=== PATIENT | female | born 1995 | race Caucasian/White ===

== ENCOUNTER 2024-06-17 18:41 | Inpatient (IN) | payer MEDICAID, SELFPAY ==
[2024-06-17 18:42] VITALS: BP 140/107; PULSE 104; RESP 18; TEMP 35.8; O2SAT 99; BMI 27.6
[2024-06-17 19:24] LABS: Absolute Lymphocyte Count 2.88 X10^3/uL (0.83-4.51); Absolute Neutrophil Count 8.1 X10^3/uL (2.0-7.7); Basophil# 0.07 X10^3/uL; Basophil% 0.6 % (0-1); Eosinophil# 0.03 X10^3/uL; Eosinophils% 0.2 % (0-5); Hemoglobin 15.8 g/dL (12.0-15.0); Lymphocyte # 2.88 X10^3/ul (0.83-4.51); Lymphocyte % 23.9 % (19-41); Mean Corp Hgb Conc 34.3 g/dL (32-36); Mean Corpuscular Hgb 33.4 pg (27.0-32.0); Mean Corpuscular Volume 97.3 fL (81-99); Mean Platelet Vol. 10.1 fl (6.2-12.0); Monocyte% 7.5 % (0-10); NRBC Flagged by Analyzer 0 % (0-5); Neutrophil # 8.11 X10^3/uL (2.7-7.7); Neutrophil % 67.5 % (47-70); Platelet Count 403 K/mm3 (150-450); RBC Distribution Width CV 13.2 % (11.6-14.6); RBC Distribution Width SD 47.4 fl (35.1-43.9); Red Blood Count 4.73 M/mm3 (4.2-5.4)
[2024-06-17 19:32] LABS: Internal QC Validated? YES +Cl - CLEAR BKGD; Pregnancy, Serum, hCG Quali. NEGATIVE Negative
[2024-06-17 19:36] LABS: Mucous, Urine 0 SEEN /hpf (<or=2+)
[2024-06-17 19:37] LABS: Color, Urine Yellow (Yellow); Glucose, Dipstick Normal (Normal); Ketone-Dipstick 50 mg/dl (Negative); Leukocyte Esterase-Dipstick 25 /ul (Negative); Nitrite-Dipstick Negative (Negative); Occult Blood-Urine 10 /ul (Negative); Protein-Dipstick 30 mg/dl (Negative); Urine Bilirubin Dipstick Negative (Negative); Urine Clarity Sl. Cloudy (Clear); Urine Urobilinogen 1 mg/dl (Normal)
[2024-06-17 19:40] LABS: Alcohol, Blood (Medical)-Serum < 3.0 mg/dL
[2024-06-17 19:41] VITALS: BP 143/94; PULSE 100; RESP 18; O2SAT 97
[2024-06-17 19:41] LABS: ALB/GLOB Ratio 1.1 RATIO (0.9-2.4); AST(SGOT) 28 U/L (15-37); Alanine Aminotransfer ALT/SGPT 31 U/L (13-56); Albumin, Serum 4.6 g/dL (3.2-5.0); Alkaline Phosphatase 85 U/L (45-117); Anion Gap 10 (5-15); BUN 17 mg/dL (7-18); BUN/Creat Ratio 15.7 RATIO (10-20); Calcium,Total 9.5 mg/dL (8.5-10.1); Chloride 102 mmol/L (98-107); Creatinine, Serum 1.08 mg/dL (0.55-1.02); EST Glomerular Filtration Rate 63 mL/min (>60); Est Glom Filt Rate - Afr Amer 77 mL/min (>60); Globulin 4.1 g/dL (2.2-4.2); Glucose 94 mg/dL (74-106); Potassium 3.6 mmol/L (3.5-5.1); Protein, Total 8.7 g/dL (6.4-8.2); Sodium Level 138 mmol/L (136-145)
[2024-06-17 19:45] LABS: Amphetamine Urine VISTA NEGATIVE (<1000 ng/mL); Barbiturate Urine VISTA NEGATIVE (< 200 ng/mL); Benzodiazepine Urine VISTA NEGATIVE (< 200 ng/mL); Cocaine Urine VISTA NEGATIVE (< 300 ng/mL); Ecstacy Urine VISTA NEGATIVE (< 500 ng/mL); Methadone Urine VISTA NEGATIVE (< 300 ng/mL); PCP Urine VISTA NEGATIVE (< 25 ng/mL); THC Urine VISTA NEGATIVE (< 50 ng/mL); Vista UDS pH Range 6
[2024-06-17 19:51] LABS: Lithium < 0.20 mmol/L (0.60-1.20)
[2024-06-17 19:52] VITALS: BP 143/94; PULSE 100; RESP 18; TEMP 36.6; O2SAT 97
--- NOTE | 2024-06-17 19:53 | PCM.HP.STD ---
HPI - General General Date of Admission: 06/17/24 Date of Service: 06/17/24 Chief Complaint: EtOH withdrawal, requesting detoxification program. HPI Narrative The patient is a 29 y/o F w/ PMHx: Anxiety and Depression/Bipolar disorder, EtOH abuse, Nicotine Vaping products with prior cigarette tobacco use remotely who presents to the [facility] ED on 06/17/2024 w/ noted acute EtOH withdrawal, onset starting on day of presentation following last EtOH intake the day prior at ~ 3 pm in the afternoon to current presentation with recommendation per 180 to present to the ED for evaluation with onset of nausea, mild tremors, mild restlessness/agitation. Patient interested in attaining sober status. She notes she most recently had been sober for at least 2 months. Patient is adopted and currently living with her adoptive parents. She does not have any connection with her biological parents but is aware of their medical history and they both have significant medical history in addition to history of polysubstance abuse and alcohol abuse. 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 She does report recent significant increase stress. Workup in the ED included T96.4, heart 114, BP 140/107, respiratory 18, 99% on room air, CBC with WBC 12, human 15.8, platelet 403 with left shift, CMP with BUN/creatinine 17/1.08, GFR 63, hepatic profile not marked appearing, serum testing negative, urinalysis pending upon request evaluation of patient, UDS negative, lithium level pending per ED, ethyl alcohol less than 3. [facility] Medical History Vaping nicotine dependence, tobacco product Anxiety and depression Alcohol abuse Bipolar disorder Home Medications ?Medication ?Instructions ?Recorded ?Last Taken ?Type aripiprazole 15 mg tablet 15 mg PO DAILY 06/17/24 Unknown History bupropion HCl 150 mg tablet,12 hr 150 mg PO BID 06/17/24 Unknown History sustained-release lithium carbonate 300 mg capsule 300 mg PO TID 06/17/24 Unknown History melatonin 10 mg capsule 10 mg PO QHS 06/17/24 Unknown History trazodone 50 mg tablet 50 mg PO QHS 06/17/24 Unknown History Allergy/AdvReac Type Severity Reaction Status Date / Time No Known Allergies Allergy Verified 06/17/24 18:42 Family History (Updated 06/17/24 @ 20:[address] Belén Pete MD) Mother CAD (coronary artery disease) Heart disease Hypertension Diabetes Polysubstance abuse Alcohol abuse Father CAD (coronary artery disease) Heart disease Hypertension Polysubstance abuse Alcohol abuse Surgical History (Updated 06/17/24 @ 20:[address] Belén Pete MD) S/P tympanic tube insertion History of adenoidectomy Social History (Updated 06/17/24 @ 20:[address] Belén Pete MD) household members: family and other details: Living with her adoptive parents. Smoking Status: Former smoker Electronic Cigarette Use: with nicotine how long ago did patient quit smoking: Quit cigarette tobacco usage 70 years prior, transition to heavy vaping. alcohol intake: current alcohol intake frequency: 3 or more drinks per day Alcohol type: wine and hard liquor details: 1-2 bottles wine daily versus 5-6 mixed hard drinks. substance use type: does not use ROS ROS Narrative Admission Review of Systems: CONSTITUTIONAL: No weight loss, fever, chills, + weakness or fatigue. HEENT: Eyes: No visual loss, blurred vision, double vision or yellow sclerae. Ears, Nose, Throat: No hearing loss, sneezing, congestion, runny nose or sore throat. SKIN: No rash or itching, lesions, wounds. CARDIOVASCULAR: No chest pain, chest pressure or chest discomfort, palpitations, edema, orthopnea, syncopal events. RESPIRATORY: No shortness of breath, cough or sputum, wheezing, hemoptysis. GASTROINTESTINAL: + Mild lack of appetite, nausea. No vomiting or diarrhea, abdominal pain, melena, BRBPR. GENITOURINARY: No dysuria, frequency, urgency or retention. NEUROLOGICAL: + Restlessness, tactile disturbances, mild tremors no headache, dizziness, syncope, paralysis, ataxia, numbness or tingling in the extremities, focal weakness, change in bowel or bladder control, seizure. MUSCULOSKELETAL: + muscle, back pain, joint pain or stiffness. HEMATOLOGIC: No anemia, bleeding or bruising. LYMPHATICS: No enlarged nodes. No history of splenectomy. PSYCHIATRIC: + History of anxiety and depression/bipolar disorder. ENDOCRINOLOGIC: No reports of sweating, cold or heat intolerance. No polyuria or polydipsia. ALLERGIES: No history of asthma, hives, eczema or rhinitis. Vital Signs Vital Signs Vital Signs: 06/17/24 18:42 06/17/24 19:41 06/17/24 19:52 Temperature 96.4 F L 97.9 F Temperature Source Temporal Pulse Rate 104 H 100 100 Respiratory Rate 18 18 18 Blood Pressure 140/107 H 143/94 H 143/94 H Blood Pressure Mean 118 110 110 Pulse Ox 99 97 97 Oxygen Delivery Method Room Air Room Air Weight Weight: 156 lb 4.8 oz Body Mass Index (BMI) 27.6 Physical Exam Narrative Physical Examination: General: Awake, alert, oriented x 3 and cooperative, seated upright in the ED bed, fatigued appearing, mildly restless, tremulous. Skin: Normal color, normal turgor, no icterus, no cyanosis except occasional stage ecchymoses HEENT: AT/NC, EOMI, PERRLA, dry MM, no carotid bruits or JVD noted. Lungs: CTA bilaterally, moderate effort, mild decrease BL bases, no rales, ronchi or wheezing. Heart: Mildly tachycardic with rhythm; no gallop, rub audible. Abdomen: Soft, NTTP, ND, mildly hyperactive BS, no appreciated HSM. Extremities: No cyanosis, clubbing, or edema. Neurological: Patient awake, alert, oriented as noted cognitive function intact; pupils equally reactive to light and accommodation, cranial nerves grossly normal, moving all 4 extremities, no focal deficits, strength mildly to moderately globally decreased secondary to acute withdrawal presentation, mildly restless, mild tremors noted. Psychiatric: Affect appears fatigued, mildly tearful during evaluation, does have underlying anxiety and depression/bipolar disorder and was recently off her medication. Results Lab / Micro Data 06/17/24 19:04 06/17/24 19:04 Labs: Laboratory Results - last 24 hr 06/17/24 19:04: WBC 12.0 H, RBC 4.73, Hgb 15.8 H, Hct 46.0, MCV 97.3, MCH 33.4 H, MCHC 34.3, RDW Std Deviation 47.4 H, RDW Coeff of [place] 13.2, Plt Count 403, MPV 10.1, Immature Gran % (Auto) 0.300, Neut % (Auto) 67.5, Lymph % (Auto) 23.9, [place] % (Auto) 7.5, Eos % (Auto) 0.2, Baso % (Auto) 0.6, Absolute Neuts (auto) 8.1 H, Absolute Lymphs (auto) 2.88, Nucleated RBC % 0, Sodium 138, Potassium 3.6, Chloride 102, Carbon Dioxide 27.0, Anion Gap 10, BUN 17, Creatinine 1.08 H, Estim Creat Clear Calc 71.90, Est GFR (MDRD) Af Amer 77, Est GFR (MDRD) Non-Af 63, BUN/Creatinine Ratio 15.7, Glucose 94, Calcium 9.5, Total Bilirubin 0.60, AST 28, ALT 31, Alkaline Phosphatase 85, Total Protein 8.7 H, Albumin 4.6, Globulin 4.1, Albumin/Globulin Ratio 1.1, Serum , Qual NEGATIVE, Urine Opiates Screen NEGATIVE, Urine Methadone Screen NEGATIVE, Ur Barbiturates Screen NEGATIVE, Ur Phencyclidine Scrn NEGATIVE, Ur Amphetamines Screen NEGATIVE, MDMA (Ecstasy) Screen NEGATIVE, U Benzodiazepines Scrn NEGATIVE, [place] < 0.20 L, Urine Cocaine Screen NEGATIVE, U Cannabinoids Screen NEGATIVE, Ur Drug Screen Comment , Ethyl Alcohol < 3.0 Assessment & Plan Assessment/Plan (1) Alcohol withdrawal: PLAN: Plan The patient is a 29 y/o F w/ PMHx: Anxiety and Depression/Bipolar disorder, EtOH abuse who presents to the [facility] ED on 06/17/2024 w/ noted acute EtOH withdrawal. #1. Acute EtOH Withdrawal: Will admit to [facility], routine labs obtained in the ED upon presentation as noted. Given interest in sobriety, will initiate and continue on protocol with taper course of Phenobarbital, as needed gabapentin, Catapres, Bentyl, Vistaril, IV fluids, IV antiemetics, Tylenol as needed for pain. Will consult Case management for assistance for transition to next level of rehabilitation care. Mag, phos pending. Maintain on CIWA protocol concurrently. #2. Mild leukocytosis with a left shift: CBC with WC 12 with left shift, afebrile, possibly dehydration related, will repeat CMP in the a.m. to be certain, urinalysis was obtained per ED but the patient has had no recent urinary symptoms of note. Suspected acute renal insufficiency/elevated creatinine with reduced GFR 63, potentially related with acute presentation with dehydration: Admission BUN/can 17/1.08, GFR 63, given age of 29 suspect this is likely more acute, will hydrate per substance abuse order set protocol and repeat CMP in a.m. to be certain. #3. Anxiety and depression/bipolar disorder: She notes she has been off her medications recently when she relapsed but has restarted them. [place] level pending per ED. Will continue recently resumed bupropion, aripiprazole and lithium regimen but will need follow-up with psychiatry/psychology with counseling as certainly coming off these medications could have sent her into a manic/depressive phase and resulted in drinking again. Given current presentation will temporally hold trazodone and utilize the higher dose regimen per substance abuse order set protocol. #4. Tobacco Abuse: Encouraged cessation, inpatient consultation per RT, NR if desired. #5. DVT prophylaxis: Low risk for type of presentation. Charges/Coding Visit Charges Inpatient E&M: 88551 Init Hosp L3
--- NOTE | 2024-06-17 19:55 | EX.ED.DYSGE1 ---
HPI History of Present Illness Chief Complaint: Substance Abuse Narrative Narrative: Patient is a 29-year-old female with a past medical history of anxiety, depression, bipolar disorder, alcohol abuse who presents to the emergency department the chief complaint of wanting alcohol detox. Patient states that she was sober for 2 months and recently relapsed. States that she drinks wine daily and states that she has had increased drinking the past week including a bottle of wine a day. She states that her last drink was yesterday around 3 PM in the afternoon. Patient states that she has never had a seizure after stopping drinking. Patient states that she has not been taking her medications for a significant mount time. Patient notes that she has been under a lot of stress lately. [facility] Medical History Vaping nicotine dependence, tobacco product Anxiety and depression Alcohol abuse Bipolar disorder Home Medications ?Medication ?Instructions ?Recorded ?Last Taken ?Type aripiprazole 15 mg tablet 15 mg PO DAILY 06/17/24 Unknown History bupropion HCl 150 mg tablet,12 hr 150 mg PO BID 06/17/24 Unknown History sustained-release lithium carbonate 300 mg capsule 300 mg PO TID 06/17/24 Unknown History melatonin 10 mg capsule 10 mg PO QHS 06/17/24 Unknown History trazodone 50 mg tablet 50 mg PO QHS 06/17/24 Unknown History Allergy/AdvReac Type Severity Reaction Status Date / Time No Known Allergies Allergy Verified 06/17/24 18:42 Social History Smoking Status: Current every day smoker tobacco type: e-cigarettes ROS ROS ED ROS Narrative Constitutional: Denies any fevers, chills, headaches, lightness, dizziness Cardiovascular: Denies chest pain or palpitations Respiratory: Denies shortness of breath Abdomen: Denies abdominal pain nausea vomit diarrhea : Denies any urinary symptoms Neurological: Denies any numbness, weakness, tingling Musculoskeletal: Denies back pain Skin: Denies rashes or lesions EXAM Physical Exam Narrative Exam Narrative: General: Patient lying in bed rest comfortably did not appear to be in acute distress Head: Atraumatic, normocephalic Eyes: PERRL bilaterally, EOMI bilateral, no conjunctival injection noted Neck: Soft, supple, trachea midline Cardiovascular: Regular rate and rhythm Respiratory: Clear to auscultation bilaterally Abdomen: Soft, nondistended, nontender to palpation Extremities: +5/5 strength noted in the bilateral upper and lower extremities Neurological: Patient follow commands knew that she was at [facility] year is 2024 Skin: Warm, dry, intact Const Vital Signs: 06/17/24 18:42 06/17/24 19:41 06/17/24 19:52 Temperature 96.4 F L 97.9 F Temperature Source Temporal Pulse Rate 104 H 100 100 Respiratory Rate 18 18 18 Blood Pressure 140/107 H 143/94 H 143/94 H Blood Pressure Mean 118 110 110 Pulse Ox 99 97 97 Oxygen Delivery Method Room Air Room Air MDM MDM MDM Narrative Medical decision making narrative: Patient is a 29-year-old female who presents to the emergency department the chief complaint of wanting alcohol detox. Patient be medically cleared and then case will be discussed with hospitalist for admission. Patient's CBC reviewed showed a white blood count of 12,000, hemoglobin 15.8, platelet count was noted to be normal at 403. Patient sodium normal at 138, potassium normal at 3.6, creatinine was 1.08. Patient's AST and ALT were 28 and 31 respectively. Patient test negative, drug screen negative, lithium was less than 0.20 alcohol level less than 3. Patient's urinalysis pending. Did discuss case with hospitalist Dr. Pete who accept patient for admission. Patient was notified is agreeable to plan all question concerns answered at bedside. Patient is requesting something for headache should be given a gram of Tylenol. Lab Data Labs: Laboratory Results - last 24 hr 06/17/24 19:04 WBC 12.0 H RBC 4.73 Hgb 15.8 H Hct 46.0 MCV 97.3 MCH 33.4 H MCHC 34.3 RDW Std Deviation 47.4 H RDW Coeff of [place] 13.2 Plt Count 403 MPV 10.1 Immature Gran % (Auto) 0.300 Neut % (Auto) 67.5 Lymph % (Auto) 23.9 [place] % (Auto) 7.5 Eos % (Auto) 0.2 Baso % (Auto) 0.6 Absolute Neuts (auto) 8.1 H Absolute Lymphs (auto) 2.88 Nucleated RBC % 0 Sodium 138 Potassium 3.6 Chloride 102 Carbon Dioxide 27.0 Anion Gap 10 BUN 17 Creatinine 1.08 H Estim Creat Clear Calc 71.90 Est GFR (MDRD) Af Amer 77 Est GFR (MDRD) Non-Af 63 BUN/Creatinine Ratio 15.7 Glucose 94 Calcium 9.5 Total Bilirubin 0.60 AST 28 ALT 31 Alkaline Phosphatase 85 Total Protein 8.7 H Albumin 4.6 Globulin 4.1 Albumin/Globulin Ratio 1.1 Serum , Qual NEGATIVE Urine Opiates Screen NEGATIVE Urine Methadone Screen NEGATIVE Ur Barbiturates Screen NEGATIVE Ur Phencyclidine Scrn NEGATIVE Ur Amphetamines Screen NEGATIVE MDMA (Ecstasy) Screen NEGATIVE U Benzodiazepines Scrn NEGATIVE [place] < 0.20 L Urine Cocaine Screen NEGATIVE U Cannabinoids Screen NEGATIVE Ur Drug Screen Comment Ethyl Alcohol < 3.0 Discharge Plan Triage Chief Complaint: Substance Abuse ED Provider: Kvng Sandoval Dx/Rx/DC Orders Clinical Impression: Alcohol abuse Prescriptions: No Action bupropion HCl 150 mg tablet sustained-release 12 hr 150 mg PO BID trazodone 50 mg tablet 50 mg PO QHS lithium carbonate 300 mg capsule 300 mg PO TID aripiprazole 15 mg tablet 15 mg PO DAILY melatonin 10 mg capsule 10 mg PO QHS Primary Care Provider: Care Physician,No Primary Referrals: Care Physician,No Primary [Primary Care Provider] - Print Language: Hebrew Disposition Disposition: Acute Care Hospital [facility]
[2024-06-17] MEDS: Acetaminophen 500 MG Tablet 1000 MG PO (19:56)
[2024-06-17 20:06] LABS: Squamous Epithelial Cells - UA 5-10 SEEN /hpf (5-10)
[2024-06-17 20:07] LABS: Bacteria 1+ /hpf (None Seen); Red Blood Cells-Urine 0-5 SEEN /hpf (0-5); White Blood Cells 0-5 SEEN /hpf (0-5)
[2024-06-17 20:27] LABS: Magnesium 1.9 mg/dL (1.6-2.6); Phosphorus 3.7 mg/dL (2.5-4.9)
[2024-06-17 20:53] VITALS: BMI 27.6
[2024-06-17 21:10] VITALS: BP 130/93; PULSE 88; RESP 16; TEMP 36.8; O2SAT 97
[2024-06-17] MEDS: Phenobarbital 32.4 MG Tablet PO (22:27)
[2024-06-17] MEDS: MELATONIN 10 MG TABLET PO (22:28)
[2024-06-17] MEDS: Lithium Carbonate 300mg Capsule 300 MG PO (22:28)
[2024-06-17] MEDS: buPROPion (SR) 150 MG Tablet.SA PO (22:29)
[2024-06-17] MEDS: 0.9% Saline Lock 10 ML Syringe IV (22:29)
[2024-06-17] MEDS: Lactated Ringers 1,000 ML 125 ML IV (22:29)
[2024-06-18] MEDS: Phenobarbital 32.4 MG Tablet PO ×6 (02:03→22:13)
[2024-06-18] MEDS: Lithium Carbonate 300mg Capsule 300 MG PO ×3 (05:57→22:14)
[2024-06-18] MEDS: hydrOXYzine PAM 25 MG Capsule 50 MG PO (05:59)
[2024-06-18 06:00] VITALS: BP 131/82; PULSE 71; RESP 16; TEMP 36.4; O2SAT 99
[2024-06-18 07:17] VITALS: O2SAT 95
--- NOTE | 2024-06-18 07:21 | PCM.PN.HOSP ---
Reason for Visit Reason for Visit: Diagnoses Alcohol use, unspecified with withdrawal, unspecified (06/17/24) Subjective Subjective Patient is a 29-year-old lady with history of alcohol dependence admitted with acute alcohol withdrawal Objective Data Objective Data Vital Signs: Vital Signs Temp Pulse Resp BP Pulse Ox O2 Del Method 97.6 F L 71 16 131/82 H 99 Room Air 06/18/24 06:00 06/18/24 06:00 06/18/24 06:00 06/18/24 06:00 06/18/24 06:00 06/18/24 06:00 Oxygen Delivery Method Room Air Weight: 70.76 kg Body Mass Index (BMI) 27.6 Intake & Output: Intake and Output for Last 24 Hours 06/16/24 06/17/24 06/18/24 23:59 23:59 23:59 Intake Total 1000 / 1000 Balance 1000 / 1000 Lab / Micro Data 06/17/24 19:04 06/17/24 19:04 Labs: Laboratory Results - last 24 hr 06/17/24 19:04: WBC 12.0 H, RBC 4.73, Hgb 15.8 H, Hct 46.0, MCV 97.3, MCH 33.4 H, MCHC 34.3, RDW Std Deviation 47.4 H, RDW Coeff of [place] 13.2, Plt Count 403, MPV 10.1, Immature Gran % (Auto) 0.300, Neut % (Auto) 67.5, Lymph % (Auto) 23.9, [place] % (Auto) 7.5, Eos % (Auto) 0.2, Baso % (Auto) 0.6, Absolute Neuts (auto) 8.1 H, Absolute Lymphs (auto) 2.88, Nucleated RBC % 0, Sodium 138, Potassium 3.6, Chloride 102, Carbon Dioxide 27.0, Anion Gap 10, BUN 17, Creatinine 1.08 H, Estim Creat Clear Calc 71.90, Est GFR (MDRD) Af Amer 77, Est GFR (MDRD) Non-Af 63, BUN/Creatinine Ratio 15.7, Glucose 94, Calcium 9.5, Phosphorus 3.7, Magnesium 1.9, Total Bilirubin 0.60, AST 28, ALT 31, Alkaline Phosphatase 85, Total Protein 8.7 H, Albumin 4.6, Globulin 4.1, Albumin/Globulin Ratio 1.1, Serum , Qual NEGATIVE, Urine Color Yellow, Urine Clarity Sl. Cloudy, Urine pH 6.0, Ur Specific [place] 1.020, Urine Protein 30 H, Urine Glucose (UA) Normal, Urine Ketones 50 H, Urine Occult Blood 10 H, Urine Nitrite Negative, Urine Bilirubin Negative, Urine Urobilinogen 1 H, Ur Leukocyte Esterase 25 H, Urine RBC 0-5 SEEN, Urine WBC 0-5 SEEN, Ur Squamous Epith Cells 5-10 SEEN, Urine Bacteria 1+, Urine Mucus 0 SEEN, Urine Opiates Screen NEGATIVE, Urine Methadone Screen NEGATIVE, Ur Barbiturates Screen NEGATIVE, Ur Phencyclidine Scrn NEGATIVE, Ur Amphetamines Screen NEGATIVE, MDMA (Ecstasy) Screen NEGATIVE, U Benzodiazepines Scrn NEGATIVE, [place] < 0.20 L, Urine Cocaine Screen NEGATIVE, U Cannabinoids Screen NEGATIVE, Ur Drug Screen Comment , Ethyl Alcohol < 3.0 Physical Exam Narrative GENERAL: cooperative HEENT: Atraumatic; normocephalic EYES; Anicteric, Normal Conjunctiva NECK; supple, normal thyroid, RESPIRATORY: Diminished to auscultation CARDIOVASCULAR: Regular S1 S2, GI: soft, normoactive bowel sounds, : No Renal angle tenderness; EXTREMITIES: No edema, no clubbing, MUSCULOSKELETAL: no muscle wasting NEURO: Awake; no lateralizing signs. SKIN: No Rash PSYCH; Flat affect Assessment & Plan Assessment/Plan (1) Alcohol withdrawal: PLAN: Plan Patient is a 29-year-old lady with history of alcohol dependence admitted with acute alcohol withdrawal 1. Acute alcohol withdrawal - Patient has been admitted for treatment with phenobarb taper in addition to adjuvant medications including gabapentin, Bentyl, hydroxyzine and clonidine as needed for alcohol withdrawal symptoms. Patient was also placed on thiamine and folic acid; Consultation placed to [facility] counseling services 2. Abnormal urinalysis ? Patient currently not having any symptoms we will continue to monitor 3. Leukocytosis ? Possibly reactive will monitor 4. Bipolar disorder ? Patient is on lithium and Abilify 5. Tobacco dependence ? Counseled on cessation, offered nicotine patch for tobacco cravings 6. DVT prophylaxis Low risk to encourage daily ambulate Time spent in the patient's overall evaluation,decision-making process, review of diagnostic data, adjustment of management, discussion with other providers, nursing nursing and ancillary staff involved in patient's care documentation, 36 minutes Charges/Coding Visit Charges Inpatient E&M: 26631 Subs Hosp L2
[2024-06-18] MEDS: Dicyclomine 10 MG Capsule 20 MG PO ×2 (07:58→22:18)
[2024-06-18] MEDS: Ondansetron 8 MG Tablet PO (07:58)
[2024-06-18 08:07] VITALS: BP 112/80; PULSE 59; RESP 18; TEMP 36.7; O2SAT 99
[2024-06-18] MEDS: Thiamine Hydrochloride 100 MG Tablet PO (08:53)
[2024-06-18] MEDS: Multivitamins,Ther W-Minerals Tablet 1 TABLET PO (08:53)
[2024-06-18] MEDS: Folic Acid 1 MG Tablet PO (08:53)
[2024-06-18] MEDS: buPROPion (SR) 150 MG Tablet.SA PO ×2 (08:53→22:14)
[2024-06-18] MEDS: ARIPiprazole 10 MG Tablet 15 MG PO (08:54)
[2024-06-18 16:00] VITALS: BP 124/74; PULSE 84; RESP 18; TEMP 36.9; O2SAT 99
[2024-06-18 22:00] VITALS: BP 108/71; PULSE 75; RESP 14; TEMP 36.5; O2SAT 98
[2024-06-18] MEDS: MELATONIN 10 MG TABLET PO (22:14)
[2024-06-18] MEDS: traZODone 100 MG Tablet PO (22:18)
[2024-06-18] MEDS: Ibuprofen 600 MG Tablet PO (22:18)
[2024-06-19] MEDS: Phenobarbital 32.4 MG Tablet PO ×6 (02:03→21:39)
[2024-06-19 06:00] VITALS: BP 110/72; PULSE 74; RESP 16; TEMP 36.6; O2SAT 98
[2024-06-19] MEDS: Lithium Carbonate 300mg Capsule 300 MG PO ×3 (06:11→21:40)
[2024-06-19 06:27] LABS: Absolute Lymphocyte Count 1.64 X10^3/uL (0.83-4.51); Absolute Neutrophil Count 1.8 X10^3/uL (2.0-7.7); Basophil# 0.03 X10^3/uL; Basophil% 0.7 % (0-1); Eosinophils% 2.4 % (0-5); Hematocrit 37.8 % (37-47); Hemoglobin 12.3 g/dL (12.0-15.0); Lymphocyte # 1.64 X10^3/ul (0.83-4.51); Lymphocyte % 39.3 % (19-41); Mean Corp Hgb Conc 32.5 g/dL (32-36); Mean Corpuscular Hgb 32.5 pg (27.0-32.0); Mean Corpuscular Volume 99.7 fL (81-99); Mean Platelet Vol. 10.4 fl (6.2-12.0); Monocyte# 0.57 X10^3/uL; Monocyte% 13.7 % (0-10); NRBC Flagged by Analyzer 0 % (0-5); Neutrophil # 1.82 X10^3/uL (2.7-7.7); Neutrophil % 43.7 % (47-70); Platelet Count 217 K/mm3 (150-450); RBC Distribution Width SD 47.6 fl (35.1-43.9); Red Blood Count 3.79 M/mm3 (4.2-5.4); White Blood Count 4.2 K/mm3 (4.4-11.0)
[2024-06-19 07:08] LABS: ALB/GLOB Ratio 1.1 RATIO (0.9-2.4); AST(SGOT) 10 U/L (15-37); Alanine Aminotransfer ALT/SGPT 22 U/L (13-56); Albumin, Serum 3.2 g/dL (3.2-5.0); Alkaline Phosphatase 63 U/L (45-117); Anion Gap 6 (5-15); BUN 10 mg/dL (7-18); BUN/Creat Ratio 9.6 RATIO (10-20); Calcium,Total 8.7 mg/dL (8.5-10.1); Chloride 107 mmol/L (98-107); Creatinine, Serum 1.04 mg/dL (0.55-1.02); EST Glomerular Filtration Rate 66 mL/min (>60); Est Glom Filt Rate - Afr Amer 80 mL/min (>60); Globulin 2.9 g/dL (2.2-4.2); Glucose 95 mg/dL (74-106); Phosphorus 3.6 mg/dL (2.5-4.9); Potassium 3.7 mmol/L (3.5-5.1); Protein, Total 6.1 g/dL (6.4-8.2); Sodium Level 138 mmol/L (136-145)
[2024-06-19] MEDS: Folic Acid 1 MG Tablet PO (08:05)
[2024-06-19] MEDS: ARIPiprazole 10 MG Tablet 15 MG PO (08:05)
[2024-06-19] MEDS: Multivitamins,Ther W-Minerals Tablet 1 TABLET PO (08:06)
[2024-06-19] MEDS: Thiamine Hydrochloride 100 MG Tablet PO (08:06)
[2024-06-19] MEDS: buPROPion (SR) 150 MG Tablet.SA PO ×2 (08:06→22:39)
[2024-06-19 09:52] VITALS: BP 110/71; PULSE 70; RESP 18; TEMP 36.4; O2SAT 98
--- NOTE | 2024-06-19 12:05 | ADDICTION ---
This typewriter assembler met with PT to conduct ASAM, MSE, AUDIT assessments and to plan for d/c. PT A+Ox4 and participated actively. All assessments completed. PT plans to f/u with [facility] for follow-up in patient treatment services on Wednesday. [facility] will transport to treatment.
[2024-06-19 14:00] VITALS: BP 116/68; PULSE 82; RESP 18; TEMP 36.7; O2SAT 99
--- NOTE | 2024-06-19 14:37 | PCM.PN.HOSP ---
Reason for Visit Reason for Visit: Diagnoses Alcohol use, unspecified with withdrawal, unspecified (06/17/24) Objective Data Objective Data Vital Signs: Vital Signs Temp Pulse Resp BP Pulse Ox O2 Del Method 98.1 F 82 18 116/68 99 Room Air 06/19/24 14:00 06/19/24 14:00 06/19/24 14:00 06/19/24 14:00 06/19/24 14:00 06/19/24 14:00 Oxygen Delivery Method Room Air Weight: 156 lb Body Mass Index (BMI) 27.6 Intake & Output: Intake and Output for Last 24 Hours 06/17/24 06/18/24 06/19/24 23:59 23:59 23:59 Intake Total 3000 / 3000 Balance 3000 / 3000 Lab / Micro Data 06/19/24 05:54 06/19/24 05:54 Labs: Laboratory Results - last 24 hr 06/19/24 05:54: WBC 4.2 L, RBC 3.79 L, Hgb 12.3, Hct 37.8, MCV 99.7 H, MCH 32.5 H, MCHC 32.5 D, RDW Std Deviation 47.6 H, RDW Coeff of [place] 13.0, Plt Count 217, MPV 10.4, Immature Gran % (Auto) 0.200, Neut % (Auto) 43.7 L, Lymph % (Auto) 39.3, [place] % (Auto) 13.7 H, Eos % (Auto) 2.4, Baso % (Auto) 0.7, Absolute Neuts (auto) 1.8 L, Absolute Lymphs (auto) 1.64, Nucleated RBC % 0, Sodium 138, Potassium 3.7, Chloride 107, Carbon Dioxide 25.0, Anion Gap 6, BUN 10, Creatinine 1.04 H, Estim Creat Clear Calc 74.60, Est GFR (MDRD) Af Amer 80, Est GFR (MDRD) Non-Af 66, BUN/Creatinine Ratio 9.6 L, Glucose 95, Calcium 8.7, Phosphorus 3.6, Magnesium 2.0, Total Bilirubin 0.40, AST 10 L, ALT 22, Alkaline Phosphatase 63, Total Protein 6.1 L, Albumin 3.2, Globulin 2.9, Albumin/Globulin Ratio 1.1 Physical Exam Narrative Seen and examined. Patient is admitted with acute alcohol withdrawal syndrome. She drinks 1 1 bottle of wine and then 5-6 shots of cocktail every day. Complain of mild aches and pain. Physical exam General: Drowsy and lethargic. Oriented x3, Cooperative HEENT: Atraumatic, PERRLA, EOMI, Normocephalic Oral: No Gingival or Mucosal Lesions/ Ulcerations Neck: Supple, No JVD, Negative Carotid Bruits Chest wall/Lungs: Air entry diminished in bilateral lung bases. No crepitation/rhonchi Cardiovascular: Regular rate, Regular Rhythm, Normal S1, Normal S2, No M/G/R Abdomen: Bowel Sounds Present, Soft, Non Tender, Non-Distended : No dysuria. No renal angle tenderness. No suprapubic tenderness. Extremities: No edema, Capillary Refill Less than 3 Seconds Skin: No rashes, No breakdown Musculoskeletal: No Tenderness to Palpation of Joints or Extremities Neurological: Cranial nerves II-XII grossly intact, DTR 2+/4. No acute focal neurological deficit. Psych/Mental Status: Flat affect Assessment & Plan Assessment/Plan (1) Alcohol withdrawal: PLAN: Plan Patient is a 29-year-old lady with history of alcohol dependence admitted with acute alcohol withdrawal 1. Acute alcohol withdrawal syndrome with history of chronic alcohol use, dependence and tolerance: - Patient has been admitted for treatment with phenobarb taper in addition to adjuvant medications including gabapentin, Bentyl, hydroxyzine and clonidine as needed for alcohol withdrawal symptoms. Patient was also placed on thiamine and folic acid; Consultation placed to [facility] counseling services 06/19: Discussed with the telephonic case manager and 180 staff, Merlin. Plan for discharge to inpatient alcohol rehab program. 2. Abnormal urinalysis ? Patient currently not having any symptoms. 06/19 denies burning micturition. UTI ruled out. 3. Leukocytosis ? Possibly reactive will monitor 4. Bipolar disorder ? Patient is on lithium and Abilify 5. Tobacco dependence ? Counseled on cessation, offered nicotine patch for tobacco cravings 6. DVT prophylaxis Low risk to encourage daily ambulate T Charges/Coding Visit Charges Inpatient E&M: 42613 Subs Hosp L2
--- NOTE | 2024-06-19 16:51 | CASEMGMT ---
Social Work- SW met with pt to conduct SDOH. SW introduced self, role, and purpose of meeting. Pt agreeable to meet. Pt apologetic for not being talkative when [facility] coordinator was present, stating that she had just had medication. Pt tearful when talking about her parents asking her to find alternate housing. Pt asked if mother had called in and granted permission to provide updates if she does. Pt reports that she worked for [employer] and had good jobs previously, but was unable to give her current employer warning when she came in for detox d/t how sudden it happened, according to pt. Pt reports she has two children including a 7 month old child. Pt reports that she is very motivated to complete program and maintain sobriety. Pt reports that she had scheduled an appointment with an outpatient counselor in [place], but did not have any long-standing mental health or substance use counselors. Pt declines any community resources at this time, as she plans to go inpatient rehab and is uncertain what she will need or not need at discharge. Pt is hoping to graduate to sober living and be able to be reunited with her 2 kids and begin working again. SW remains available to follow for any discharge needs. LUIS Krishnan
[2024-06-19] MEDS: traZODone 100 MG Tablet PO (21:39)
[2024-06-19] MEDS: MELATONIN 10 MG TABLET PO (21:40)
[2024-06-19 22:35] VITALS: BP 108/61; PULSE 79; RESP 14; TEMP 36.7; O2SAT 99
[2024-06-20] MEDS: Phenobarbital 32.4 MG Tablet PO ×5 (01:30→22:19)
[2024-06-20] MEDS: Lithium Carbonate 300mg Capsule 300 MG PO ×3 (05:44→22:19)
[2024-06-20 05:46] VITALS: BP 109/70; PULSE 68; RESP 14; TEMP 36.6; O2SAT 98
[2024-06-20 08:51] VITALS: BP 101/64; PULSE 71; RESP 18; TEMP 36.6; O2SAT 98
[2024-06-20] MEDS: Folic Acid 1 MG Tablet PO (08:54)
[2024-06-20] MEDS: Multivitamins,Ther W-Minerals Tablet 1 TABLET PO (08:54)
[2024-06-20] MEDS: Thiamine Hydrochloride 100 MG Tablet PO (08:54)
[2024-06-20] MEDS: ARIPiprazole 10 MG Tablet 15 MG PO (08:54)
[2024-06-20] MEDS: buPROPion (SR) 150 MG Tablet.SA PO ×2 (08:55→22:19)
[2024-06-20 11:10] VITALS: O2SAT 100
--- NOTE | 2024-06-20 11:54 | PN.HOSP_ITS ---
Reason for Visit Reason for Visit: Diagnoses Alcohol use, unspecified with withdrawal, unspecified (06/17/24) Objective Data Objective Data Vital Signs: Vital Signs Temp Pulse Resp BP Pulse Ox O2 Del Method 97.8 F 71 18 101/64 100 Room Air 06/20/24 08:51 06/20/24 08:51 06/20/24 08:51 06/20/24 08:51 06/20/24 11:10 06/20/24 11:10 Oxygen Delivery Method Room Air Weight: 156 lb Body Mass Index (BMI) 27.6 Intake & Output: Intake and Output for Last 24 Hours 06/18/24 06/19/24 06/20/24 23:59 23:59 23:59 Intake Total 3000 / 3000 Balance 3000 / 3000 Lab / Micro Data 06/19/24 05:54 06/19/24 05:54 Social Homelessness:: Sheltered Physical Exam Narrative Seen and examined. Withdrawal symptoms are much improved. She is awake and alert. Patient is admitted with acute alcohol withdrawal syndrome. She drinks 1 bottle of wine and then 5-6 shots of cocktail every day. Complain of mild aches and pain. Physical exam General: Awake and alert, talking coherent. Oriented x3, Cooperative HEENT: Atraumatic, PERRLA, EOMI, Normocephalic Oral: No Gingival or Mucosal Lesions/ Ulcerations Neck: Supple, No JVD, Negative Carotid Bruits Chest wall/Lungs: Air entry diminished in bilateral lung bases. No crepitation/rhonchi Cardiovascular: Regular rate, Regular Rhythm, Normal S1, Normal S2, No M/G/R Abdomen: Bowel Sounds Present, Soft, Non Tender, Non-Distended : No dysuria. No renal angle tenderness. No suprapubic tenderness. Extremities: No edema, Capillary Refill Less than 3 Seconds Skin: No rashes, No breakdown Musculoskeletal: No Tenderness to Palpation of Joints or Extremities Neurological: Cranial nerves II-XII grossly intact, DTR 2+/4. No acute focal neurological deficit. Psych/Mental Status: Normal affect. Assessment & Plan Assessment/Plan (1) Alcohol withdrawal: PLAN: Plan Patient is a 29-year-old lady with history of alcohol dependence admitted with acute alcohol withdrawal 1. Acute alcohol withdrawal syndrome with history of chronic alcohol use, dependence and tolerance: - Patient has been admitted for treatment with phenobarb taper in addition to adjuvant medications including gabapentin, Bentyl, hydroxyzine and clonidine as needed for alcohol withdrawal symptoms. Patient was also placed on thiamine and folic acid; Consultation placed to [facility] counseling services 06/19: Discussed with the case resource manager and [facility] staff, Merlin. Plan for discharge to inpatient alcohol rehab program. 06/20: Discussed with the Merlin. Plan for inpatient rehab tomorrow therefore no discharge today. She is doing good. 2. Abnormal urinalysis ? Patient currently not having any symptoms. 06/19 denies burning micturition. UTI ruled out. 3. Leukocytosis ? Possibly reactive will monitor 4. Bipolar disorder ? Patient is on lithium and Abilify 5. Tobacco dependence ? Counseled on cessation, offered nicotine patch for tobacco cravings 6. DVT prophylaxis Low risk to encourage daily ambulate T. Charges/Coding Visit Charges Inpatient E&M: 32846 Subs Hosp L2
[2024-06-20 14:08] VITALS: BP 103/54; PULSE 68; RESP 16; TEMP 36.8; O2SAT 100
[2024-06-20 22:16] VITALS: BP 103/69; PULSE 61; RESP 12; TEMP 36.4; O2SAT 99
[2024-06-20] MEDS: MELATONIN 10 MG TABLET PO (22:19)
[2024-06-21 05:23] VITALS: BP 93/55; PULSE 60; RESP 14; TEMP 36.6; O2SAT 99
[2024-06-21] MEDS: Phenobarbital 32.4 MG Tablet PO (05:26)
[2024-06-21] MEDS: Lithium Carbonate 300mg Capsule 300 MG PO (05:26)
[2024-06-21 08:05] VITALS: BP 94/59; PULSE 63; RESP 16; TEMP 36.9; O2SAT 97
[2024-06-21] MEDS: Thiamine Hydrochloride 100 MG Tablet PO (08:06)
[2024-06-21] MEDS: Folic Acid 1 MG Tablet PO (08:06)
[2024-06-21] MEDS: ARIPiprazole 10 MG Tablet 15 MG PO (08:06)
[2024-06-21] MEDS: Multivitamins,Ther W-Minerals Tablet 1 TABLET PO (08:06)
[2024-06-21] MEDS: buPROPion (SR) 150 MG Tablet.SA PO (08:06)
[2024-06-21 10:06] VITALS: O2SAT 97
--- NOTE | 2024-06-21 10:31 | DCINST_ITS ---
Discharge Instructions Diet Discharge Diet: No restrictions DC O2, CPAP, BIPAP needs Home O2 Discharge instructions: No Dressing / Incision Discharge Activity: Return to Normal Activity Weight Bearing Status: Weight bearing as tolerated Dressing / Incision Call your doctor if you observe: Fever of 101 or Higher, Coldness, Increased Pain, Numbness or Tingling, Change in Color, Inability to urinate, Inability to have a bowel movement, Shortness of breath, Dizziness, Fainting spells, Swelling in the ankles, Chest pain, Prolonged hiccupping, Increased palpitations (irregular heartbeat) and Calf discomfort Follow Up Care When: IN 2 WEEKS Test Results: Test results from this visit will be discussed in further detail at your follow- up appointment, if applicable. Discharge Plan Admission Admit Date/Time: 06/17/24 19:53 Attending Provider: Tk Mendoza Primary Care Provider: Yanelis Ocasio,Fadumo Primary Consulting Providers: Belén Pete David Discharge Orders/Prescriptions Prescriptions: Continued bupropion HCl 150 mg tablet sustained-release 12 hr 150 mg PO BID trazodone 50 mg tablet 50 mg PO QHS lithium carbonate 300 mg capsule 300 mg PO TID aripiprazole 15 mg tablet 15 mg PO DAILY melatonin 10 mg capsule 10 mg PO QHS Referrals / Follow Up: Care Physician,No Primary [Primary Care Provider] - Disposition Disposition (needs filled in before D/C Order can be placed): DC/Tx to Another Type of HCF
--- NOTE | 2024-06-21 10:33 | DS.PCM_ITS ---
Providers Date of Admission: 06/17/24 Date of Discharge: 06/21/24 Primary Care Physician: No Primary Care Phys Reason For Visit: ETOH WITHDRAWAL Diagnosis Discharge Diagnosis (1) Alcohol withdrawal: Status: Acute Code(s): F10.939 - Alcohol use, unspecified with withdrawal, unspecified Plan Patient is a 29-year-old lady with history of alcohol dependence admitted with acute alcohol withdrawal 1. Acute alcohol withdrawal syndrome with history of chronic alcohol use, dependence and tolerance: - Patient has been admitted for treatment with phenobarb taper in addition to adjuvant medications including gabapentin, Bentyl, hydroxyzine and clonidine as needed for alcohol withdrawal symptoms. Patient was also placed on thiamine and folic acid; Consultation placed to [facility] counseling services 06/19: Discussed with the supportive employment case manager and [facility] staff, Merlin. Plan for discharge to inpatient alcohol rehab program. 06/20: Discussed with the Merlin. Plan for inpatient rehab tomorrow therefore no discharge today. She is doing good. 06/21: Patient is doing well. Discharged to inpatient substance use rehab. 2. Abnormal urinalysis ? Patient currently not having any symptoms. 06/19 denies burning micturition. UTI ruled out. 3. Leukocytosis ? Possibly reactive will monitor 4. Bipolar disorder ? Patient is on lithium and Abilify 5. Tobacco dependence ? Counseled on cessation, offered nicotine patch for tobacco cravings 6. DVT prophylaxis Low risk to encourage daily ambulate Discharge medication reconciliation done. Discharge follow-up instructions completed. Discharge process discussed with the patient and all questions were answered to patient's satisfaction. Follow with PCP in 1 to 2 weeks Total time spent, exact 35 minutes on discharge meds reconciliation, examination, coordination of care with nurses and ancillary staff, review of imaging and blood test and discussion with the patient on follow-up instructions. Medications at Discharge Home Medications aripiprazole 15 mg tablet 15 mg PO DAILY 06/17/24 bupropion HCl 150 mg tablet,12 hr sustained-release 150 mg PO BID 06/17/24 lithium carbonate 300 mg capsule 300 mg PO TID 06/17/24 melatonin 10 mg capsule 10 mg PO QHS 06/17/24 trazodone 50 mg tablet 50 mg PO QHS 06/17/24 Physical Exam Narrative Seen and examined. Withdrawal symptoms have resolved. She is awake and alert. Patient was admitted with acute alcohol withdrawal syndrome. She drinks 1 bottle of wine and then 5-6 shots of cocktail every day. Complain of mild aches and pain. Physical exam General: Awake and alert, talking coherent. Oriented x3, Cooperative HEENT: Atraumatic, PERRLA, EOMI, Normocephalic Oral: No Gingival or Mucosal Lesions/ Ulcerations Neck: Supple, No JVD, Negative Carotid Bruits Chest wall/Lungs: Air entry diminished in bilateral lung bases. No crepitation/rhonchi Cardiovascular: Regular rate, Regular Rhythm, Normal S1, Normal S2, No M/G/R Abdomen: Bowel Sounds Present, Soft, Non Tender, Non-Distended : No dysuria. No renal angle tenderness. No suprapubic tenderness. Extremities: No edema, Capillary Refill Less than 3 Seconds Skin: No rashes, No breakdown Musculoskeletal: No Tenderness to Palpation of Joints or Extremities Neurological: Cranial nerves II-XII grossly intact, DTR 2+/4. No acute focal neurological deficit. Psych/Mental Status: Normal affect. Medical Records Data Homelessness:: Sheltered Weight / BMI Weight Weight: 156 lb Body Mass Index (BMI) 27.6 ABG / Lab / Microbiology Data 06/19/24 05:54 06/19/24 05:54 D/C Instructions Discharge Diet: No restrictions Weight Bearing Status: Weight bearing as tolerated Call your doctor if you observe: Fever of 101 or Higher, Coldness, Increased Pain, Numbness or Tingling, Change in Color, Inability to urinate, Inability to have a bowel movement, Shortness of breath, Dizziness, Fainting spells, Swelling in the ankles, Chest pain, Prolonged hiccupping, Increased palpitations (irregular heartbeat) and Calf discomfort DC O2, CPAP, BIPAP Needs Home O2 Discharge instructions: No When: IN 2 WEEKS Meaningful Use Info Meaningful Use Meaningful Use Diagnoses (Choose all that apply): None applicable Ischemic Stroke Statin Dosing Therapy Reference: STATIN DOSE THERAPY REFERENCE: * Patients > 75 years receive moderate or high dose statin therapy. * Patients 75 years or YOUNGER should receive HIGH intensity statin dose unless contraindicated. You will be required to document reason for non-treatment if statin daily dose does not meet guidelines. HIGH DOSE STATIN THERAPY DAILY Atorvastatin > than or = to 40 mg Rosuvastatin > than or = to 20 mg Amlodipine + Atorvastatin > than or = to 2.5/40 mg Ezetimibe + Simvastatin 10/80 mg Simvastatin 80mg Discharge Plan Admission Admit Date/Time: 06/17/24 19:53 Attending Provider: Tk Mendoza Primary Care Provider: Care Physician,No Primary Consulting Providers: Belén Pete; Ke Avila Discharge Orders/Prescriptions Prescriptions: Continued bupropion HCl 150 mg tablet sustained-release 12 hr 150 mg PO BID trazodone 50 mg tablet 50 mg PO QHS lithium carbonate 300 mg capsule 300 mg PO TID aripiprazole 15 mg tablet 15 mg PO DAILY melatonin 10 mg capsule 10 mg PO QHS Referrals / Follow Up: Care Physician,No Primary [Primary Care Provider] - Disposition Disposition (needs filled in before D/C Order can be placed): DC/Tx to Another Type of HCF Charges/Coding Visit Charges Inpatient E&M: 14866 Disch Hosp >30min
== END 2024-06-21 11:25 | disposition other institution (70) | DRG 775 ==
LOC: ED 19:59 → MS3 20:16
PROVIDERS: Internal Medicine; Admitting Provider Family Medicine; Emergency Provider Emergency Medicine; Visit Provider Internal Medicine
DX: F10.239 Alcohol dependence with withdrawal, unspecified (principal); F31.9 Bipolar disorder, unspecified; D72.828 Other elevated white blood cell count; F17.200 Nicotine dependence, unspecified, uncomplicated; F41.9 Anxiety disorder, unspecified; Y90.0 Blood alcohol level of less than 20 mg/100 ml; R82.90 Unspecified abnormal findings in urine
CPT/HCPCS: 36415; 80053; 80178; 80307; 81001; 82077; 83735; 84100; 84703; 85025; 99283; A4216

== ENCOUNTER 2025-04-30 13:12 | Emergency (ER) | payer MEDICAID, SELFPAY ==
[2025-04-30] VITALS (8 sets, daily range): BP systolic 108–154; BP diastolic 67–118; PULSE 70–122; RESP 14–18; TEMP 36.6–37.1; O2SAT 98–99; BMI 25.7
--- NOTE | 2025-04-30 13:48 | EDS_ITS ---
HPI History of Present Illness Chief Complaint: Substance Abuse Informant: patient and spouse/S.O. Narrative Narrative: Patient is a 30-year-old female with a history of alcohol use disorder, presenting for detoxification. - Consumes approximately 1.5 liters of wine daily, sometimes supplemented with BuzzBalls. - Last alcohol intake was last night. - Reports current withdrawal symptoms, including feeling hot and shaky, with episodes of dry heaving. - Denies eating today; minimal intake yesterday. - Typically experiences morning tremors until alcohol consumption. - Denies recent illnesses such as colds or diarrhea. - Denies other substance use. - Denies any known health problems or prescription medication use. - Currently , approximately 9-10 weeks gestation; this is her second . Missed a scheduled appointment with [facility] today due to feeling unwell. Already has had an ultrasound showing IUP. [facility] Medical History Hypertension Vaping nicotine dependence, tobacco product Anxiety and depression Alcohol withdrawal Alcohol abuse Bipolar disorder Home Medications ?Medication ?Instructions ?Recorded ?Last Taken ?Type acetaminophen 500 mg capsule 1,000 mg PO Q6H PRN fever or pain 04/30/25 04/30/25 History Allergy/AdvReac Type Severity Reaction Status Date / Time No Known Allergies Allergy Verified 04/30/25 13:16 Family History (Updated 06/17/24 @ 20:[address] Belén Pete MD) Mother CAD (coronary artery disease) Heart disease Hypertension Diabetes Polysubstance abuse Alcohol abuse Father CAD (coronary artery disease) Heart disease Hypertension Polysubstance abuse Alcohol abuse Surgical History S/P tympanic tube insertion History of adenoidectomy Social History household members: family and other details: Living with her adoptive parents. Smoking Status: Current every day smoker tobacco type: e-cigarettes Electronic Cigarette Use: with nicotine how long ago did patient quit smoking: Quit cigarette tobacco usage 70 years prior, transition to heavy vaping. alcohol intake: current alcohol intake frequency: 3 or more drinks per day Alcohol type: wine and hard liquor details: 1-2 bottles wine daily versus 5-6 mixed hard drinks. substance use type: does not use ROS ROS ED Constitutional Constitutional ED: Reports malaise; Denies chills or fever(s) Eyes Eyes: Denies change in vision or diplopia ENT ENT ED: Denies rhinorrhea or sore throat Cardiovascular Cardiovascular: Denies chest pain or palpitations Respiratory/Chest Respiratory/Chest: Denies cough or dyspnea Gastrointestinal Gastrointestinal: Reports nausea and vomiting; Denies abdominal pain or diarrhea Genitourinary Genitourinary ED: Denies dysuria or hematuria Musculoskeletal Musculoskeletal: Denies back pain or neck pain Integumentary Denies abscess or rash Neurologic Neurologic: Denies headache(s), paresthesias or weakness Psychiatric Psychiatric: Reports anxiety; Denies suicidal thoughts EXAM Physical Exam Const Vital Signs: 04/30/25 13:13 04/30/25 14:03 04/30/25 14:13 Temperature 98.7 F 98 F Temperature Source Oral Pulse Rate 122 H 110 H 89 Respiratory Rate 16 18 16 Blood Pressure 154/118 H 128/84 H 119/78 Blood Pressure Mean 130 98 91 Pulse Ox 99 99 99 Oxygen Delivery Method Room Air 04/30/25 15:00 04/30/25 16:54 Temperature Temperature Source Pulse Rate 94 104 H Respiratory Rate 14 14 Blood Pressure 122/74 H 139/93 H Blood Pressure Mean 90 108 Pulse Ox 99 99 Oxygen Delivery Method Room Air Room Air Positive well nourished and well developed General Appearance ED: well developed and NAD HEENT Reports moist mucous membranes normocephalic and atraumatic Eyes PERRL and EOMs intact bilaterally Neck full ROM and supple Resp normal respiratory effort and clear to auscultation bilaterally Cardio regular rate, regular rhythm and no murmurs Rate: tachycardic GI non-tender and non-distended Auscultation: normoactive bowel sounds Palpation: soft Back/Spine no CVA tenderness General Back: other FROM Extremity normal to inspection General Extremety ED: Negative for edema, pulses abnormal or tenderness General Extremity: Negative for edema or pulses abnormal Neuro oriented x3, CN's II-XII intact bilaterally and no sensory deficits noted Sensorium / Orientation: awake and alert Motor Exam: strength 5/5 throughout Psych mental status grossly normal and thought process normal Psych Narrative: A little tremulous Skin no rashes or lesions noted and no wounds MDM MDM MDM Narrative Medical decision making narrative: Screening toxicology labs are negative, except for THC, and her alcohol level is 0. Mild leukocytosis is noted, which may be related to . I spoke with Dr. Watt at [facility], and after discussion, we agreed that giving the patient a dose of Ativan was likely a lower risk than giving phenobarbital at this time. Although there is some documented risk with Ativan in , Dr. Watt felt it was still lower than the risk posed by phenobarbital or the patient?s previous heavy alcohol use. We both agreed that the benefits outweigh the risks. A bedside ultrasound performed by myself shows a single live intrauterine with a crown-rump length consistent with 9 weeks and 3 days, and heart tones of about 180. There is good movement. The patient is feeling much better, and her tachycardia resolved, with her heart rate decreasing into the 90s after receiving Ativan, Zofran, and IV fluids. I discussed with the hospitalist the plan for admission for detox and further care. However, a pr ogram for detox here is noncertified for females and therefore the patient will need to be transferred to a facility that has the capacity to admit this patient. I discussed with social work get involved to help look for a place that accepts these patients and that is acceptable for the patient. Clinically she is doing very well right now and feels better. Lab Data Attestation: I reviewed the patient's lab results. Labs: Laboratory Results - last 24 hr 04/30/25 04/30/25 13:45 13:50 WBC 15.4 H RBC 3.94 L Hgb 13.5 Hct 38.5 MCV 97.7 MCH 34.3 H MCHC 35.1 RDW Std Deviation 47.8 H RDW Coeff of Gilbert 13.2 Plt Count 383 MPV 9.4 Immature Gran % (Auto) 0.500 Neut % (Auto) 85.2 H Lymph % (Auto) 7.3 L Howard % (Auto) 6.3 Eos % (Auto) 0.2 Baso % (Auto) 0.5 Absolute Neuts (auto) 13.1 H Absolute Lymphs (auto) 1.12 Nucleated RBC % 0 PT 13.8 INR 1.0 Sodium 134 Potassium 3.8 Chloride 98 Carbon Dioxide 19.6 L Anion Gap 17 H BUN 11 Creatinine 0.77 Estim Creat Clear Calc 96.51 Est GFR (MDRD) Non-Af 105 BUN/Creatinine Ratio 14.0 Glucose 124 H Calcium 9.4 Total Bilirubin 1.29 AST 27 ALT 13 Alkaline Phosphatase 43 Total Protein 7.7 Albumin 4.6 Globulin 3.1 Albumin/Globulin Ratio 1.5 Urine Opiates Screen NEGATIVE U Buprenorphine Qual NEGATIVE Ur Oxycodone Screen NEGATIVE Urine Methadone Screen NEGATIVE Urine Fentanyl Screen NEGATIVE Ur Barbiturates Screen NEGATIVE Ur Phencyclidine Scrn NEGATIVE Ur Amphetamines Screen NEGATIVE U Benzodiazepines Scrn NEGATIVE Urine Cocaine Screen NEGATIVE U Cannabinoids Screen PRESUMPTIVE POSITIVE Ethyl Alcohol < 10.1 Rhythm Strip Rhythm Strip: Sinus Tach Rate: 120 Ectopy: None Management Discussion w/another healthcare provider: Hospitalist, Investigator Utility Bill Complaints (Dr. Watt [employer] MECH[employer]IC -supports giving Ativan now rather than phenobarbital, benefit to pt outweighs low but defined risk to baby) and call worker person/Case management Discharge Plan Triage Chief Complaint: Substance Abuse ED Provider: Lew Pate Dx/Rx/DC Orders Clinical Impression: Uncomplicated alcohol withdrawal, Alcohol dependence, Alcohol dependence during Prescriptions: No Action acetaminophen 500 mg capsule 1,000 mg PO Q6H PRN (Reason: fever or pain) Primary Care Provider: Care Physician,No Primary Referrals: Care Physician,No Primary [Primary Care Provider, Medical] Print Language: Kenyan Disposition Disposition: Acute Care Hospital
[2025-04-30] MEDS: 0.9% Normal Saline (1000mL) 1,000 ML 999 ML IV (14:00)
[2025-04-30 14:03] LABS: Hematocrit 38.5 % (37-47); Hemoglobin 13.5 g/dL (12.0-15.0); Immature Granulocytes Count 0.080 X10^3/uL (0.0-0.0); Mean Corp Hgb Conc 35.1 g/dL (32-36); Mean Corpuscular Volume 97.7 fL (81-99); Mean Platelet Vol. 9.4 fl (6.2-12.0); NRBC Flagged by Analyzer 0 % (0-5); Platelet Count 383 K/mm3 (150-450); RBC Distribution Width CV 13.2 % (11.6-14.6); RBC Distribution Width SD 47.8 fl (35.1-43.9); Red Blood Count 3.94 M/mm3 (4.2-5.4); White Blood Count 15.4 K/mm3 (4.4-11.0)
[2025-04-30 14:11] LABS: Prothrombin Time (Protime)PT. 13.8 SECONDS (11.7-14.9)
[2025-04-30 14:38] LABS: Alcohol, Blood (Medical)-Serum < 10.1 mg/dL (<=10.0)
[2025-04-30 14:40] LABS: AST(SGOT) 27 U/L (<=31); Alanine Aminotransfer ALT/SGPT 13 U/L (<=34); Albumin, Serum 4.6 g/dL (3.5-5.0); Alkaline Phosphatase 43 U/L (35-104); Anion Gap 17 (5-15); BUN 11 mg/dL (4-19); BUN/Creat Ratio 14.0 RATIO (10-20); Calcium,Total 9.4 mg/dL (7.6-11.0); Carbon Dioxide 19.6 mmol/L (21.0-32.0); Chloride 98 mmol/L (98-108); Estimated Creatinine Clearance 96.51 ml/min (50-250); Globulin 3.1 g/dL (2.2-4.2); Glucose 124 mg/dL (70-99); Potassium 3.8 mmol/L (3.3-5.1)
[2025-04-30 14:47] LABS: Barbiturate Urine NEGATIVE (< 200 ng/mL); Benzodiazepine Urine NEGATIVE (< 200 ng/mL); PCP Urine NEGATIVE (< 25 ng/mL); THC Urine PRESUMPTIVE POSITIVE (< 50 ng/mL)
--- NOTE | 2025-04-30 18:09 | ED.RN ---
This RN called to pt's room, she is requesting to speak to older adult social work specialist. She has removed her gown and monitor, wearing street clothes. Pt asks if she can leave, states she will not got to an inpatient rehab facility that is far away. This RN educated pt on risks of leaving and attempting to detox at home, also the risks of continuing to consume alcohol. Pt agrees to wait and speak to forensic social worker. ground worker aware pt is requesting to speak to her.
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
--- NOTE | 2025-04-30 18:32 | ED.RN ---
182: PT REQUESTING TO LEAVE AMA. PROVIDER NOTIFIED AT THIS TIME AND SOCIAL WORK. PT. STATES I AM NOT GOING TO [facility] AND I AM NOT GOING FAR FROM HOME. PT. INFORMED OF ADDITIONAL OPTION AND DECLINED AT THIS TIME.
--- OUTSIDE RECORDS SUMMARY | 2025-04-30 18:45 | XMS RPT_ITS | CCD ---
Author Organization [facility] Care Team Providers Care Supervisor Molding Name Role Phone Unavailable Primary Care Provider UnavailLo Saleh DO Primary Care Provider [phone] LO ROSARIO Primary Care Unavailable oL Rosario MD Primary Care Provider [phone] CARRI RIVAS Attending Unavailable FADUMO, LO Benavidez Primary Care Unavailable CARRI RIVAS Attending Unavailable LO ROSARIO Primary Care Unavailable Lo Rosario MD Primary Care Provider HAILEE LANDEROS Attending Unavailable ESTERLE, LO M Primary Care Unavailable ESTERLE, LO M Primary Care Unavailable ABRAN MALONEY Referring Unavailable VIOLETA SANDOVAL Referring Unavailable ADERILISAEEUFEMIAI Attending Unavailable ESTERLE, LO M Primary Care Unavailable ADERIBIGBE, INOCENCIOUYEMI Referring Unavailable ESTERLE, LO M Primary Care Unavailable VIOLETA SANDOVAL Referring Unavailable ESTERLE, LO M Primary Care Unavailable LESLEE LANDRY Referring Unavailable ESTERLE, LO M Primary Care Unavailable LESLEE LANDRY Attending Unavailable LESLEE LANDRY Referring Unavailable ESTERLE, LO M Primary Care Unavailable LUIS FELIPE FLORES Referring Unavailable ESTERLE, LO M Primary Care Unavailable LESLEE LANDRY Attending Unavailable LESLEE LANDRY Referring Unavailable ESTERLE, LO M Primary Care Unavailable ESTERLE, LO M Primary Care Unavailable HAILEE LANDEROS Referring Unavailable ESTERLE, LO M Primary Care Unavailable LESLEE LANDRY Referring Unavailable ESTERLE, LO M Primary Care Unavailable SELF Referring Unavailable LUIS PRATT Attending Unavailable PRATT, LUIS Referring Unavailable ESTERLE, LO M Primary Care Unavailable PRATT, LUIS Referring Unavailable ESTERLE, LO M Primary Care Unavailable KENNA SHARIF Referring Unavailable ESTERLE, LO M Primary Care Unavailable ESTERLE, LO M Primary Care Unavailable LESLEE LANDRY Attending Unavailable ESTERLE, LO M Primary Care Unavailable PRATT, LUIS Referring Unavailable SANDOVALVIOLETA Referring Unavailable SANDOVAL, VIOLETA Matias Attending Unavailable ESTERLE, LO M Primary Care Unavailable SANDOVAL, VIOLETA Matias Attending Unavailable ESTERLE, LO M Primary Care Unavailable ESTERLE, LO M Primary Care Unavailable LESLEE LANDRY Attending Unavailable AMANDEEP, VIOLETA Matias Referring Unavailable ESTERLE, LO M Primary Care Unavailable SANDOVAL, VIOLETA Matias Referring Unavailable CLARY CHILD Attending Unavailable ESTERLE, LO M Primary Care Unavailable LESLEE LANDRY Attending Unavailable LESLEE LANDRY Referring Unavailable ESTERLE, LO M Primary Care Unavailable LESLEE LANDRY Referring Unavailable ESTERLE, LO M Primary Care Unavailable ESTERLE, LO M Primary Care Unavailable LESLEE LANDRY Referring Unavailable ESTERLE, LO M Primary Care Unavailable ESTERLE, LO M Primary Care Unavailable OMARI ARCE Attending Unavailable ESTERLE, LO M Primary Care Unavailable JUSTINE DASILVA Attending Unavailable JUSTINE DASILVA Admitting Unavailable HANANE WILKS Attending Unavailable ESTERLE, LO M Primary Care Unavailable LESLEE LANDRY Admitting Unavailable ESTERLE, LO M Primary Care Unavailable LAURA LOPEZ Attending Unavailable LAURA LOPEZ Admitting Unavailable ESTERLE, LO M Primary Care Unavailable LESLEE LANDRY Admitting Unavailable DIPESH BRADY Attending Unavailable Esterle DO, Lo M Primary Care Provider [phone] Tk Mendoza Attending Unavailable Belén Pete Admitting Unavailable Care Physician, No Primary Primary Care Unava ilable Belén Pete Consulting Unavailable Ke Avila Consulting Unavailable Belén Pete Admitting Unavailable Care Physician, No Primary Primary Care Unava ilable Belén Pete Consulting Unavailable Belén Pete Attending Unavailable Ke Avila Attending Unavailable Ke Avila Consulting Unavailable Tk Mendoza Attending Unavailable Reji, Tk Consulting Unavailable ESTERLE, LO M Primary Care Unavailable SREE MAYORGA Attending Unavailable LO ROSARIO Primary Care Unavailable DWIGHT SALAS Attending Unavailable LO ROSARIO Primary Care Unavailable SREE MAYROGA Attending Unavailable Allergies Allergy Classification Reported Allergen(s) Allergy Type Date of Onset Reaction(s) Facility (5 sources) environmental [Other] Propensity to adverse reactions [address] [facility] Work Phone: (2 sources) OTHER; Translations: [OTHER] Propensity to adverse reactions (disorder) [address] [facility] Other [place] [facility] Medications Current Medications Medication Drug Class(es) Dates Sig (Normalized) Sig (Original) acetaminophen 500 mg oral tablet (3 sources) Start: 10-31-2023 take 2 tablets by mouth every six hours as needed acetaminophen (TYLENOL) 500 mg tablet Take 2 tablets by mouth every 6 hours as needed for pain. 20 tablet 0 10/31/2023 Active amoxicillin 500 mg oral capsule (1 source) Penicillin-class Antibacterial Start: 04-05-2023 End: 04-12-2023 take 1 capsule by mouth every twelve hours amoxicillin (AMOXIL) 500 mg capsule Take 1 capsule by mouth every 12 hours for 7 days. 14 capsule 0 04/05/2023 04/12/2023 Active Comment on above: Take 1 capsule by mo [facility] every 12 hours for 7 days. amoxicillin 875 mg / clavulanate 125 mg oral tablet (1 source) Penicillin-class Antibacterial Start: 07-03-2022 End: 07-13-2022 take 1 tablet by mouth every twelve hours amoxicillin-clavul anic acid (AUGMENTIN) 875-125 mg per tablet Indications: Strep throat , Enlargement of left palatine tonsil Take 1 tablet by mouth every 12 hours for 10 days. 14 tablet 0 07/03/2022 07/13/2022 Active Comment on above: Take 1 tablet by [facility] every 12 hours for 10 days. docusate sodium 100 mg oral capsule (3 sources) Start: 10-31-2023 take 2 capsules by mouth once daily at bedtime docusate sodium (COLACE) 100 mg capsule Take 2 capsules by mouth daily at bedtime. 60 capsule 1 10/31/2023 Active ibuprofen 600 mg oral tablet (5 sources) Nonsteroidal Anti-inflammatory Drug Start: 10-31-2023 take 1 tablet by mouth every six hours as needed ibuprofen (MOTRIN) 600 mg tablet Take 1 tablet by mouth every 6 hours as needed for pain. 20 tablet 0 10/31/2023 Active Start: 03-21-2017 take 1 tablet by [facility] th every six hours ibuprofen (ADVIL;MOTRIN) 600 MG tablet Take 1 tablet by mouth every 6 hours 60 tablet 0 03/21/2017 Active LORazepam (Ativan) injection 0.5 mg (1 source) Start: 12-26-2023 LORazepam (Ati van) injection 0.5 mg melatonin 3 mg oral tablet (2 sources) Start: 12-27-2023 take 3 mg by mouth once daily 3 mg, oral, Daily, First dose on Wed12/27/23 at 1800 Start: 12-26-2023 End: 12-26-2023 take 5 mg by mouth once 5 mg, oral, Once, On 12/06 at 2310, For 1 dose ondansetron 4 mg disintegrating oral tablet (2 sources) Serotonin-3 Receptor Antagonist Start: 10-04-2019 take 1 tablet by mouth every eight hours as needed for nausea ondansetron (ZOFRAN ODT) 4 MG disintegrating tablet Take 1 tablet by mouth every 8 hours as needed for Nausea 20 tablet 0 10/04/2019 Active MV-Min-Fe Fum-FA-DHA ( 1 PO) (2 sources) MV-Min- Fe Fum-FA-DHA ( 1 PO) Take by mouth 0 Active vit/iron fum/folic ac ( 1 + 1 ORAL) (20 sources) vit/iro n fum/folic ac ( 1 + 1 ORAL) Take by mouth. 0 Suspended vit/iro n fum/folic ac ( 1 + 1 ORAL) Take by mouth. 0 Active Comment on above: Take by mouth. sertraline 25 mg oral tablet (20 sources) Serotonin Reuptake Inhibitor Start: 09-24-2023 End: 12-15-2023 take 1 tablet by mouth once daily sertraline (ZOLOFT) 25 mg tablet Indications: Anxiety and depression take 1 tablet by mouth once daily 90 tablet 1 12/15/2023 Active Start: 06-24-2023 End: 09-22-2023 take 1 tablet by mouth once daily sertraline (ZOLOFT) 100 mg tablet Take 1 tablet by mouth once daily. 90 tablet 0 06/24/2023 Suspended Start: 04-20-2023 End: 05-20-2023 take 1 tablet by mouth once daily sertraline (ZOLOFT) 100 mg tablet Take 1 tablet by mouth once daily. 30 tablet 0 04/20/2023 05/20/2023 Active Start: 03-25-2023 End: 03-24-2024 take 1 tablet by mouth once daily sertraline (ZOLOFT) 50 mg tablet Indications: Anxiety Take 1 tablet by mouth once daily. 90 tablet 3 03/25/2023 04/20/2023 Discontinued (Course of therapy completed) Start: 04-20-2017 take 1 tablet by bibiana th once daily sertraline (ZOLOFT) 50 MG tablet Indications: Depression affecting Take 1 tablet by mouth daily 30 tablet 3 04/20/2017 Active Comment on above: Take 1 tablet by bibiana th once daily. Completed/Discontinued Medications Medication Drug Class(es) Dates Sig (Normalized) Sig (Original) ARIPiprazole 5 mg oral tablet (20 sources) Atypical Antipsychotic Start: 05-27-2023 End: 08-20-2023 ARIPiprazole (ABILIFY) 5 mg tablet take one half tablet daily for 3 days then increase to one tablet daily 30 tablet 3 08/20/2023 Suspended Start: 04-20-2023 ARIPiprazole ( ABILIFY) 5 mg tablet take one half tablet daily for 3 days then increase to one tablet daily 30 tablet 0 04/20/2023 Active Comment on above: take one half tablet daily for 3 days then increase to one tablet daily aspirin 81 mg delayed release oral tablet (20 sources) Platelet Aggregation Inhibitor, Nonsteroidal Anti-inflammatory Drug Start: 3 End: 4 take 1 tablet by mouth once daily aspirin, enteric coated (ECOTRIN LOW STRENGTH) 81 mg EC tablet Indications: History of gestational hypertension Take 1 tablet by mouth once daily. Please start at 12 weeks of gestation. 30 tablet 5 03/25/2023 Suspended Comment on above: Take 1 tablet by bibiana th once daily. Please start at 12 weeks of gestation. Blood Pressure Monitor (20 sources) Start: 4 Blood Pressure Monitor 1 Each two times a day. 1 Each 0 08/18/2023 Suspended Start: 08-18-2023 Blood Pressure Monitor 1 Each two times a day. 1 Each 0 08/18/2023 Active Start: 08-18-2023 Blood Pressure Monitor Indications: Pre-existing essential hypertension complicating , first trimester 1 Each two times a day. 1 Each 0 08/18/2023 Active Comment on above: 1 Each two times a d ay. Blood Pressure Monitor (BLOOD PRESSURE KIT) (20 sources) Start: 05-03-2023 Blood Pressure Monitor (BLOOD PRESSURE KIT) 1 Each once daily. 1 Kit 0 05/03/2023 Suspended Start: 05-03-2023 Blood Pressure Monitor (BLOOD PRESSURE KIT) 1 Each once daily. 1 Kit 0 05/03/2023 Active Comment on above: 1 Each once daily. folic acid 1 mg oral tablet (20 sources) Start: 12-23-2023 End: 12-23-2023 take 1 mg by mouth once 1 mg, oral, Once, On [facility] 12/23/23 at 0040, For 1 dose Start: 03-25-2023 take 1 tablet by bibiana once daily folic acid 1 mg tablet Indications: Supervision of other normal , antepartum Take 1 tablet by mouth once daily. 90 tablet 4 03/25/2023 Suspended Comment on above: Take 1 tablet by bibiana once daily. multivitamin with minerals 1 tablet (1 source) Start: 12-23-2023 End: 12-23-2023 take 1 tablet by mouth once 1 tablet, oral, Once, On [place] 12/23/23 at 0040, For 1 dose 1000 ml sodium chloride 9 mg/ml injection (1 source) Start: 12-26-2023 End: 12-27-2023 1,000 mL, intravenous, at 999 mL/hr, Administer over 1 Hours, Once, On [place] 12/26/23 at 2310, For 1 dose thiamine 100 mg oral tablet (1 source) Start: 12-23-2023 End: 12-23-2023 take 100 mg by mouth once 100 mg, oral, Once, On [place] 12/23/23 at 0040, For 1 dose Problems Active Problems Problem Classification Problem Date Documented Date Episodic/Chronic Abdominal pain (2 sources) Abdominal pain in ; Translations: [Abdominal pain affecting ] 03-13-2017 Episodic Acute and chronic tonsillitis (1 source) Hypertrophy of tonsils; Translations: [Hypertrophy of tonsils alone] Chronic Alcohol-related disorders (4 sources) Alcohol dependence, uncomplicated; Translations: [Alcohol dependence, in remission] Onset: 01-31-2024 Chronic Anxiety disorders (20 sources) Posttraumatic stress disorder; Translations: [Post-traumatic stress disorder, unspecified] Onset: 09-24-2023 04-21-2023 Chronic Asthma (2 sources) Asthma; Translations: [Asthma] 03-18-2017 Chronic Diabetes or abnormal glucose tolerance complicating ; childbirth; or the puerperium (2 sources) Impaired glucose tolerance in ; Translations: [Abnormal glucose complicating ] 09-28-2023 Episodic Early or threatened labor (20 sources) Threatened premature labor - not delivered ; Translations: [False labor before 37 completed weeks of gestation] Onset: 09-17-2023 Resolved: 10-29-2023 02-24-2017 Episodic Genitourinary symptoms and ill-defined conditions (20 sources) Bacteriuria; Translations: [Bacteriuria] Onset: 09-28-2023 09-28-2023 Episodic Hypertension complicating ; childbirth and the puerperium (20 sources) Essential hypertension complicating AND/OR reason for care during ; Translations: [Pre-existing essential hypertension complicating , first trimester] Onset: 03-24-2023 05-03-2023 Chronic Hypertension complicating ; childbirth and the puerperium (2 sources) Transient hypertension of ; Translations: [Transient hypertension of ] 03-02-2017 Episodic Mood disorders (4 sources) Severe recurrent major depression without psychotic features; Translations: [Major depressive disorder, recurrent severe without psychotic features] Onset: 04-23-2023 04-20-2023 Chronic Other complications of (1 source) Anxiety in ; Translations: [Other mental disorders complicating , first trimester] 03-25-2023 Episodic Other complications of (1 source) Depressive disorder; Translations: [Other mental disorders complicating , first trimester] 03-25-2023 Episodic Other complications of (2 sources) Abnormal findings on screening of mother; Translations: [Other abnormal findings on screening of mother] 10-11-2023 Episodic Other complications of (1 source) Other abnormal findings on screening of mother; Translations: [NST (non-stress test) nonreactive] Onset: 10-11-2023 Episodic Other complications of (1 source) Supervision of high risk , unspecified, third trimester; Translations: [Supervision of high risk , antepartum, third trimester] Onset: 08-18-2023 Episodic Other lower respiratory disease (1 source) Dyspnea; Translations: [Shortness of breath] Episodic Other and delivery including normal (18 sources) Vaginal delivery; Translations: [Delivery normal] Onset: 03-18-2017 Resolved: 03-19-2017 03-19-2017 Episodic Other screening for suspected conditions (not mental disorders or infectious disease) (7 sources) Patient encounter status; Translations: [Encounter for screening for nuchal translucency] 05-03-2023 Episodic Other upper respiratory infections (1 source) Streptococcal sore throat; Translations: [Streptococcal pharyngitis] Episodic Polyhydramnios and other problems of amniotic cavity (4 sources) Premature rupture of membranes; Translations: [Premature rupture of membranes, unspecified as to length of time between rupture and onset of labor, unspecified weeks of gestation] Onset: 10-29-2023 10-29-2023 Episodic Residual codes; unclassified (2 sources) Did not attend; Translations: [No-show for appointment] Onset: 07-20-2023 07-20-2023 Episodic Residual codes; unclassified (2 sources) Gestation period, 28 weeks; Translations: [28 weeks gestation of ] 08-20-2023 Episodic Residual codes; unclassified (20 sources) Failed encounter; Translations: [No-show for appointment] Onset: 07-20-2023 Resolved: 10-29-2023 08-20-2023 Episodic Residual codes; unclassified (1 source) Gestation period, 33 weeks; Translations: [33 weeks gestation of ] 09-20-2023 Episodic Residual codes; unclassified (1 source) Gestation period, 34 weeks; Translations: [34 weeks gestation of ] 09-28-2023 Episodic Residual codes; unclassified (2 sources) Gestation period, 36 weeks; Translations: [36 weeks gestation of ] 10-11-2023 Episodic Residual codes; unclassified (1 source) Gestation period, 37 weeks; Translations: [37 weeks gestation of ] 10-18-2023 Episodic Residual codes; unclassified (2 sources) History of clinical finding in subject; Translations: [Personal history of other specified conditions] 10-14-2023 Episodic Residual codes; unclassified (1 source) Gestation period, 38 weeks; Translations: [38 weeks gestation of ] 10-25-2023 Episodic Residual codes; unclassified (1 source) 36 weeks gestation of ; Translations: [36 weeks gestation of ] Onset: 10-18-2023 Episodic Residual codes; unclassified (1 source) 28 weeks gestation of ; Translations: [28 weeks gestation of ] Onset: 08-20-2023 Episodic Substance-related disorders (20 sources) History of clinical finding in subject; Translations: [History of marijuana use] Onset: 08-13-2016 08-13-2016 Chronic Unclassified (1 source) OPENED IN ERROR 08-23-2023 Unclassified (1 source) Alcohol use disorder; Translations: [Alcohol use disorder] Onset: 04-08-2023 Unclassified (2 sources) [employer] Onset: 10-30-2023 10-30-2023 Unclassified (2 sources) Alcohol use, unspecified with withdrawal, unspecified; Translations: [Alcohol use, unspecified with withdrawal, unspecified] Onset: 06-21-2024 Past or Other Problems Problem Classification Problem Date Documented Date Episodic/Chronic Alcohol-related disorders (6 sources) Alcohol intoxication; Translations: [Alcohol use, unspecified with intoxication, uncomplicated] Onset: 12-08-2023 12-23-2023 Episodic Attention-deficit, conduct, and disruptive behavior disorders (1 source) Aggressive behavior; Translations: [Other symptoms and signs involving appearance and behavior] 12-23-2023 Episodic Attention-deficit, conduct, and disruptive behavior disorders (2 sources) Other symptoms and signs involving appearance and behavior; Translations: [Other symptoms and signs involving appearance and behavior] Onset: 12-22-2023 Episodic Calculus of urinary tract (20 sources) History of calculus of kidney; Translations: [Personal history of urinary calculi] Onset: 08-13-2016 08-13-2016 Episodic Cancer of cervix (20 sources) Low grade squamous intraepithelial lesion on cervical Papanicolaou smear; Translations: [Low grade squamous intraepithelial lesion on cytologic smear of cervix (LGSIL)] Onset: 06-07-2016 09-20-2016 Episodic Headache; including migraine (20 sources) Tension-type headache; Translations: [Headache] Onset: 10-27-2011 Resolved: 10-29-2023 03-04-2017 Episodic Menstrual disorders (19 sources) Dysmenorrhea; Translations: [Dysmenorrhea, unspecified] Onset: 04-02-2011 Resolved: 08-17-2016 08-17-2016 Chronic Miscellaneous mental health disorders (2 sources) Puerperal psychosis; 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)] Onset: 12-08-2023 Episodic Other complications of (2 sources) Poor growth affecting management; Translations: [Poor growth affecting management of mother in third trimester, not applicable or unspecified fetus] Onset: 02-23-2017 03-21-2017 Episodic Other complications of (20 sources) High risk ; Translations: [Supervision of high risk , unspecified, first trimester] Onset: 03-24-2023 05-03-2023 Episodic Other complications of (2 sources) Supervision of with other poor reproductive or obstetric history, unspecified trimester; Translations: [ with other poor obstetric history] Onset: 05-03-2023 05-03-2023 Episodic Other complications of (1 source) Supervision of high risk , unspecified, first trimester; Translations: [High-risk in first trimester] Onset: 05-03-2023 Episodic Other complications of (1 source) with inconclusive viability, not applicable or unspecified; Translations: [ with uncertain viability, single or unspecified fetus] Onset: 03-24-2023 Episodic Residual codes; unclassified (20 sources) Family history of other congenital malformations, deformations and chromosomal abnormalities; Translations: [FH: Chromosomal anomaly] Onset: 08-13-2016 09-20-2016 Episodic Residual codes; unclassified (1 source) Down's child in family; Translations: [Family history of other congenital malformations, deformations and chromosomal abnormalities] Onset: 08-13-2016 08-13-2016 Episodic Residual codes; unclassified (20 sources) History of previous intrauterine growth restricted ; Translations: [Personal history of other complications of , childbirth and the puerperium] Onset: 03-24-2023 03-24-2023 Episodic Residual codes; unclassified (20 sources) History of gestational hypertension; Translations: [Personal history of other complications of , childbirth and the puerperium] Onset: 03-24-2023 03-24-2023 Episodic Residual codes; unclassified (13 sources) History of substance abuse; Translations: [Personal history of other specified conditions] Onset: 03-25-2023 03-25-2023 Episodic Residual codes; unclassified (20 sources) Alcoholism; Translations: [Alcohol use disorder] Onset: 04-08-2023 04-08-2023 Episodic Residual codes; unclassified (2 sources) Personal history of other complications of , childbirth and the puerperium; Translations: [History of prior with IUGR ] Onset: 04-08-2023 Episodic Screening and history of mental health and substance abuse codes (20 sources) H/O: depression; Translations: [Personal history of other mental and behavioral disorders] Onset: 08-13-2016 08-13-2016 Episodic Spondylosis; intervertebral disc disorders; other back problems (20 sources) Low back pain; Translations: [Lumbago] Onset: 07-30-2008 Resolved: 08-17-2016 10-03-2008 Episodic Substance-related disorders (20 sources) Substance abuse; Translations: [Other psychoactive substance use, unspecified, uncomplicated] Onset: 03-25-2023 Resolved: 09-17-2023 03-25-2023 Episodic Results Test Name Value Interpretation Reference Range Facil ity Discharge Instructionon 06-07 Discharge Instruction [facility] Medical Records Department [address] [place] [id number] Instructions for Home/Discharge Instructions 06/21/24 1031 MR#: [id number] Acct: [id number] Name: POONAM RAUSCH Rep #: [id number] : 1995 29 From: Tk Mendoza MD PCP: Care Physician,No Primary Status:ADM IN Discharge Instructions Diet Discharge Diet: No restrictions DC O2, CPAP, BIPAP needs Home O2 Discharge instructions: No Dressing / Incision Discharge Activity: Return to Normal Activity Weight Bearing Status: Weight bearing as tolerated Dressing / Incision Call your doctor if you observe: Fever of 101 or Higher, Coldness, Increased Pain, Numbness or Tingling, Change in Color, Inability to urinate, Inability to have a bowel movement, Shortness of breath, Dizziness, Fainting spells, Swelling in the ankles, Chest pain, Prolonged hiccupping, Increased palpitations (irregular heartbeat) and Calf discomfort Follow Up Care When: IN 2 WEEKS Test Results: Test results from this visit will be discussed in further detail at your follow-up appointment, if applicable. Discharge Plan Admission Admit Date/Time: 06/17/24 19:53 Attending Provider: Tk Mendoza Primary Care Provider: Care Physician,No Primary Consulting Providers: Belén Pete; Ke Avila Discharge Orders/Prescriptions Prescriptions: Continued bupropion HCl 150 mg tablet sustained-release 12 hr 150 mg PO BID trazodone 50 mg tablet 50 mg PO QHS lithium carbonate 300 mg capsule 300 mg PO TID aripiprazole 15 mg tablet 15 mg PO DAILY melatonin 10 mg capsule 10 mg PO QHS Referrals / Follow Up: Care Physician,No Primary [Primary Care Provider] - Disposition Disposition (needs filled in before D/C Order can be placed): DC/Tx to Another Type of HCF 06/21/24 1033 Tk Mendoza MD CC: Dr. Belén Pete MD; Dr. Ke Avila MD; No Primary Care Physician Signed Normal [facility] CBC W/Diff, Automatedon 06-07 Absolute Lymph 1.64 X10 3/uL Normal 0.83-4.51 [facility] Comment on above: Performed By: #### L 500.4050, L501.5200, L100.0100, L501.2300 #### [facility] [address] [place], [address] Absolute Neut 1.8 X10 3/uL Low 2.0-7.7 [facility] Comment on above: Performed By: #### L 500.4050, L501.5200, L100.0100, L501.2300 #### [facility] [address] [place], [address] Basophils/100 WBC (Bld) 0.7 % Normal 0-1 [facility] Comment on above: Performed By: #### L 500.4050, L501.5200, L100.0100, L501.2300 #### [facility] [address] [place], [address] Eosinophils/100 WBC (Bld) 2.4 % Normal 0-5 [facility] Comment on above: Performed By: #### L 500.4050, L501.5200, L100.0100, L501.2300 #### [facility] [address] [place], [place], [id number] Erythrocyte distribution width (RBC) [Ratio] 13.0 % Normal 11.6-14.6 [facility] Comment on above: Performed By: #### L 500.4050, L501.5200, L100.0100, L501.2300 #### [facility] [address] [place], [address] Hematocrit (Bld) [Volume fraction] 37.8 % Normal 37-47 [facility] Comment on above: Performed By: #### L 500.4050, L501.5200, L100.0100, L501.2300 #### [facility] [address] [place], [address] Hemoglobin (Bld) [Mass/Vol] 12.3 g/dL Normal 12.0-15.0 [facility] Comment on above: Performed By: #### L 500.4050, L501.5200, L100.0100, L501.2300 #### [facility] [address] [place], [address] IG% 0.200 Normal 0.0-0.9 [facility] Comment on above: Result Comment: IG% - Immature Granulocytes (promyelocytes, myelocytes and metamyelocytes) > 1% indicates that a LEFT SHIFT is Present. Performed By: #### L 500.4050, L501.5200, L100.0100, L501.2300 #### [facility] [address] [place], [address] Lymphocytes/100 WBC (Bld) 39.3 % Normal 19-41 [facility] Comment on above: Performed By: #### L 500.4050, L501.5200, L100.0100, L501.2300 #### [facility] [address] [place], [address] MCH (RBC) [Entitic mass] 32.5 pg High 27.0-32.0 [facility] Comment on above: Performed By: #### L 500.4050, L501.5200, L100.0100, L501.2300 #### [facility] [address] [place], [address] MCHC (RBC) [Mass/Vol] 32.5 g/dL Normal 32-36 [facility] Comment on above: Performed By: #### L 500.4050, L501.5200, L100.0100, L501.2300 #### [facility] [address] [place], [address] MCV (RBC) [Entitic vol] 99.7 fL High 81-99 [facility] Comment on above: Performed By: #### L 500.4050, L501.5200, L100.0100, L501.2300 #### [facility] [address] [place], [address] Monocytes/100 WBC (Bld) 13.7 % High 0-10 [facility] Comment on above: Performed By: #### L 500.4050, L501.5200, L100.0100, L501.2300 #### [facility] [address] [place], [address] Neutrophils/100 WBC (Bld) 43.7 % Low 47-70 [facility] Comment on above: Performed By: #### L 500.4050, L501.5200, L100.0100, L501.2300 #### [facility] [address] [place], [address] Nucleated RBC (Bld) [#/Vol] 0 10*3/uL Normal 0-5 [facility] Comment on above: Performed By: #### L 500.4050, L501.5200, L100.0100, L501.2300 #### [facility] [address] [place], [address] Platelet mean volume (Bld) [Entitic vol] 10.4 fL Normal 6.2-12.0 [facility] Comment on above: Performed By: #### L 500.4050, L501.5200, L100.0100, L501.2300 #### [facility] [address] [place], [address] Platelets (Bld) [#/Vol] 217 10*3/uL Normal 150-450 [facility] Comment on above: Performed By: #### L 500.4050, L501.5200, L100.0100, L501.2300 #### [facility] [address] [place], [address] RBC (Bld) [#/Vol] 3.79 10*6/uL Low 4.2-5.4 [facility] Comment on above: Performed By: #### L 500.4050, L501.5200, L100.0100, L501.2300 #### [facility] [address] [place], [address] RDW SD 47.6 fl High 35.1-43.9 [facility] Comment on above: Performed By: #### L 500.4050, L501.5200, L100.0100, L501.2300 #### [facility] [address] [place], [address] WBC (Bld) [#/Vol] 4.2 10*3/uL Low 4.4-11.0 [facility] Comment on above: Performed By: #### L 500.4050, L501.5200, L100.0100, L501.2300 #### [facility] [address] [place], [address] Comprehensive Metabolic Prof ilon 06-19-2024 Albumin [Mass/Vol] 3.2 g/dL Normal 3.2-5.0 [facility] Comment on above: Performed By: #### L 500.4050, L501.5200, L100.0100, L501.2300 #### [facility] [address] [place], [address] Albumin/Globulin [Mass ratio] 1.1 {ratio} Normal 0.9-2.4 [facility] Comment on above: Performed By: #### L 500.4050, L501.5200, L100.0100, L501.2300 #### [facility] [address] [place], [address] ALK P 63 U/L Normal 45-117 [facility] Comment on above: Performed By: #### L 500.4050, L501.5200, L100.0100, L501.2300 #### [facility] [address] [place], [address] ALT [Catalytic activity/Vol] 22 U/L Normal 13-56 [facility] Comment on above: Performed By: #### L 500.4050, L501.5200, L100.0100, L501.2300 #### [facility] [address] [place], [address] AST [Catalytic activity/Vol] 10 U/L Low 15-37 [facility] Comment on above: Performed By: #### L 500.4050, L501.5200, L100.0100, L501.2300 #### [facility] [address] [place], [address] Bilirubin [Mass/Vol] 0.40 mg/dL Normal 0.20-1.00 [facility] Comment on above: Result Comment: For patients on eltrombopag therapy, use of Dimension [place] TBIL is not recommended. Performed By: #### L 500.4050, L501.5200, L100.0100, L501.2300 #### [facility] [address] [place], [address] BUN/CRE 9.6 RATIO Low 10-20 [facility] Comment on above: Performed By: #### L 500.4050, L501.5200, L100.0100, L501.2300 #### [facility] [address] [place], [address] CA,Total 8.7 mg/dL Normal 8.5-10.1 [facility] Comment on above: Performed By: #### L 500.4050, L501.5200, L100.0100, L501.2300 #### [facility] [address] [place], [address] Chloride [Moles/Vol] 107 mmol/L Normal 98-107 [facility] Comment on above: Performed By: #### L 500.4050, L501.5200, L100.0100, L501.2300 #### [facility] [address] [place], [address] CO2 [Moles/Vol] 25.0 mmol/L Normal 21.0-32.0 [facility] Comment on above: Performed By: #### L 500.4050, L501.5200, L100.0100, L501.2300 #### [facility] [address] [place], [address] Creatinine [Mass/Vol] 1.04 mg/dL High 0.55-1.02 [facility] Comment on above: Result Comment: The validity of the calculated GFR GFRAA in patients over 70 years has not been determined. Clinical correlation is essential. Performed By: #### L 500.4050, L501.5200, L100.0100, L501.2300 #### [facility] [address] [place], [address] ECRCL 74.60 ml/min Normal [facility] Comment on above: Performed By: #### L 500.4050, L501.5200, L100.0100, L501.2300 #### [facility] [address] [place], [address] EST GFR - AA 80 mL/min Normal >60 [facility] Comment on above: Result Comment: Afri can [place] GFR Calc Performed By: #### L 500.4050, L501.5200, L100.0100, L501.2300 #### [facility] [address] [place], [address] GAP 6 Normal 5-15 [facility] Comment on above: Performed By: #### L 500.4050, L501.5200, L100.0100, L501.2300 #### [facility] [address] [place], [address] GFR/1.73 sq M.predicted among non-blacks MDRD (S/P/Bld) [Vol rate/Area] 66 mL/min/{1.73_m2} Normal >60 [facility] Comment on above: Result Comment: Non- GFR Calc Performed By: #### L 500.4050, L501.5200, L100.0100, L501.2300 #### [facility] [address] [place], [address] Globulin (S) [Mass/Vol] 2.9 g/dL Normal 2.2-4.2 [facility] Comment on above: Performed By: #### L 500.4050, L501.5200, L100.0100, L501.2300 #### [facility] [address] [place], [address] Glucose [Mass/Vol] 95 mg/dL Normal 74-106 [facility] Comment on above: Performed By: #### L 500.4050, L501.5200, L100.0100, L501.2300 #### [facility] [address] [place], [address] Potassium [Moles/Vol] 3.7 mmol/L Normal 3.5-5.1 [facility] Comment on above: Performed By: #### L 500.4050, L501.5200, L100.0100, L501.2300 #### [facility] [address] [place], [address] Sodium [Moles/Vol] 138 mmol/L Normal 136-145 [facility] Comment on above: Performed By: #### L 500.4050, L501.5200, L100.0100, L501.2300 #### [facility] [address] [place], [address] T PROT 6.1 g/dL Low 6.4-8.2 [facility] Comment on above: Performed By: #### L 500.4050, L501.5200, L100.0100, L501.2300 #### [facility] [address] [place], [address] Urea nitrogen [Mass/Vol] 10 mg/dL Normal 7-18 [facility] Comment on above: Performed By: #### L 500.4050, L501.5200, L100.0100, L501.2300 #### [facility] [address] [place], [address] Magnesiumon 06-19-2024 Magnesium [Mass/Vol] 2.0 mg/dL Normal 1.6-2.6 [facility] Comment on above: Performed By: #### L 500.4050, L501.5200, L100.0100, L501.2300 #### [facility] [address] [place], [address] Phosphoruson 06-19-2024 Phosphate [Mass/Vol] 3.6 mg/dL Normal 2.5-4.9 [facility] Comment on above: Performed By: #### L 500.4050, L501.5200, L100.0100, L501.2300 #### [facility] [address] [place], [address] Alcohol, Blood (Medical)-Ser umon 06-17-2024 SERUM ETOH < 3.0 Normal [facility] Comment on above: Result Comment: The serum:whole blood ethanol ratio is approximately 1.14 and varies slightly with hematocrit. Medical Alcohol reference interval and critical value in non-tolerant individuals; 50 - 100 Impairment 100 Intoxication 100 - 250 Severe Poisoning 250 - 400 Deep/possible fatal coma Performed By: #### L 501.9100, L700.6800, L100.0100, L500.4050, L505.5000 ####[facility] [address] [place], [address] CBC W/Diff, Automatedon 06-07 Absolute Lymph 2.88 X10 3/uL Normal 0.83-4.51 [facility] Comment on above: Performed By: #### L 501.9100, L700.6800, L100.0100, L500.4050, L505.5000 ####[facility] [address] [place], [address] Absolute Neut 8.1 X10 3/uL High 2.0-7.7 [facility] Comment on above: Performed By: #### L 501.9100, L700.6800, L100.0100, L500.4050, L505.5000 ####[facility] [address] [place], [address] Basophils/100 WBC (Bld) 0.6 % Normal 0-1 [facility] Comment on above: Performed By: #### L 501.9100, L700.6800, L100.0100, L500.4050, L505.5000 ####[facility] [address] [place], [address] Eosinophils/100 WBC (Bld) 0.2 % Normal 0-5 [facility] Comment on above: Performed By: #### L 501.9100, L700.6800, L100.0100, L500.4050, L505.5000 ####[facility] [address] [place], [address] Erythrocyte distribution width (RBC) [Ratio] 13.2 % Normal 11.6-14.6 [facility] Comment on above: Performed By: #### L 501.9100, L700.6800, L100.0100, L500.4050, L505.5000 ####[facility] [address] [place], [address] Hematocrit (Bld) [Volume fraction] 46.0 % Normal 37-47 [facility] Comment on above: Performed By: #### L 501.9100, L700.6800, L100.0100, L500.4050, L505.5000 ####[facility] [address] [place], [address] Hemoglobin (Bld) [Mass/Vol] 15.8 g/dL High 12.0-15.0 [facility] Comment on above: Performed By: #### L 501.9100, L700.6800, L100.0100, L500.4050, L505.5000 ####[facility] [address] [place], [address] IG% 0.300 Normal 0.0-0.9 [facility] Comment on above: Result Comment: IG% - Immature Granulocytes (promyelocytes, myelocytes and metamyelocytes) > 1% indicates that a LEFT SHIFT is Present. Performed By: #### L 501.9100, L700.6800, L100.0100, L500.4050, L505.5000 ####[facility] [address] [place], [address] Lymphocytes/100 WBC (Bld) 23.9 % Normal 19-41 [facility] Comment on above: Performed By: #### L 501.9100, L700.6800, L100.0100, L500.4050, L505.5000 ####[facility] [address] [place], [address] MCH (RBC) [Entitic mass] 33.4 pg High 27.0-32.0 [facility] Comment on above: Performed By: #### L 501.9100, L700.6800, L100.0100, L500.4050, L505.5000 ####[facility] [address] [place], [address] MCHC (RBC) [Mass/Vol] 34.3 g/dL Normal 32-36 [facility] Comment on above: Performed By: #### L 501.9100, L700.6800, L100.0100, L500.4050, L505.5000 ####[facility] [address] [place], [address] MCV (RBC) [Entitic vol] 97.3 fL Normal 81-99 [facility] Comment on above: Performed By: #### L 501.9100, L700.6800, L100.0100, L500.4050, L505.5000 ####[facility] [address] [place], [address] Monocytes/100 WBC (Bld) 7.5 % Normal 0-10 [facility] Comment on above: Performed By: #### L 501.9100, L700.6800, L100.0100, L500.4050, L505.5000 ####[facility] [address] [place], [address] Neutrophils/100 WBC (Bld) 67.5 % Normal 47-70 [facility] Comment on above: Performed By: #### L 501.9100, L700.6800, L100.0100, L500.4050, L505.5000 ####[facility] [address] [place], [address] Nucleated RBC (Bld) [#/Vol] 0 10*3/uL Normal 0-5 [facility] Comment on above: Performed By: #### L 501.9100, L700.6800, L100.0100, L500.4050, L505.5000 ####[facility] [address] [place], [address] Platelet mean volume (Bld) [Entitic vol] 10.1 fL Normal 6.2-12.0 [facility] Comment on above: Performed By: #### L 501.9100, L700.6800, L100.0100, L500.4050, L505.5000 ####[facility] [address] [place], [address] Platelets (Bld) [#/Vol] 403 10*3/uL Normal 150-450 [facility] Comment on above: Performed By: #### L 501.9100, L700.6800, L100.0100, L500.4050, L505.5000 ####[facility] [address] [place], [address] RBC (Bld) [#/Vol] 4.73 10*6/uL Normal 4.2-5.4 [facility] Comment on above: Performed By: #### L 501.9100, L700.6800, L100.0100, L500.4050, L505.5000 ####[facility] [address] [place], [address] RDW SD 47.4 fl High 35.1-43.9 [facility] Comment on above: Performed By: #### L 501.9100, L700.6800, L100.0100, L500.4050, L505.5000 ####[facility] [address] [place], [address] WBC (Bld) [#/Vol] 12.0 10*3/uL High 4.4-11.0 [facility] Comment on above: Performed By: #### L 501.9100, L700.6800, L100.0100, L500.4050, L505.5000 ####[facility] [address] [place], [address] Comprehensive Metabolic Prof caon 06-17-2024 Albumin [Mass/Vol] 4.6 g/dL Normal 3.2-5.0 [facility] Comment on above: Performed By: #### L 501.9100, L700.6800, L100.0100, L500.4050, L505.5000 ####[facility] [address] [place], [address] Albumin/Globulin [Mass ratio] 1.1 {ratio} Normal 0.9-2.4 [facility] Comment on above: Performed By: #### L 501.9100, L700.6800, L100.0100, L500.4050, L505.5000 ####[facility] [address] [place], [address] ALK P 85 U/L Normal 45-117 [facility] Comment on above: Performed By: #### L 501.9100, L700.6800, L100.0100, L500.4050, L505.5000 ####[facility] [address] [place], [address] ALT [Catalytic activity/Vol] 31 U/L Normal 13-56 [facility] Comment on above: Performed By: #### L 501.9100, L700.6800, L100.0100, L500.4050, L505.5000 ####[facility] [address] [place], [address] AST [Catalytic activity/Vol] 28 U/L Normal 15-37 [facility] Comment on above: Performed By: #### L 501.9100, L700.6800, L100.0100, L500.4050, L505.5000 ####[facility] [address] [place], [address] Bilirubin [Mass/Vol] 0.60 mg/dL Normal 0.20-1.00 [facility] Comment on above: Result Comment: For patients on eltrombopag therapy, use of Dimension [place] TBIL is not recommended. Performed By: #### L 501.9100, L700.6800, L100.0100, L500.4050, L505.5000 ####[facility] [address] [place], [address] BUN/CRE 15.7 RATIO Normal 10-20 [facility] Comment on above: Performed By: #### L 501.9100, L700.6800, L100.0100, L500.4050, L505.5000 ####[facility] [address] [place], [address] CA,Total 9.5 mg/dL Normal 8.5-10.1 [facility] Comment on above: Performed By: #### L 501.9100, L700.6800, L100.0100, L500.4050, L505.5000 ####[facility] [address] [place], [address] Chloride [Moles/Vol] 102 mmol/L Normal 98-107 [facility] Comment on above: Performed By: #### L 501.9100, L700.6800, L100.0100, L500.4050, L505.5000 ####[facility] [address] [place], [address] CO2 [Moles/Vol] 27.0 mmol/L Normal 21.0-32.0 [facility] Comment on above: Performed By: #### L 501.9100, L700.6800, L100.0100, L500.4050, L505.5000 ####[facility] [address] [place], [address] Creatinine [Mass/Vol] 1.08 mg/dL High 0.55-1.02 [facility] Comment on above: Result Comment: The validity of the calculated GFR GFRAA in patients over 70 years has not been determined. Clinical correlation is essential. Performed By: #### L 501.9100, L700.6800, L100.0100, L500.4050, L505.5000 ####[facility] [address] [place], [address] ECRCL 71.90 ml/min Normal [facility] Comment on above: Performed By: #### L 501.9100, L700.6800, L100.0100, L500.4050, L505.5000 ####[facility] [address] [place], [address] EST GFR - AA 77 mL/min Normal >60 [facility] Comment on above: Result Comment: Afri can [place] GFR Calc Performed By: #### L 501.9100, L700.6800, L100.0100, L500.4050, L505.5000 ####[facility] [address] [place], [address] GAP 10 Normal 5-15 [facility] Comment on above: Performed By: #### L 501.9100, L700.6800, L100.0100, L500.4050, L505.5000 ####[facility] [address] [place], [address] GFR/1.73 sq M.predicted among non-blacks MDRD (S/P/Bld) [Vol rate/Area] 63 mL/min/{1.73_m2} Normal >60 [facility] Comment on above: Result Comment: Non- GFR Calc Performed By: #### L 501.9100, L700.6800, L100.0100, L500.4050, L505.5000 ####[facility] [address] [place], [address] Globulin (S) [Mass/Vol] 4.1 g/dL Normal 2.2-4.2 [facility] Comment on above: Performed By: #### L 501.9100, L700.6800, L100.0100, L500.4050, L505.5000 ####[facility] [address] [place], [address] Glucose [Mass/Vol] 94 mg/dL Normal 74-106 [facility] Comment on above: Performed By: #### L 501.9100, L700.6800, L100.0100, L500.4050, L505.5000 ####[facility] [address] [place], [address] Potassium [Moles/Vol] 3.6 mmol/L Normal 3.5-5.1 [facility] Comment on above: Performed By: #### L 501.9100, L700.6800, L100.0100, L500.4050, L505.5000 ####[facility] [address] [place], [address] Sodium [Moles/Vol] 138 mmol/L Normal 136-145 [facility] Comment on above: Performed By: #### L 501.9100, L700.6800, L100.0100, L500.4050, L505.5000 ####[facility] [address] [place], [address] T PROT 8.7 g/dL High 6.4-8.2 [facility] Comment on above: Performed By: #### L 501.9100, L700.6800, L100.0100, L500.4050, L505.5000 ####[facility] [address] [place], [address] Urea nitrogen [Mass/Vol] 17 mg/dL Normal 7-18 [facility] Comment on above: Performed By: #### L 501.9100, L700.6800, L100.0100, L500.4050, L505.5000 ####[facility] [address] [place], [address] Emergency Department Summary on 06-17-2024 Emergency Department Summary [facility] Medical Records Department [address] [place] [address] Emergency Department Summary 06/17/24 MR#: [id number] Acct: [id number] Name: POONAM RAUSCH Rep #: [id number] : 1995 29 From: Kvng Sandoval DO PCP: Care Physician,No Primary Status:REG ER Location: ED HPI History of Present Illness Chief Complaint: Substance Abuse Narrative Narrative: Patient is a 29-year-old female with a past medical history of anxiety, depression, bipolar disorder, alcohol abuse who presents to the emergency department the chief complaint of wanting alcohol detox. Patient states that she was sober for 2 months and recently relapsed. States that she drinks wine daily and states that she has had increased drinking the past week including a bottle of wine a day. She states that her last drink was yesterday around 3 PM in the afternoon. Patient states that she has never had a seizure after stopping drinking. Patient states that she has not been taking her medications for a significant mount time. Patient notes that she has been under a lot of stress lately. [facility] Medical History Vaping nicotine dependence, tobacco product Anxiety and depression Alcohol abuse Bipolar disorder Home Medications ???Medication ???Instructions ???Recorded ???Last Taken ???Type aripiprazole 15 mg tablet 15 mg PO DAILY 06/17/24 Unknown History bupropion HCl 150 mg tablet,12 hr 150 mg PO BID 06/17/24 Unknown History sustained-release lithium carbonate 300 mg capsule 300 mg PO TID 06/17/24 Unknown History melatonin 10 mg capsule 10 mg PO QHS 06/17/24 Unknown History trazodone 50 mg tablet 50 mg PO QHS 06/17/24 Unknown History Allergy/AdvReac Type Severity Reaction Status Date / Time No Known Allergies Allergy Verified 06/17/24 18:42 Social History Smoking Status: Current every day smoker tobacco type: e-cigarettes ROS ROS ED ROS Narrative Constitutional: Denies any fevers, chills, headaches, lightness, dizziness Cardiovascular: Denies chest pain or palpitations Respiratory: Denies shortness of breath Abdomen: Denies abdominal pain nausea vomit diarrhea : Denies any urinary symptoms Neurological: Denies any numbness, weakness, tingling Musculoskeletal: Denies back pain Skin: Denies rashes or lesions EXAM Physical Exam Narrative Exam Narrative: General: Patient lying in bed rest comfortably did not appear to be in acute distress Head: Atraumatic, normocephalic Eyes: PERRL bilaterally, EOMI bilateral, no conjunctival injection noted Neck: Soft, supple, trachea midline Cardiovascular: Regular rate and rhythm Respiratory: Clear to auscultation bilaterally Abdomen: Soft, nondistended, nontender to palpation Extremities: +5/5 strength noted in the bilateral upper and lower extremities Neurological: Patient follow commands knew that she was at [facility] year is 2024 Skin: Warm, dry, intact Const Vital Signs: 06/17/24 18:42 06/17/24 19:41 06/17/24 19:52 Temperature 96.4 F L 97.9 F Temperature Source Temporal Pulse Rate 104 H 100 100 Respiratory Rate 18 18 18 Blood Pressure 140/107 H 143/94 H 143/94 H Blood Pressure Mean 118 110 110 Pulse Ox 99 97 97 Oxygen Delivery Method Room Air Room Air MDM MDM MDM Narrative Medical decision making narrative: Patient is a 29-year-old female who presents to the emergency department the chief complaint of wanting alcohol detox. Patient be medically cleared and then case will be discussed with hospitalist for admission. Patient's CBC reviewed showed a white blood count of 12,000, hemoglobin 15.8, platelet count was noted to be normal at 403. Patient sodium normal at 138, potassium normal at 3.6, creatinine was 1.08. Patient's AST and ALT were 28 and 31 respectively. Patient test negative, drug screen negative, lithium was less than 0.20 alcohol level less than 3. Patient's urinalysis pending. Did discuss case with hospitalist Dr. Pete who accept patient for admission. Patient was notified is agreeable to plan all question concerns answered at bedside. Patient is requesting something for headache should be given a gram of Tylenol. Lab Data Labs: Laboratory Results - last 24 hr 06/17/24 19:04 WBC 12.0 H RBC 4.73 Hgb 15.8 H Hct 46.0 MCV 97.3 MCH 33.4 H MCHC 34.3 RDW Std Deviation 47.4 H RDW Coeff of Gilbert 13.2 Plt Count 403 MPV 10.1 Immature Gran % (Auto) 0.300 Neut % (Auto) 67.5 Lymph % (Auto) 23.9 [place] % (Auto) 7.5 Eos % (Auto) 0.2 Baso % (Auto) 0.6 Absolute Neuts (auto) 8.1 H Absolute Lymphs (auto) 2.88 Nucleated RBC % 0 Sodium 138 Potassium 3.6 Chlorid (more content not included)... Normal [facility] H AND P Exam - Hospitaliston 06-17-2024 H&P Exam - Hospitalist [facility] Medical Records Department [address] [place] [address] H P Exam - Hospitalist 06/17/241952 MR#: [id number] Acct: [id number] Name: POONAM RAUSCH PEBBLES Rep #: [id number] : 1995 29 From: Belén Pete MD PCP: Care Physician,No Primary Status:ADM IN Location: MS3 [id number] HPI - General General Date of Admission: 06/17/24 Date of Service: 06/17/24 Chief Complaint: EtOH withdrawal, requesting detoxification program. HPI Narrative The patient is a 29 y/o F w/ PMHx: Anxiety and Depression/Bipolar disorder, EtOH abuse, Nicotine Vaping products with prior cigarette tobacco use remotely who presents to the [facility] ED on 06/17/2024 w/ noted acute EtOH withdrawal, onset starting on day of presentation following last EtOH intake the day prior at 3 pm in the afternoon to current presentation with recommendation per 180 to present to the ED for evaluation with onset of nausea, mild tremors, mild restlessness/agitatio n. Patient interested in attaining sober status. She notes she most recently had been sober for at least 2 months. Patient is adopted and currently living with her adoptive parents. She does not have any connection with her biological parents but is aware of their medical history and they both have significant medical history in addition to history of polysubstance abuse and alcohol abuse. 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 She does report recent significant increase stress. Workup in the ED included T96.4, heart 114, BP 140/107, respiratory 18, 99% on room air, CBC with WBC 12, human 15.8, platelet 403 with left shift, CMP with BUN/creatinine 17/1.08, GFR 63, hepatic profile not marked appearing, serum testing negative, urinalysis pending upon request evaluation of patient, UDS negative, lithium level pending per ED, ethyl alcohol less than 3. [facility] Medical History Vaping nicotine dependence, tobacco product Anxiety and depression Alcohol abuse Bipolar disorder Home Medications ???Medication ???Instructions ???Recorded ???Last Taken ???Type aripiprazole 15 mg tablet 15 mg PO DAILY 06/17/24 Unknown History bupropion HCl 150 mg tablet,12 hr 150 mg PO BID 06/17/24 Unknown History sustained-release lithium carbonate 300 mg capsule 300 mg PO TID 06/17/24 Unknown History melatonin 10 mg capsule 10 mg PO QHS 06/17/24 Unknown History trazodone 50 mg tablet 50 mg PO QHS 06/17/24 Unknown History Allergy/AdvReac Type Severity Reaction Status Date / Time No Known Allergies Allergy Verified 06/17/24 18:42 Family History (Updated 06/17/24 @ 20:[address] Belén Pete MD) Mother CAD (coronary artery disease) Heart disease Hypertension Diabetes Polysubstance abuse Alcohol abuse Father CAD (coronary artery disease) Heart disease Hypertension Polysubstance abuse Alcohol abuse Surgical History (Updated 06/17/24 @ 20:[address] Belén Pete MD) S/P tympanic tube insertion History of adenoidectomy Social History (Updated 06/17/24 @ 20:[address] Belén Pete MD) household members: family and other details: Living with her adoptive parents. Smoking Status: Former smoker Electronic Cigarette Use: with nicotine how long ago did patient quit smoking: Quit cigarette tobacco usage 70 years prior, transition to heavy vaping. alcohol intake: current alcohol intake frequency: 3 or more drinks per day Alcohol type: wine and hard liquor details: 1-2 bottles wine daily versus 5-6 mixed hard drinks. substance use type: does not use ROS ROS Narrative Admission Review of Systems: CONSTITUTIONAL: No weight loss, fever, chills, + weakness or fatigue. HEENT: Eyes: No visual loss, blurred vision, double vision or yellow sclerae. Ears, Nose, Throat: No hearing loss, sneezing, congestion, runny nose or sore throat. SKIN: No rash or itching, lesions, wounds. CARDIOVASCULAR: No chest pain, chest pressure or chest discomfort, palpitations, edema, orthopnea, syncopal events. RESPIRATORY: No shortness of breath, cough or sputum, wheezing, hemoptysis. GASTROINTESTINAL: + Mild lack of appetite, nausea. No vomiting or diarrhea, abdominal pain, melena, BRBPR. GENITOURINARY: No dysuria, frequency, urgency or retention. NEUROLOGICAL: + Restlessness, tactile disturbances, mild tremors no headache, dizziness, syncope, paralysis, ataxia, numbness or tingling in the extremities, focal weakness, change in bowel or bladder control, seizure. MUSCULOSKELETAL: + muscle, back pain, joint pain or stiffness. HEMATOLOGIC: No anemia, bleeding or bruising. LYMPHATICS: No enlarged nodes. No history of splenectomy. PSYCHIATRIC: + History of anxiety and depression/bipolar disorder. ENDOCRINOLOGIC: No reports of sweating, cold or heat intolerance. No polyuria or polydipsia. AL (more content not included)... Normal [facility] Lithiumon 06-17-2024 LI < 0.20 Low 0.60-1.20 [facility] Comment on above: Performed By: #### L 501.9060 ####[facility] [address] [place], [address] Magnesiumon 06-17-2024 Magnesium [Mass/Vol] 1.9 mg/dL Normal 1.6-2.6 [facility] Comment on above: Order Comment: Comme nts: May add to ED labs Comments: may add to ED labs Performed By: #### L 501.5200, L501.2300 #### [facility] [address] [place], [address] Phosphoruson 06-17-2024 Phosphate [Mass/Vol] 3.7 mg/dL Normal 2.5-4.9 [facility] Comment on above: Order Comment: Comme nts: May add to ED labs Comments: may add to ED labs Performed By: #### L 501.5200, L501.2300 #### [facility] [address] [place], [address] ,Serum,hCG Quali.on 06-17-2024 HCG, SERUM QUAL Negative Normal [facility] Comment on above: Performed By: #### L 501.9100, L700.6800, L100.0100, L500.4050, L505.5000 ####[facility] [address] [place], [address] Urinalysis, Completeon 06-17 BACTERIA 1+ /hpf Normal None Seen [facility] Comment on above: Order Comment: CLEAN CATCH Performed By: #### L 400.0001 #### [facility] [address] [place], [address] RBC 0-5 SEEN Normal 0-5 [facility] Comment on above: Order Comment: CLEAN CATCH Performed By: #### L 400.0001 #### [facility] [address] [place], [address] WBC 0-5 SEEN Normal 0-5 [facility] Comment on above: Order Comment: CLEAN CATCH Performed By: #### L 400.0001 #### [facility] [address] [place], [address] EPI,SQUAMOUS 5-10 SEEN Normal 5-10 [facility] Comment on above: Order Comment: CLEAN CATCH Performed By: #### L 400.0001 #### [facility] [address] [place], [address] Mucus Ql (Urine sed) 0 SEEN Normal [facility] Comment on above: Order Comment: CLEAN CATCH Performed By: #### L 400.0001 #### [facility] [address] [place], [address] Urine Drug Screen (VISTA)on 06-17-2024 AMPHETAMINES Negative Normal <1000 ng/mL [facility] Comment on above: Performed By: #### L 501.9100, L700.6800, L100.0100, L500.4050, L505.5000 ####[facility] [address] [place] [id number] BARBITIURATES Negative Normal < 200 ng/mL [facility] Comment on above: Performed By: #### L 501.9100, L700.6800, L100.0100, L500.4050, L505.5000 ####[facility] [address] [place], [address] BENZODIAZIPINE Negative Normal < 200 ng/mL [facility] Comment on above: Performed By: #### L 501.9100, L700.6800, L100.0100, L500.4050, L505.5000 ####[facility] [address] [place], [address] COCAINE Negative Normal < 300 ng/mL [facility] Comment on above: Performed By: #### L 501.9100, L700.6800, L100.0100, L500.4050, L505.5000 ####[facility] [address] [place], [place], [phone] ECSTACY Negative Normal < 500 ng/mL [facility] Comment on above: Performed By: #### L 501.9100, L700.6800, L100.0100, L500.4050, L505.5000 ####[facility] [address] [place], [place], [phone] METHADONE Negative Normal < 300 ng/mL [facility] Comment on above: Performed By: #### L 501.9100, L700.6800, L100.0100, L500.4050, L505.5000 ####[facility] [address] [place], [place], [phone] OPIATES Negative Normal < 300 ng/mL [facility] Comment on above: Performed By: #### L 501.9100, L700.6800, L100.0100, L500.4050, L505.5000 ####[facility] [address] [place], [place], [phone] PCP Negative Normal < 25 ng/mL [facility] Comment on above: Performed By: #### L 501.9100, L700.6800, L100.0100, L500.4050, L505.5000 ####[facility] [address] [place], [place], [phone] THC Negative Normal < 50 ng/mL [facility] Comment on above: Performed By: #### L 501.9100, L700.6800, L100.0100, L500.4050, L505.5000 ####[facility] [address] [place], [address] VISTA UDS PH 6 Normal [facility] Comment on above: Performed By: #### L 501.9100, L700.6800, L100.0100, L500.4050, L505.5000 ####[facility] [address] [place], [address] Electrocardiogram, 12-leadOr dered By: Patricia Clark on 12-27-2023 Atrial Rate 77 BPM [facility] Work Phone: [phone] P Amelia 54 degrees [facility] Work Phone: [phone] P Offset 194 ms [facility] Work Phone: [phone] P Onset 151 ms [facility] Work Phone: [phone] FL Interval 142 ms [facility] Work Phone: [phone] Q Onset 222 ms [facility] Work Phone: [phone] QRS Count 12 beats [facility] Work Phone: [phone] QRS Duration 86 ms [facility] Work Phone: [phone] QT Interval 402 ms [facility] Work Phone: [phone] QTC Calculation(Bazett) 454 [facility] Work Phone: [phone] QTC Fredericia 436 ms [facility] Work Phone: [phone] R Amelia 59 degrees [facility] Work Phone: [phone] T Amelia 36 degrees [facility] Work Phone: [phone] T Offset 423 ms [facility] Work Phone: [phone] Ventricular Rate 77 BPM [facility] Work Phone: [phone] [facility] Work Phone: [phone] Electrocardiogram, 12-leadon 12-27-2023 Normal sinus rhythm Normal ECG When compared with ECG of 22-DEC-2023 23:35, No significant change was found See ED provider note for full interpretation and clinical correlation Confirmed by Patricia Clark ([id number]) on 12/27/2023 5:53:44 PM Patriica Ward PA-C - 12/27/2023 Normal sinus rhythm Normal ECG When compared with ECG of 22-DEC-2023 23:35, No significant change was found See ED provider note for full interpretation and clinical correlation Confirmed by Patricia Clark ([id number]) on 12/27/2023 5:53:44 PM [facility] Work Phone: Ethanolon 12-27-2023 Ethanol [Mass/Vol] 158 mg/dL High NINF - 10 mg/dL [facility] Comment on above: For medical use only . Ethanol [Mass/Vol] 158 mg/dL High <=10 [facility] Comment on above: Result Comment: For medical use only. Performed By: #### 2 157-6 #### ANAIBELICARMENCITA HURST ([id number]) [facility] ([facility]) [address] [place] [address] Ethanol [Mass/Vol]on 024 Interpretation and review of laboratory results Abnormal [facility] Extra Urine Arechiga Tubeon 12-06 Extra Tube Hold for add-ons. [facility] Comment on above: Auto resulted. [facility] ACUTE TOXICOLOGY PANEL, BLOO Don 12-26-2023 Acetaminophen [Mass/Vol] ug/mL Normal 10.0-30.0 [facility] Comment on above: Performed By: #### 2 4323-8 #### ANAIBELICARMENCITA HURST ([id number]) [facility] ([facility]) [address] [place] [address] Ethanol [Mass/Vol] 358 mg/dL High <=10 [facility] Comment on above: Performed By: #### 2 4323-8 #### ANAIBELICARMENCITA HURST ([id number]) [facility] ([facility]) [address] [place] [address] Salicylates [Mass/Vol] mg/dL Normal 4-20 [facility] Comment on above: Performed By: #### 2 4323-8 #### VIKTOR HURST ([id number]) [facility] ([facility]) [address] [place] [address] Acute Toxicology Panel, Bloo don 12-26-2023 Acetaminophen [Mass/Vol] ug/mL 10.0 - 30.0 ug/mL [facility] Ethanol [Mass/Vol] 358 mg/dL High NINF - 10 mg/dL [facility] Salicylates [Mass/Vol] mg/dL 4 - 20 mg/dL [facility] Bacteria identifiedon 2023 Bacteria identified Cx Nom (U) Test: Urine Culture Specimen Source: Clean Catch/Voided Specimen Type: Urine Specimen Date: 12/26/20232013 Result Date: 12/28/2023825 Result Status: Final result Abnormal: No Resulting Lab: [facility] [address] [place] [address] CULTURE No significant growth Normal [facility] Comment on above: Performed By: #### 2 157-6 #### VIKTOR HURST ([id number]) [facility] ([facility]) [address] [place] [address] CBC W Auto Differential pane l (Bld)on 12-26-2023 Basophils (Bld) [#/Vol] 0.09 10*3/uL [facility] Basophils/100 WBC (Bld) 1.4 % 0.0 - 2.0 % [facility] Eosinophils (Bld) [#/Vol] 0.07 10*3/uL [facility] Eosinophils/100 WBC (Bld) 1.1 % 0.0 - 6.0 % [facility] Erythrocyte distribution width (RBC) [Ratio] 13.2 % 11.5 - 14.5 % [facility] Hematocrit (Bld) [Volume fraction] 40.1 % 36.0 - 46.0 % [facility] Hemoglobin (Bld) [Mass/Vol] 13.7 g/dL 12.0 - 16.0 g/dL [facility] Immature granulocytes (Bld) [#/Vol] 0.02 10*3/uL [facility] Immature granulocytes/100 WBC (Bld) 0.3 % 0.0 - 0.9 % [facility] Comment on above: Immature Granulocyte Count (IG) includes promyelocytes, myelocytes and metamyelocytes but does not include bands. Percent differential counts (%) should be interpreted in the context of the absolute cell counts (cells/UL). Lymphocytes (Bld) [#/Vol] 2.40 10*3/uL [facility] Lymphocytes/100 WBC (Bld) 37.7 % 13.0 - 44.0 % [facility] MCH (RBC) [Entitic mass] 33.3 pg 26.0 - 34.0 pg [facility] MCHC (RBC) [Mass/Vol] 34.2 g/dL 32.0 - 36.0 g/ dL [facility] MCV (RBC) [Entitic vol] 97 fL 80 - 100 fL [facility] Monocytes (Bld) [#/Vol] 0.37 10*3/uL [facility] Monocytes/100 WBC (Bld) 5.8 % 2.0 - 10.0 % [facility] Neutrophils (Bld) [#/Vol] 3.42 10*3/uL [facility] Comment on above: Percent differential counts (%) should be interpreted in the context of the absolute cell counts (cells/uL). Neutrophils/100 WBC (Bld) 53.7 % 40.0 - 80.0 % [facility] Nucleated RBC/100 WBC (Bld) [Ratio] 0.0 % [facility] Platelets (Bld) [#/Vol] 262 10*3/uL [facility] RBC (Bld) [#/Vol] 4.12 10*6/uL [facility] WBC (Bld) [#/Vol] 6.4 10*3/uL [facility] Basophils (Bld) [#/Vol] 0.09 x10*3/uL Normal 0.00-0.10 [facility] Comment on above: Performed By: #### 2 4323-8 #### VIKTOR HURST ([id number]) [facility] ([facility]) [address] [place] [address] Basophils/100 WBC (Bld) 1.4 % Normal 0.0-2.0 [facility] Comment on above: Performed By: #### 2 4323-8 #### VIKTOR HURST ([id number]) [facility] ([facility]) [address] [place] [address] Eosinophils (Bld) [#/Vol] 0.07 x10*3/uL Normal 0.00-0.70 [facility] Comment on above: Performed By: #### 2 432-8 #### VIKTOR HURST ([id number]) [facility] ([facility] [address] [place] [address] 22034 Eosinophils/100 WBC (Bld) 1.1 % Normal 0.0-6.0 [facility] Comment on above: Performed By: #### 2 4323-8 #### VIKTOR HURST ([id number]) [facility] ([facility] [address] [place] [address] Erythrocyte distribution width (RBC) [Ratio] 13.2 % Normal 11.5-14.5 [facility] Comment on above: Performed By: #### 2 4323-8 #### VIKTOR HURST ([id number]) [facility] ([facility]) [address] [place] [address] 39166 Hematocrit (Bld) [Volume fraction] 40.1 % Normal 36.0-46.0 [facility] Comment on above: Performed By: #### 2 4323-8 #### VIKTOR HURST ([id number]) [facility] ([facility]) [address] [place] [address] Hemoglobin (Bld) [Mass/Vol] 13.7 g/dL Normal 12.0-16.0 [facility] Comment on above: Performed By: #### 2 4323-8 #### VIKTOR HURST ([id number]) [facility] ([facility]) [address] [place] [address] 677[address] Immature granulocytes (Bld) [#/Vol] 0.02 x10*3/uL Normal 0.00-0.70 [facility] Comment on above: Performed By: #### 2 4323-8 #### VIKTOR HURST ([id number]) [facility] ([facility]) [address] [place] [address] 73576 Immature granulocytes/100 WBC (Bld) 0.3 % Normal 0.0-0.9 [facility] Comment on above: Result Comment: Tiffany ture Granulocyte Count (IG) includes promyelocytes, myelocytes and metamyelocytes but does not include bands. Percent differential counts (%) should be interpreted in the context of the absolute cell counts (cells/UL). Performed By: #### 2 4323-8 #### VIKTOR HURST ([id number]) [facility] ([facility]) [address] [place] [address] Lymphocytes (Bld) [#/Vol] 2.40 x10*3/uL Normal 1.20-4.80 [facility] Comment on above: Performed By: #### 2 4323-8 #### VIKTOR HURST ([id number]) [facility] ([facility]) [address] [place] [address] 97527 Lymphocytes/100 WBC (Bld) 37.7 % Normal 13.0-44.0 [facility] Comment on above: Performed By: #### 2 4323-8 #### VIKTOR HURST ([id number]) [facility] ([facility]) [address] [place] [address] 96587 MCH (RBC) [Entitic mass] 33.3 pg Normal 26.0-34.0 [facility] Comment on above: Performed By: #### 2 4323-8 #### VIKTOR HURST ([id number]) [facility] ([facility]) [address] [place] [address] 63211 MCHC (RBC) [Mass/Vol] 34.2 g/dL Normal 32.0-36.0 [facility] Comment on above: Performed By: #### 2 4323-8 #### VIKTOR HRUST ([id number]) [facility] ([facility]) [address] [place] [address] 53027 MCV (RBC) [Entitic vol] 97 fL Normal 80-100 [facility] Comment on above: Performed By: #### 2 4323-8 #### VIKTOR HURST ([id number]) [facility] ([facility]) [address] [place] [address] 98291 Monocytes (Bld) [#/Vol] 0.37 x10*3/uL Normal 0.10-1.00 [facility] Comment on above: Performed By: #### 2 4323-8 #### VIKTOR HURST ([id number]) [facility] ([facility]) [address] [place] [address] 94059 Monocytes/100 WBC (Bld) 5.8 % Normal 2.0-10.0 [facility] Comment on above: Performed By: #### 2 432-8 #### VIKTOR HURST ([id number]) [facility] ([facility]) [address] [place] [address] 50795 Neutrophils (Bld) [#/Vol] 3.42 x10*3/uL Normal 1.20-7.70 [facility] Comment on above: Result Comment: Perc ent differential counts (%) should be interpreted in the context of the absolute cell counts (cells/uL). Performed By: #### 2 4323-8 #### VIKTOR HURST ([id number]) [facility] ([facility]) [address] [place] [address] 99973 Neutrophils/100 WBC (Bld) 53.7 % Normal 40.0-80.0 [facility] Comment on above: Performed By: #### 2 4323-8 #### VIKTOR HURST ([id number]) [facility] ([facility]) [address] [place] [address] 35897 Nucleated RBC/100 WBC (Bld) [Ratio] 0.0 /100 WBCs Normal 0.0-0.0 [facility] Comment on above: Performed By: #### 2 4323-8 #### VIKTOR HURST ([id number]) [facility] ([facility]) [address] [place] [address]71 Platelets (Bld) [#/Vol] 262 x10*3/uL Normal 150-450 [facility] Comment on above: Performed By: #### 2 4323-8 #### VIKTOR HURST ([id number]) [facility] ([facility]) [address] [place] [address] 21812 RBC (Bld) [#/Vol] 4.12 x10*6/uL Normal 4.00-5.20 [facility] Comment on above: Performed By: #### 2 4323-8 #### VIKTOR HURST ([id number]) [facility] ([facility]) [address] [place] [address] 25769 WBC (Bld) [#/Vol] 6.4 x10*3/uL Normal 4.4-11.3 [facility] Comment on above: Performed By: #### 2 4323-8 #### VIKTOR HURST ([id number]) [facility] ([facility]) [address] [place] [address] 59895 Comprehensive metabolic 2000 panelon 12-26-2023 Albumin BCP dye [Mass/Vol] 4.3 g/dL 3.4 - 5.0 g/dL [facility] ALP [Catalytic activity/Vol] 59 U/L 33 - 110 U/L [facility] ALT With P-5'-P [Catalytic activity/Vol] 145 U/L High 7 - 45 U/L [facility] Comment on above: Patients treated wit h Sulfasalazine may generate falsely decreased results for ALT. Anion gap [Moles/Vol] 18 mmol/L 10 - 20 mmol/L [facility] AST With P-5'-P [Catalytic activity/Vol] 123 U/L High 9 - 39 U/L [facility] Bilirubin [Mass/Vol] 0.3 mg/dL 0.0 - 1.2 mg/dL [facility] Calcium [Mass/Vol] 8.9 mg/dL 8.6 - 10.3 mg/dL [facility] Chloride [Moles/Vol] 108 mmol/L High 98 - 107 mmol/L [facility] CO2 [Moles/Vol] 21 mmol/L 21 - 32 mmol/L [facility] Creatinine [Mass/Vol] 0.73 mg/dL 0.50 - 1.05 mg/dL [facility] eGFR - PINF [facility] Comment on above: Calculations of june mated GFR are performed using the 2020 CKD-EPI Study Refit equation without the race variable for the IDMS-Traceable creatinine methods. https://jasn.asnjournals.org/content/early//ASN.660093 8123 Glucose [Mass/Vol] 73 mg/dL Low 74 - 99 mg/dL [facility] Potassium [Moles/Vol] 3.8 mmol/L 3.5 - 5.3 mmol /L [facility] Protein [Mass/Vol] 7.1 g/dL 6.4 - 8.2 g/dL [facility] Sodium [Moles/Vol] 143 mmol/L 136 - 145 mmol/L [facility] Urea nitrogen [Mass/Vol] 8 mg/dL 6 - 23 mg/dL [facility] Albumin BCP dye [Mass/Vol] 4.3 g/dL Normal 3.4-5.0 [facility] Comment on above: Performed By: #### 2 2753-8 #### VIKTOR HURST ([id number]) [facility] (C) [address] [place] [address] 98011 ALP [Catalytic activity/Vol] 59 U/L Normal 33-110 [facility] Comment on above: Performed By: #### 2 2143-8 #### VIKTOR HURST ([id number]) [facility] ([facility]) [address] [place] [address] 76460 ALT With P-5'-P [Catalytic activity/Vol] 145 U/L High 7-45 [facility] Comment on above: Result Comment: Vicky ents treated with Sulfasalazine may generate falsely decreased results for ALT. Performed By: #### 2 4323-8 #### ANILAIBCOURTNEY HURST ([id number]) [facility] ([facility]) [address] [place] [address] 04327 Anion gap [Moles/Vol] 18 mmol/L Normal 10-20 [facility] Comment on above: Performed By: #### 2 4323-8 #### ANILAIBCOURTNEY HURST ([id number]) [facility] ([facility]) [address] [place] [address] 70189 AST With P-5'-P [Catalytic activity/Vol] 123 U/L High 9-39 [facility] Comment on above: Performed By: #### 2 4323-8 #### ANILAIBCOURTNEY HURST ([id number]) [facility] ([facility]) [address] [place] [address] 11156 Bilirubin [Mass/Vol] 0.3 mg/dL Normal 0.0-1.2 [facility] Comment on above: Performed By: #### 2 4323-8 #### ANILAIBCOURTNEY HURST ([id number]) [facility] ([facility]) [address] [place] [address] 76542 Calcium [Mass/Vol] 8.9 mg/dL Normal 8.6-10.3 [facility] Comment on above: Performed By: #### 2 4323-8 #### ANILAIBCOURTNEY HURST ([id number]) [facility] ([facility]) [address] [place] [address] 38264 Chloride [Moles/Vol] 108 mmol/L High 98-107 [facility] Comment on above: Performed By: #### 2 4323-8 #### ANILAIBCOURTNEY HURST ([id number]) [facility] ([facility]) [address] [place] [address] CO2 [Moles/Vol] 21 mmol/L Normal 21-32 [facility] Comment on above: Performed By: #### 2 4323-8 #### VIKTOR HURST ([id number]) [facility] ([facility]) [address] [place] [address] Creatinine [Mass/Vol] 0.73 mg/dL Normal 0.50-1.05 [facility] Comment on above: Performed By: #### 2 4323-8 #### VIKTOR HURST ([id number]) [facility] ([facility]) [address] [place] [address] 28003 GFR/1.73 sq M.predicted MDRD (S/P/Bld) [Vol rate/Area] mL/min/{1.73_m2} Normal >60 [facility] Comment on above: Result Comment: Calc ulations of estimated GFR are performed using the 2020 CKD-EPI Study Refit equation without the race variable for the IDMS-Traceable creatinine methods. https://jasn.asnjournals.org/content//ASN.070258 1102 Performed By: #### 2 4323-8 #### VIKTOR HURST ([id number]) [facility] ([facility]) [address] [place] [address] 28744 Glucose [Mass/Vol] 73 mg/dL Low 74-99 [facility] Comment on above: Performed By: #### 2 4323-8 #### VIKTOR HURST ([id number]) [facility] ([facility]) [address] [place] [address] Potassium [Moles/Vol] 3.8 mmol/L Normal 3.5-5.3 [facility] Comment on above: Performed By: #### 2 4323-8 #### VIKTOR HURST ([id number]) [facility] ([facility]) [address] [place] [address] 03904 Protein [Mass/Vol] 7.1 g/dL Normal 6.4-8.2 [facility] Comment on above: Performed By: #### 2 4323-8 #### VIKTOR MIGUE MALDONADO ([id number]) [facility] ([facility]) [address] [place] [address] Sodium [Moles/Vol] 143 mmol/L Normal 136-145 [facility] Comment on above: Performed By: #### 2 4323-8 #### ANILAIBCOURTNEY MIGUE MALDONADO ([id number]) [facility] ([facility]) [address] [place] [address] Urea nitrogen [Mass/Vol] 8 mg/dL Normal 6-23 [facility] Comment on above: Performed By: #### 2 4323-8 #### VIKTOR LANDONMICHAEL MALDONADO ([id number]) [facility] ([facility]) [address] [place] [address] DRUG SCREEN,URINEon 12-26-19 24 Amphetamines Screen Ql (U) Negative Normal Presumptive Negative [facility] Comment on above: Order Comment: Drug screen results are presumptive and should not be used to assesscompliance with prescribed medication. Contact the performing [facility] laboratoryto add-on definitive confirmatory testing if clinically indicated.Toxicology screening results are reported qualitatively. The concentration must???be greater than or equal to the cutoff to be reported as positive. The concentrationat which the screening test can detect an individual drug or metabolite varies.The absence of expected drug(s) and/or drug metabolite(s) may indicate non-compliance,inappropriate timing of specimen collection relative to drug administration, poor drugabsorption, diluted/adulterated urine, or limitations of testing. For medical purposesonly; not valid for forensic use.Interpretive questions should be directed to the laboratory medical directors. Result Comment: CUTO FF LEVEL: 500 NG/ML Cross-reactivity has been reported with high concentrations of the following drugs: buproprion, chloroquine, chlorpromazine, ephedrine, mephentermine, fenfluramine, phentermine, phenylpropanolamine, pseudoephedrine, and propranolol. Performed By: #### 2 157-6 #### VIKTOR HURST ([id number]) [facility] ([facility] [address] [place] [address] Barbiturates Screen Ql (U) Negative Normal Presumptive Negative [facility] Comment on above: Order Comment: Drug screen results are presumptive and should not be used to assesscompliance with prescribed medication. Contact the performing [facility] laboratoryto add-on definitive confirmatory testing if clinically indicated.Toxicology screening results are reported qualitatively. The concentration must???be greater than or equal to the cutoff to be reported as positive. The concentrationat which the screening test can detect an individual drug or metabolite varies.The absence of expected drug(s) and/or drug metabolite(s) may indicate non-compliance,inappropriate timing of specimen collection relative to drug administration, poor drugabsorption, diluted/adulterated urine, or limitations of testing. For medical purposesonly; not valid for forensic use.Interpretive questions should be directed to the laboratory medical directors. Result Comment: CUTO FF LEVEL: 200 NG/ML Performed By: #### 2 157-6 #### VIKTOR LANDON JOEL ([id number]) [facility] ([facility]) [address] [place] [address] Benzodiazepines Ql (U) Negative Normal Presumptive Negative [facility] Comment on above: Order Comment: Drug screen results are presumptive and should not be used to assesscompliance with prescribed medication. Contact the performing [facility] laboratoryto add-on definitive confirmatory testing if clinically indicated.Toxicology screening results are reported qualitatively. The concentration must???be greater than or equal to the cutoff to be reported as positive. The concentrationat which the screening test can detect an individual drug or metabolite varies.The absence of expected drug(s) and/or drug metabolite(s) may indicate non-compliance,inappropriate timing of specimen collection relative to drug administration, poor drugabsorption, diluted/adulterated urine, or limitations of testing. For medical purposesonly; not valid for forensic use.Interpretive questions should be directed to the laboratory medical directors. Result Comment: CUTO FF LEVEL: 200 NG/ML Performed By: #### 2 157-6 #### VIKTOR CAMARENA RIO JOEL ([id number]) [facility] ([facility] [address] [place] [address] Benzoylecgonine Screen Ql (U) Negative Normal Presumptive Negative [facility] Comment on above: Order Comment: Drug screen results are presumptive and should not be used to assesscompliance with prescribed medication. Contact the performing [facility] laboratoryto add-on definitive confirmatory testing if clinically indicated.Toxicology screening results are reported qualitatively. The concentration must???be greater than or equal to the cutoff to be reported as positive. The concentrationat which the screening test can detect an individual drug or metabolite varies.The absence of expected drug(s) and/or drug metabolite(s) may indicate non-compliance,inappropriate timing of specimen collection relative to drug administration, poor drugabsorption, diluted/adulterated urine, or limitations of testing. For medical purposesonly; not valid for forensic use.Interpretive questions should be directed to the laboratory medical directors. Result Comment: CUTO FF LEVEL: 150 NG/ML Performed By: #### 2 157-6 #### VIKTOR HURST ([id number]) [facility] ([facility]) [address] [place] [address] Cannabinoids Screen Ql (U) Negative Normal Presumptive Negative [facility] Comment on above: Order Comment: Drug screen results are presumptive and should not be used to assesscompliance with prescribed medication. Contact the performing [facility] laboratoryto add-on definitive confirmatory testing if clinically indicated.Toxicology screening results are reported qualitatively. The concentration must???be greater than or equal to the cutoff to be reported as positive. The concentrationat which the screening test can detect an individual drug or metabolite varies.The absence of expected drug(s) and/or drug metabolite(s) may indicate non-compliance,inappropriate timing of specimen collection relative to drug administration, poor drugabsorption, diluted/adulterated urine, or limitations of testing. For medical purposesonly; not valid for forensic use.Interpretive questions should be directed to the laboratory medical directors. Result Comment: CUTO FF LEVEL: 50 NG/ML Performed By: #### 2 157-6 #### VIKTOR HURST ([id number]) [facility] ([facility]) [address] [place] [address] 54503 fentaNYL+Norfentanyl Screen Ql (U) Negative Normal Presumptive Negative [facility] Comment on above: Order Comment: Drug screen results are presumptive and should not be used to assesscompliance with prescribed medication. Contact the performing [facility] laboratoryto add-on definitive confirmatory testing if clinically indicated.Toxicology screening results are reported qualitatively. The concentration must???be greater than or equal to the cutoff to be reported as positive. The concentrationat which the screening test can detect an individual drug or metabolite varies.The absence of expected drug(s) and/or drug metabolite(s) may indicate non-compliance,inappropriate timing of specimen collection relative to drug administration, poor drugabsorption, diluted/adulterated urine, or limitations of testing. For medical purposesonly; not valid for forensic use.Interpretive questions should be directed to the laboratory medical directors. Result Comment: CUTO FF LEVEL: 5 NG/ML Performed By: #### 2 157-6 #### VIKTOR CAMARENA RIO JOEL ([id number]) [facility] ([facility] [address] [place] [address] Methadone Screen Ql (U) Negative Normal Presumptive Negative [facility] Comment on above: Order Comment: Drug screen results are presumptive and should not be used to assesscompliance with prescribed medication. Contact the performing [facility] laboratoryto add-on definitive confirmatory testing if clinically indicated.Toxicology screening results are reported qualitatively. The concentration must???be greater than or equal to the cutoff to be reported as positive. The concentrationat which the screening test can detect an individual drug or metabolite varies.The absence of expected drug(s) and/or drug metabolite(s) may indicate non-compliance,inappropriate timing of specimen collection relative to drug administration, poor drugabsorption, diluted/adulterated urine, or limitations of testing. For medical purposesonly; not valid for forensic use.Interpretive questions should be directed to the laboratory medical directors. Result Comment: CUTO FF LEVEL: 150 NG/ML The metabolite Z-tpuup-uaadcphykvkrdh (LAAM) is not detected by this method in concentrations that would be found in the urine of patients on LAAM therapy. Performed By: #### 2 157-6 #### VIKTOR CAMARENA RIO JOEL ([id number]) [facility] (EM) [address] [place] [address] 16895 Opiates Screen Ql (U) Negative Normal Presum ptive Negative [facility] Comment on above: Order Comment: Drug screen results are presumptive and should not be used to assesscompliance with prescribed medication. Contact the performing [facility] laboratoryto add-on definitive confirmatory testing if clinically indicated.Toxicology screening results are reported qualitatively. The concentration must???be greater than or equal to the cutoff to be reported as positive. The concentrationat which the screening test can detect an individual drug or metabolite varies.The absence of expected drug(s) and/or drug metabolite(s) may indicate non-compliance,inappropriate timing of specimen collection relative to drug administration, poor drugabsorption, diluted/adulterated urine, or limitations of testing. For medical purposesonly; not valid for forensic use.Interpretive questions should be directed to the laboratory medical directors. Result Comment: CUTO FF LEVEL: 300 NG/ML The opiate screen does not detect fentanyl, meperidine, or tramadol. Oxycodone is not consistently detected (refer to Oxycodone Screen, Urine result). Performed By: #### 2 157-6 #### VIKTOR HURST ([id number]) [facility] ([facility]) [address] [place] [address] 81687 oxyCODONE+oxyMORphone Screen Ql (U) Negative Normal Presumptive Negative [facility] Comment on above: Order Comment: Drug screen results are presumptive and should not be used to assesscompliance with prescribed medication. Contact the performing [facility] laboratoryto add-on definitive confirmatory testing if clinically indicated.Toxicology screening results are reported qualitatively. The concentration must???be greater than or equal to the cutoff to be reported as positive. The concentrationat which the screening test can detect an individual drug or metabolite varies.The absence of expected drug(s) and/or drug metabolite(s) may indicate non-compliance,inappropriate timing of specimen collection relative to drug administration, poor drugabsorption, diluted/adulterated urine, or limitations of testing. For medical purposesonly; not valid for forensic use.Interpretive questions should be directed to the laboratory medical directors. Result Comment: CUTO FF LEVEL: 100 NG/ML This test will accurately detect both oxycodone and oxymorphone. Performed By: #### 2 157-6 #### VIKTOR HURST ([id number]) [facility] ([facility]) [address] [place] [address] Phencyclidine Ql (U) Negative Normal Presump tive Negative [facility] Comment on above: Order Comment: Drug screen results are presumptive and should not be used to assesscompliance with prescribed medication. Contact the performing [facility] laboratoryto add-on definitive confirmatory testing if clinically indicated.Toxicology screening results are reported qualitatively. The concentration must???be greater than or equal to the cutoff to be reported as positive. The concentrationat which the screening test can detect an individual drug or metabolite varies.The absence of expected drug(s) and/or drug metabolite(s) may indicate non-compliance,inappropriate timing of specimen collection relative to drug administration, poor drugabsorption, diluted/adulterated urine, or limitations of testing. For medical purposesonly; not valid for forensic use.Interpretive questions should be directed to the laboratory medical directors. Result Comment: CUTO FF LEVEL: 25 NG/ML Cross-reactivity has been reported with dextromethorphan. Performed By: #### 2 157-6 #### VIKTOR HURST ([id number]) [facility] ([facility]) [address] [place] [address] Drug Screen, Urineon 024 Amphetamines Screen Ql (U) Negative Presumptive Negative [facility] Comment on above: CUTOFF LEVEL: 500 NG /ML Cross-reactivity has been reported with high concentrations of the following drugs: buproprion, chloroquine, chlorpromazine, ephedrine, mephentermine, fenfluramine, phentermine, phenylpropanolamine, pseudoephedrine, and propranolol. Barbiturates Screen Ql (U) Negative Presumptive Negative [facility] Comment on above: CUTOFF LEVEL: 200 NG /ML Benzodiazepines Ql (U) Negative Presumptive Negative [facility] Comment on above: CUTOFF LEVEL: 200 NG /ML Benzoylecgonine Screen Ql (U) Negative Presumptive Negative [facility] Comment on above: CUTOFF LEVEL: 150 NG /ML Cannabinoids Screen Ql (U) Negative Presumptive Negative [facility] Comment on above: CUTOFF LEVEL: 50 NG/ ML fentaNYL+Norfentanyl Screen Ql (U) Negative Presumptive Negative [facility] Comment on above: CUTOFF LEVEL: 5 NG/M L Interpretation and review of laboratory results Normal [facility] Methadone Screen Ql (U) Negative Presumptive Negative [facility] Comment on above: CUTOFF LEVEL: 150 NG /ML The metabolite F-nhuhd-xwamcrabpmgfcm (LAAM) is not detected by this method in concentrations that would be found in the urine of patients on LAAM therapy. Opiates Screen Ql (U) Negative Presum ptive Negative [facility] Comment on above: CUTOFF LEVEL: 300 NG /ML The opiate screen does not detect fentanyl, meperidine, or tramadol. Oxycodone is not consistently detected (refer to Oxycodone Screen, Urine result). oxyCODONE+oxyMORphone Screen Ql (U) Negative Presumptive Negative [facility] Comment on above: CUTOFF LEVEL: 100 NG /ML This test will accurately detect both oxycodone and oxymorphone. Phencyclidine Ql (U) Negative Presump tive Negative [facility] Comment on above: CUTOFF LEVEL: 25 NG/ ML Cross-reactivity has been reported with dextromethorphan. Drug screen results are presumptive and should not be used to assess compliance with prescribed medication. Contact the performing [facility] laboratory to add-on definitive confirmatory testing if clinically indicated. Toxicology screening results are reported qualitatively. The concentration must be greater than or equal to the cutoff to be reported as positive. The concentration at which the screening test can detect an individual drug or metabolite varies. The absence of expected drug(s) and/or drug metabolite(s) may indicate non-compliance, inappropriate timing of specimen collection relative to drug administration, poor drug absorption, diluted/adulterated urine, or limitations of testing. For medical purposes only; not valid for forensic use. Interpretive questions should be directed to the laboratory medical directors. [facility] ECG 12-LEADon 12-26-2023 ECG 12-LEAD Ventricular Rate 77 Atrial Rate 77 P-R Interval 142 QRS Duration 86 Q-T Interval 402 QTC Calculation(Bazett) 454 P Amelia 54 R Amelia 59 T Amelia 36 QRS Count 12 Q Onset 222 P Onset 151 P Offset 194 T Offset 423 QTC Fredericia 436 Diagnosis Normal sinus rhythm Normal ECG When compared with ECG of 22-DEC-2023 23:35, No significant change was found See ED provider note for full interpretation and clinical correlation Confirmed by Patricia Clark ([id number]) on 12/27/2023 5:53:44 PM Normal [facility] No Panel InformationOrdered By: Kat Rayo on 12-26-2023 Interpretation and review of laboratory results Abnormal [facility] No Panel Informationon 12-25 Interpretation and review of laboratory results Abnormal [facility] Red Topon 12-26-2023 Extra Tube Hold for add-ons. [facility] Comment on above: Auto resulted. [facility] Urinalysis complete W Reflex Culture panel (U)Ordered By: Kat Rayo on 12-26-2023 Appearance (U) Clear Clear [facility] Bilirubin (U) [Mass/Vol] Negative NEGATIVE [facility] Color (U) Colorless Abnormal Light-Yellow, Yellow, Dark-Yellow [facility] Glucose Auto test strip (U) [Mass/Vol] Normal Normal mg/dL [facility] Ketones (U) [Mass/Vol] Negative NEGATIVE mg/dL [facility] Leukocyte esterase Auto test strip Ql (U) 75 Smiley/ L Abnormal NEGATIVE [facility] Nitrite Auto test strip Ql (U) Negative NEGATIVE [facility] pH (U) 5.0 [pH] 5.0, 5.5, 6.0, 6.5, 7.0, 7.5, 8.0 [facility] Protein (U) [Mass/Vol] Negative NEGATIVE, 10 (TRACE), 20 (TRACE) mg/dL [facility] RBC (U) [#/Vol] Negative NEGATIVE [facility] Specific gravity (U) [Rel density] 1.004 Abnormal 1.005 - 1.035 [facility] Urobilinogen (U) [Mass/Vol] Normal Normal mg/dL [facility] Urinalysis complete W Reflex Culture panel (U)on 12-26-2023 Appearance (U) Clear Normal Clear [facility] Comment on above: Performed By: #### 2 157-6 #### VIKTOR HURST ([id number]) [facility] ([facility]) [address] [place] [address] 75107 Bilirubin (U) [Mass/Vol] Negative Normal NEGATIVE [facility] Comment on above: Performed By: #### 2 157-6 #### VIKTOR HURST ([id number]) [facility] ([facility]) [address] [place] [address] 53608 Color (U) Colorless Normal Light-Yellow, Yellow, Dark-Yellow [facility] Comment on above: Performed By: #### 2 157-6 #### VIKTOR HURST ([id number]) [facility] ([facility]) [address] [place] [address] 76565 Glucose Auto test strip (U) [Mass/Vol] Normal Normal Normal [facility] Comment on above: Performed By: #### 2 157-6 #### VIKTOR HURST ([id number]) [facility] ([facility]) [address] [place] [address] 24661 Ketones (U) [Mass/Vol] Negative Normal NEGATIVE [facility] Comment on above: Performed By: #### 2 157-6 #### VIKTOR HURST ([id number]) [facility] ([facility]) [address] [place] [address] 18446 Leukocyte esterase Auto test strip Ql (U) 75 Smiley/???L Abnormal NEGATIVE [facility] Comment on above: Performed By: #### 2 157-6 #### VIKTOR HURST ([id number]) [facility] ([facility]) [address] [place] [address] 42573 Nitrite Auto test strip Ql (U) Negative Normal NEGATIVE [facility] Comment on above: Performed By: #### 2 157-6 #### VIKTOR HURST ([id number]) [facility] ([facility]) [address] [place] [address] 34442 pH (U) 5.0 [pH] Normal 5.0, 5.5, 6.0, 6.5, 7.0, 7.5, 8.0 [facility] Comment on above: Performed By: #### 2 157-6 #### VIKTOR HURST ([id number]) [facility] ([facility]) [address] [place] [address] 68581 Protein (U) [Mass/Vol] Negative Normal NEGATIVE, 10 (TRACE), 20 (TRACE) [facility] Comment on above: Performed By: #### 2 157-6 #### VIKTOR HURST ([id number]) [facility] ([facility]) [address] [place] [address] 45941 RBC (U) [#/Vol] Negative Normal NEGATIVE [facility] Comment on above: Performed By: #### 2 157-6 #### VIKTOR HURST ([id number]) [facility] ([facility]) [address] [place] [address] 48670 Specific gravity (U) [Rel density] 1.004 Normal 1.005-1.035 [facility] Comment on above: Performed By: #### 2 157-6 #### VIKTOR HURST ([id number]) [facility] ([facility]) [address] [place] [address] 14572 Urobilinogen (U) [Mass/Vol] Normal Normal Normal [facility] Comment on above: Performed By: #### 2 157-6 #### VIKTOR HURST ([id number]) [facility] ([facility]) [address] [place] [address] 69629 Urinalysis microscopic panel Auto Ql (U)on 12-26-2023 Bacteria Auto (Urine sed) [#/Area] 1+ Abnormal NONE SEEN /HPF [facility] Work Phone: Epithelial cells.squamous Auto (Urine sed) [#/Area] 10-25 (FEW) Reference range not established. /HPF [facility] Work Phone: RBC Auto (Urine sed) [#/Area] 1-2 NONE, 1-2, 3-5 /HPF [facility] Work Phone: WBC Auto (Urine sed) [#/Area] 6-10 Abnormal 1-5, NONE /HPF [facility] Work Phone: Bacteria Auto (Urine sed) [#/Area] 1+ /HPF Abnormal NONE SEEN [facility] Comment on above: Performed By: #### 2 157-6 #### VIKTOR HURST ([id number]) [facility] (EM) [address] [place] [address] Epithelial cells.squamous Auto (Urine sed) [#/Area] 10-25 (FEW) Normal Reference range not established. [facility] Comment on above: Performed By: #### 2 157-6 #### VIKTOR HURST ([id number]) [facility] ([facility]) [address] [place] [address] 50454 RBC Auto (Urine sed) [#/Area] 1-2 Normal NONE, 1-2, 3-5 [facility] Comment on above: Performed By: #### 2 157-6 #### VIKTOR HURST ([id number]) [facility] (EM) [address] [place] [address] WBC Auto (Urine sed) [#/Area] 6-10 Abnormal 1-5, NONE [facility] Comment on above: Performed By: #### 2 157-6 #### VIKTOR HURST ([id number]) [facility] (EM) [address] [place] [address] Drug Screen, Urineon 18-2 024 Amphetamines Screen Ql (U) Negative Presumptive Negative [facility] Comment on above: CUTOFF LEVEL: 500 NG /ML Cross-reactivity has been reported with high concentrations of the following drugs: buproprion, chloroquine, chlorpromazine, ephedrine, mephentermine, fenfluramine, phentermine, phenylpropanolamine, pseudoephedrine, and propranolol. Barbiturates Screen Ql (U) Negative Presumptive Negative [facility] Comment on above: CUTOFF LEVEL: 200 NG /ML Benzodiazepines Ql (U) Negative Presumptive Negative [facility] Comment on above: CUTOFF LEVEL: 200 NG /ML Benzoylecgonine Screen Ql (U) Negative Presumptive Negative [facility] Comment on above: CUTOFF LEVEL: 150 NG /ML Cannabinoids Screen Ql (U) Negative Presumptive Negative [facility] Comment on above: CUTOFF LEVEL: 50 NG/ ML fentaNYL+Norfentanyl Screen Ql (U) Negative Presumptive Negative [facility] Comment on above: CUTOFF LEVEL: 5 NG/M L Interpretation and review of laboratory results Normal [facility] Methadone Screen Ql (U) Negative Presumptive Negative [facility] Comment on above: CUTOFF LEVEL: 150 NG /ML The metabolite K-ncthp-xphsjnprlqlqat (LAAM) is not detected by this method in concentrations that would be found in the urine of patients on LAAM therapy. Opiates Screen Ql (U) Negative Presum ptive Negative [facility] Comment on above: CUTOFF LEVEL: 300 NG /ML The opiate screen does not detect fentanyl, meperidine, or tramadol. Oxycodone is not consistently detected (refer to Oxycodone Screen, Urine result). oxyCODONE+oxyMORphone Screen Ql (U) Negative Presumptive Negative [facility] Comment on above: CUTOFF LEVEL: 100 NG /ML This test will accurately detect both oxycodone and oxymorphone. Phencyclidine Ql (U) Negative Presump tive Negative [facility] Comment on above: CUTOFF LEVEL: 25 NG/ ML Cross-reactivity has been reported with dextromethorphan. Drug screen results are presumptive and should not be used to assess compliance with prescribed medication. Contact the performing [facility] laboratory to add-on definitive confirmatory testing if clinically indicated. Toxicology screening results are reported qualitatively. The concentration must be greater than or equal to the cutoff to be reported as positive. The concentration at which the screening test can detect an individual drug or metabolite varies. The absence of expected drug(s) and/or drug metabolite(s) may indicate non-compliance, inappropriate timing of specimen collection relative to drug administration, poor drug absorption, diluted/adulterated urine, or limitations of testing. For medical purposes only; not valid for forensic use. Interpretive questions should be directed to the laboratory medical directors. [facility] ACUTE TOXICOLOGY PANEL, NADIRA Holbrook 12-22-2023 Acetaminophen [Mass/Vol] ug/mL Normal 10.0-30.0 [facility] Comment on above: Performed By: #### 2 4323-8 #### VIKTOR HURST ([id number]) [facility] ([facility]) [address] [place] [address] 16994 Ethanol [Mass/Vol] 252 mg/dL High <=10 [facility] Comment on above: Performed By: #### 2 4323-8 #### VIKTOR HURST ([id number]) [facility] ([facility]) [address] [place] [address] 95528 Salicylates [Mass/Vol] mg/dL Normal 4-20 [facility] Comment on above: Performed By: #### 2 4323-8 #### VIKTOR HURST ([id number]) [facility] ([facility]) [address] [place] [address] 20793 Acute Toxicology Panel, Bloo don 12-22-2023 Acetaminophen [Mass/Vol] ug/mL 10.0 - 30.0 ug/mL [facility] Ethanol [Mass/Vol] 252 mg/dL High NINF - 10 mg/dL U [facility] Salicylates [Mass/Vol] mg/dL 4 - 20 mg/dL [facility] Bacteria identifiedon 2023 Bacteria identified Cx Nom (U) Test: Urine Culture Specimen Source: Clean Catch/Voided Specimen Type: Urine Specimen Date: 12/22/20232327 Result Date: 12/24/2023756 Result Status: Final result Abnormal: No Resulting Lab: [facility] [address] [place], [place] [id number] CULTURE No growth Normal [facility] Comment on above: Performed By: #### 2 4323-8 #### VIKTOR HURST ([id number]) [facility] ([facility]) [address] [place] [address] 49387 CBC W Auto Differential pane l (Bld)on 12-22-2023 Basophils (Bld) [#/Vol] 0.07 10*3/uL [facility] Basophils/100 WBC (Bld) 1.0 % 0.0 - 2.0 % [facility] Eosinophils (Bld) [#/Vol] 0.13 10*3/uL [facility] Eosinophils/100 WBC (Bld) 1.9 % 0.0 - 6.0 % [facility] Erythrocyte distribution width (RBC) [Ratio] 13.2 % 11.5 - 14.5 % [facility] Hematocrit (Bld) [Volume fraction] 39.6 % 36.0 - 46.0 % [facility] Hemoglobin (Bld) [Mass/Vol] 13.9 g/dL 12.0 - 16.0 g/dL [facility] Immature granulocytes (Bld) [#/Vol] 0.02 10*3/uL [facility] Immature granulocytes/100 WBC (Bld) 0.3 % 0.0 - 0.9 % [facility] Comment on above: Immature Granulocyte Count (IG) includes promyelocytes, myelocytes and metamyelocytes but does not include bands. Percent differential counts (%) should be interpreted in the context of the absolute cell counts (cells/UL). Lymphocytes (Bld) [#/Vol] 2.49 10*3/uL [facility] Lymphocytes/100 WBC (Bld) 37.3 % 13.0 - 44.0 % [facility] MCH (RBC) [Entitic mass] 33.7 pg 26.0 - 34.0 pg [facility] MCHC (RBC) [Mass/Vol] 35.1 g/dL 32.0 - 36.0 g/ dL [facility] MCV (RBC) [Entitic vol] 96 fL 80 - 100 fL [facility] Monocytes (Bld) [#/Vol] 0.51 10*3/uL [facility] Monocytes/100 WBC (Bld) 7.6 % 2.0 - 10.0 % [facility] Neutrophils (Bld) [#/Vol] 3.45 10*3/uL [facility] Comment on above: Percent differential counts (%) should be interpreted in the context of the absolute cell counts (cells/uL). Neutrophils/100 WBC (Bld) 51.9 % 40.0 - 80.0 % [facility] Nucleated RBC/100 WBC (Bld) [Ratio] 0.0 % [facility] Platelets (Bld) [#/Vol] 286 10*3/uL [facility] RBC (Bld) [#/Vol] 4.13 10*6/uL [facility] WBC (Bld) [#/Vol] 6.7 10*3/uL [facility] Basophils (Bld) [#/Vol] 0.07 x10*3/uL Normal 0.00-0.10 [facility] Comment on above: Performed By: #### 5 7021-8 #### VIKTOR HURST ([id number]) [facility] ([facility]) [address] [place] [address] 67255 Basophils/100 WBC (Bld) 1.0 % Normal 0.0-2.0 [facility] Comment on above: Performed By: #### 5 7021-8 #### VIKTOR HURST ([id number]) [facility] ([facility]) [address] [place] [address] 95251 Eosinophils (Bld) [#/Vol] 0.13 x10*3/uL Normal 0.00-0.70 [facility] Comment on above: Performed By: #### 5 7021-8 #### VIKTOR HURST ([id number]) [facility] ([facility]) [address] [place] [address] 03044 Eosinophils/100 WBC (Bld) 1.9 % Normal 0.0-6.0 [facility] Comment on above: Performed By: #### 5 7021-8 #### VIKTOR HURST ([id number]) [facility] ([facility]) [address] [place] [address] 06474 Erythrocyte distribution width (RBC) [Ratio] 13.2 % Normal 11.5-14.5 [facility] Comment on above: Performed By: #### 5 7021-8 #### VIKTOR HURST ([id number]) [facility] ([facility]) [address] [place] [address] 25765 Hematocrit (Bld) [Volume fraction] 39.6 % Normal 36.0-46.0 [facility] Comment on above: Performed By: #### 5 7021-8 #### VIKTOR HURST ([id number]) [facility] ([facility]) [address] [place] [address] 05072 Hemoglobin (Bld) [Mass/Vol] 13.9 g/dL Normal 12.0-16.0 [facility] Comment on above: Performed By: #### 5 7021-8 #### VIKTOR HURST ([id number]) [facility] ([facility]) [address] [place] [address] 61491 Immature granulocytes (Bld) [#/Vol] 0.02 x10*3/uL Normal 0.00-0.70 [facility] Comment on above: Performed By: #### 5 7021-8 #### VIKTOR HURST ([id number]) [facility] ([facility]) [address] [place] [address] 92999 Immature granulocytes/100 WBC (Bld) 0.3 % Normal 0.0-0.9 [facility] Comment on above: Result Comment: Tiffany ture Granulocyte Count (IG) includes promyelocytes, myelocytes and metamyelocytes but does not include bands. Percent differential counts (%) should be interpreted in the context of the absolute cell counts (cells/UL). Performed By: #### 5 7021-8 #### VIKTOR HURST ([id number]) [facility] ([facility]) [address] [place] [address] 73953 Lymphocytes (Bld) [#/Vol] 2.49 x10*3/uL Normal 1.20-4.80 [facility] Comment on above: Performed By: #### 5 7021-8 #### VIKTOR HURST ([id number]) [facility] ([facility]) [address] [place] [address] 89411 Lymphocytes/100 WBC (Bld) 37.3 % Normal 13.0-44.0 [facility] Comment on above: Performed By: #### 5 7021-8 #### VIKTOR HRUST ([id number]) [facility] ([facility]) [address] [place] [address] 97368 MCH (RBC) [Entitic mass] 33.7 pg Normal 26.0-34.0 [facility] Comment on above: Performed By: #### 5 7021-8 #### VIKTOR UHRST ([id number]) [facility] ([facility]) [address] [place] [address] 08479 MCHC (RBC) [Mass/Vol] 35.1 g/dL Normal 32.0-36.0 [facility] Comment on above: Performed By: #### 5 7021-8 #### VIKTOR HURST ([id number]) [facility] ([facility]) [address] [place] [address] 28848 MCV (RBC) [Entitic vol] 96 fL Normal 80-100 [facility] Comment on above: Performed By: #### 5 7021-8 #### VIKTOR HURST ([id number]) [facility] ([facility]) [address] [place] [address] 68752 Monocytes (Bld) [#/Vol] 0.51 x10*3/uL Normal 0.10-1.00 [facility] Comment on above: Performed By: #### 5 7021-8 #### VIKTOR HURST ([id number]) [facility] ([facility]) [address] [place] [address] 25472 Monocytes/100 WBC (Bld) 7.6 % Normal 2.0-10.0 [facility] Comment on above: Performed By: #### 5 7021-8 #### VIKTOR HURST ([id number]) [facility] ([facility]) [address] [place] [address] 40941 Neutrophils (Bld) [#/Vol] 3.45 x10*3/uL Normal 1.20-7.70 [facility] Comment on above: Result Comment: Perc ent differential counts (%) should be interpreted in the context of the absolute cell counts (cells/uL). Performed By: #### 5 7021-8 #### VIKTOR HURST ([id number]) [facility] ([facility]) [address] [place] [address] 56782 Neutrophils/100 WBC (Bld) 51.9 % Normal 40.0-80.0 [facility] Comment on above: Performed By: #### 5 7021-8 #### VIKTOR HURST ([id number]) [facility] ([facility]) [address] [place] [address] 63076 Nucleated RBC/100 WBC (Bld) [Ratio] 0.0 /100 WBCs Normal 0.0-0.0 [facility] Comment on above: Performed By: #### 5 7021-8 #### VIKTOR HURST ([id number]) [facility] ([facility]) [address] [place] [address] 89426 Platelets (Bld) [#/Vol] 286 x10*3/uL Normal 150-450 [facility] Comment on above: Performed By: #### 5 7021-8 #### VIKTOR HURST ([id number]) [facility] ([facility]) [address] [place] [address] 51312 RBC (Bld) [#/Vol] 4.13 x10*6/uL Normal 4.00-5.20 [facility] Comment on above: Performed By: #### 5 7021-8 #### VIKTOR HURST ([id number]) [facility] ([facility]) [address] [place] [address] 18443 WBC (Bld) [#/Vol] 6.7 x10*3/uL Normal 4.4-11.3 [facility] Comment on above: Performed By: #### 5 7021-8 #### VIKTOR HURST ([id number]) [facility] ([facility]) [address] [place] [address] 88909 Comprehensive metabolic 2000 panelon 12-22-2023 Albumin BCP dye [Mass/Vol] 4.4 g/dL 3.4 - 5.0 g/dL [facility] ALP [Catalytic activity/Vol] 70 U/L 33 - 110 U/L [facility] ALT With P-5'-P [Catalytic activity/Vol] 108 U/L High 7 - 45 U/L [facility] Comment on above: Patients treated wit h Sulfasalazine may generate falsely decreased results for ALT. Anion gap [Moles/Vol] 14 mmol/L 10 - 20 mmol/L [facility] AST With P-5'-P [Catalytic activity/Vol] 135 U/L High 9 - 39 U/L [facility] Bilirubin [Mass/Vol] 0.2 mg/dL 0.0 - 1.2 mg/dL [facility] Calcium [Mass/Vol] 8.9 mg/dL 8.6 - 10.3 mg/dL [facility] Chloride [Moles/Vol] 109 mmol/L High 98 - 107 mmol/L [facility] CO2 [Moles/Vol] 22 mmol/L 21 - 32 mmol/L [facility] Creatinine [Mass/Vol] 0.85 mg/dL 0.50 - 1.05 mg/dL [facility] eGFR - PINF [facility] Comment on above: Calculations of june mated GFR are performed using the 2020 CKD-EPI Study Refit equation without the race variable for the IDMS-Traceable creatinine methods. https://jasn.asnjournals.org/content/early/ASN.610866 2752 Glucose [Mass/Vol] 84 mg/dL 74 - 99 mg/dL [facility] Potassium [Moles/Vol] 4.0 mmol/L 3.5 - 5.3 mmol /L [facility] Protein [Mass/Vol] 7.3 g/dL 6.4 - 8.2 g/[facility] Sodium [Moles/Vol] 141 mmol/L 136 - 145 mmol/L [facility] Urea nitrogen [Mass/Vol] 12 mg/dL 6 - 23 mg/dL [facility] Albumin BCP dye [Mass/Vol] 4.4 g/dL Normal 3.4-5.0 [facility] Comment on above: Performed By: #### 2 4323-8 #### VIKTOR HURST ([id number]) [facility] ([facility]) [address] [place] [address] 39435 ALP [Catalytic activity/Vol] 70 U/L Normal 33-110 [facility] Comment on above: Performed By: #### 2 4323-8 #### VIKTOR HURST ([id number]) [facility] ([facility]) [address] [place] [address] ALT With P-5'-P [Catalytic activity/Vol] 108 U/L High 7-45 [facility] Comment on above: Result Comment: Vicky ents treated with Sulfasalazine may generate falsely decreased results for ALT. Performed By: #### 2 4323-8 #### VIKTOR HURST ([id number]) [facility] ([facility]) [address] [place] [address] 12750 Anion gap [Moles/Vol] 14 mmol/L Normal 10-20 [facility] Comment on above: Performed By: #### 2 4323-8 #### VIKTOR HURST ([id number]) [facility] ([facility]) [address] [place] [address] 15600 AST With P-5'-P [Catalytic activity/Vol] 135 U/L High 9-39 [facility] Comment on above: Performed By: #### 2 4323-8 #### VIKTOR HURST ([id number]) [facility] ([facility]) [address] [place] [address] 86406 Bilirubin [Mass/Vol] 0.2 mg/dL Normal 0.0-1.2 [facility] Comment on above: Performed By: #### 2 4323-8 #### VIKTOR HURST ([id number]) [facility] ([facility]) [address] [place] [address] 80823 Calcium [Mass/Vol] 8.9 mg/dL Normal 8.6-10.3 [facility] Comment on above: Performed By: #### 2 4323-8 #### VIKTOR HURST ([id number]) [facility] ([facility]) [address] [place] [address] Chloride [Moles/Vol] 109 mmol/L High 98-107 [facility] Comment on above: Performed By: #### 2 4323-8 #### VIKTOR HURST ([id number]) [facility] ([facility]) [address] [place] [address] CO2 [Moles/Vol] 22 mmol/L Normal 21-32 [facility] Comment on above: Performed By: #### 2 4323-8 #### VIKTOR HURST ([id number]) [facility] ([facility]) [address] [place] [address] 04360 Creatinine [Mass/Vol] 0.85 mg/dL Normal 0.50-1.05 [facility] Comment on above: Performed By: #### 2 4323-8 #### VIKTOR HURST ([id number]) [facility] ([facility]) [address] [place] [address] 53062 GFR/1.73 sq M.predicted MDRD (S/P/Bld) [Vol rate/Area] mL/min/{1.73_m2} Normal >60 [facility] Comment on above: Result Comment: Calc ulations of estimated GFR are performed using the 2020 CKD-EPI Study Refit equation without the race variable for the IDMS-Traceable creatinine methods. https://jasn.asnjournals.org/content/early//ASN.845281 0046 Performed By: #### 2 4323-8 #### VIKTOR HURST ([id number]) [facility] ([facility]) [address] [place] [address] 92645 Glucose [Mass/Vol] 84 mg/dL Normal 74-99 [facility] Comment on above: Performed By: #### 2 4323-8 #### VIKTOR HURST ([id number]) [facility] ([facility]) [address] [place] [address] Potassium [Moles/Vol] 4.0 mmol/L Normal 3.5-5.3 [facility] Comment on above: Performed By: #### 2 4323-8 #### VIKTOR HURST ([id number]) [facility] ([facility]) [address] [place] [address] Protein [Mass/Vol] 7.3 g/dL Normal 6.4-8.2 [facility] Comment on above: Performed By: #### 2 4323-8 #### VIKTOR HURST ([id number]) [facility] ([facility]) [address] [place] [address] 49883 Sodium [Moles/Vol] 141 mmol/L Normal 136-145 [facility] Comment on above: Performed By: #### 2 4323-8 #### VIKTOR HURST ([id number]) [facility] ([facility]) [address] [place] [address] 33808 Urea nitrogen [Mass/Vol] 12 mg/dL Normal 6-23 [facility] Comment on above: Performed By: #### 2 4323-8 #### VIKTOR HURST ([id number]) [facility] ([facility]) [address] [place] [address] 77717 DRUG SCREEN,URINEon 12-22-19 24 Amphetamines Screen Ql (U) Negative Normal Presumptive Negative [facility] Comment on above: Order Comment: Drug screen results are presumptive and should not be used to assesscompliance with prescribed medication. Contact the performing [facility] laboratoryto add-on definitive confirmatory testing if clinically indicated.Toxicology screening results are reported qualitatively. The concentration must???be greater than or equal to the cutoff to be reported as positive. The concentrationat which the screening test can detect an individual drug or metabolite varies.The absence of expected drug(s) and/or drug metabolite(s) may indicate non-compliance,inappropriate timing of specimen collection relative to drug administration, poor drugabsorption, diluted/adulterated urine, or limitations of testing. For medical purposesonly; not valid for forensic use.Interpretive questions should be directed to the laboratory medical directors. Result Comment: CUTO FF LEVEL: 500 NG/ML Cross-reactivity has been reported with high concentrations of the following drugs: buproprion, chloroquine, chlorpromazine, ephedrine, mephentermine, fenfluramine, phentermine, phenylpropanolamine, pseudoephedrine, and propranolol. Performed By: #### 2 4323-8 #### VIKTOR FOR[place] MY[place] JOEL ([id number]) [facility] ([facility] [address] [place] [address] Barbiturates Screen Ql (U) Negative Normal Presumptive Negative [facility] Comment on above: Order Comment: Drug screen results are presumptive and should not be used to assesscompliance with prescribed medication. Contact the performing [facility] laboratoryto add-on definitive confirmatory testing if clinically indicated.Toxicology screening results are reported qualitatively. The concentration must???be greater than or equal to the cutoff to be reported as positive. The concentrationat which the screening test can detect an individual drug or metabolite varies.The absence of expected drug(s) and/or drug metabolite(s) may indicate non-compliance,inappropriate timing of specimen collection relative to drug administration, poor drugabsorption, diluted/adulterated urine, or limitations of testing. For medical purposesonly; not valid for forensic use.Interpretive questions should be directed to the laboratory medical directors. Result Comment: CUTO FF LEVEL: 200 NG/ML Performed By: #### 2 4323-8 #### VIKTOR CAMARENA RIO JOEL ([id number]) [facility] ([facility] [address] [place] [address] Benzodiazepines Ql (U) Negative Normal Presumptive Negative [facility] Comment on above: Order Comment: Drug screen results are presumptive and should not be used to assesscompliance with prescribed medication. Contact the performing [facility] laboratoryto add-on definitive confirmatory testing if clinically indicated.Toxicology screening results are reported qualitatively. The concentration must???be greater than or equal to the cutoff to be reported as positive. The concentrationat which the screening test can detect an individual drug or metabolite varies.The absence of expected drug(s) and/or drug metabolite(s) may indicate non-compliance,inappropriate timing of specimen collection relative to drug administration, poor drugabsorption, diluted/adulterated urine, or limitations of testing. For medical purposesonly; not valid for forensic use.Interpretive questions should be directed to the laboratory medical directors. Result Comment: CUTO FF LEVEL: 200 NG/ML Performed By: #### 2 4323-8 #### VIKTOR LANDON JOEL ([id number]) [facility] ([facility] [address] [place] [address] 86207 Benzoylecgonine Screen Ql (U) Negative Normal Presumptive Negative [facility] Comment on above: Order Comment: Drug screen results are presumptive and should not be used to assesscompliance with prescribed medication. Contact the performing [facility] laboratoryto add-on definitive confirmatory testing if clinically indicated.Toxicology screening results are reported qualitatively. The concentration must???be greater than or equal to the cutoff to be reported as positive. The concentrationat which the screening test can detect an individual drug or metabolite varies.The absence of expected drug(s) and/or drug metabolite(s) may indicate non-compliance,inappropriate timing of specimen collection relative to drug administration, poor drugabsorption, diluted/adulterated urine, or limitations of testing. For medical purposesonly; not valid for forensic use.Interpretive questions should be directed to the laboratory medical directors. Result Comment: CUTO FF LEVEL: 150 NG/ML Performed By: #### 2 4323-8 #### VIKTOR CAMARENA RIO JOEL ([id number]) [facility] ([facility]) [address] [place] [address] 90854 Cannabinoids Screen Ql (U) Negative Normal Presumptive Negative [facility] Comment on above: Order Comment: Drug screen results are presumptive and should not be used to assesscompliance with prescribed medication. Contact the performing [facility] laboratoryto add-on definitive confirmatory testing if clinically indicated.Toxicology screening results are reported qualitatively. The concentration must???be greater than or equal to the cutoff to be reported as positive. The concentrationat which the screening test can detect an individual drug or metabolite varies.The absence of expected drug(s) and/or drug metabolite(s) may indicate non-compliance,inappropriate timing of specimen collection relative to drug administration, poor drugabsorption, diluted/adulterated urine, or limitations of testing. For medical purposesonly; not valid for forensic use.Interpretive questions should be directed to the laboratory medical directors. Result Comment: CUTO FF LEVEL: 50 NG/ML Performed By: #### 2 4323-8 #### VIKTOR [facility] ([id number]) [facility] ([facility]) [address] [place] [address] 84435 fentaNYL+Norfentanyl Screen Ql (U) Negative Normal Presumptive Negative [facility] Comment on above: Order Comment: Drug screen results are presumptive and should not be used to assesscompliance with prescribed medication. Contact the performing [facility] laboratoryto add-on definitive confirmatory testing if clinically indicated.Toxicology screening results are reported qualitatively. The concentration must???be greater than or equal to the cutoff to be reported as positive. The concentrationat which the screening test can detect an individual drug or metabolite varies.The absence of expected drug(s) and/or drug metabolite(s) may indicate non-compliance,inappropriate timing of specimen collection relative to drug administration, poor drugabsorption, diluted/adulterated urine, or limitations of testing. For medical purposesonly; not valid for forensic use.Interpretive questions should be directed to the laboratory medical directors. Result Comment: CUTO FF LEVEL: 5 NG/ML Performed By: #### 2 4323-8 #### VIKTOR CAMARENA RIO JOEL ([id number]) [facility] ([facility] [address] [place] [address] 93539 Methadone Screen Ql (U) Negative Normal Presumptive Negative [facility] Comment on above: Order Comment: Drug screen results are presumptive and should not be used to assesscompliance with prescribed medication. Contact the performing [facility] laboratoryto add-on definitive confirmatory testing if clinically indicated.Toxicology screening results are reported qualitatively. The concentration must???be greater than or equal to the cutoff to be reported as positive. The concentrationat which the screening test can detect an individual drug or metabolite varies.The absence of expected drug(s) and/or drug metabolite(s) may indicate non-compliance,inappropriate timing of specimen collection relative to drug administration, poor drugabsorption, diluted/adulterated urine, or limitations of testing. For medical purposesonly; not valid for forensic use.Interpretive questions should be directed to the laboratory medical directors. Result Comment: CUTO FF LEVEL: 150 NG/ML The metabolite X-eiakj-iceaqhupynqesm (LAAM) is not detected by this method in concentrations that would be found in the urine of patients on LAAM therapy. Performed By: #### 2 4323-8 #### VIKTOR [facility]ARENA [facility] ([id number]) [facility] ([facility]) [address] [place] [address] 70543 Opiates Screen Ql (U) Negative Normal Presum ptive Negative [facility] Comment on above: Order Comment: Drug screen results are presumptive and should not be used to assesscompliance with prescribed medication. Contact the performing [facility] laboratoryto add-on definitive confirmatory testing if clinically indicated.Toxicology screening results are reported qualitatively. The concentration must???be greater than or equal to the cutoff to be reported as positive. The concentrationat which the screening test can detect an individual drug or metabolite varies.The absence of expected drug(s) and/or drug metabolite(s) may indicate non-compliance,inappropriate timing of specimen collection relative to drug administration, poor drugabsorption, diluted/adulterated urine, or limitations of testing. For medical purposesonly; not valid for forensic use.Interpretive questions should be directed to the laboratory medical directors. Result Comment: CUTO FF LEVEL: 300 NG/ML The opiate screen does not detect fentanyl, meperidine, or tramadol. Oxycodone is not consistently detected (refer to Oxycodone Screen, Urine result). Performed By: #### 2 4323-8 #### VIKTOR CAMARENA RIO JOEL ([id number]) [facility] ([facility]) [address] [place] [address] 16896 oxyCODONE+oxyMORphone Screen Ql (U) Negative Normal Presumptive Negative [facility] Comment on above: Order Comment: Drug screen results are presumptive and should not be used to assesscompliance with prescribed medication. Contact the performing [facility] laboratoryto add-on definitive confirmatory testing if clinically indicated.Toxicology screening results are reported qualitatively. The concentration must???be greater than or equal to the cutoff to be reported as positive. The concentrationat which the screening test can detect an individual drug or metabolite varies.The absence of expected drug(s) and/or drug metabolite(s) may indicate non-compliance,inappropriate timing of specimen collection relative to drug administration, poor drugabsorption, diluted/adulterated urine, or limitations of testing. For medical purposesonly; not valid for forensic use.Interpretive questions should be directed to the laboratory medical directors. Result Comment: CUTO FF LEVEL: 100 NG/ML This test will accurately detect both oxycodone and oxymorphone. Performed By: #### 2 4323-8 #### VIKTOR HURST ([id number]) [facility] ([facility]) [address] [place] [address] Phencyclidine Ql (U) Negative Normal Presump tive Negative [facility] Comment on above: Order Comment: Drug screen results are presumptive and should not be used to assesscompliance with prescribed medication. Contact the performing [facility] laboratoryto add-on definitive confirmatory testing if clinically indicated.Toxicology screening results are reported qualitatively. The concentration must???be greater than or equal to the cutoff to be reported as positive. The concentrationat which the screening test can detect an individual drug or metabolite varies.The absence of expected drug(s) and/or drug metabolite(s) may indicate non-compliance,inappropriate timing of specimen collection relative to drug administration, poor drugabsorption, diluted/adulterated urine, or limitations of testing. For medical purposesonly; not valid for forensic use.Interpretive questions should be directed to the laboratory medical directors. Result Comment: CUTO FF LEVEL: 25 NG/ML Cross-reactivity has been reported with dextromethorphan. Performed By: #### 2 4323-8 #### VIKTOR HURST ([id number]) [facility] ([facility]) [address] [place] [address] ECG 12-LEADon 12-22-2023 ECG 12-LEAD Ventricular Rate 92 Atrial Rate 92 P-R Interval 142 QRS Duration 80 Q-T Interval 362 QTC Calculation(Bazett) 447 P Amelia 42 R Amelia 43 T Amelia 29 QRS Count 16 Q Onset 226 P Onset 155 P Offset 201 T Offset 407 QTC Fredericia 417 Diagnosis Normal sinus rhythm Septal infarct , age undetermined Abnormal ECG When compared with ECG of 08-DEC-2023 22:22, No significant change was found See ED provider note for full interpretation and clinical correlation Confirmed by Patricia Clark ([id number]) on 12/23/2023 10:05:04 AM Normal [facility] HCG ( test) IA.rapi d Ql (U)Ordered By: Nuvia Thompson on 12-22-2023 HCG ( test) Ql (U) Negative NEGATIVE [facility] Interpretation and review of laboratory results Normal [facility] HCG ( test) IA.rapi d Ql (U)on 12-22-2023 HCG ( test) Ql (U) Negative Normal NEGATIVE [facility] Comment on above: Performed By: #### 2 4323-8 #### VIKTOR HURST ([id number]) [facility] ([facility]) [address] [place] [address] No Panel Informationon 12-21 Interpretation and review of laboratory results Abnormal [facility] Urinalysis complete W Reflex Culture panel (U)on 12-22-2023 Appearance (U) Clear Clear [facility] Bilirubin (U) [Mass/Vol] Negative NEGATIVE [facility] Color (U) Colorless Abnormal Light-Yellow, Yellow, Dark-Yellow [facility] Glucose Auto test strip (U) [Mass/Vol] Normal Normal mg/dL [facility] Interpretation and review of laboratory results Abnormal [facility] Ketones (U) [Mass/Vol] Negative NEGATIVE mg/dL [facility] Leukocyte esterase Auto test strip Ql (U) 25 Smiley/ L Abnormal NEGATIVE [facility] Nitrite Auto test strip Ql (U) Negative NEGATIVE [facility] pH (U) 5.0 [pH] 5.0, 5.5, 6.0, 6.5, 7.0, 7.5, 8.0 [facility] Protein (U) [Mass/Vol] Negative NEGATIVE, 10 (TRACE), 20 (TRACE) mg/dL [facility] RBC (U) [#/Vol] Negative NEGATIVE [facility] Specific gravity (U) [Rel density] 1.011 1.005 - 1.035 [facility] Urobilinogen (U) [Mass/Vol] Normal Normal mg/dL [facility] Appearance (U) Clear Normal Clear [facility] Comment on above: Performed By: #### 2 4323-8 #### VIKTOR HURST ([id number]) [facility] ([facility]) [address] [place] [address] 68976 Bilirubin (U) [Mass/Vol] Negative Normal NEGATIVE [facility] Comment on above: Performed By: #### 2 4323-8 #### VIKTOR HURST ([id number]) [facility] ([facility]) [address] [place] [address] 62557 Color (U) Colorless Normal Light-Yellow, Yellow, Dark-Yellow [facility] Comment on above: Performed By: #### 2 4323-8 #### VIKTOR HURST ([id number]) [facility] ([facility]) [address] [place] [address] 39943 Glucose Auto test strip (U) [Mass/Vol] Normal Normal Normal [facility] Comment on above: Performed By: #### 2 4323-8 #### VIKTOR HURST ([id number]) [facility] ([facility]) [address] [place] [address] 34454 Ketones (U) [Mass/Vol] Negative Normal NEGATIVE [facility] Comment on above: Performed By: #### 2 4323-8 #### VIKTOR HURST ([id number]) [facility] ([facility]) [address] [place] [address] 88701 Leukocyte esterase Auto test strip Ql (U) 25 Smiley/???L Abnormal NEGATIVE [facility] Comment on above: Performed By: #### 2 4323-8 #### VIKTOR HURST ([id number]) [facility] ([facility]) [address] [place] [address] 77208 Nitrite Auto test strip Ql (U) Negative Normal NEGATIVE [facility] Comment on above: Performed By: #### 2 4323-8 #### VIKTOR HRUST ([id number]) [facility] ([facility]) [address] [place] [address] 44385 pH (U) 5.0 [pH] Normal 5.0, 5.5, 6.0, 6.5, 7.0, 7.5, 8.0 [facility] Comment on above: Performed By: #### 2 4323-8 #### VIKTOR HURST ([id number]) [facility] ([facility]) [address] [place] [address] 81330 Protein (U) [Mass/Vol] Negative Normal NEGATIVE, 10 (TRACE), 20 (TRACE) [facility] Comment on above: Performed By: #### 2 4323-8 #### VIKTOR HURST ([id number]) [facility] ([facility]) [address] [place] [address] 69094 RBC (U) [#/Vol] Negative Normal NEGATIVE [facility] Comment on above: Performed By: #### 2 4323-8 #### VIKTOR HURST ([id number]) [facility] ([facility]) [address] [place] [address] 36593 Specific gravity (U) [Rel density] 1.011 Normal 1.005-1.035 [facility] Comment on above: Performed By: #### 2 4323-8 #### VIKTOR HURST ([id number]) [facility] ([facility]) [address] [place] [address] 46188 Urobilinogen (U) [Mass/Vol] Normal Normal Normal [facility] Comment on above: Performed By: #### 2 4323-8 #### VIKTOR HURST ([id number]) [facility] ([facility]) [address] [place] [address] 77668 Urinalysis microscopic panel Auto Ql (U)on 12-22-2023 Epithelial cells.squamous Auto (Urine sed) [#/Area] 1-9 (SPARSE) Reference range not established. /HPF [facility] RBC Auto (Urine sed) [#/Area] 3-5 NONE, 1-2, 3-5 /HPF [facility] WBC Auto (Urine sed) [#/Area] 1-5 1-5, NONE /HPF [facility] Epithelial cells.squamous Auto (Urine sed) [#/Area] 1-9 (SPARSE) Normal Reference range not established. [facility] Comment on above: Performed By: #### 2 4323-8 #### VIKTOR HURST ([id number]) [facility] ([facility]) [address] [place] [address] 23393 RBC Auto (Urine sed) [#/Area] 3-5 Normal NONE, 1-2, 3-5 [facility] Comment on above: Performed By: #### 2 4323-8 #### ANILAIBCOURTNEY HURST ([id number]) [facility] ([facility]) [address] [place] [address] WBC Auto (Urine sed) [#/Area] 1-5 Normal 1-5, NONE [facility] Comment on above: Performed By: #### 2 4323-8 #### VIKTOR HURST ([id number]) [facility] ([facility]) [address] [place] [address] SARS coronavirus 2 RNAon SARS-CoV-2 (COVID-19) RNA LIZET+probe Ql (Resp) Not detected Normal Not Detected [facility] Comment on above: Order Comment: This assay has received FDA Emergency Use Authorization (EUA) and is only authorized for the duration of time that circumstances exist to justify the authorization of the emergency use of in vitro diagnostic tests for the detection of SARS-CoV-2 virus and/or diagnosis of COVID-19 infection under section 564(b)(1) of the Act, 21 U.S.C. 360bbb-3(b)(1). This assay is an in vitro diagnostic nucleic acid amplification test for the qualitative detection of SARS-CoV-2 from nasopharyngeal specimens and has been validated for use at [facility]. Negative results do not preclude COVID-19 infections and should not be used as the sole basis for diagnosis, treatment, or other management decisions. Performed By: #### 9 4500-6 #### VIKTOR HURST ([id number]) [facility] ([facility]) [address] [place] [address] ACUTE TOXICOLOGY PANEL, BLOO Don 07-03-2024 Acetaminophen [Mass/Vol] ug/mL Normal 10.0-30.0 [facility] Comment on above: Performed By: #### D RUBL #### VIKTOR HURST ([id number]) [facility] ([facility]) [address] [place] [address] 33039 Ethanol [Mass/Vol] 324 mg/dL High <=10 [facility] Comment on above: Performed By: #### D RUBL #### VIKTOR HURST ([id number]) [facility] ([facility]) [address] [place] [address] 76024 Salicylates [Mass/Vol] mg/dL Normal 4-20 [facility] Comment on above: Performed By: #### D RUBL #### VIKTOR HURST ([id number]) [facility] ([facility]) [address] [place] [address] 66265 CBC W Auto Differential pane l (Bld)on 12-08-2023 Basophils (Bld) [#/Vol] 0.09 x10*3/uL Normal 0.00-0.10 [facility] Comment on above: Performed By: #### 5 7021-8 #### VIKTOR HURST ([id number]) [facility] ([facility]) [address] [place] [address] 07979 Basophils/100 WBC (Bld) 1.2 % Normal 0.0-2.0 [facility] Comment on above: Performed By: #### 5 7021-8 #### ANILAIBCOURTNEY HURST ([id number]) [facility] ([facility]) [address] [place] [address] 28105 Eosinophils (Bld) [#/Vol] 0.06 x10*3/uL Normal 0.00-0.70 [facility] Comment on above: Performed By: #### 5 7021-8 #### ANILAIBCOURTNEY HURST ([id number]) [facility] ([facility]) [address] [place] [address] 68092 Eosinophils/100 WBC (Bld) 0.8 % Normal 0.0-6.0 [facility] Comment on above: Performed By: #### 5 7021-8 #### VIKTOR HURST ([id number]) [facility] ([facility]) [address] [place] [address] 07379 Erythrocyte distribution width (RBC) [Ratio] 13.0 % Normal 11.5-14.5 [facility] Comment on above: Performed By: #### 5 7021-8 #### VIKTOR HURST ([id number]) [facility] ([facility]) [address] [place] [address] 92668 Hematocrit (Bld) [Volume fraction] 41.9 % Normal 36.0-46.0 [facility] Comment on above: Performed By: #### 5 7021-8 #### VIKTOR HURST ([id number]) [facility] ([facility]) [address] [place] [address] 49959 Hemoglobin (Bld) [Mass/Vol] 14.4 g/dL Normal 12.0-16.0 [facility] Comment on above: Performed By: #### 5 7021-8 #### VIKTOR HURST ([id number]) [facility] ([facility]) [address] [place] [address] 87911 Immature granulocytes (Bld) [#/Vol] 0.02 x10*3/uL Normal 0.00-0.70 [facility] Comment on above: Performed By: #### 5 7021-8 #### VIKTOR UHRST ([id number]) [facility] ([facility]) [address] [place] [address] 49536 Immature granulocytes/100 WBC (Bld) 0.3 % Normal 0.0-0.9 [facility] Comment on above: Result Comment: Tiffany ture Granulocyte Count (IG) includes promyelocytes, myelocytes and metamyelocytes but does not include bands. Percent differential counts (%) should be interpreted in the context of the absolute cell counts (cells/UL). Performed By: #### 5 7021-8 #### VIKTOR HURST ([id number]) [facility] ([facility]) [address] [place] [address] 30738 Lymphocytes (Bld) [#/Vol] 2.11 x10*3/uL Normal 1.20-4.80 [facility] Comment on above: Performed By: #### 5 7021-8 #### VIKTOR HURST ([id number]) [facility] ([facility]) [address] [place] [address] 61552 Lymphocytes/100 WBC (Bld) 28.6 % Normal 13.0-44.0 [facility] Comment on above: Performed By: #### 5 7021-8 #### VIKTOR HURST ([id number]) [facility] ([facility]) [address] [place] [address] 16300 MCH (RBC) [Entitic mass] 33.8 pg Normal 26.0-34.0 [facility] Comment on above: Performed By: #### 5 7021-8 #### VIKTOR HURST ([id number]) [facility] ([facility]) [address] [place] [address] 85741 MCHC (RBC) [Mass/Vol] 34.4 g/dL Normal 32.0-36.0 [facility] Comment on above: Performed By: #### 5 7021-8 #### VIKTOR HURST ([id number]) [facility] ([facility]) [address] [place] [address] 31253 MCV (RBC) [Entitic vol] 98 fL Normal 80-100 [facility] Comment on above: Performed By: #### 5 7021-8 #### VIKTOR HURST ([id number]) [facility] ([facility]) [address] [place] [address] 21796 Monocytes (Bld) [#/Vol] 0.98 x10*3/uL Normal 0.10-1.00 [facility] Comment on above: Performed By: #### 5 7021-8 #### VIKTOR HURST ([id number]) [facility] ([facility]) [address] [place] [address] 40962 Monocytes/100 WBC (Bld) 13.3 % Normal 2.0-10.0 [facility] Comment on above: Performed By: #### 5 7021-8 #### VIKTOR HURST ([id number]) [facility] ([facility]) [address] [place] [address] 32684 Neutrophils (Bld) [#/Vol] 4.11 x10*3/uL Normal 1.20-7.70 [facility] Comment on above: Result Comment: Perc ent differential counts (%) should be interpreted in the context of the absolute cell counts (cells/uL). Performed By: #### 5 7021-8 #### VIKTOR HURST ([id number]) [facility] ([facility]) [address] [place] [address] 48097 Neutrophils/100 WBC (Bld) 55.8 % Normal 40.0-80.0 [facility] Comment on above: Performed By: #### 5 7021-8 #### VIKTOR HURST ([id number]) [facility] ([facility]) [address] [place] [address] 48722 Nucleated RBC/100 WBC (Bld) [Ratio] 0.0 /100 WBCs Normal 0.0-0.0 [facility] Comment on above: Performed By: #### 5 7021-8 #### VIKTOR HURST ([id number]) [facility] ([facility]) [address] [place] [place] [address] 50596 Platelets (Bld) [#/Vol] 435 x10*3/uL Normal 150-450 [facility] Comment on above: Performed By: #### 5 7021-8 #### VIKTOR HURST ([id number]) [facility] ([facility]) [address] [place] [address] 77808 RBC (Bld) [#/Vol] 4.26 x10*6/uL Normal 4.00-5.20 [facility] Comment on above: Performed By: #### 5 7021-8 #### VIKTOR HURST ([id number]) [facility] ([facility]) [address] [place] [address] WBC (Bld) [#/Vol] 7.4 x10*3/uL Normal 4.4-11.3 [facility] Comment on above: Performed By: #### 5 7021-8 #### VIKTOR HURST ([id number]) [facility] ([facility]) [address] [place] [address] Comprehensive metabolic 2000 panelon 12-08-2023 Albumin BCP dye [Mass/Vol] 4.7 g/dL Normal 3.4-5.0 [facility] Comment on above: Performed By: #### 2 4323-8 #### VIKTOR HURST ([id number]) [facility] ([facility]) [address] [place] [address] ALP [Catalytic activity/Vol] 86 U/L Normal 33-110 [facility] Comment on above: Performed By: #### 2 4323-8 #### VIKTOR HURST ([id number]) [facility] ([facility]) [address] [place] [address] ALT With P-5'-P [Catalytic activity/Vol] 103 U/L High 7-45 [facility] Comment on above: Result Comment: Vicky ents treated with Sulfasalazine may generate falsely decreased results for ALT. Performed By: #### 2 4323-8 #### VIKTOR HURST ([id number]) [facility] ([facility]) [address] [place] [address] 94215 Anion gap [Moles/Vol] 18 mmol/L Normal 10-20 [facility] Comment on above: Performed By: #### 2 4323-8 #### VIKTOR HURST ([id number]) [facility] ([facility]) [address] [place] [address] AST With P-5'-P [Catalytic activity/Vol] 48 U/L High 9-39 [facility] Comment on above: Performed By: #### 2 4323-8 #### VIKTOR HURST ([id number]) [facility] ([facility]) [address] [place] [address] 31340 Bilirubin [Mass/Vol] 0.5 mg/dL Normal 0.0-1.2 [facility] Comment on above: Performed By: #### 2 4323-8 #### VIKTOR HURST ([id number]) [facility] ([facility]) [address] [place] [address] 96217 Calcium [Mass/Vol] 9.9 mg/dL Normal 8.6-10.3 [facility] Comment on above: Performed By: #### 2 4323-8 #### VIKTOR HURST ([id number]) [facility] ([facility]) [address] [place] [address] 79341 Chloride [Moles/Vol] 108 mmol/L High 98-107 [facility] Comment on above: Performed By: #### 2 4323-8 #### VIKTOR HURST ([id number]) [facility] ([facility]) [address] [place] [address] 59264 CO2 [Moles/Vol] 21 mmol/L Normal 21-32 [facility] Comment on above: Performed By: #### 2 4323-8 #### VIKTOR HURST ([id number]) [facility] ([facility]) [address] [place] [address] 41019 Creatinine [Mass/Vol] 0.82 mg/dL Normal 0.50-1.05 [facility] Comment on above: Performed By: #### 2 4323-8 #### VIKTOR HURST ([id number]) [facility] ([facility]) [address] [place] [address] 78526 GFR/1.73 sq M.predicted MDRD (S/P/Bld) [Vol rate/Area] mL/min/{1.73_m2} Normal >60 [facility] Comment on above: Result Comment: Calc ulations of estimated GFR are performed using the 2020 CKD-EPI Study Refit equation without the race variable for the IDMS-Traceable creatinine methods. https://jasn.asnjournals.org/content//ASN.340716 4041 Performed By: #### 2 4323-8 #### VIKTOR HURST ([id number]) [facility] ([facility]) [address] [place] [address] 43038 Glucose [Mass/Vol] 79 mg/dL Normal 74-99 [facility] Comment on above: Performed By: #### 2 4323-8 #### VIKTOR HURST ([id number]) [facility] ([facility]) [address] [place] [address] 17948 Potassium [Moles/Vol] 3.5 mmol/L Normal 3.5-5.3 [facility] Comment on above: Performed By: #### 2 4323-8 #### VIKTOR HURST ([id number]) [facility] ([facility]) [address] [place] [address] 05152 Protein [Mass/Vol] 7.5 g/dL Normal 6.4-8.2 [facility] Comment on above: Performed By: #### 2 4323-8 #### VIKTOR HURST ([id number]) [facility] ([facility]) [address] [place] [address] 75780 Sodium [Moles/Vol] 143 mmol/L Normal 136-145 [facility] Comment on above: Performed By: #### 2 4323-8 #### VIKTOR HURST ([id number]) [facility] ([facility]) [address] [place] [address] 41515 Urea nitrogen [Mass/Vol] 8 mg/dL Normal 6-23 [facility] Comment on above: Performed By: #### 2 4323-8 #### VIKTOR HURST ([id number]) [facility] ([facility]) [address] [place] [address] Creatine kinaseon 12-08-2023 CK [Catalytic activity/Vol] 145 U/L Normal 0-215 [facility] Comment on above: Performed By: #### 2 157-6 #### VIKTOR IMGUE MALDONADO ([id number]) [facility] ([facility]) [address] [place] [address] 17043 DRUG SCREEN,URINEon 12-08-19 24 Amphetamines Screen Ql (U) Negative Normal Presumptive Negative [facility] Comment on above: Order Comment: Drug screen results are presumptive and should not be used to assess compliance with prescribed medication. Contact the performing [facility] laboratory to add-on definitive confirmatory testing if clinically indicated. Toxicology screening results are reported qualitatively. The concentration must ???be greater than or equal to the cutoff to be reported as positive. The concentration at which the screening test can detect an individual drug or metabolite varies. The absence of expected drug(s) and/or drug metabolite(s) may indicate non-compliance, inappropriate timing of specimen collection relative to drug administration, poor drug absorption, diluted/adulterated urine, or limitations of testing. For medical purposes only; not valid for forensic use. Interpretive questions should be directed to the laboratory medical directors. Result Comment: CUTO FF LEVEL: 500 NG/ML Cross-reactivity has been reported with high concentrations of the following drugs: buproprion, chloroquine, chlorpromazine, ephedrine, mephentermine, fenfluramine, phentermine, phenylpropanolamine, pseudoephedrine, and propranolol. Performed By: #### D RUG3 #### VIKTOR MIGUE MALDONADO ([id number]) [facility] ([facility]) [address] [place] [address] Barbiturates Screen Ql (U) Negative Normal Presumptive Negative [facility] Comment on above: Order Comment: Drug screen results are presumptive and should not be used to assess compliance with prescribed medication. Contact the performing [facility] laboratory to add-on definitive confirmatory testing if clinically indicated. Toxicology screening results are reported qualitatively. The concentration must ???be greater than or equal to the cutoff to be reported as positive. The concentration at which the screening test can detect an individual drug or metabolite varies. The absence of expected drug(s) and/or drug metabolite(s) may indicate non-compliance, inappropriate timing of specimen collection relative to drug administration, poor drug absorption, diluted/adulterated urine, or limitations of testing. For medical purposes only; not valid for forensic use. Interpretive questions should be directed to the laboratory medical directors. Result Comment: CUTO FF LEVEL: 200 NG/ML Performed By: #### D RUG3 #### VIKTOR [facility] ([id number]) [facility] ([facility]) [address] [place] [address] Benzodiazepines Ql (U) Negative Normal Presumptive Negative [facility] Comment on above: Order Comment: Drug screen results are presumptive and should not be used to assess compliance with prescribed medication. Contact the performing [facility] laboratory to add-on definitive confirmatory testing if clinically indicated. Toxicology screening results are reported qualitatively. The concentration must ???be greater than or equal to the cutoff to be reported as positive. The concentration at which the screening test can detect an individual drug or metabolite varies. The absence of expected drug(s) and/or drug metabolite(s) may indicate non-compliance, inappropriate timing of specimen collection relative to drug administration, poor drug absorption, diluted/adulterated urine, or limitations of testing. For medical purposes only; not valid for forensic use. Interpretive questions should be directed to the laboratory medical directors. Result Comment: CUTO FF LEVEL: 200 NG/ML Performed By: #### D RUG3 #### VIKTOR CAMARENA RIO JOEL ([id number]) [facility] ([facility]) [address] [place] [address] 37310 Benzoylecgonine Screen Ql (U) Negative Normal Presumptive Negative [facility] Comment on above: Order Comment: Drug screen results are presumptive and should not be used to assess compliance with prescribed medication. Contact the performing [facility] laboratory to add-on definitive confirmatory testing if clinically indicated. Toxicology screening results are reported qualitatively. The concentration must ???be greater than or equal to the cutoff to be reported as positive. The concentration at which the screening test can detect an individual drug or metabolite varies. The absence of expected drug(s) and/or drug metabolite(s) may indicate non-compliance, inappropriate timing of specimen collection relative to drug administration, poor drug absorption, diluted/adulterated urine, or limitations of testing. For medical purposes only; not valid for forensic use. Interpretive questions should be directed to the laboratory medical directors. Result Comment: CUTO FF LEVEL: 150 NG/ML Performed By: #### D RUG3 #### VIKTOR [facility] ([id number]) [facility] ([facility]) [address] [place] [address] 04113 Cannabinoids Screen Ql (U) Negative Normal Presumptive Negative [facility] Comment on above: Order Comment: Drug screen results are presumptive and should not be used to assess compliance with prescribed medication. Contact the performing [facility] laboratory to add-on definitive confirmatory testing if clinically indicated. Toxicology screening results are reported qualitatively. The concentration must ???be greater than or equal to the cutoff to be reported as positive. The concentration at which the screening test can detect an individual drug or metabolite varies. The absence of expected drug(s) and/or drug metabolite(s) may indicate non-compliance, inappropriate timing of specimen collection relative to drug administration, poor drug absorption, diluted/adulterated urine, or limitations of testing. For medical purposes only; not valid for forensic use. Interpretive questions should be directed to the laboratory medical directors. Result Comment: CUTO FF LEVEL: 50 NG/ML Performed By: #### D RUG3 #### VIKTOR [facility] ([id number]) [facility] ([facility]) [address] [place] [address] 71347 fentaNYL+Norfentanyl Screen Ql (U) Negative Normal Presumptive Negative [facility] Comment on above: Order Comment: Drug screen results are presumptive and should not be used to assess compliance with prescribed medication. Contact the performing [facility] laboratory to add-on definitive confirmatory testing if clinically indicated. Toxicology screening results are reported qualitatively. The concentration must ???be greater than or equal to the cutoff to be reported as positive. The concentration at which the screening test can detect an individual drug or metabolite varies. The absence of expected drug(s) and/or drug metabolite(s) may indicate non-compliance, inappropriate timing of specimen collection relative to drug administration, poor drug absorption, diluted/adulterated urine, or limitations of testing. For medical purposes only; not valid for forensic use. Interpretive questions should be directed to the laboratory medical directors. Result Comment: CUTO FF LEVEL: 5 NG/ML Performed By: #### D RUG3 #### VIKTOR CAMARENA RIO JOEL ([id number]) [facility] ([facility]) [address] [place], [place] [address] Methadone Screen Ql (U) Negative Normal Presumptive Negative [facility] Comment on above: Order Comment: Drug screen results are presumptive and should not be used to assess compliance with prescribed medication. Contact the performing [facility] laboratory to add-on definitive confirmatory testing if clinically indicated. Toxicology screening results are reported qualitatively. The concentration must ???be greater than or equal to the cutoff to be reported as positive. The concentration at which the screening test can detect an individual drug or metabolite varies. The absence of expected drug(s) and/or drug metabolite(s) may indicate non-compliance, inappropriate timing of specimen collection relative to drug administration, poor drug absorption, diluted/adulterated urine, or limitations of testing. For medical purposes only; not valid for forensic use. Interpretive questions should be directed to the laboratory medical directors. Result Comment: CUTO FF LEVEL: 150 NG/ML The metabolite C-hjbkv-apidlqrwpaocyg (LAAM) is not detected by this method in concentrations that would be found in the urine of patients on LAAM therapy. Performed By: #### D RUG3 #### VIKTOR CAMARENA RIO JOEL ([id number]) [facility] ([facility]) [address] [place] [address] 36017 Opiates Screen Ql (U) Negative Normal Presum ptive Negative [facility] Comment on above: Order Comment: Drug screen results are presumptive and should not be used to assess compliance with prescribed medication. Contact the performing [facility] laboratory to add-on definitive confirmatory testing if clinically indicated. Toxicology screening results are reported qualitatively. The concentration must ???be greater than or equal to the cutoff to be reported as positive. The concentration at which the screening test can detect an individual drug or metabolite varies. The absence of expected drug(s) and/or drug metabolite(s) may indicate non-compliance, inappropriate timing of specimen collection relative to drug administration, poor drug absorption, diluted/adulterated urine, or limitations of testing. For medical purposes only; not valid for forensic use. Interpretive questions should be directed to the laboratory medical directors. Result Comment: CUTO FF LEVEL: 300 NG/ML The opiate screen does not detect fentanyl, meperidine, or tramadol. Oxycodone is not consistently detected (refer to Oxycodone Screen, Urine result). Performed By: #### D RUG3 #### VIKTOR [facility] ([id number]) [facility] ([facility]) [address] [place] [address] 09239 oxyCODONE+oxyMORphone Screen Ql (U) Negative Normal Presumptive Negative [facility] Comment on above: Order Comment: Drug screen results are presumptive and should not be used to assess compliance with prescribed medication. Contact the performing [facility] laboratory to add-on definitive confirmatory testing if clinically indicated. Toxicology screening results are reported qualitatively. The concentration must ???be greater than or equal to the cutoff to be reported as positive. The concentration at which the screening test can detect an individual drug or metabolite varies. The absence of expected drug(s) and/or drug metabolite(s) may indicate non-compliance, inappropriate timing of specimen collection relative to drug administration, poor drug absorption, diluted/adulterated urine, or limitations of testing. For medical purposes only; not valid for forensic use. Interpretive questions should be directed to the laboratory medical directors. Result Comment: CUTO FF LEVEL: 100 NG/ML This test will accurately detect both oxycodone and oxymorphone. Performed By: #### D RUG3 #### VIKTOR [facility] ([id number]) [facility] ([facility]) [address] [place] [address] 56651 Phencyclidine Ql (U) Negative Normal Presump tive Negative [facility] Comment on above: Order Comment: Drug screen results are presumptive and should not be used to assess compliance with prescribed medication. Contact the performing [facility] laboratory to add-on definitive confirmatory testing if clinically indicated. Toxicology screening results are reported qualitatively. The concentration must ???be greater than or equal to the cutoff to be reported as positive. The concentration at which the screening test can detect an individual drug or metabolite varies. The absence of expected drug(s) and/or drug metabolite(s) may indicate non-compliance, inappropriate timing of specimen collection relative to drug administration, poor drug absorption, diluted/adulterated urine, or limitations of testing. For medical purposes only; not valid for forensic use. Interpretive questions should be directed to the laboratory medical directors. Result Comment: CUTO FF LEVEL: 25 NG/ML Cross-reactivity has been reported with dextromethorphan. Performed By: #### D RUG3 #### VIKTOR HURST ([id number]) [facility] ([facility]) [address] [place] [address] ECG 12-LEADon 12-08-2023 ECG 12-LEAD Ventricular Rate 90 Atrial Rate 90 P-R Interval 138 QRS Duration 84 Q-T Interval 372 QTC Calculation(Bazett) 455 P Amelia 53 R Amelia 52 T Amelia 14 QRS Count 14 Q Onset 221 P Onset 152 P Offset 197 T Offset 407 QTC Fredericia 425 Diagnosis Normal sinus rhythm Normal ECG No previous ECGs available See ED provider note for full interpretation and clinical correlation Confirmed by Hanane Morel ([id number]) on 12/17/2023 8:05:22 PM Normal [facility] HCG ( test) IA.rapi d Ql (U)on 12-08-2023 HCG ( test) Ql (U) Negative Normal NEGATIVE [facility] Comment on above: Performed By: #### 8 0384-1 #### VIKTOR HURST ([id number]) [facility] ([facility]) [address] [place] [address] TSH WITH REFLEX TO FREE T4 I F ABNORMALon 12-08-2023 TSH Qn 3.16 m[IU]/L Normal 0.44-3.98 [facility] Comment on above: Order Comment: TSH t esting is performed using different testing methodology at [facility] than at other [facility]. Direct result comparisons should only be made within the same method. Performed By: #### T HYDS #### VIKTOR HURST ([id number]) [facility] ([facility]) [address] [place] [address] Urinalysis complete W Reflex Culture panel (U)on 12-08-2023 Appearance (U) Clear Normal Clear [facility] Comment on above: Performed By: #### 5 8077-9 #### VIKTOR HURST ([id number]) [facility] ([facility]) [address] [place] [address] 87029 Bilirubin (U) [Mass/Vol] Negative Normal NEGATIVE [facility] Comment on above: Performed By: #### 5 8077-9 #### VIKTOR HURST ([id number]) [facility] ([facility]) [address] [place] [address] 77634 Color (U) Colorless Normal Light-Yellow, Yellow, Dark-Yellow [facility] Comment on above: Performed By: #### 5 8077-9 #### VIKTOR HURST ([id number]) [facility] ([facility]) [address] [place] [address] 89163 Glucose Auto test strip (U) [Mass/Vol] Normal Normal Normal [facility] Comment on above: Performed By: #### 5 0277-9 #### VIKTOR HURST ([id number]) [facility] ([facility]) [address] [place] [address] 43561 Ketones (U) [Mass/Vol] Negative Normal NEGATIVE [facility] Comment on above: Performed By: #### 5 9167-9 #### VIKTOR HURST ([id number]) [facility] ([facility]) [address] [place] [address] 72543 Leukocyte esterase Auto test strip Ql (U) Negative Normal NEGATIVE [facility] Comment on above: Performed By: #### 5 4477-9 #### VIKTOR HURST ([id number]) [facility] ([facility]) [address] [place] [address] 63967 Nitrite Auto test strip Ql (U) Negative Normal NEGATIVE [facility] Comment on above: Performed By: #### 5 0043-9 #### VIKTOR HURST ([id number]) [facility] ([facility]) [address] [place] [address] 20255 pH (U) 5.5 [pH] Normal 5.0, 5.5, 6.0, 6.5, 7.0, 7.5, 8.0 [facility] Comment on above: Performed By: #### 5 8077-9 #### VIKTOR HURST ([id number]) [facility] ([facility]) [address] [place] [address] 17994 Protein (U) [Mass/Vol] Negative Normal NEGATIVE, 10 (TRACE), 20 (TRACE) [facility] Comment on above: Performed By: #### 5 8077-9 #### VIKTOR HURST ([id number]) [facility] ([facility]) [address] [place] [address] 88717 RBC (U) [#/Vol] Negative Normal NEGATIVE [facility] Comment on above: Performed By: #### 5 8077-9 #### VIKTOR HURST ([id number]) [facility] ([facility]) [address] [place] [address] 06537 Specific gravity (U) [Rel density] 1.004 Normal 1.005-1.035 [facility] Comment on above: Performed By: #### 5 8077-9 #### VIKTOR HURST ([id number]) [facility] ([facility]) [address] [place] [address] 88776 Urobilinogen (U) [Mass/Vol] Normal Normal Normal [facility] Comment on above: Performed By: #### 5 8077-9 #### VIKTOR HURST ([id number]) [facility] ([facility]) [address] [place] [address] 24114 [facility] 10-31-2023 [facility] HNO ID: [id number] Author: JUSTINE DASILVA MD Service: Obstetrics Author Type: Physician Exchange Underwriting Consultant Type: Discharge Summary Filed: 11/03/2023 00:43 Note Text: Attestation signed by Justine Dasilva MD at 11/03/2023 12:43 AM Justine Dasilva MD DISCHARGE SUMMARY OBSTETRICS PATIENT NAME: Poonam Rausch ADMISSION DATE: 10/29/2023 DISCHARGE DATE: 10/31/2023 Attending Physician: Justine Dasilva MD Code Status: Not on file Treatment Team: Attending Provider: Justine Dasilva MD Maternal Obstetric Provider: Leslee Landry Reason for Hospitalization: Intrauterine . Principal Problem: PROM (premature rupture of membranes) (POA: Yes) Active Problems: History of depression (POA: Yes) Alcohol use disorder (POA: Yes) Chronic hypertension in (POA: Yes) examination following vaginal delivery (POA: No) Resolved Problems: * No resolved hospital problems. * PROCEDURES/SURGERY DURING HOSPITALIZATION: Delivery Summary: Max Rausch [[id number]] Delivery Information: Delivery Date: 10/29/23 Delivery type: Vaginal, Spontaneous Delivering Clinician: Christie Sam MD Vacuum Used: No Forceps Used: No Shoulder Dystocia Present: No Lacerations: Vaginal Episiotomy: None [place]: Gender: Male Weight (grams): 3086 g One Minute : 6 Five Minute : 8 Procedures (if applicable) Hospital Course: 28 year old female who is Day #2 from delivery as noted above. Pt's peripartum course was complicated by cHTN(normotensive to MR on no meds,follow up 1 week BP check and cardio OB clinic), hx of childhood asthma, hx of anxiety/depression/PT SD(well controlled on zoloft 25 mg daily(follow up 2 weeks sooner if needed, SW to see nurse to notify)) and hx of alcohol use d/o(denies use in ) The delivery was uncomplicated. Patient progressed through post delivery milestones without difficulty. Remained afebrile with stable vital signs throughout the period. Discharged after tolerating PO well, ambulating, passing flatus, and urinating without difficulty. Consulting Teams During Hospitalization: Anesthesiology: Dr. Sorenson Patient Condition @ Discharge: Good Discharge Disposition: Home/Self Care Discharge Physical Exam: Heart: RR, S1, S2 Lungs: clear to auscultation Abdomen: Soft Appropriately tender to palpation Bowel sounds present Fundus firm below umbilicus Non-distended Extremities: No calf tenderness and Edema equal bilaterally Specific Concerns for Follow-up Post Discharge: Routine Care, Hypertension in , Mental Health, Incisional/Perineal Care, Maintenance of chronic medical problems, and Contraceptive Plan Information Provided to Patient: Activity When You Leave the Hospital Gradually increase your activity until back to normal. Walking and stairs as tolerated. You are expected to maintain pelvic rest for six weeks post which includes no sexual activity, tampons or douching. You may drive as tolerated You may shower daily. Gently pat your perineum with a soapy washcloth and rinse. Sitz baths are also helpful, but avoid baths until your bleeding has stopped. Diet Instructions Resume a regular diet with emphasis on healthy and iron rich foods. Nursing moms need 500 EXTRA calories a day to support breast milk production. Wound/Surgical Site Care Use kimi/squirt bottle to rinse your perineal area with warm water after urination or bowel movements Use kimi/squirt bottle to rinse your perineal area with warm water until vaginal bleeding/drainage ceases You may spot bleed for up to six week post- Discharge Medications: Medication List START taking these medications acetaminophen 500 mg tablet Commonly known as: TYLENOL Take 2 tablets by mouth every 6 hours as needed for pain. docusate sodium 100 mg capsule Commonly known as: COLACE Take 2 capsules by mouth daily at bedtime. ibuprofen 600 mg tablet Commonly known as: MOTRIN Take 1 tablet by mouth every 6 hours as needed for pain. CHANGE how you take these medications sertraline 25 mg tablet Commonly known as: ZOLOFT Take 1 tablet by mouth once daily. What changed: Another medication with the same name was removed. Continue taking this medication, and follow the directions you see here. CONTINUE taking these medications 1 + 1 ORAL STOP taking these medications ARIPiprazole 5 mg tablet Commonly known as: ABILISHAINA aspirin, enteric coated 81 mg EC tablet Commonly known as: ECOTRIN LOW STRENGTH Blood Pressure Monitor folic acid 1 mg tablet Where to Get Your Medications These medications were sent to [id number] [place] [address] - [address] [facility] [phone] [id number] (more content not included)... [facility] ANES POSTPROC EVALon 024 ANES POSTPROC EVAL HNO ID: [id number] Author: KATHERYN MOSQUEDA MD Service: Critical Care Author Type: Anesthesiologist Type: Anesthesia Postprocedure Evaluation Filed: 10/30/2023 10:39 Note Text: POST ANESTHESIA EVALUATION NOTE : 1995 Procedure Summary Date: 10/29/23 Room / Location: Anesthesia Start: 240 Anesthesia Stop: 517 Procedure: LABOR ANALGESIA Diagnosis: Scheduled Providers: Responsible Provider: Chris Rodriguez MD Anesthesia Type: epidural ASA Status: 3 Anesthesia Type: epidural Last Vitals Vitals Value Taken Time BP 135/85 10/30/23 0903 Temp 36.5 ?C (97.7 ?F) 10/30/23 0903 Pulse 66 10/30/23 0903 Resp 18 10/30/23 0903 SpO2 100 % 10/30/23 0903 Max Rausch [[id number]] Baby Delivery: 10/29/2023 0518 Post Anesthesia Patient Status Patient Evaluation: bedside. Anticipated Disposition: inpatient floor planned admission. Neurological Status: aware and responsive. Pulmonary Status: breathing comfortably on room air Airway Control: returned to baseline unsupported. Cardiovascular Status: stable. Pain Management: clinically adequate Postoperative Hydration: acceptable. Intraoperative Events: no significant anesthesia events Recommendation: continue current plan of care. Anesthesia Observations No Documentation SIGNATURE: Katheryn Mosqueda MD PATIENT NAME: Poonam Rausch DATE: October 30, 2023 TIME: 10:39 AM CSN: [id number] [facility] ANES PRE-OPon 10-29-2023 ANES PRE-OP HNO ID: [id number] Author: SULLY NEWSOME APRN.CRNA Service: Nursing Author Type: Student Type: Anesthesia Preprocedure Evaluation Filed: 10/29/2023 04:50 Note Text: Attestation signed by Sully Newsome APRN.ZINC FURNACE CHARGER at 10/29/2023 4:50 AM I spoke to the patient and performed a brief history and physical examination, answered all of the patient's questions, and discussed the management with the SRNA. I reviewed the provider's note and agree with the documented findings and plan of care. 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 Tracheostomy tube not present Mallampati: I. TM distance: >3 FB. Neck ROM: full ROM without neurological symptoms. Mouth opening: adequate. Short neck: no. Thick neck: no DENTAL Normal dental observations. Additional exam findings: yes. CARDIOVASCULAR Normal cardiovascular observations. PULMONARY Normal pulmonary observations. ABDOMINAL Normal abdominal observations. Additional exam notes: Gravid . BACK Normal back observations. II - ANESTHESIA PLAN ASA Score: 3 Anesthetic Plan: epidural NPO Status: inadequate (730pm) Beta Elizabeth Monitoring Plan Monitoring plan: standard ASA. Post Procedure Analgesic Plan Postoperative analgesic plan: epidural. Informed Consent Anesthetic risks, benefits, alternatives, personnel and consent discussed: yes. Patient / Responsible Libertarian agrees to proceed: yes Patient / Surrogate agrees to blood products: Yes Significant changes in the patient condition since the History and Physical, not otherwise documented in primary service progress note: no. Potential Anesthesia issues that may suggest increased risk of complications or contraindication to planned procedure: none. [facility] CHART REVIEW: ACTIVE PROBLEM LIST Lumbago History of Marijuana Use History of Depression History of Kidney Stones Family History of Down Syndrome Pap Smear Abnormality of Cervix With Lgsil Supervision of High Risk in Third Trimester History of Prior With Iugr [place] History of Gestational Hypertension Alcohol Use Disorder Chronic Hypertension in Threatened Premature Labor in Third Trimester Uterine Contractions Anxiety and Depression Gbs Bacteriuria Headache Prom (Premature Rupture of Membranes) PAST MEDICAL HISTORY Diagnosis Date Abnormal Pap smear of cervix Anxiety disorder Asthma Chronic hypertension complicating or reason for care during childbirth 05/03/2023 Depression Dysmenorrhea Gestational hypertension 2017 WITH FIRST CHILD History of pre-eclampsia in prior , currently IUGR (intrauterine growth restriction) affecting care of mother 2017 first kidney stones 2014 PMH - PAST MEDICAL HISTORY OF 08/25/2003 normal color vision Precocious sexual development and puberty, not elsewhere classified age 12 years Premenstrual tension syndromes PMS PAST SURGICAL HISTORY Procedure Laterality Date ADENOIDECTOMY SECONDARY AGE 11/> PAST SURGICAL HISTORY OF age 10 B/L ear tubes FAMILY HISTORY Adopted: Yes Problem Relation Age of Onset other (ADHD) Brother Heart Mother Alcohol/Drug Mother Alcohol/Drug Father in age late 20's Diabetes Maternal Grandfather Heart Maternal Grandfather Social History Tobacco Use Smoking status: Former Years: 1.5 Types: Cigarettes Quit date: 12/14/2015 Years since quittin.8 Smokeless tobacco: Never Vaping Use Vaping Use: current everyday user Substance Use Topics Alcohol use: Not Currently Comment: Self admitted to detox in 2022 Drug use: Not Currently Types: Marijuana sertraline (ZOLOFT) 25 mg tablet, Take 1 tablet by mouth once daily., Disp: 90 tablet, Rfl: 0, 10/28/2023 ARIPiprazole (ABILIFY) 5 mg tablet, take one half tablet daily for 3 days then increase to one tablet daily (Patient not taking: Reported on 09/20/2023), Disp: 30 tablet, Rfl: 3 Blood Pressure Monitor, 1 Each two (more content not included)... Normal [facility] CBC panel Auto (Bld)on 10-28 Erythrocyte distribution width (RBC) [Ratio] 13.2 % Normal 11.5-15.0 [facility] Comment on above: Order Comment: Speci vik Type: BLOOD SPECIMEN Ordering Facility: [facility] Address: [address] [place] [address] Performed By: #### 5 8410-2 #### [facility] CLIA [id number] [address] [place] [address] [facility] Hematocrit (Bld) [Volume fraction] 34.6 % Low 36.0-46.0 [facility] Comment on above: Order Comment: Cki vik Type: BLOOD SPECIMEN Ordering Facility: [facility] Address: [address] [place] [address] Performed By: #### 5 8410-2 #### [facility] CLIA [id number] [address] [place] [address] [place] Hemoglobin (Bld) [Mass/Vol] 12.4 g/dL Normal 11.5-15.5 [facility] Comment on above: Order Comment: Cki vik Type: BLOOD SPECIMEN Ordering Facility: [facility] Address: [address] [place] [address] Performed By: #### 5 8410-2 #### [facility] CLIA [id number] [address] [place] [address] [place] MCH (RBC) [Entitic mass] 34.4 pg High 26.0-34.0 [facility] Comment on above: Order Comment: Speci men Type: BLOOD SPECIMEN Ordering Facility: [facility] Address: [address] [place] [address] Performed By: #### 5 8410-2 #### [facility] CLIA [id number] [address] [place] [address] [place] MCHC (RBC) [Mass/Vol] 35.8 g/dL Normal 30.5-36.0 [facility] Comment on above: Order Comment: Speci men Type: BLOOD SPECIMEN Ordering Facility: [facility] Address: [address] [place] [address] Performed By: #### 5 8410-2 #### [facility] CLIA [id number] [address] [place] [address] [place] MCV (RBC) [Entitic vol] 96.1 fL Normal 80.0-100.0 [facility] Comment on above: Order Comment: Speci men Type: BLOOD SPECIMEN Ordering Facility: [facility] Address: [address] [place] [address] Performed By: #### 5 8410-2 #### [facility] CLIA [id number] [address] [place] [address] [place] Nucleated RBC (Bld) [#/Vol] 10*3/uL Normal <0.01 [facility] Comment on above: Order Comment: Speci men Type: BLOOD SPECIMEN Ordering Facility: [facility] Address: [address] [place] [address] Performed By: #### 5 8410-2 #### [facility] CLIA [id number] [address] [place] [address] [place] Platelet mean volume (Bld) [Entitic vol] 10.2 fL Normal 9.0-12.7 [facility] Comment on above: Order Comment: Speci men Type: BLOOD SPECIMEN Ordering Facility: [facility] Address: [address] [place] [address] Performed By: #### 5 8410-2 #### [facility] CLIA [id number] [address] [place] [address] [place] Platelets (Bld) [#/Vol] 273 10*3/uL Normal 150-400 [facility] Comment on above: Order Comment: Speci men Type: BLOOD SPECIMEN Ordering Facility: [facility] Address: [address] [place] [address] Performed By: #### 5 8410-2 #### [facility] CLIA [id number] [address] [place] [address] [place] RBC (Bld) [#/Vol] 3.60 10*6/uL Low 3.90-5.20 [facility] Comment on above: Order Comment: Speci men Type: BLOOD SPECIMEN Ordering Facility: [facility] Address: [address] [place] [address] Performed By: #### 5 8410-2 #### [facility] CLIA [id number] [address] [place] [address] [place] WBC (Bld) [#/Vol] 10.38 10*3/uL Normal 3.70-11.00 [facility] Comment on above: Order Comment: Speci men Type: BLOOD SPECIMEN Ordering Facility: [facility] Address: [address] [place] [address] Performed By: #### 5 8410-2 #### [facility] CLIA [id number] [address] [place] [address] [place] Comprehensive metabolic 2000 panelon 10-29-2023 Albumin [Mass/Vol] 3.9 g/dL Normal 3.9-4.9 [facility] Comment on above: Order Comment: Speci men Type: BLOOD SPECIMEN Ordering Facility: [facility] Address: [address] [place] [address] Performed By: #### 2 4323-8 #### [facility] CLIA [id number] [address] [place] [address] [place] ALP [Catalytic activity/Vol] 196 U/L High 34-123 [facility] Comment on above: Order Comment: Speci men Type: BLOOD SPECIMEN Ordering Facility: [facility] Address: [address] [place] [address] Performed By: #### 2 4323-8 #### [facility] CLIA [id number] [address] [place] [address] [place] ALT [Catalytic activity/Vol] 24 U/L Normal 7-38 [facility] Comment on above: Order Comment: Speci men Type: BLOOD SPECIMEN Ordering Facility: [facility] Address: [address] [place] [address] Performed By: #### 2 4323-8 #### [facility] CLIA [id number] [address] [place] [address] [place] Anion gap [Moles/Vol] 17 mmol/L Normal 9-18 [facility] Comment on above: Order Comment: Speci men Type: BLOOD SPECIMEN Ordering Facility: [facility] Address: [address] [place] [address] Performed By: #### 2 4323-8 #### [facility] CLIA [id number] [address] [place] [address] [place] AST [Catalytic activity/Vol] 29 U/L Normal 13-35 [facility] Comment on above: Order Comment: Speci men Type: BLOOD SPECIMEN Ordering Facility: [facility] Address: [address] [place] [address] Performed By: #### 2 4323-8 #### [facility] CLIA [id number] [address] [place] [address] [place] Bilirubin [Mass/Vol] 0.4 mg/dL Normal 0.2-1.3 [facility] Comment on above: Order Comment: Speci men Type: BLOOD SPECIMEN Ordering Facility: [facility] Address: [address] [place] [address] Performed By: #### 2 4323-8 #### [facility] CLIA [id number] [address] [place] [address] [place] Calcium [Mass/Vol] 9.0 mg/dL Normal 8.5-10.2 [facility] Comment on above: Order Comment: Speci men Type: BLOOD SPECIMEN Ordering Facility: [facility] Address: [address] [place] [address] Performed By: #### 2 4323-8 #### [facility] CLIA [id number] [address] [place] [address] [place] Chloride [Moles/Vol] 102 mmol/L Normal 97-105 [facility] Comment on above: Order Comment: Speci men Type: BLOOD SPECIMEN Ordering Facility: [facility] Address: [address] [place] [address] Performed By: #### 2 4323-8 #### [facility] CLIA [id number] [address] [place] [address] [place] CO2 [Moles/Vol] 17 mmol/L Low 22-30 [facility] Comment on above: Order Comment: Speci men Type: BLOOD SPECIMEN Ordering Facility: [facility] Address: [address] [place] [address] Performed By: #### 2 4323-8 #### [facility] CLIA [id number] [place] [address] [place] Creatinine [Mass/Vol] 0.62 mg/dL Normal 0.58-0.96 [facility] Comment on above: Order Comment: Speci men Type: BLOOD SPECIMEN Ordering Facility: [facility] Address: [address] [place] [address] Performed By: #### 2 4323-8 #### [facility] CLIA [id number] [address] [place] [address] [place] [facility] Creatinine and Glomerular filtration rate.predicted panel (S/P/Bld) 124 mL/min/1.73m??? Normal >=60 [facility] Comment on above: Order Comment: Speci men Type: BLOOD SPECIMEN Ordering Facility: [facility] Address: [address] [place] [address] Result Comment: June mated Glomerular Filtration Rate (eGFR) is calculated using the 2020 CKD-EPI creatinine equation. This equation utilizes serum creatinine, sex, and age as parameters. The creatinine assay has traceable calibration to isotope dilution-mass spectrometry. Refer to KDIGO guidelines for clinical interpretation. In patients with unstable renal function, e.g. those with acute kidney injury, the eGFR may not accurately reflect actual GFR. Performed By: #### 2 4323-8 #### [facility] CLIA [id number] [place] [address] [place] Glucose [Mass/Vol] 92 mg/dL Normal 74-99 [facility] Comment on above: Order Comment: Speci men Type: BLOOD SPECIMEN Ordering Facility: [facility] Address: [address] [place] [address] Result Comment: The [place] Diabetes Association (ADA) provides guidance for cutoff values for fasting glucose and random glucose. The ADA defines fasting as no caloric intake for at least 8 hours. Fasting plasma glucose results between 100 to 125 mg/dL indicate increased risk for diabetes (prediabetes). Fasting plasma glucose results greater than or equal to 126 mg/dL meet the criteria for diagnosis of diabetes. In the absence of unequivocal hyperglycemia, results should be confirmed by repeat testing. In a patient with classic symptoms of hyperglycemia or hyperglycemic crisis, random plasma glucose results greater than or equal to 200 mg/dL meet the criteria for diagnosis of diabetes. Reference: Standards of Medical Care in Diabetes 2016, [place] Diabetes Association. Diabetes Care. 2016.39(Suppl 1). Performed By: #### 2 4323-8 #### [facility] CLIA [id number] [address] [place] [address] [place] Potassium [Moles/Vol] 3.6 mmol/L Low 3.7-5.1 [facility] Comment on above: Order Comment: Panchito chery Type: BLOOD SPECIMEN Ordering Facility: [facility] Address: [address] [place] [address] Performed By: #### 2 4323-8 #### [facility] CLIA [id number] [address] [place] [address] [place] Protein [Mass/Vol] 6.6 g/dL Normal 6.3-8.0 [facility] Comment on above: Order Comment: Panchito chery Type: BLOOD SPECIMEN Ordering Facility: [facility] Address: [address] [place] [address] Performed By: #### 2 4323-8 #### [facility] CLIA [id number] [address] [place] [address] [place] Sodium [Moles/Vol] 136 mmol/L Normal 136-144 [facility] Comment on above: Order Comment: Panchito chery Type: BLOOD SPECIMEN Ordering Facility: [facility] Address: [address] [place] [address] Performed By: #### 2 4323-8 #### [facility] CLIA [id number] [address] [place] [address] [place] Urea nitrogen [Mass/Vol] 7 mg/dL Normal 7-21 [facility] Comment on above: Order Comment: Speci men Type: BLOOD SPECIMEN Ordering Facility: [facility] Address: [address] [place] [address] Performed By: #### 2 4323-8 #### [facility] CLIA [id number] [address] [place] [address] [place] HISTORY PHYSICALon HISTORY PHYSICAL HNO ID: [id number] Author: JUSTINE DASILVA MD Service: Obstetrics Author Type: Physician Type: H&P Filed: 10/29/2023 07:14 Note Text: OBSTETRICS HISTORY AND PHYSICAL SERVICE DATE: October 29, 2023 SERVICE TIME: 2:01 AM Subjective Patient's stated reason for arrival: CHIEF COMPLAINT: Rupture of membranes and labor HISTORY OF THE PRESENT ILLNESS: The patient is a 28 year old female, , who is at 38w4d with an AFUA of 11/08/2023, by Last Menstrual Period dating method. Patient is here complaining of SROM at 0130a.m. today of clear fluid. Good movement. Denies vaginal bleeding. Kana regularly and painfully. Denies SKINNER, changes in vision, and RUQ pain. POST DELIVERY CONTRACEPTION: Discussed post-delivery contraception options. Patient received written information about post-delivery contraception options. Patient does not desire post-delivery contraception. HISTORY REVIEW PAST MEDICAL HISTORY Diagnosis Date Abnormal Pap smear of cervix Anxiety disorder Asthma Chronic hypertension complicating or reason for care during childbirth 05/03/2023 Depression Dysmenorrhea Gestational hypertension 2017 WITH FIRST CHILD History of pre-eclampsia in prior , currently IUGR (intrauterine growth restriction) affecting care of mother 2017 first kidney stones 2014 PMH - PAST MEDICAL HISTORY OF 08/25/2003 normal color vision Precocious sexual development and puberty, not elsewhere classified age 12 years Premenstrual tension syndromes PMS PAST SURGICAL HISTORY Procedure Laterality Date ADENOIDECTOMY SECONDARY AGE 11/> PAST SURGICAL HISTORY OF age 10 B/L ear tubes FAMILY HISTORY Adopted: Yes Problem Relation Age of Onset other (ADHD) Brother Heart Mother Alcohol/Drug Mother Alcohol/Drug Father in age late 20's Diabetes Maternal Grandfather Heart Maternal Grandfather Social History Tobacco Use Smoking status: Former Years: 1.5 Types: Cigarettes Quit date: 12/14/2015 Years since quittin.8 Smokeless tobacco: Never Vaping Use Vaping Use: current everyday user Substance Use Topics Alcohol use: Not Currently Comment: Self admitted to detox in 2022 Drug use: Not Currently Types: Marijuana Obstetric History T1 L1 SAB0 IAB0 Ectopic0 Multiple0 Live Births1 Name of Baby 1: Angel Date: 03/19/17 GA: 39w3d Delivery: Not recorded Apgar1: Not recorded Apgar5: Not recorded Living: Living Name of Baby 2: Not recorded Date: Not recorded GA: Not recorded Delivery: Not recorded Apgar1: Not recorded Apgar5: Not recorded Living: Not recorded Active Non-Hospital Problems Diagnosis Date Noted Headache 10/11/2023 GBS bacteriuria 09/28/2023 uterine contractions 09/24/2023 Anxiety and depression 09/24/2023 Threatened premature labor in third trimester 09/17/2023 Chronic hypertension in 05/03/2023 Overview Note: CBC, CMP, Urine PCR wnl Monthly growth scans from 28 weeks surveillance from 32 weeks ASA 81 mg daily Deliver at 38 weeks Alcohol use disorder 04/08/2023 Overview Note: Was in rehab in August 2022 Still feels urge to drink. 08/20/2023 - reports sobriety without difficulty currently, and stable for some time now. Supervision of high risk in third trimester 03/24/2023 Overview Note: was: unplanned Blood products are: acceptable Baby is a: Boy ASA: at 12 weeks Early glucose: not indicated History of prior with IUGR 03/24/2023 Overview Note: Babe was induced at 39w3d and weighed 4#9oz. Growth scans form 28 weeks History of gestational hypertension 03/24/2023 Overview Note: IOL at 39w3d Also had IUGR for 4#9oz baby ASA at 12 weeks. Monitor growth closely Pap smear abnormality of cervix with LGSIL 08/31/2016 Overview Note: August 31, 2016 age 21 LSIL pap, repeat in 1 year. Julee Muniz MD History of marijuana use 08/13/2016 Overview Note: 03/25/23 Patient states she was adopted out very young because her mother and father were involved with drugs. Her father in his 20's 2/2 overdose. She denies current use and is encouraged to continue to stay clean. She has not used [facility] since History of depression 08/13/2016 Overview Note: 03/25/23 Pt has a history of anxiety and depression diagnosed at age 11. She states she has had counseling at [facility] in the past and is open to being seen somewhere, again. Discussed increased risks of depression during and and importance of reporting the development or worsening of symptoms should they occur. Pt states at age 11 she spent 1-2 months at [facility] for a psychiatric hospitalization. She denies any suicidal thoughts since then. History of kidney stones 08/13/2016 Overview Note: 08/13/2016Patient has a history of kidney stones in 2014. No surgery to treat. TKRN (more content not included)... [facility] LD NOTEon 10-29-2023 LD NOTE HNO ID: [id number] Author: CHRISTIE SAM MD Service: Obstetrics Author Type: Physician Type: L&D Delivery Note Filed: 10/29/2023 06:56 Note Text: OBSTETRICS DELIVERY SUMMARY - VAGINAL DELIVERY Gestational Age at Delivery: 38w4d Service Date: 10/29/2023 Service Time: 5:44 AM Labor Events Rupture Date: 10/29/2023 Rupture Time: 1:30 AM Total Time from ROM to Delivery: 3h 48m Rupture Type: SROM Fluid Color: Clear Fluid Odor: No Odor Induction: No Augmentation: None Reason for Augmentation: --- Max Rausch [[id number]] Episiotomy/Laceration : Episiotomy: None Lacerations: Vaginal Vaginal Lacerations: Midline Vaginal Repair Completed: Yes Sutures Used: 3-0 Polyglactin 910 Date and Time of : Date of : 10/29/23 Time of : 517 Delivery Information: Primary Reason for Delivery : Labor Additional Clinicial Indicator(s) for delivery: N/A Delivery type: Vaginal, Spontaneous Intrapartum Complications: None Delivery between 24 - 34 weeks?: No Shoulder Dystocia Present: No Vacuum Used: No Forceps Used: No Presentation AND Position Presentation: Vertex Was patient breech in the past month and version attempted?: No Position: OA Cord: Complications: Nuchal with Compression Nuchal Cord Findings: x 1, Tight Delayed Cord Clamping: No Placenta: Delivered: 10/29/2023 5:29 AM Removal: Spontaneous Appearance: Intact Anesthesia: Method: Epidural Measurements, Apgars: Weight: 6 lb 12.9 oz Weight (gms): 3086 g One Minute : 6 Five Minute : 8 Resuscitation Team Present: No I/O Blood Loss per time range on right. 10/29/23 0130 - 10/29/23 0656 Calculated Blood Loss (mL) Hospital Encounter 50 Total 50 cc 28 year old 38w4d presented with spontaneous rupture of membranes in labor. Un-augmented labor course with of male . Tight nuchal cord unable to be reduced, clamped and cut on perineum. Placenta delivered spontaneously and appeared intact. Small superficial vaginal laceration with bleeding, repaired with 3-0 Vicryl without issue. A digital sweep of the vaginal canal was performed by Christie Sam MD and it was ascertained that no instruments or other foreign bodies are retained within the cavity. Sponge, lap, and needle counts were correct times two. Mother and baby are stable and bonding and skin to skin. Expected post-delivery care and anticipated transfer reviewed. Plan of care discussed with: Provider, RN, Patient. For the vaginal delivery I was present and directly supervised the entire procedure performed by the resident. SIGNATURE: Christie Sam MD PATIENT NAME: Poonam Rausch DATE: October 29, 2023 TIME: 5:44 AM [facility] TYPE + SCREEN PRENATALon ABO B [facility] Comment on above: Order Comment: Speci men Type: BLOOD SPECIMENOrdering Facility: [facility] Address: [address] [place] [address] Performed By: #### T SPN ####[facility] [id number] [place] [address] [place] HISTORICAL AB SCR STATUS Negative [facility] Comment on above: Order Comment: Speci men Type: BLOOD SPECIMENOrdering Facility: [facility] Address: [address] [place] [address] Performed By: #### T SPN ####[facility] [id number] [address] [place] Rh Nom (Bld) Positive [facility] Comment on above: Order Comment: Speci men Type: BLOOD SPECIMENOrdering Facility: [facility] Address: [address] [place] [address] Performed By: #### T SPN ####[facility] [id number] [place] [id number] [facility] TYPE AND SCREEN EXPIRATION 11/01/2023 23:59 Normal [facility] Comment on above: Order Comment: Speci men Type: BLOOD SPECIMENOrdering Facility: [facility] Address: [address] [place], [place] [id number] Performed By: #### T SPN ####[facility] [id number] [place] [id number] [facility] Biophysical profile.amando dy movement USon 10-25-[address] [facility] Radiology Study observation (narrative) [facility] UA DIP, URINE (POC)on 2023 BILIRUBIN UA (POCT) Small Abnormal Negative [facility] CLARITY UA (POCT) Turbid [facility] COLOR UA (POCT) Other [facility] GLUCOSE UA (POCT) Negative Negative mg/dL [facility] Hemoglobin Ql (U) Negative Negative [facility] Interpretation and review of laboratory results Abnormal [facility] KETONE UA (POCT) Trace Negative mg/dL [facility] LEUKOCYTES UA (POCT) Negative Negative [facility] NITRITE UA (POCT) Negative Negative [facility] PH UA (POCT) 7.0 4.5 - 8.[address] [facility] Protein Ql (U) 100 mg/dL Abnormal Negative [facility] SPECIFIC GRAVITY UA (POCT) 1.025 1.005 - 1.[address] [facility] UROBILINOGEN UA (POCT) 0.2 Normal E.U./dL [facility] Location:[facility], [address] , [place], [place], [id number] [place] [address] POINT OF CARE [facility] Biophysical profile.amando dy movement USon 10-18-[address] [facility] Radiology Study observation (narrative) [facility] MATERNAL DRUG SCREEN,URINEon 10-15-2023 Amphetamines Confirm (U) [Mass/Vol] Negative Negative [facility] Comment on above: Cutoff threshold at 1000 ng/mL. Barbiturates Urine Negative Negative [facility] Comment on above: Cutoff threshold at 200 ng/mL. Benzodiazepines Urine Negative Negative [facility] Comment on above: Cutoff threshold at 200 ng/mL. Cannabinoids Screen Ql (U) Negative Negative [facility] Comment on above: Cutoff threshold at 50 ng/mL. Cocaine Ql (U) Negative Negative [facility] Comment on above: Cutoff threshold at 300 ng/mL. Ethanol (U) [Mass/Vol] mg/dL NINF - 11 mg/dL [facility] Interpretation and review of laboratory results Normal [facility] Opiates Screen Ql (U) Negative Negative [facility] Comment on above: Cutoff threshold at 300 ng/mL. oxyCODONE cutoff Screen (U) [Mass/Vol] Negative Negative [facility] Comment on above: Cutoff threshold at 100 ng/mL. Phencyclidine Ql (U) Negative Negative [facility] Comment on above: Cutoff threshold at 25 ng/mL. Immunoassay screen only. Cross reactivity with other substances can occur with immunoassay screening. Detection of any drug(s) in this urine toxicology panel is presumptive only. These tests are for medical purposes only and should not be used for compliance monitoring, legal, or forensic use. [facility] MATERNAL DRUG SCREEN,URINEon 10-14-2023 Amphetamines Confirm (U) [Mass/Vol] Negative Normal Negative [facility] Comment on above: Order Comment: Speci men Type: BLOOD SPECIMEN Ordering Facility: [facility] Address: [address] [place] [address] Result Comment: Cuto ff threshold at 1000 ng/mL. Performed By: #### G [id number] #### [facility] CLIA [id number] [address] [place] [address] [place] BARBITURATES, URINE Negative Normal Negative [facility] Comment on above: Order Comment: Speci men Type: BLOOD SPECIMEN Ordering Facility: [facility] Address: [address] [place] [address] Result Comment: Cuto ff threshold at 200 ng/mL. Performed By: #### G [id number] #### [facility] CLIA [id number] [address] [place] [address] [place] BENZODIAZEPINES, UR Negative Normal Negative [facility] Comment on above: Order Comment: Speci men Type: BLOOD SPECIMEN Ordering Facility: [facility] Address: [address] [place] [address] Result Comment: Cuto ff threshold at 200 ng/mL. Performed By: #### G [id number] #### [facility] CLIA [id number] [address] [place] [address] [place] Cannabinoids Screen Ql (U) Negative Normal Negative [facility] Comment on above: Order Comment: Speci men Type: BLOOD SPECIMEN Ordering Facility: [facility] Address: [address] [place] [address] Result Comment: Cuto ff threshold at 50 ng/mL. Performed By: #### G [id number] #### [facility] CLIA [id number] [address] [place] [address] [place] Cocaine Ql (U) Negative Normal Negative [facility] Comment on above: Order Comment: Speci men Type: BLOOD SPECIMEN Ordering Facility: [facility] Address: [address] [place] [address] Result Comment: Cuto ff threshold at 300 ng/mL. Performed By: #### G [id number] #### [facility] CLIA [id number] [address] [place] [address] [place] Ethanol (U) [Mass/Vol] <11 Normal <11 [facility] Comment on above: Order Comment: Speci men Type: BLOOD SPECIMEN Ordering Facility: [facility] Address: [address] [place] [address] Performed By: #### G [id number] #### [facility] CLIA [id number] [address] [place] [address] [place] Opiates Screen Ql (U) Negative Normal Negative [facility] Comment on above: Order Comment: Speci men Type: BLOOD SPECIMEN Ordering Facility: [facility] Address: [address] [place] [address] Result Comment: Cuto ff threshold at 300 ng/mL. Performed By: #### G [id number] #### [facility] CLIA [id number] [address] [place] [address] [place] oxyCODONE cutoff Screen (U) [Mass/Vol] Negative Normal Negative [facility] Comment on above: Order Comment: Speci men Type: BLOOD SPECIMEN Ordering Facility: [facility] Address: [address] [place] [address] Result Comment: Cuto ff threshold at 100 ng/mL. Performed By: #### G [id number] #### [facility] CLIA [id number] [address] [place] [address] [place] Phencyclidine Ql (U) Negative Normal Negative [facility] Comment on above: Order Comment: Speci men Type: BLOOD SPECIMEN Ordering Facility: [facility] Address: [address] [place] [address] Result Comment: Cuto ff threshold at 25 ng/mL. Performed By: #### G [id number] #### [facility] CLIA [id number] [address] [place] [address] [place] UA DIP, URINE (POC)on 2023 BILIRUBIN UA (POCT) Small Abnormal Negative [facility] CLARITY UA (POCT) Cloudy [facility] COLOR UA (POCT) Other [facility] GLUCOSE UA (POCT) Negative Negative mg/dL [facility] Hemoglobin Ql (U) Negative Negative [facility] Interpretation and review of laboratory results Abnormal [facility] KETONE UA (POCT) Negative Negative mg/dL [facility] LEUKOCYTES UA (POCT) Negative Negative [facility] NITRITE UA (POCT) Negative Negative [facility] PH UA (POCT) 6.5 4.5 - 8.[address] [facility] Protein Ql (U) 100 mg/dL Abnormal Negative [facility] SPECIFIC GRAVITY UA (POCT) 1.025 1.005 - 1.[address] [facility] UROBILINOGEN UA (POCT) 1.0 Normal E.U./dL [facility] Location:[facility], [address] [place] [address] , [place], [place], [address] [facility] POINT OF CARE [facility] Comprehensive metabolic 2000 panelon 10-12-2023 Albumin [Mass/Vol] 3.7 g/dL Low 3.9 - 4.9 g/dL Cl [facility] ALP [Catalytic activity/Vol] 138 U/L High 34 - 123 U/L [facility] ALT [Catalytic activity/Vol] 17 U/L 7 - 38 U/L [facility] Anion gap [Moles/Vol] 13 mmol/L 9 - 18 mmol/L [facility] AST [Catalytic activity/Vol] 23 U/L 13 - 35 U/L [facility] Bilirubin [Mass/Vol] 0.7 mg/dL 0.2 - 1.3 mg/dL [facility] Calcium [Mass/Vol] 9.3 mg/dL 8.5 - 10.2 mg/dL [facility] Chloride [Moles/Vol] 107 mmol/L High 97 - 105 mmol/L [facility] CO2 [Moles/Vol] 18 mmol/L Low 22 - 30 mmol/L [facility] Creatinine [Mass/Vol] 0.65 mg/dL 0.58 - 0.96 mg/dL [facility] GFR/1.73 sq M.predicted among non-blacks MDRD (S/P/Bld) [Vol rate/Area] 122 mL/min/{1.73_m2} - PINF [facility] Comment on above: Estimated Glomerular Filtration Rate (eGFR) is calculated using the 2020 CKD-EPI creatinine equation. This equation utilizes serum creatinine, sex, and age as parameters. The creatinine assay has traceable calibration to isotope dilution-mass spectrometry. Refer to KDIGO guidelines for clinical interpretation. In patients with unstable renal function, e.g. those with acute kidney injury, the eGFR may not accurately reflect actual GFR. Glucose [Mass/Vol] 84 mg/dL 74 - 99 mg/dL [facility] Comment on above: The [place] Diabete s Association (ADA) provides guidance for cutoff values for fasting glucose and random glucose. The ADA defines fasting as no caloric intake for at least 8 hours. Fasting plasma glucose results between 100 to 125 mg/dL indicate increased risk for diabetes (prediabetes). Fasting plasma glucose results greater than or equal to 126 mg/dL meet the criteria for diagnosis of diabetes. In the absence of unequivocal hyperglycemia, results should be confirmed by repeat testing. In a patient with classic symptoms of hyperglycemia or hyperglycemic crisis, random plasma glucose results greater than or equal to 200 mg/dL meet the criteria for diagnosis of diabetes. Reference: Standards of Medical Care in Diabetes 2016, [place] [employer]. Diabetes Care. 2016.39(Suppl 1). Interpretation and review of laboratory results Abnormal [facility] Potassium [Moles/Vol] 4.0 mmol/L 3.7 - 5.1 mmol /L [facility] Protein [Mass/Vol] 6.2 g/dL Low 6.3 - 8.0 g/dL [facility] Sodium [Moles/Vol] 138 mmol/L 136 - 144 mmol/L [facility] Urea nitrogen [Mass/Vol] 7 mg/dL 7 - 21 mg/dL [facility] CBC W Auto Differential pane l (Bld)on 10-11-2023 Basophils (Bld) [#/Vol] 0.07 10*3/uL [facility] Basophils/100 WBC (Bld) 0.7 % [facility] Differential cell count method Nom (Bld) Auto [facility] Eosinophils (Bld) [#/Vol] 0.11 10*3/uL [facility] Eosinophils/100 WBC (Bld) 1.1 % [facility] Erythrocyte distribution width (RBC) [Ratio] 13.2 % 11.5 - 15.0 % [facility] Hematocrit (Bld) [Volume fraction] 36.0 % 36.0 - 46.0 % [facility] Hemoglobin (Bld) [Mass/Vol] 12.0 g/dL 11.5 - 15.5 g/dL [facility] Immature granulocytes (Bld) [#/Vol] 0.13 10*3/uL High NINF [facility] Immature granulocytes/100 WBC (Bld) 1.2 % [facility] Interpretation and review of laboratory results Abnormal [facility] Lymphocytes (Bld) [#/Vol] 1.78 10*3/uL [facility] Lymphocytes/100 WBC (Bld) 17.0 % [facility] MCH (RBC) [Entitic mass] 33.6 pg 26.0 - 34.[address] [facility] MCHC (RBC) [Mass/Vol] 33.3 g/dL 30.5 - 36.0 g/ dL [facility] MCV (RBC) [Entitic vol] 100.8 fL High 80.0 - 100.[address] [facility] Monocytes (Bld) [#/Vol] 0.98 10*3/uL High NINF [facility] Monocytes/100 WBC (Bld) 9.4 % [facility] Neutrophils (Bld) [#/Vol] 7.40 10*3/uL [facility] Neutrophils/100 WBC (Bld) 70.6 % [facility] Nucleated RBC (Bld) [#/Vol] NINF [facility] Nucleated RBC/100 WBC (Bld) [Ratio] 0.0 % /[address] [facility] Platelet mean volume (Bld) [Entitic vol] 10.8 fL 9.0 - 12.[address] [facility] Platelets (Bld) [#/Vol] 311 10*3/uL [facility] RBC (Bld) [#/Vol] 3.57 10*6/uL Low 3.90 - 5.20 m/uL [facility] WBC (Bld) [#/Vol] 10.47 10*3/uL [facility] Basophils (Bld) [#/Vol] 0.07 10*3/uL Normal <0.11 [facility] Comment on above: Order Comment: Speci men Type: BLOOD SPECIMEN Ordering Facility: [facility] Address: [address] [place] [address] Performed By: #### G [id number] #### [facility] CLIA [id number] [address] [place] [address] [place] Basophils/100 WBC (Bld) 0.7 % Normal [facility] Comment on above: Order Comment: Speci men Type: BLOOD SPECIMEN Ordering Facility: [facility] Address: [address] [place] [address] Performed By: #### G [id number] #### [facility] CLIA [id number] [address] [place] [address] [place] Differential cell count method Nom (Bld) Auto Normal [facility] Comment on above: Order Comment: Speci men Type: BLOOD SPECIMEN Ordering Facility: [facility] Address: [address] [place] [address] Performed By: #### G [id number] #### [facility] CLIA [id number] [address] [place] [address] [place] Eosinophils (Bld) [#/Vol] 0.11 10*3/uL Normal <0.46 [facility] Comment on above: Order Comment: Speci men Type: BLOOD SPECIMEN Ordering Facility: [facility] Address: [address] [place] [address] Performed By: #### G [id number] #### [facility] CLIA [id number] [address] [place] [address] [place] Eosinophils/100 WBC (Bld) 1.1 % Normal [facility] Comment on above: Order Comment: Speci men Type: BLOOD SPECIMEN Ordering Facility: [facility] Address: [address] [place] [address] Performed By: #### G [id number] #### [facility] CLIA [id number] [address] [place] [address] [place] Erythrocyte distribution width (RBC) [Ratio] 13.2 % Normal 11.5-15.0 [facility] Comment on above: Order Comment: Speci men Type: BLOOD SPECIMEN Ordering Facility: [facility] Address: [address] [place] [address] Performed By: #### G [id number] #### [facility] CLIA [id number] [address] [place] [address] [place] Hematocrit (Bld) [Volume fraction] 36.0 % Normal 36.0-46.0 [facility] Comment on above: Order Comment: Speci men Type: BLOOD SPECIMEN Ordering Facility: [facility] Address: [address] [place] [address] Performed By: #### G [id number] #### [facility] CLIA [id number] [address] [place] [address] [place] Hemoglobin (Bld) [Mass/Vol] 12.0 g/dL Normal 11.5-15.5 [facility] Comment on above: Order Comment: Speci men Type: BLOOD SPECIMEN Ordering Facility: [facility] Address: [address] [place] [address] Performed By: #### G [id number] #### [facility] CLIA [id number] [address] [place] [address] [place] Immature granulocytes (Bld) [#/Vol] 0.13 10*3/uL High <0.10 [facility] Comment on above: Order Comment: Speci men Type: BLOOD SPECIMEN Ordering Facility: [facility] Address: [address] [place] [address] Performed By: #### G [id number] #### [facility] CLIA [id number] [address] [place] [address] [place] Immature granulocytes/100 WBC (Bld) 1.2 % Normal [facility] Comment on above: Order Comment: Speci men Type: BLOOD SPECIMEN Ordering Facility: [facility] Address: [address] [place] [address] Performed By: #### G [id number] #### [facility] CLIA [id number] [address] [place] [address] [place] Lymphocytes (Bld) [#/Vol] 1.78 10*3/uL Normal 1.00-4.00 [facility] Comment on above: Order Comment: Speci men Type: BLOOD SPECIMEN Ordering Facility: [facility] Address: [address] [place] [address] Performed By: #### G [id number] #### [facility] CLIA [id number] [address] [place] [address] [place] Lymphocytes/100 WBC (Bld) 17.0 % Normal [facility] Comment on above: Order Comment: Speci men Type: BLOOD SPECIMEN Ordering Facility: [facility] Address: [address] [place] [address] Performed By: #### G [id number] #### [facility] CLIA [id number] [address] [place] [address] [place] MCH (RBC) [Entitic mass] 33.6 pg Normal 26.0-34.0 [facility] Comment on above: Order Comment: Speci men Type: BLOOD SPECIMEN Ordering Facility: [facility] Address: [address] [place] [address] Performed By: #### G [id number] #### [facility] CLIA [id number] [address] [place] [address] [place] MCHC (RBC) [Mass/Vol] 33.3 g/dL Normal 30.5-36.0 [facility] Comment on above: Order Comment: Speci men Type: BLOOD SPECIMEN Ordering Facility: [facility] Address: [address] [place] [address] Performed By: #### G [id number] #### [facility] CLIA [id number] [address] [place] [address] [place] MCV (RBC) [Entitic vol] 100.8 fL High 80.0-100.0 [facility] Comment on above: Order Comment: Speci men Type: BLOOD SPECIMEN Ordering Facility: [facility] Address: [address] [place] [address] Performed By: #### G TGST1 #### [facility] CLIA [id number] [address] [place] [address] [place] Monocytes (Bld) [#/Vol] 0.98 10*3/uL High <0.87 [facility] Comment on above: Order Comment: Speci men Type: BLOOD SPECIMEN Ordering Facility: [facility] Address: [address] [place] [address] Performed By: #### G TGST1 #### [facility] CLIA [id number] [address] [place] [address] [place] Monocytes/100 WBC (Bld) 9.4 % Normal [facility] Comment on above: Order Comment: Speci men Type: BLOOD SPECIMEN Ordering Facility: [facility] Address: [address] [place] [address] Performed By: #### G TGST1 #### [facility] CLIA [id number] [address] [place] [address] [place] Neutrophils (Bld) [#/Vol] 7.40 10*3/uL Normal 1.45-7.50 [facility] Comment on above: Order Comment: Speci men Type: BLOOD SPECIMEN Ordering Facility: [facility] Address: [address] [place] [address] Performed By: #### G TGST1 #### [facility] CLIA [id number] [address] [place] [address] [place] Neutrophils/100 WBC (Bld) 70.6 % Normal [facility] Comment on above: Order Comment: Speci men Type: BLOOD SPECIMEN Ordering Facility: [facility] Address: [address] [place] [address] Performed By: #### G TGST1 #### [facility] CLIA [id number] [address] [place] [address] [place] Nucleated RBC (Bld) [#/Vol] 10*3/uL Normal <0.01 [facility] Comment on above: Order Comment: Speci men Type: BLOOD SPECIMEN Ordering Facility: [facility] Address: [address] [place] [address] Performed By: #### G TGST1 #### [facility] CLIA [id number] [address] [place] [address] [place] Nucleated RBC/100 WBC (Bld) [Ratio] 0.0 /100 WBC Normal [facility] Comment on above: Order Comment: Speci men Type: BLOOD SPECIMEN Ordering Facility: [facility] Address: [address] [place] [address] Performed By: #### G TGST1 #### [facility] CLIA [id number] [address] [place] [address] [place] Platelet mean volume (Bld) [Entitic vol] 10.8 fL Normal 9.0-12.7 [facility] Comment on above: Order Comment: Speci men Type: BLOOD SPECIMEN Ordering Facility: [facility] Address: [address] [place] [address] Performed By: #### G TGST1 #### [facility] CLIA [id number] [address] [place] [address] [place] Platelets (Bld) [#/Vol] 311 10*3/uL Normal 150-400 [facility] Comment on above: Order Comment: Speci men Type: BLOOD SPECIMEN Ordering Facility: [facility] Address: [address] [place] [address] Performed By: #### G TGST1 #### [facility] CLIA [id number] [address] [place] [address] [place] RBC (Bld) [#/Vol] 3.57 10*6/uL Low 3.90-5.20 [facility] Comment on above: Order Comment: Speci men Type: BLOOD SPECIMEN Ordering Facility: [facility] Address: [address] [place] [address] Performed By: #### G TGST1 #### [facility] CLIA [id number] [address] [place] [address] [place] WBC (Bld) [#/Vol] 10.47 10*3/uL Normal 3.70-11.00 [facility] Comment on above: Order Comment: Speci men Type: BLOOD SPECIMEN Ordering Facility: [facility] Address: [address] [place] [address] Performed By: #### G TGST1 #### [facility] CLIA [id number] [address] [place] [address] [place] CBC panel Auto (Bld)on 10-10 Erythrocyte distribution width (RBC) [Ratio] 13.1 % Normal 11.5-15.0 [facility] Comment on above: Order Comment: Speci men Type: BLOOD SPECIMEN Ordering Facility: [facility] Address: [address] [place] [address] Performed By: #### 5 8410-2 #### [facility] CLIA [id number] [address] [place] [address] [place] Hematocrit (Bld) [Volume fraction] 33.3 % Low 36.0-46.0 [facility] Comment on above: Order Comment: Speci men Type: BLOOD SPECIMEN Ordering Facility: [facility] Address: [address] [place] [address] Performed By: #### 5 8410-2 #### [facility] CLIA [id number] [address] [place] [address] [place] Hemoglobin (Bld) [Mass/Vol] 11.6 g/dL Normal 11.5-15.5 [facility] Comment on above: Order Comment: Speci men Type: BLOOD SPECIMEN Ordering Facility: [facility] Address: [address] [place] [address] Performed By: #### 5 8410-2 #### [facility] CLIA [id number] [address] [place] [address] [place] MCH (RBC) [Entitic mass] 34.7 pg High 26.0-34.0 [facility] Comment on above: Order Comment: Speci men Type: BLOOD SPECIMEN Ordering Facility: [facility] Address: [address] [place] [address] Performed By: #### 5 8410-2 #### [facility] CLIA [id number] [address] [place] [address] [place] MCHC (RBC) [Mass/Vol] 34.8 g/dL Normal 30.5-36.0 [facility] Comment on above: Order Comment: Speci men Type: BLOOD SPECIMEN Ordering Facility: [facility] Address: [address] [place] [address] Performed By: #### 5 8410-2 #### [facility] CLIA [id number] [address] [place] [address] [place] MCV (RBC) [Entitic vol] 99.7 fL Normal 80.0-100.0 [facility] Comment on above: Order Comment: Speci men Type: BLOOD SPECIMEN Ordering Facility: [facility] Address: [address] [place] [address] Performed By: #### 5 8410-2 #### [facility] CLIA [id number] [address] [place] [address] [place] Nucleated RBC (Bld) [#/Vol] 10*3/uL Normal <0.01 [facility] Comment on above: Order Comment: Speci men Type: BLOOD SPECIMEN Ordering Facility: [facility] Address: [address] [place] [address] Performed By: #### 5 8410-2 #### [facility] CLIA [id number] [address] [place] [address] [place] Platelet mean volume (Bld) [Entitic vol] 10.2 fL Normal 9.0-12.7 [facility] Comment on above: Order Comment: Speci men Type: BLOOD SPECIMEN Ordering Facility: [facility] Address: [address] [place] [address] Performed By: #### 5 8410-2 #### [facility] CLIA [id number] [address] [place] [address] [place] Platelets (Bld) [#/Vol] 267 10*3/uL Normal 150-400 [facility] Comment on above: Order Comment: Speci men Type: BLOOD SPECIMEN Ordering Facility: [facility] Address: [address] [place] [address] Performed By: #### 5 8410-2 #### [facility] CLIA [id number] [address] [place] [address] [place] RBC (Bld) [#/Vol] 3.34 10*6/uL Low 3.90-5.20 [facility] Comment on above: Order Comment: Speci men Type: BLOOD SPECIMEN Ordering Facility: [facility] Address: [address] [place], [place] [address] [id number] Performed By: #### 5 8410-2 #### [facility] CLIA [id number] [address] [place] [id number] [place] WBC (Bld) [#/Vol] 9.95 10*3/uL Normal 3.70-11.00 [facility] Comment on above: Order Comment: Speci men Type: BLOOD SPECIMEN Ordering Facility: [facility] Address: [address] [place] [id number] Performed By: #### 5 8410-2 #### [facility] CLIA [id number] [address] [place] [id number] [facility] Larry [facility]20[facility] POONAM RAUSCH ([id number]) 1995 F Date Time Provider Department 10/11/23 LESLEE LANDRY [facility] During your visit today, we recorded the following information about you: Allergies As of Date: 10/11/2023 (No Known Allergies) Date Reviewed: 10/05/2023 Reviewed by: Laura Forbes MA - Fully Assessed Reason for Visit: BP Log [Other] Prescriptions as of 10/11/2023 - sertraline (ZOLOFT) 25 mg tablet Take 1 tablet by mouth once daily. - ARIPiprazole (ABILIFY) 5 mg tablet take one half tablet daily for 3 days then increase to one tablet daily - Blood Pressure Monitor 1 Each two times a day. - sertraline (ZOLOFT) 100 mg tablet Take 1 tablet by mouth once daily. - Blood Pressure Monitor (BLOOD PRESSURE KIT) 1 Each once daily. - aspirin, enteric coated (ECOTRIN LOW STRENGTH) 81 mg EC tablet Take 1 tablet by mouth once daily. Please start at 12 weeks of gestation. - folic acid 1 mg tablet Take 1 tablet by mouth once daily. - vit/iron fum/folic ac ( 1 + 1 ORAL) Take by mouth. 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 [R87*08/31/2016 Supervision of high risk , antepartum,* 3 History of prior with IUGR [Z*03/24/2023 History of gestational hypertension [Z87.59] 03/24/2023 Substance use disorder [F19.90] 03/25/2023 09/17/2023 Alcohol use disorder [F10.90] 04/08/2023 Pre-existing essential hypertension complicatin* 3 No-show for appointment [Z91.199] 07/20/2023 Threatened premature labor in third trimester [*09/17/2023 uterine contractions [O47.00] 09/24/2023 Anxiety and depression [F41.9, F32.A] 09/24/2023 GBS bacteriuria [R82.71] 09/28/2023 Encounter Status:Closed by NICOL SAENZ on 10/11/23 Normal [facility] Telephone ([facility]) POONAM RAUSCH ([id number]) 1995 F Date Time Provider Department 10/11/23 LESLEE LANDRY [facility] During your visit today, we recorded the following information about you: Violeta Smyth, RN 10/11/2023 3:55 PM Signed @ 36 weeks IUP. Pt had NST today and was sent for BPP. Reports that [facility] told her she would need another BPP and NST this week. Pt is currently scheduled for BPP. Told her that we would likely be scheduling the next NST on Wednesday. Pt says Dr. Shaffer also told her that if she is getting headaches that don't go away with tylenol to let her know. Pt states she had #5-6 headache and took tylenol @ 1:45pm. Pt says she did not get relief and now says her headache is #8. Advised will send information to Dr. Shaffer but will likely not have any recommendations until her lab work is back. (still in process). Leslee Landry, 10/11/2023 4:52 PM Addendum called patient still with SKINNER 7 out of 10 tylenol 1000 mg at 130 today PreE labs still pending to 3S for triage notified 3S Allergies As of Date: 10/11/2023 (No Known Allergies) Date Reviewed: 10/11/2023 Reviewed by: Abran Maloney MD - Fully Assessed Reason for Visit: Clinical Update [1735] Prescriptions as of 10/11/2023 - sertraline (ZOLOFT) 25 mg tablet Take 1 tablet by mouth once daily. - ARIPiprazole (ABILIFY) 5 mg tablet take one half tablet daily for 3 days then increase to one tablet daily - Blood Pressure Monitor 1 Each two times a day. - sertraline (ZOLOFT) 100 mg tablet Take 1 tablet by mouth once daily. - Blood Pressure Monitor (BLOOD PRESSURE KIT) 1 Each once daily. - aspirin, enteric coated (ECOTRIN LOW STRENGTH) 81 mg EC tablet Take 1 tablet by mouth once daily. Please start at 12 weeks of gestation. - folic acid 1 mg tablet Take 1 tablet by mouth once daily. - vit/iron fum/folic ac ( 1 + 1 ORAL) Take by mouth. 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 [R87*08/31/2016 Supervision of high risk in third tri*03/24/2023 History of prior with IUGR [Z*03/24/2023 History of gestational hypertension [Z87.59] 03/24/2023 Substance use disorder [F19.90] 03/25/2023 09/17/2023 Alcohol use disorder [F10.90] 04/08/2023 Chronic hypertension in [O10.919] 05/03/2023 No-show for appointment [Z91.199] 07/20/2023 Threatened premature labor in third trimester [*09/17/2023 uterine contractions [O47.00] 09/24/2023 Anxiety and depression [F41.9, F32.A] 09/24/2023 GBS bacteriuria [R82.71] 09/28/2023 Encounter Status:Closed by LESLEE LANDRY on 10/11/23 Normal [facility] Comprehensive metabolic 2000 panelon 10-11-2023 Albumin [Mass/Vol] 3.6 g/dL Low 3.9-4.9 [facility] Comment on above: Order Comment: Speci men Type: BLOOD SPECIMENOrdering Facility: [facility] Address: [address] [place] [address] Performed By: #### 2 4323-8 ####[facility] [id number] [place] [address] [place] ALP [Catalytic activity/Vol] 129 U/L High 34-123 [facility] Comment on above: Order Comment: Speci men Type: BLOOD SPECIMENOrdering Facility: [facility] Address: [address] [place] [address] Performed By: #### 2 4323-8 ####[facility] [id number] [place] [id number] [place] ALT [Catalytic activity/Vol] 15 U/L Normal 7-38 [facility] Comment on above: Order Comment: Speci men Type: BLOOD SPECIMENOrdering Facility: [facility] Address: [address] [place] [address] Performed By: #### 2 4323-8 ####[facility]ORYCLIA [id number] [place] [address] [place] Anion gap [Moles/Vol] 15 mmol/L Normal 9-18 [facility] Comment on above: Order Comment: Speci men Type: BLOOD SPECIMENOrdering Facility: [facility] Address: [address] [place] [address] Performed By: #### 2 4323-8 ####[facility]ORATORYCLIA [id number] [place] [address] [place] AST [Catalytic activity/Vol] 22 U/L Normal 13-35 [facility] Comment on above: Order Comment: Speci men Type: BLOOD SPECIMENOrdering Facility: [facility] Address: [address] [place] [address] Performed By: #### 2 4323-8 ####[facility] [id number] [place] [id number] [place] Bilirubin [Mass/Vol] 0.8 mg/dL Normal 0.2-1.3 [facility] Comment on above: Order Comment: Speci men Type: BLOOD SPECIMENOrdering Facility: [facility] Address: [address] [place] [address] Performed By: #### 2 4323-8 ####[facility]ORATORYCLIA [id number] [place] [id number] [place] Calcium [Mass/Vol] 9.0 mg/dL Normal 8.5-10.2 [facility] Comment on above: Order Comment: Speci men Type: BLOOD SPECIMENOrdering Facility: [facility] Address: [address] [place] [address] Performed By: #### 2 4323-8 ####[facility] [id number] [place] [id number] [place] Chloride [Moles/Vol] 103 mmol/L Normal 97-105 [facility] Comment on above: Order Comment: Speci men Type: BLOOD SPECIMENOrdering Facility: [facility] Address: [address] [place] [address] Performed By: #### 2 4323-8 ####[facility] [id number] [place] [id number] [place] CO2 [Moles/Vol] 16 mmol/L Low 22-30 [facility] Comment on above: Order Comment: Speci men Type: BLOOD SPECIMENOrdering Facility: [facility] Address: [address] [place] [address] Performed By: #### 2 4323-8 ####[facility] [id number] [place] [id number] [place] Creatinine [Mass/Vol] 0.62 mg/dL Normal 0.58-0.96 [facility] Comment on above: Order Comment: Speci men Type: BLOOD SPECIMENOrdering Facility: [facility] Address: [address] [place] [address] Performed By: #### 2 4323-8 ####[facility] [id number] [place] [id number] [facility] Creatinine and Glomerular filtration rate.predicted panel (S/P/Bld) 124 mL/min/1.73m??? Normal >=60 [facility] Comment on above: Order Comment: Speci men Type: BLOOD SPECIMENOrdering Facility: [facility] Address: [address] [place] [address] Result Comment: June mated Glomerular Filtration Rate (eGFR) is calculated using the 2020 CKD-EPI creatinine equation. This equation utilizes serum creatinine, sex, and age as parameters. The creatinine assay has traceable calibration to isotope dilution-mass spectrometry. Refer to KDIGO guidelines for clinical interpretation. In patients with unstable renal function, e.g. those with acute kidney injury, the eGFR may not accurately reflect actual GFR. Performed By: #### 2 4323-8 ####[facility]ORY[facility]IA [id number] [place] [id number] [place] Glucose [Mass/Vol] 91 mg/dL Normal 74-99 [facility] Comment on above: Order Comment: Panchito chery Type: BLOOD SPECIMENOrdering Facility: [facility] Address: [address] [place] [address] Result Comment: The [place] Diabetes Association (ADA) provides guidance for cutoff values for fasting glucose and random glucose. The ADA defines fasting as no caloric intake for at least 8 hours. Fasting plasma glucose results between 100 to 125 mg/dL indicate increased risk for diabetes (prediabetes). Fasting plasma glucose results greater than or equal to 126 mg/dL meet the criteria for diagnosis of diabetes. In the absence of unequivocal hyperglycemia, results should be confirmed by repeat testing. In a patient with classic symptoms of hyperglycemia or hyperglycemic crisis, random plasma glucose results greater than or equal to 200 mg/dL meet the criteria for diagnosis of diabetes. Reference: Standards of Medical Care in Diabetes 2016, [place] [employer] Association. Diabetes Care. 2016.39(Suppl 1). Performed By: #### 2 4323-8 ####[facility]ORYCLIA [id number] [place] [address] [place] Potassium [Moles/Vol] 3.7 mmol/L Normal 3.7-5.1 [facility] Comment on above: Order Comment: Panchito chery Type: BLOOD SPECIMENOrdering Facility: [facility] Address: [address] [place] [address] Performed By: #### 2 4323-8 ####[facility]ORYCLIA [id number] [place] [id number] [place] Protein [Mass/Vol] 6.2 g/dL Low 6.3-8.0 [facility] Comment on above: Order Comment: Panchito chery Type: BLOOD SPECIMENOrdering Facility: [facility] Address: [address] [place] [address] Performed By: #### 2 4323-8 ####[facility] LABORATORYCLIA [id number] [place] [id number] [place] Sodium [Moles/Vol] 134 mmol/L Low 136-144 [facility] Comment on above: Order Comment: Speci men Type: BLOOD SPECIMENOrdering Facility: [facility] Address: [address] [place] [address] Performed By: #### 2 4323-8 ####[facility]IA [id number] [place] [id number] [place] Urea nitrogen [Mass/Vol] 6 mg/dL Low 7-21 [facility] Comment on above: Order Comment: Speci men Type: BLOOD SPECIMENOrdering Facility: [facility] Address: [address] [place] [address] Performed By: #### 2 4323-8 ####[facility] LABORATORYCLIA [id number] [place] [address] [place] Albumin [Mass/Vol] 3.7 g/dL Low 3.9-4.[address] [facility] Comment on above: Order Comment: Speci men Type: BLOOD SPECIMENOrdering Facility: [facility] Address: [address] [place] [address] Performed By: #### 2 4323-8 ####[facility] LABCLIA [id number] [place] [address] [place] ALP [Catalytic activity/Vol] 138 U/L High 34-123 [facility] Comment on above: Order Comment: Speci men Type: BLOOD SPECIMENOrdering Facility: [facility] Address: [address] [place] [id number] Performed By: #### 2 4323-8 ####[facility] LABCLIA [id number] [place] [address] [place] ALT [Catalytic activity/Vol] 17 U/L Normal 7-38 [facility] Comment on above: Order Comment: Speci men Type: BLOOD SPECIMENOrdering Facility: [facility] Address: [address] [place] [address] Performed By: #### 2 4323-8 ####[facility] LABCLIA [id number] [place] [address] [place] Anion gap [Moles/Vol] 13 mmol/L Normal 9-18 [facility] Comment on above: Order Comment: Speci men Type: BLOOD SPECIMENOrdering Facility: [facility] Address: [address] [place] [address] Performed By: #### 2 4323-8 ####[facility] LABCLIA [id number] [place] [address] [place] AST [Catalytic activity/Vol] 23 U/L Normal 13-35 [facility] Comment on above: Order Comment: Speci men Type: BLOOD SPECIMENOrdering Facility: [facility] Address: [address] [place] [address] Performed By: #### 2 4323-8 ####[facility] LABCLIA [id number] [place] [address] [place] Bilirubin [Mass/Vol] 0.7 mg/dL Normal 0.2-1.3 [facility] Comment on above: Order Comment: Speci men Type: BLOOD SPECIMENOrdering Facility: [facility] Address: [address] [place] [address] Performed By: #### 2 4323-8 ####[facility] LABCLIA [id number] [place] [address] [place] Calcium [Mass/Vol] 9.3 mg/dL Normal 8.5-10.[address] [facility] Comment on above: Order Comment: Speci men Type: BLOOD SPECIMENOrdering Facility: [facility] Address: [address] [place] [address] Performed By: #### 2 4323-8 ####[facility] LABCLIA [id number] [place] [address] [place] Chloride [Moles/Vol] 107 mmol/L High 97-105 [facility] Comment on above: Order Comment: Speci men Type: BLOOD SPECIMENOrdering Facility: [facility] Address: [address] [place] [address] Performed By: #### 2 4323-8 ####[facility] LABCLIA [id number] [place] [address] [place] CO2 [Moles/Vol] 18 mmol/L Low 22-30 [facility] Comment on above: Order Comment: Speci men Type: BLOOD SPECIMENOrdering Facility: [facility] Address: [address] [place] [address] Performed By: #### 2 4323-8 ####[facility] LABCLIA [id number] [place] [address] [place] Creatinine [Mass/Vol] 0.65 mg/dL Normal 0.58-0.96 [facility] Comment on above: Order Comment: Speci men Type: BLOOD SPECIMENOrdering Facility: [facility] Address: [address] [place] [address] Performed By: #### 2 4323-8 ####[facility] LABCLIA [id number] [address] [place] Creatinine and Glomerular filtration rate.predicted panel (S/P/Bld) 122 mL/min/1.73m??? Normal >=60 [facility] Comment on above: Order Comment: Speci men Type: BLOOD SPECIMENOrdering Facility: [facility] Address: [address] [place] [address] Result Comment: June mated Glomerular Filtration Rate (eGFR) is calculated using the 2020 CKD-EPI creatinine equation. This equation utilizes serum creatinine, sex, and age as parameters. The creatinine assay has traceable calibration to isotope dilution-mass spectrometry. Refer to KDIGO guidelines for clinical interpretation. In patients with unstable renal function, e.g. those with acute kidney injury, the eGFR may not accurately reflect actual GFR. Performed By: #### 2 4323-8 ####[facility] LABIA [id number] [place] [address] [place] Glucose [Mass/Vol] 84 mg/dL Normal 74-[address] [facility] Comment on above: Order Comment: Speci men Type: BLOOD SPECIMENOrdering Facility: [facility] Address: [address] [place] [address] Result Comment: The [place] Diabetes Association (ADA) provides guidance for cutoff values for fasting glucose and random glucose. The ADA defines fasting as no caloric intake for at least 8 hours. Fasting plasma glucose results between 100 to 125 mg/dL indicate increased risk for diabetes (prediabetes). Fasting plasma glucose results greater than or equal to 126 mg/dL meet the criteria for diagnosis of diabetes. In the absence of unequivocal hyperglycemia, results should be confirmed by repeat testing. In a patient with classic symptoms of hyperglycemia or hyperglycemic crisis, random plasma glucose results greater than or equal to 200 mg/dL meet the criteria for diagnosis of diabetes. Reference: Standards of Medical Care in Diabetes 2016, [place] Diabetes Association. Diabetes Care. 2016.39(Suppl 1). Performed By: #### 2 4323-8 ####[facility] LABIA [id number] [place] [address] [place] Potassium [Moles/Vol] 4.0 mmol/L Normal 3.7-5.1 [facility] Comment on above: Order Comment: Speci men Type: BLOOD SPECIMENOrdering Facility: [facility] Address: [address] [place] [address] Performed By: #### 2 4323-8 ####[facility] LABIA [id number] [place] [address] [place] Protein [Mass/Vol] 6.2 g/dL Low 6.3-8.[address] [facility] Comment on above: Order Comment: Speci men Type: BLOOD SPECIMENOrdering Facility: [facility] Address: [address] [place] [address] Performed By: #### 2 4323-8 ####[facility] LABCLIA [id number] [place] [address] [place] Sodium [Moles/Vol] 138 mmol/L Normal 136-[address] [facility] Comment on above: Order Comment: Speci men Type: BLOOD SPECIMENOrdering Facility: [facility] Address: [address] [place] [address] Performed By: #### 2 4323-8 ####[facility] LABCLIA [id number] [address] [place] Urea nitrogen [Mass/Vol] 7 mg/dL Normal 7-21 [facility] Comment on above: Order Comment: Speci men Type: BLOOD SPECIMENOrdering Facility: [facility] Address: [address] [place] [address] Performed By: #### 2 4323-8 ####[facility] LABIA [id number] [address] [place] Biophysical profile.amando dy movement USon 10-11-[address] [facility] Radiology Study observation (narrative) [facility] HISTORY PHYSICALon HISTORY PHYSICAL HNO ID: [id number] Author: DIPESH BRADY MD Service: Obstetrics Author Type: Resident Type: H&P Filed: 10/14/2023 13:48 Note Text: Attestation signed by Dipesh Brady MD at 10/14/2023 1:48 PM Patient evaluated and the medical record reviewed. I discussed the assessment and plan with the resident. I agree with the note as written. Brenna Brady MD OBSTETRICS HISTORY AND PHYSICAL SERVICE DATE: October 11, 2023 SERVICE TIME: 7:42 PM Subjective Patient's stated reason for arrival: CHIEF COMPLAINT: Headache HISTORY OF THE PRESENT ILLNESS: The patient is a 28 year old female, , who is at 36w0d with an AFUA of 11/08/2023, by Last Menstrual Period dating method. Patient is here with topher after an all day headache and recommendation from turbine technician to come to the hospital for a BP of 141/94. The headache has been constant all day and is currently an achy pain over forehead and eyes rated a 4/10. Poonam took 2 500mg of Tylenol today around 1400 and states that even with a nap, eating, and caffeine, the headache has persisted. Poonam has cHTN with this with BPs ranging last week 127-130s/70-88. She is currently being managed for this condition and does BP measurements regularly. Poonam was seen in the office today, NST was nonreactive, had decelerations so was sent for BPP which showed borderline low fluid. Was told to come in for another NST on October 13 and another BPP on October 17. Good movement. Denies vaginal bleeding., Denies contractions., Denies leaking of fluid HISTORY REVIEW PAST MEDICAL HISTORY Diagnosis Date Abnormal Pap smear of cervix Anxiety disorder Asthma Chronic hypertension complicating or reason for care during childbirth 05/03/2023 Depression Dysmenorrhea Gestational hypertension 2016 WITH FIRST CHILD History of pre-eclampsia in prior , currently IUGR (intrauterine growth restriction) affecting care of mother 2017 first kidney stones 2014 PMH - PAST MEDICAL HISTORY OF 08/25/2003 normal color vision Precocious sexual development and puberty, not elsewhere classified age 12 years Premenstrual tension syndromes PMS PAST SURGICAL HISTORY Procedure Laterality Date ADENOIDECTOMY SECONDARY AGE 11/> PAST SURGICAL HISTORY OF age 10 B/L ear tubes FAMILY HISTORY Adopted: Yes Problem Relation Age of Onset other (ADHD) Brother Heart Mother Alcohol/Drug Mother Alcohol/Drug Father in age late 20's Diabetes Maternal Grandfather Heart Maternal Grandfather Social History Tobacco Use Smoking status: Former Years: 1.5 Types: Cigarettes Quit date: 12/14/2015 Years since quittin.8 Smokeless tobacco: Never Vaping Use Vaping Use: current everyday user Substance Use Topics Alcohol use: Not Currently Comment: Self admitted to detox in 2022 Drug use: Not Currently Types: Marijuana Obstetric History T1 L1 SAB0 IAB0 Ectopic0 Multiple0 Live Births1 Name of Baby 1: Angel Date: 03/19/17 GA: 39w3d Delivery: Not recorded Apgar1: Not recorded Apgar5: Not recorded Living: Living Name of Baby 2: Not recorded Date: Not recorded GA: Not recorded Delivery: Not recorded Apgar1: Not recorded Apgar5: Not recorded Living: Not recorded Active Non-Hospital Problems Diagnosis Date Noted GBS bacteriuria 09/28/2023 uterine contractions 09/24/2023 Anxiety and depression 09/24/2023 Threatened premature labor in third trimester 09/17/2023 No-show for appointment 07/20/2023 Chronic hypertension in 05/03/2023 Overview Note: CBC, CMP, Urine PCR wnl Monthly growth scans from 28 weeks surveillance from 32 weeks ASA 81 mg daily Deliver at 38 weeks Alcohol use disorder 04/08/2023 Overview Note: Was in rehab in August 2022 Still feels urge to drink. 08/20/2023 - reports sobriety without difficulty currently, and stable for some time now. Supervision of high risk in third trimester 03/24/2023 Overview Note: was: unplanned Blood products are: acceptable Baby is a: Boy ASA: at 12 weeks Early glucose: not indicated History of prior with IUGR 03/24/2023 Overview Note: Babe was induced at 39w3d and weighed 4#9oz. Growth scans form 28 weeks History of gestational hypertension 03/24/2023 Overview Note: IOL at 39w3d Also had IUGR for 4#9oz baby ASA at 12 weeks. Monitor growth closely Pap smear abnormality of cervix with LGSIL 08/31/2016 Overview Note: August 31, 2016 age 21 LSIL pap, repeat in 1 year. Julee Muniz MD History of marijuana use 08/13/2016 Overview Note: 03/25/23 Patient states she was adopted out very young because her mother and father were involved with drugs. Her father in his 20's 2 (more content not included)... Normal [facility] Prot/Creat Uron 10-11-2023 Protein/Creatinine (U) [Mass ratio] 0.13 mg/mg Normal <0.15 [facility] Comment on above: Order Comment: Panchito chery Type: URINE SPECIMEN Ordering Facility: [facility] Address: [address] [place] [address] Result Comment: Adul t Proteinuria Categories: <0.15 mg/mg is considered normal to mildly increased 0.15 - 0.50 mg/mg is considered moderately increased >0.50 mg/mg is considered severely increased KDIGO. (2013). KDIGO 2012 Clinical Practice Guideline for the Evaluation and Management of Chronic Kidney Disease. Official Journal of the International Society of Nephrology, 3(1), 1-150. Performed By: #### 2 890-2 #### [facility] CLIA [id number] [address] [place] [address] [place] Protein/Creatinine (U) [Mass ratio] 0.18 mg/mg High <0.15 [facility] Comment on above: Order Comment: Panchito chery Type: URINE SPECIMEN Ordering Facility: [facility] Address: [address] [place] [address] Result Comment: Adul t Proteinuria Categories: <0.15 mg/mg is considered normal to mildly increased 0.15 - 0.50 mg/mg is considered moderately increased >0.50 mg/mg is considered severely increased KDIGO. (2013). KDIGO 2012 Clinical Practice Guideline for the Evaluation and Management of Chronic Kidney Disease. Official Journal of the International Society of Nephrology, 3(1), 1-150. Performed By: #### 2 890-2 #### [facility] CLIA [id number] [address] [place], [place] [address] [address] [place] Protein/Creatinine (U) [Mass ratio]on 10-11-2023 Creatinine (U) [Mass/Vol] 163.6 mg/dL Normal 20.0-300.0 [facility] Comment on above: Order Comment: [facility] Type: URINE SPECIMEN Ordering Facility: [facility] Address: [address] [place] [address] Performed By: #### 2 890-2 #### [facility] CLIA [id number] [address] [place] [address] [place] Protein (U) [Mass/Vol] 22 mg/dL High 0-20 [facility] Comment on above: Order Comment: Speci men Type: URINE SPECIMEN Ordering Facility: [facility] Address: [address] [place] [address] Performed By: #### 2 890-2 #### [facility] CLIA [id number] [address] [place] [address] [place] Creatinine (U) [Mass/Vol] 211.8 mg/dL Normal 20.0-300.0 [facility] Comment on above: Order Comment: Speci men Type: URINE SPECIMEN Ordering Facility: [facility] Address: [address] [place] [address] Performed By: #### 2 890-2 #### [facility] CLIA [id number] [address] [place] [address] [place] Protein (U) [Mass/Vol] 38 mg/dL High 0-20 [facility] Comment on above: Order Comment: Speci men Type: URINE SPECIMEN Ordering Facility: [facility] Address: [address] [place] [address] Performed By: #### 2 890-2 #### [facility] CLIA [id number] [address] [place] [address] [place] UA DIP, URINE (POC)on 2023 BILIRUBIN UA (POCT) Small Abnormal Negative [facility] CLARITY UA (POCT) Cloudy [facility] COLOR UA (POCT) Other [facility] GLUCOSE UA (POCT) Negative Negative mg/dL [facility] Hemoglobin Ql (U) Negative Negative [facility] Interpretation and review of laboratory results Abnormal [facility] KETONE UA (POCT) Trace Negative mg/dL [facility] LEUKOCYTES UA (POCT) Small Abnormal Negative [facility] NITRITE UA (POCT) Negative Negative [facility] PH UA (POCT) 6.5 4.5 - 8.[address] [facility] Protein Ql (U) 100 mg/dL Abnormal Negative [facility] SPECIFIC GRAVITY UA (POCT) >=1.030 1.005 - 1.[address] [facility] UROBILINOGEN UA (POCT) 1.0 Normal E.U./dL [facility] Location:[facility], [address] [place] [address] , [place], [place], [address] [place] [address] POINT OF CARE [facility] CBC W Auto Differential pane l (Bld)on 10-05-2023 Basophils (Bld) [#/Vol] 0.07 10*3/uL Normal <0.11 [facility] Comment on above: Order Comment: Speci men Type: BLOOD SPECIMENOrdering Facility: [facility] Address: [address] [place] [address] Performed By: #### 5 7021-8 ####[facility] LABCLIA [id number] [place] [address] [place] Basophils/100 WBC (Bld) 0.6 % Normal [facility] Comment on above: Order Comment: Speci men Type: BLOOD SPECIMENOrdering Facility: [facility] Address: [address] [place] [address] Performed By: #### 5 7021-8 ####[facility] LABCLIA [id number] [place] [address] [place] Differential cell count method Nom (Bld) Auto Normal [facility] Comment on above: Order Comment: Speci men Type: BLOOD SPECIMENOrdering Facility: [facility] Address: [address] [place] [address] Performed By: #### 5 7021-8 ####[facility] LABCLIA [id number] [place] [address] [place] Eosinophils (Bld) [#/Vol] 0.11 10*3/uL Normal <0.46 [facility] Comment on above: Order Comment: Speci men Type: BLOOD SPECIMENOrdering Facility: [facility] Address: [address] [place] [address] Performed By: #### 5 7021-8 ####[facility] LABCLIA [id number] [place] [address] [place] Eosinophils/100 WBC (Bld) 0.9 % Normal [facility] Comment on above: Order Comment: Speci men Type: BLOOD SPECIMENOrdering Facility: [facility] Address: [address] [place] [address] Performed By: #### 5 7021-8 ####[facility] LABIA [id number] [place] [address] [place] Erythrocyte distribution width (RBC) [Ratio] 12.9 % Normal 11.5-15.0 [facility] Comment on above: Order Comment: Speci men Type: BLOOD SPECIMENOrdering Facility: [facility] Address: [address] [place] [address] Performed By: #### 5 7021-8 ####[facility] LABIA [id number] [place] [address] [place] Hematocrit (Bld) [Volume fraction] 36.6 % Normal 36.0-46.0 [facility] Comment on above: Order Comment: Speci men Type: BLOOD SPECIMENOrdering Facility: [facility] Address: [address] [place] [address] Performed By: #### 5 7021-8 ####[facility] LABCLIA [id number] [place] [address] [place] Hemoglobin (Bld) [Mass/Vol] 12.2 g/dL Normal 11.5-15.5 [facility] Comment on above: Order Comment: Speci men Type: BLOOD SPECIMENOrdering Facility: [facility] Address: [address] [place] [address] Performed By: #### 5 7021-8 ####[facility] LABCLIA [id number] [place] [address] [place] Immature granulocytes (Bld) [#/Vol] 0.11 10*3/uL High <0.10 [facility] Comment on above: Order Comment: Speci men Type: BLOOD SPECIMENOrdering Facility: [facility] Address: [address] [place] [address] Performed By: #### 5 7021-8 ####[facility] LABCLIA [id number] [place] [address] [place] Immature granulocytes/100 WBC (Bld) 0.9 % Normal [facility] Comment on above: Order Comment: Speci men Type: BLOOD SPECIMENOrdering Facility: [facility] Address: [address] [place] [address] Performed By: #### 5 7021-8 ####[facility] LABCLIA [id number] [place] [address] [place] Lymphocytes (Bld) [#/Vol] 2.12 10*3/uL Normal 1.00-4.00 [facility] Comment on above: Order Comment: Speci men Type: BLOOD SPECIMENOrdering Facility: [facility] Address: [address] [place] [address] Performed By: #### 5 7021-8 ####[facility] LABCLIA [id number] [place] [address] [place] Lymphocytes/100 WBC (Bld) 17.9 % Normal [facility] Comment on above: Order Comment: Speci men Type: BLOOD SPECIMENOrdering Facility: [facility] Address: [address] [place] [address] Performed By: #### 5 7021-8 ####[facility] LABCLIA [id number] [place] [address] [place] MCH (RBC) [Entitic mass] 33.9 pg Normal 26.0-34.0 [facility] Comment on above: Order Comment: Speci men Type: BLOOD SPECIMENOrdering Facility: [facility] Address: [address] [place] [address] Performed By: #### 5 7021-8 ####[facility] LABCLIA [id number] [place] [address] [place] MCHC (RBC) [Mass/Vol] 33.3 g/dL Normal 30.5-36.0 [facility] Comment on above: Order Comment: Speci men Type: BLOOD SPECIMENOrdering Facility: [facility] Address: [address] [place] [address] Performed By: #### 5 7021-8 ####[facility] LABCLIA [id number] [place] [address] [place] MCV (RBC) [Entitic vol] 101.7 fL High 80.0-100.0 [facility] Comment on above: Order Comment: Speci men Type: BLOOD SPECIMENOrdering Facility: [facility] Address: [address] [place] [address] Performed By: #### 5 7021-8 ####[facility] LABCLIA [id number] [place] [address] [place] Monocytes (Bld) [#/Vol] 1.00 10*3/uL High <0.87 [facility] Comment on above: Order Comment: Speci men Type: BLOOD SPECIMENOrdering Facility: [facility] Address: [address] [place] [address] Performed By: #### 5 7021-8 ####[facility] LABCLIA [id number] [place] [address] [place] Monocytes/100 WBC (Bld) 8.4 % Normal [facility] Comment on above: Order Comment: Speci men Type: BLOOD SPECIMENOrdering Facility: [facility] Address: [address] [place] [address] Performed By: #### 5 7021-8 ####[facility] LABCLIA [id number] [place] [address] [place] Neutrophils (Bld) [#/Vol] 8.45 10*3/uL High 1.45-7.50 [facility] Comment on above: Order Comment: Speci men Type: BLOOD SPECIMENOrdering Facility: [facility] Address: [address] [place] [address] Performed By: #### 5 7021-8 ####[facility] LABCLIA [id number] [place] [address] [place] Neutrophils/100 WBC (Bld) 71.3 % Normal [facility] Comment on above: Order Comment: Speci men Type: BLOOD SPECIMENOrdering Facility: [facility] Address: [address] [place] [address] Performed By: #### 5 7021-8 ####[facility] LABCLIA [id number] [place] [address] [place] Nucleated RBC (Bld) [#/Vol] 10*3/uL Normal <0.01 [facility] Comment on above: Order Comment: Speci men Type: BLOOD SPECIMENOrdering Facility: [facility] Address: [address] [place] [address] Performed By: #### 5 7021-8 ####[facility] LABCLIA [id number] [place] [address] [place] Nucleated RBC/100 WBC (Bld) [Ratio] 0.0 /100 WBC Normal [facility] Comment on above: Order Comment: Speci men Type: BLOOD SPECIMENOrdering Facility: [facility] Address: [address] [place] [address] Performed By: #### 5 7021-8 ####[facility] LABCLIA [id number] [place] [address] [place] Platelet mean volume (Bld) [Entitic vol] 10.9 fL Normal 9.0-12.7 [facility] Comment on above: Order Comment: Speci men Type: BLOOD SPECIMENOrdering Facility: [facility] Address: [address] [place] [address] Performed By: #### 5 7021-8 ####[facility] LABCLIA [id number] [place] [address] [place] Platelets (Bld) [#/Vol] 315 10*3/uL Normal 150-400 [facility] Comment on above: Order Comment: Speci men Type: BLOOD SPECIMENOrdering Facility: [facility] Address: [address] [place] [address] Performed By: #### 5 7021-8 ####[facility] LABIA [id number] [place] [address] [place] RBC (Bld) [#/Vol] 3.60 10*6/uL Low 3.90-5.20 [facility] Comment on above: Order Comment: Speci men Type: BLOOD SPECIMENOrdering Facility: [facility] Address: [address] [place] [address] Performed By: #### 5 7021-8 ####[facility] LABIA [id number] [place] [address] [place] WBC (Bld) [#/Vol] 11.86 10*3/uL High 3.70-11.00 [facility] Comment on above: Order Comment: Speci men Type: BLOOD SPECIMENOrdering Facility: [facility] Address: [address] [place] [address] Performed By: #### 5 7021-8 ####[facility]IA [id number] [place] [address] [place] Comprehensive metabolic 2000 panelon 10-05-2023 Albumin [Mass/Vol] 3.8 g/dL Low 3.9-4.[address] [facility] Comment on above: Order Comment: Speci men Type: BLOOD SPECIMEN Ordering Facility: [facility] Address: [address] [place] [address] Performed By: #### G TGST1 #### [facility] CLIA [id number] [address] [place] [address] [place] ALP [Catalytic activity/Vol] 122 U/L Normal 34-123 [facility] Comment on above: Order Comment: Speci men Type: BLOOD SPECIMEN Ordering Facility: [facility] Address: [address] [place] [address] Performed By: #### G TGST1 #### [facility] CLIA [id number] [address] [place] [address] [place] ALT [Catalytic activity/Vol] 17 U/L Normal 7-38 [facility] Comment on above: Order Comment: Speci men Type: BLOOD SPECIMEN Ordering Facility: [facility] Address: [address] [place] [address] Performed By: #### G TGST1 #### [facility] CLIA [id number] [address] [place] [address] [place] Anion gap [Moles/Vol] 15 mmol/L Normal 9-18 [facility] Comment on above: Order Comment: Speci men Type: BLOOD SPECIMEN Ordering Facility: [facility] Address: [address] [place] [address] Performed By: #### G TGST1 #### [facility] CLIA [id number] [address] [place] [address] [place] AST [Catalytic activity/Vol] 23 U/L Normal 13-35 [facility] Comment on above: Order Comment: Speci men Type: BLOOD SPECIMEN Ordering Facility: [facility] Address: [address] [place] [address] Performed By: #### G TGST1 #### [facility] CLIA [id number] [address] [place], [place] [id number] [place] Bilirubin [Mass/Vol] 0.5 mg/dL Normal 0.2-1.3 [facility] Comment on above: Order Comment: Speci men Type: BLOOD SPECIMEN Ordering Facility: [facility] Address: [address] [place] [address] Performed By: #### G TGST1 #### [facility] CLIA [id number] [address] [place] [address] [place] Calcium [Mass/Vol] 9.1 mg/dL Normal 8.5-10.[address] [facility] Comment on above: Order Comment: Speci men Type: BLOOD SPECIMEN Ordering Facility: [facility] Address: [address] [place] [address] Performed By: #### G TGST1 #### [facility] CLIA [id number] [address] [place] [address] [place] Chloride [Moles/Vol] 106 mmol/L High 97-105 [facility] Comment on above: Order Comment: Speci men Type: BLOOD SPECIMEN Ordering Facility: [facility] Address: [address] [place] [address] Performed By: #### G TGST1 #### [facility] CLIA [id number] [address] [place] [address] [place] CO2 [Moles/Vol] 18 mmol/L Low 22-30 [facility] Comment on above: Order Comment: Speci men Type: BLOOD SPECIMEN Ordering Facility: [facility] Address: [address] [place] [address] Performed By: #### G TGST1 #### [facility] CLIA [id number] [address] [place] [address] [place] Creatinine [Mass/Vol] 0.62 mg/dL Normal 0.58-0.96 [facility] Comment on above: Order Comment: Speci men Type: BLOOD SPECIMEN Ordering Facility: [facility] Address: [address] [place], [place] [address] Performed By: #### G TGST1 #### [facility] CLIA [id number] [address] [place] [address] [place] Creatinine and Glomerular filtration rate.predicted panel (S/P/Bld) 124 mL/min/1.73m??? Normal >=60 [facility] Comment on above: Order Comment: Panchito chery Type: BLOOD SPECIMEN Ordering Facility: [facility] Address: [address] [place] [address] Result Comment: June mated Glomerular Filtration Rate (eGFR) is calculated using the 2020 CKD-EPI creatinine equation. This equation utilizes serum creatinine, sex, and age as parameters. The creatinine assay has traceable calibration to isotope dilution-mass spectrometry. Refer to KDIGO guidelines for clinical interpretation. In patients with unstable renal function, e.g. those with acute kidney injury, the eGFR may not accurately reflect actual GFR. Performed By: #### G TGST1 #### [facility] CLIA [id number] [address] [place] [address] [place] Glucose [Mass/Vol] 71 mg/dL Low 74-[address] [facility] Comment on above: Order Comment: Panchito chery Type: BLOOD SPECIMEN Ordering Facility: [facility] Address: [address] [place] [address] Result Comment: The [place] Diabetes Association (ADA) provides guidance for cutoff values for fasting glucose and random glucose. The ADA defines fasting as no caloric intake for at least 8 hours. Fasting plasma glucose results between 100 to 125 mg/dL indicate increased risk for diabetes (prediabetes). Fasting plasma glucose results greater than or equal to 126 mg/dL meet the criteria for diagnosis of diabetes. In the absence of unequivocal hyperglycemia, results should be confirmed by repeat testing. In a patient with classic symptoms of hyperglycemia or hyperglycemic crisis, random plasma glucose results greater than or equal to 200 mg/dL meet the criteria for diagnosis of diabetes. Reference: Standards of Medical Care in Diabetes 2016, [place] Diabetes Association. Diabetes Care. 2016.39(Suppl 1). Performed By: #### G TGST1 #### [facility] CLIA [id number] [address] [place] [address] [place] Potassium [Moles/Vol] 4.3 mmol/L Normal 3.7-5.1 [facility] Comment on above: Order Comment: Speci men Type: BLOOD SPECIMEN Ordering Facility: [facility] Address: [address] [place] [address] Performed By: #### G TGST1 #### [facility] CLIA [id number] [address] [place] [address] [place] Protein [Mass/Vol] 6.4 g/dL Normal 6.3-8.[address] [facility] Comment on above: Order Comment: Speci men Type: BLOOD SPECIMEN Ordering Facility: [facility] Address: [address] [place] [address] Performed By: #### G TGST1 #### [facility] CLIA [id number] [address] [place] [address] [place] Sodium [Moles/Vol] 139 mmol/L Normal 136-[address] [facility] Comment on above: Order Comment: Speci men Type: BLOOD SPECIMEN Ordering Facility: [facility] Address: [address] [place] [address] Performed By: #### G TGST1 #### [facility] CLIA [id number] [address] [place] [address] [place] Urea nitrogen [Mass/Vol] 7 mg/dL Normal 7-21 [facility] Comment on above: Order Comment: Speci men Type: BLOOD SPECIMEN Ordering Facility: [facility] Address: [address] [place] [address] Performed By: #### G TGST1 #### [facility] CLIA [id number] [address] [place] [address] [place] Prot/Creat Uron 10-05-2023 Protein/Creatinine (U) [Mass ratio] 0.21 mg/mg High <0.15 [facility] Comment on above: Order Comment: Speci men Type: URINE SPECIMENOrdering Facility: [facility] Address: [address] [place] [address] Result Comment: Adul t Proteinuria Categories: <0.15 mg/mg is considered normal to mildly increased 0.15 - 0.50 mg/mg is considered moderately increased >0.50 mg/mg is considered severely increased KDIGO. (2013). KDIGO 2012 Clinical Practice Guideline for the Evaluation and Management of Chronic Kidney Disease. Official Journal of the International Society of Nephrology, 3(1), 1-150. Performed By: #### 2 890-2 ####[facility] [id number] [place] [id number] [place] Protein/Creatinine (U) [Mass ratio]on 10-05-2023 Creatinine (U) [Mass/Vol] 148.4 mg/dL Normal 20.0-300.0 [facility] Comment on above: Order Comment: Speci men Type: URINE SPECIMENOrdering Facility: [facility] Address: [address] [place] [address] Performed By: #### 2 890-2 ####[facility] [id number] [place] [address] [place] Protein (U) [Mass/Vol] 31 mg/dL High 0-20 [facility] Comment on above: Order Comment: Speci men Type: URINE SPECIMENOrdering Facility: [facility] Address: [address] [place] [address] Performed By: #### 2 890-2 ####[facility] [id number] [place] [id number] [place] UA DIP, URINE (POC)on 2023 BILIRUBIN UA (POCT) Negative Negative [facility] CLARITY UA (POCT) Cloudy [facility] COLOR UA (POCT) Other [facility] GLUCOSE UA (POCT) Negative Negative mg/dL [facility] Hemoglobin Ql (U) Negative Negative [facility] Interpretation and review of laboratory results Abnormal [facility] KETONE UA (POCT) Negative Negative mg/dL [facility] LEUKOCYTES UA (POCT) Small Abnormal Negative [facility] NITRITE UA (POCT) Negative Negative [facility] PH UA (POCT) 7.5 4.5 - 8.[address] [facility] Protein Ql (U) 30 mg/dL Abnormal Negative [facility] SPECIFIC GRAVITY UA (POCT) 1.020 1.005 - 1.[address] [facility] UROBILINOGEN UA (POCT) 0.2 Normal E.U./dL [facility] Location:[facility], [address] [place] [address] , [place], [place], [address] [place] [address] POINT OF CARE 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 Pt also has blurry vision w the h/a. Usually experience generalized frontal h/a, rates 4/10 on pain scale. Pt is not reporting h/a at present. NO edema noted, abs clonus. +FM, denies LOF/VB. Occ ctx BP this am at home 142/87. Office BP 127/95, rpt 119/80 Review parameters, reporting. and taking BP. Discussed w Dr Shaffer, orders rec'd Referring Provider: LESLEE LANDRY [[id number]] Allergies As of Date: 10/04/2023 (No Known Allergies) Date Reviewed: 09/23/2023 Reviewed by: Omari Villalpando, MJ - Fully Assessed Reason for Visit: BP Check [142] Primary Visit Diagnosis:Pre-existin g hypertension affecting in third trimester [O10.913] Order(s):COMPREHENSIV E METABOLIC PANEL [SQCMP] Order #: [id number] FUTURE COMPLETE BLOOD COUNT AND DIFFERENTIAL [SQCBCDIF] Order #: [id number] FUTURE PROTEIN / CREATININE RATIO [SQPRATIO] Order #: [id number] FUTURE Prescriptions as of 10/04/2023 - sertraline (ZOLOFT) 25 mg tablet Take 1 tablet by mouth once daily. - ARIPiprazole (ABILIFY) 5 mg tablet take one half tablet daily for 3 days then increase to one tablet daily - Blood Pressure Monitor 1 Each two times a day. - sertraline (ZOLOFT) 100 mg tablet Take 1 tablet by mouth once daily. - Blood Pressure Monitor (BLOOD PRESSURE KIT) 1 Each once daily. - aspirin, enteric coated (ECOTRIN LOW STRENGTH) 81 mg EC tablet Take 1 tablet by mouth once daily. Please start at 12 weeks of gestation. - folic acid 1 mg tablet Take 1 tablet by mouth once daily. - vit/iron fum/folic ac ( 1 + 1 ORAL) Take by mouth. 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 [R87*08/31/2016 Supervision of high risk , antepartum,* 3 History of prior with IUGR [Z*03/24/2023 History of gestational hypertension [Z87.59] 03/24/2023 Substance use disorder [F19.90] 03/25/2023 09/17/2023 Alcohol use disorder [F10.90] 04/08/2023 Pre-existing essential hypertension complicatin* No-show for appointment [Z91.199] 07/20/2023 Threatened premature labor in third trimester [*09/17/2023 uterine contractions [O47.00] 09/24/2023 Anxiety and depression [F41.9, F32.A] 09/24/2023 GBS bacteriuria [R82.71] 09/28/2023 Encounter Status:Closed by NICOL SAENZ on 10/04/23 [facility] CNPNon 10-01-2023 CNPN Telephone (OBGBDV) POONAM RAUSCH ([id number]) 1995 F Date Time Provider Department 10/01/23 LUIS PRATT OBDEVIN During your visit today, we recorded the following information about you: Sylvia Nye RN 10/01/2023 2:34 PM Signed Left message on patient voicemail to call RN back to discuss message from Luis Pratt CNM regarding test results. MJ Borrego Beth, RN 10/01/2023 2:50 PM Signed Spoke with patient. Spoke regarding ALBA Perez regarding message about elevated 1 hour GTT test and her recommendation for 3 hour GTT test. Patient was aware and had scheduled her 3 hour GTT test for today. Sylvia Nye RN Allergies As of Date: 10/01/2023 (No Known Allergies) Date Reviewed: 09/23/2023 Reviewed by: Omari Villalpando RN - Fully Assessed Prescriptions as of 10/01/2023 - sertraline (ZOLOFT) 25 mg tablet Take 1 tablet by mouth once daily. - ARIPiprazole (ABILIFY) 5 mg tablet take one half tablet daily for 3 days then increase to one tablet daily - Blood Pressure Monitor 1 Each two times a day. - sertraline (ZOLOFT) 100 mg tablet Take 1 tablet by mouth once daily. - Blood Pressure Monitor (BLOOD PRESSURE KIT) 1 Each once daily. - aspirin, enteric coated (ECOTRIN LOW STRENGTH) 81 mg EC tablet Take 1 tablet by mouth once daily. Please start at 12 weeks of gestation. - folic acid 1 mg tablet Take 1 tablet by mouth once daily. - vit/iron fum/folic ac ( 1 + 1 ORAL) Take by mouth. 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 [R87*08/31/2016 Supervision of high risk , antepartum,* 3 History of prior with IUGR [Z*03/24/2023 History of gestational hypertension [Z87.59] 03/24/2023 Substance use disorder [F19.90] 03/25/2023 09/17/2023 Alcohol use disorder [F10.90] 04/08/2023 Pre-existing essential hypertension complicatin* 3 No-show for appointment [Z91.199] 07/20/2023 Threatened premature labor in third trimester [*09/17/2023 uterine contractions [O47.00] 09/24/2023 Anxiety and depression [F41.9, F32.A] 09/24/2023 GBS bacteriuria [R82.71] 09/28/2023 Encounter Status:Closed by SYLVIA NYE on 10/01/23 Normal [facility] GLUCOSE GESTATIONAL, 1 HOURo n 10-01-2023 Glucose 1 Hr post Unsp challenge [Mass/Vol] 104 mg/dL Normal 74-179 [facility] Comment on above: Order Comment: Panchito chery Type: BLOOD SPECIMEN Ordering Facility: [facility] Address: [address] [place] [address] Result Comment: [facility] Congress of Obstetricians and Gynecologists (Loan/Yaniraan) guidelines state gestational diabetes mellitus is present when 2 or more of the plasma glucose concentrations meet or exceed the following levels: fastin mg/dl, 1 hr: 180 mg/dl, 2 hr: 155 mg/dl, and 3 hr: 140 mg/dl. Performed By: #### G TGST1 #### [facility] CLIA [id number] [address] [place] [address] [place] GLUCOSE GESTATIONAL, 2 HOURo n 10-01-2023 Glucose 2 Hr post Unsp challenge [Mass/Vol] 96 mg/dL Normal 74-154 [facility] Comment on above: Order Comment: Panchito chery Type: BLOOD SPECIMENOrdering Facility: [facility] Address: [address] [place] [address] Result Comment: [facility] Congress of Obstetricians and Gynecologists (Loan/Yaniraan) guidelines state gestational diabetes mellitus is present when 2 or more of the plasma glucose concentrations meet or exceed the following levels: fastin mg/dl, 1 hr: 180 mg/dl, 2 hr: 155 mg/dl, and 3 hr: 140 mg/dl. Performed By: #### G TGST2 ####[facility] [id number] [place] [address] [place] GLUCOSE GESTATIONAL, 3 HOURo n 10-01-2023 Glucose 3 Hr post Unsp challenge [Mass/Vol] 73 mg/dL Low 74-139 [facility] Comment on above: Order Comment: Panchito chery Type: BLOOD SPECIMENOrdering Facility: [facility] Address: [address] [place] [address] Result Comment: [facility] Congress of Obstetricians and Gynecologists (Cates/Coustan) guidelines state gestational diabetes mellitus is present when 2 or more of the plasma glucose concentrations meet or exceed the following levels: fastin mg/dl, 1 hr: 180 mg/dl, 2 hr: 155 mg/dl, and 3 hr: 140 mg/dl. Performed By: #### G TGST3 ####[facility] [id number] [place] [address] [place] GLUCOSE GESTATIONAL, FASTING on 10-01-2023 Glucose post fast [Mass/Vol] 80 mg/dL Normal 74-94 [facility] Comment on above: Order Comment: Speci men Type: BLOOD SPECIMENOrdering Facility: [facility] Address: [address] [place] [address] Result Comment: [facility] Congress of Obstetricians and Gynecologists (Loan/Andrea) guidelines state gestational diabetes mellitus is present when 2 or more of the plasma glucose concentrations meet or exceed the following levels: fastin mg/dl, 1 hr: 180 mg/dl, 2 hr: 155 mg/dl, and 3 hr: 140 mg/dl. Performed By: #### G TGSTF ####[facility] [id number] [place] [address] [place] Bacteria Ur Culton Bacteria identified Cx Nom (U) ORGANISM ID: 1 50,000-<100,000 CFU/ml Normal urogenital mandy Normal [facility] Comment on above: Performed By: #### 6 30-4 ####[facility] [id number] [place] [address] [place] UA DIP, URINE (POC)on 2023 BILIRUBIN UA (POCT) Negative Negative [facility] CLARITY UA (POCT) Clear [facility] COLOR UA (POCT) Yellow [facility] GLUCOSE UA (POCT) Negative Negative mg/dL [facility] Hemoglobin Ql (U) Trace-intact Abnormal Negative [facility] Interpretation and review of laboratory results Abnormal [facility] KETONE UA (POCT) Negative Negative mg/dL [facility] LEUKOCYTES UA (POCT) Trace Abnormal Negative [facility] NITRITE UA (POCT) Negative Negative [facility] PH UA (POCT) 7.0 4.5 - 8.[address] [facility] Protein Ql (U) Trace Abnormal Negative mg/dL [facility] SPECIFIC GRAVITY UA (POCT) >=1.030 1.005 - 1.[address] [facility] UROBILINOGEN UA (POCT) 0.2 Normal E.U./dL [facility] Location:[facility], [address] [place] [address] , [place], [place], [id number] [place] [address] POINT OF CARE [facility] CNPNon 09-24-2023 CNPN Telephone (OBGFVC) POONAM RAUSCH ([id number]) 1995 F Date Time Provider Department 09/24/23 LAURA LOPEZ OBGF During your visit today, we recorded the following information about you: Laura Lopez APRN.CNM 09/24/2023 1:05 AM Signed Please call to schedule virtual visit for anxiety and depression during in 2 weeks. ELIZABETH Rabago Karen 09/27/2023 10:30 AM Signed Call to patient. Left message for patient to call our office and make a virtual visit for 2 weeks from now with Laura Lopez CNM. Juana Byrne Allergies As of Date: 09/24/2023 (No Known Allergies) Date Reviewed: 09/23/2023 Reviewed by: Omari Villalpando, MJ - Fully Assessed Primary Visit Diagnosis:Anxiety and depression [F41.9, F32.A] Order(s):sertraline (ZOLOFT) 25 mg tabletTake 1 tablet by mouth once daily.Disp: 90 tabletRfl: 0 Prescriptions as of 10/12/2023 - sertraline (ZOLOFT) 25 mg tablet Take 1 tablet by mouth once daily. - ARIPiprazole (ABILIFY) 5 mg tablet take one half tablet daily for 3 days then increase to one tablet daily - Blood Pressure Monitor 1 Each two times a day. - sertraline (ZOLOFT) 100 mg tablet Take 1 tablet by mouth once daily. - Blood Pressure Monitor (BLOOD PRESSURE KIT) 1 Each once daily. - aspirin, enteric coated (ECOTRIN LOW STRENGTH) 81 mg EC tablet Take 1 tablet by mouth once daily. Please start at 12 weeks of gestation. - folic acid 1 mg tablet Take 1 tablet by mouth once daily. - vit/iron fum/folic ac ( 1 + 1 ORAL) Take by mouth. 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 [R87*08/31/2016 Supervision of high risk , antepartum,* 3 History of prior with IUGR [Z*03/24/2023 History of gestational hypertension [Z87.59] 03/24/2023 Substance use disorder [F19.90] 03/25/2023 09/17/2023 Alcohol use disorder [F10.90] 04/08/2023 Pre-existing essential hypertension complicatin* 3 No-show for appointment [Z91.199] 07/20/2023 Threatened premature labor in third trimester [*09/17/2023 uterine contractions [O47.00] 09/24/2023 Anxiety and depression [F41.9, F32.A] 09/24/2023 Prescriptions ordered this encounter Disp Refills Start End SERTRALINE 25 MG TABLET 90 t* 0 09/24/2023 Route: ORAL Sig: Take 1 tablet by mouth once daily. Encounter Status:Closed by LAURA LOPEZ on 10/12/23 Normal [facility] GESTATIONAL GLUCOSE SCREEN, 1-HOUR, 50 GRAM, NON-FASTINGon 09-24-2023 Glucose [Mass/Vol] 139 mg/dL High 74-[address] [facility] Comment on above: Order Comment: Speci men Type: BLOOD SPECIMENOrdering Facility: [facility] Address: [address] [place] [address] Result Comment: [facility] Congress of Obstetricians and Gynecologists (Loan/Andrea) guidelines state a gestational diabetes mellitus positive screen is made, in women not previously diagnosed with overt diabetes, when the 1 hr plasma glucose level is equal to or above 140 mg/dL. The [facility] [place] recommends a 135 mg/dL cutoff. Performed By: #### G LTGST ####[facility] [id number] [place] [address] [place] UA DIP, URINE (POC)on 2023 BILIRUBIN UA (POCT) Small Abnormal Negative [facility] CLARITY UA (POCT) Cloudy [facility] COLOR UA (POCT) Other [facility] GLUCOSE UA (POCT) Negative Negative mg/dL [facility] Hemoglobin Ql (U) Negative Negative [facility] Interpretation and review of laboratory results Abnormal [facility] KETONE UA (POCT) Negative Negative mg/dL [facility] LEUKOCYTES UA (POCT) Small Abnormal Negative [facility] NITRITE UA (POCT) Negative Negative [facility] PH UA (POCT) 7.0 4.5 - 8.[address] [facility] Protein Ql (U) 100 mg/dL Abnormal Negative [facility] SPECIFIC GRAVITY UA (POCT) 1.020 1.005 - 1.[address] [facility] UROBILINOGEN UA (POCT) 1.0 Normal E.U./dL [facility] Location:[facility], [address] [place] [address] , [place], [place], [address] [facility] C[facility] [facility] 09-21-2023 JEAN CARLOSN Telephone ([facility]) OPONAM RAUSCH ([id number]) 1995 F Date Time Provider Department 09/21/23 [facility] During your visit today, we recorded the following information about you: Luz Lentz 09/21/2023 8:17 AM Signed ----- Message from Leslee Landry DO sent at 09/20/2023 4:06 PM EDT ----- patient is 33 weeks and no OB visits please reach out to [facility] if desiring please schedule weekly OB visit with NSTs for CHTN thanks Luz Lentz 09/21/2023 8:18 AM Signed Call placed to number on file. No answer. LVM to call back to schedule appts. Thank you. Luz Lentz 09/23/2023 9:18 AM Signed Spoke with pt. Pt scheduled a few appointments. Pt coming in today at 10am. Thank you. Allergies As of Date: 09/21/2023 (No Known Allergies) Date Reviewed: 09/17/2023 Reviewed by: Ofelia Leung, RN - Fully Assessed Reason for Visit: Appointment [[id number]] Prescriptions as of 09/23/2023 - ARIPiprazole (ABILIFY) 5 mg tablet take one half tablet daily for 3 days then increase to one tablet daily - Blood Pressure Monitor 1 Each two times a day. - sertraline (ZOLOFT) 100 mg tablet Take 1 tablet by mouth once daily. - Blood Pressure Monitor (BLOOD PRESSURE KIT) 1 Each once daily. - aspirin, enteric coated (ECOTRIN LOW STRENGTH) 81 mg EC tablet Take 1 tablet by mouth once daily. Please start at 12 weeks of gestation. - folic acid 1 mg tablet Take 1 tablet by mouth once daily. - vit/iron fum/folic ac ( 1 + 1 ORAL) Take by mouth. Problem List As Of Date 09/21/2023 Noted Resolved Backache, unspecified [M54.9] 07/30/2008 08/17/2016 LUMBAGO [M54.50] 10/03/2008 Dysmenorrhea [N94.6] 04/02/2011 08/17/2016 Headache(784.0) [R51] 10/27/2011 08/17/2016 History of marijuana use [F12.91] 08/13/2016 History of depression [Z86.59] 08/13/2016 History of kidney stones [Z87.442] 08/13/2016 Family history of Down syndrome [Z82.79] 08/13/2016 Pap smear abnormality of cervix with LGSIL [R87*08/31/2016 Supervision of high risk , antepartum,* 3 History of prior with IUGR [Z*03/24/2023 History of gestational hypertension [Z87.59] 03/24/2023 Substance use disorder [F19.90] 03/25/2023 09/17/2023 Alcohol use disorder [F10.90] 04/08/2023 Pre-existing essential hypertension complicatin* 3 No-show for appointment [Z91.199] 07/20/2023 Threatened premature labor in third trimester [*09/17/2023 Encounter Status:Closed by LUZ LENTZ on 09/23/23 Normal [facility] Examination level ultrasound on 09-20-[address] [facility] HISTORY PHYSICALon HISTORY PHYSICAL HNO ID: [id number] Author: SHIMA OLMSTEAD MD Service: Obstetrics Author Type: Physician Type: H&P Filed: 09/17/2023 11:59 Note Text: OBSTETRICS HISTORY AND PHYSICAL SERVICE DATE: 09/17/2023 SERVICE TIME: 10:05 AM Subjective Patient's stated reason for arrival: I've been having some leaking since yesterday around 10 am. Also I'm having sharp pain on my right side that goes into my back HISTORY OF THE PRESENT ILLNESS: 28yo 32w4d here for vaginal leaking fluid. Was normal discharge-like x2 days, was a little more today, clear fluid. No gushes. Endorses movement. Denies contractions, vaginal bleeding. Also with intermittent right-sided lower back pain that started overnight. None now; was a sharp pain that would last minutes at a time, 2-3 times per hour. Radiates down right leg/vulva. No dysuria, hematuria. POST DELIVERY CONTRACEPTION: Post delivery contraception not applicable for this patient. HISTORY: PAST MEDICAL HISTORY Diagnosis Date Anxiety disorder Asthma Chronic hypertension complicating or reason for care during childbirth 05/03/2023 Depression Dysmenorrhea Gestational hypertension 2017 WITH FIRST CHILD IUGR (intrauterine growth restriction) affecting care of mother 2017 first kidney stones 2014 PMH - PAST MEDICAL HISTORY OF 08/25/2003 normal color vision Precocious sexual development and puberty, not elsewhere classified age 12 years Premenstrual tension syndromes PMS PAST SURGICAL HISTORY Procedure Laterality Date ADENOIDECTOMY SECONDARY AGE 11/> PAST SURGICAL HISTORY OF age 10 B/L ear tubes FAMILY HISTORY Adopted: Yes Problem Relation Age of Onset other (ADHD) Brother Heart Mother Alcohol/Drug Mother Alcohol/Drug Father in age late 20's Diabetes Maternal Grandfather Heart Maternal Grandfather Social History Tobacco Use Smoking status: Former Years: 1.5 Types: Cigarettes Quit date: 12/14/2015 Years since quittin.7 Smokeless tobacco: Never Vaping Use Vaping Use: current everyday user Substance Use Topics Alcohol use: Not Currently Comment: Self admitted to detox in 2022 Drug use: Not Currently Types: Marijuana OB History T1 L1 SAB0 IAB0 Ectopic0 Multiple0 Live Births1 ALLERGIES No Known Allergies No current facility-administered medications on file prior to encounter. Current Outpatient Medications on File Prior to Encounter Medication Sig sertraline (ZOLOFT) 100 mg tablet Take 1 tablet by mouth once daily. ARIPiprazole (ABILIFY) 5 mg tablet take one half tablet daily for 3 days then increase to one tablet daily Blood Pressure Monitor 1 Each two times a day. Blood Pressure Monitor (BLOOD PRESSURE KIT) 1 Each once daily. aspirin, enteric coated (ECOTRIN LOW STRENGTH) 81 mg EC tablet Take 1 tablet by mouth once daily. Please start at 12 weeks of gestation. folic acid 1 mg tablet Take 1 tablet by mouth once daily. (Patient not taking: Reported on 05/03/2023) vit/iron fum/folic ac ( 1 + 1 ORAL) Take by mouth. REVIEW OF SYSTEMS: The remainder of the review of systems is negative. Objective LAST VITALS: Pulse BP Resp O2 Sat Temp Pain HT/WT/BMI: Height Weight BMI 160 cm (5' 3) 75.3 kg (166 lb) 29.41 PHYSICAL EXAM: Gen: NAD, AANDOx4, well- and comfortable-appearing CV/Pulm: Unlabored breathing on RA Abd: Gravid, NT Back: No CVAT bilaterally Ext: Warm and well-perfused, moving all extremities; BLE NT, symmetric Speculum: Sterile Speculum Exam: Amniotic Fluid Test 09/17/2023, 10:51 AM Pooling: neg (physiologic leukorrhea); Fern: neg; Nitrazine: neg (pH less than 7) Fern Reference Range: Negative for amniotic fluid Nitrazine Reference Range: Normal vaginal pH is acidic (below 7.0) with pH above 7.0 (basic) indicating the presence of amniotic fluid. Lab Address: [place] [address] Dept: [phone] Provider: George Mejia MD CERVICAL EXAM: Visually closed Dilation: cm Station: Effacement: % Position: Presentation: Pelvimetry: Pelvimetry clinically assessed as adequate MONITORING/ASSESSMENT : Baseline: Baseline Rate: 135 bpm (09/17/23 1015 : Kerrie Gale RN) Variability: Variability: Moderate (6-25 bpm) (09/17/23 1015 : Kerrie Gale RN) Accelerations: Accelerations: Present (09/17/23 1015 : Kerrie Gale RN) Decelerations: Decelerations: None (09/17/23 1015 : Kerrie Gale RN) Contractions: Not present (09/17/23 1015 : Kerrie Gale RN) Frequency: NST Interpretation: Reactive FHR Category: 1 (09/17/23 1015 : Kerrie Gale RN) EFW: N/A ULTRASOUND: US findings: Vertex GELY - 8.9 Q1 - 1.6 Q2 - 1.8 Q3 - 2.2 Q4 - MVP - 3.3 LABS Diagnostic tests reviewed for today's visit: Most recent labs and imaging results. Assessment/Plan 28yo 32w4d here for leaking vaginal flui (more content not included)... Normal [facility] 08-23-2023 JEAN CARLOSN Telephone ([facility]) POONAM RAUSCH ([id number]) 1995 F Date Time Provider Department 08/23/23 SHAWN BROWN (RN) [facility] During your visit today, we recorded the following information about you: Shawn Brown RN 08/23/2023 9:09 AM Signed Pt referred for childbirth education, [facility] will [facility] in [facility] and we currently don't have Fatherhood initiative. Shawn Brown RN Allergies As of Date: 08/23/2023 (No Known Allergies) Date Reviewed: 08/20/2023 Reviewed by: Dayron Britton LPN - Fully Assessed Reason for Visit: Refer / Community Resources [[id number]] Cmt: Resources Prescriptions as of 08/23/2023 - ARIPiprazole (ABILIFY) 5 mg tablet take one half tablet daily for 3 days then increase to one tablet daily - Blood Pressure Monitor 1 Each two times a day. - sertraline (ZOLOFT) 100 mg tablet Take 1 tablet by mouth once daily. - Blood Pressure Monitor (BLOOD PRESSURE KIT) 1 Each once daily. - aspirin, enteric coated (ECOTRIN LOW STRENGTH) 81 mg EC tablet Take 1 tablet by mouth once daily. Please start at 12 weeks of gestation. - folic acid 1 mg tablet Take 1 tablet by mouth once daily. - vit/iron fum/folic ac ( 1 + 1 ORAL) Take by mouth. Problem List As Of Date 08/23/2023 Noted Resolved Backache, unspecified [M54.9] 07/30/2008 08/17/2016 LUMBAGO [M54.50] 10/03/2008 Dysmenorrhea [N94.6] 04/02/2011 08/17/2016 Headache(784.0) [R51] 10/27/2011 08/17/2016 History of marijuana use [F12.91] 08/13/2016 History of depression [Z86.59] 08/13/2016 History of kidney stones [Z87.442] 08/13/2016 Family history of Down syndrome [Z82.79] 08/13/2016 Pap smear abnormality of cervix with LGSIL [R87*08/31/2016 Supervision of high risk , antepartum,* 3 History of prior with IUGR [Z*03/24/2023 History of gestational hypertension [Z87.59] 03/24/2023 Substance use disorder [F19.90] 03/25/2023 History of substance use [Z87.898] 03/25/2023 Alcohol use disorder [F10.90] 04/08/2023 Pre-existing essential hypertension complicatin* 3 No-show for appointment [Z91.199] 07/20/2023 Encounter Status:Closed by SHAWN BROWN on 08/23/23 Normal [facility] Bacteria Ur Culton 4 Bacteria identified Cx Nom (U) ORGANISM ID: 1 <10,000 CFU/ml Normal urogenital mandy Normal [facility] Comment on above: Performed By: #### 6 30-4 ####[facility] LABCLIA [id number] [place] [address] [place] C. trachomatis+N. gonorrhoea e DNA LIZET+probe Ql (Unsp spec)on 08-20-2023 C. trachomatis rRNA LIZET+probe Ql (Unsp spec) Negative Normal Negative for Chlamydia trachomatis by amplificaton [facility] Comment on above: Order Comment: Speci men Type: SWABOrdering Facility: [facility] Address: [address] [place] [address] Performed By: #### 3 6902-5 ####[facility] LABCLIA [id number] [place] [address] [place] N. gonorrhoeae rRNA LIZET+probe Ql (Unsp spec) Negative Normal Negative for Neisseria gonorrhoeae by amplification [facility] Comment on above: Order Comment: Speci men Type: SWABOrdering Facility: [facility] Address: [address] [place] [address] Performed By: #### 3 6902-5 ####[facility] LABCLIA [id number] [place] [id number] [place] CBC W Auto Differential pane l (Bld)on 08-20-2023 Basophils (Bld) [#/Vol] 0.09 10*3/uL <0.11 k/uL [facility] Basophils/100 WBC (Bld) 0.7 % [facility] Differential cell count method Nom (Bld) Auto [facility] Eosinophils (Bld) [#/Vol] 0.14 10*3/uL <0.46 k/uL [facility] Eosinophils/100 WBC (Bld) 1.2 % [facility] Erythrocyte distribution width (RBC) [Ratio] 12.8 % 11.5 - 15.0 % [facility] Hematocrit (Bld) [Volume fraction] 33.8 % Low 36.0 - 46.0 % [facility] Hemoglobin (Bld) [Mass/Vol] 11.1 g/dL Low 11.5 - 15.5 g/dL [facility] Immature granulocytes (Bld) [#/Vol] 0.13 10*3/uL High <0.10 k/uL [facility] Immature granulocytes/100 WBC (Bld) 1.1 % [facility] Lymphocytes (Bld) [#/Vol] 2.33 10*3/uL 1.00 - 4.00 k/uL [facility] Lymphocytes/100 WBC (Bld) 19.2 % [facility] MCH (RBC) [Entitic mass] 34.0 pg 26.0 - 34.[address] [facility] MCHC (RBC) [Mass/Vol] 32.8 g/dL 30.5 - 36.0 g/ dL [facility] MCV (RBC) [Entitic vol] 103.7 fL High 80.0 - 100.[address] [facility] Monocytes (Bld) [#/Vol] 0.85 10*3/uL <0.87 k/uL [facility] Monocytes/100 WBC (Bld) 7.0 % [facility] Neutrophils (Bld) [#/Vol] 8.61 10*3/uL High 1.45 - 7.50 k/uL [facility] Neutrophils/100 WBC (Bld) 70.8 % [facility] Nucleated RBC (Bld) [#/Vol] <0.01 k/uL [facility] Nucleated RBC/100 WBC (Bld) [Ratio] 0.0 /[address] [facility] Platelet mean volume (Bld) [Entitic vol] 10.3 fL 9.0 - 12.[address] [facility] Platelets (Bld) [#/Vol] 309 10*3/uL 150 - 400 k/uL [facility] RBC (Bld) [#/Vol] 3.26 10*6/uL Low 3.90 - 5.20 m/uL [facility] WBC (Bld) [#/Vol] 12.15 10*3/uL High 3.70 - 11 .00 k/uL [facility] Basophils (Bld) [#/Vol] 0.09 10*3/uL Normal <0.11 [facility] Comment on above: Order Comment: Speci men Type: BLOOD SPECIMENOrdering Facility: [facility] Address: [address] [place] [address] Performed By: #### 5 7021-8 ####[facility] LABCLIA [id number] [place] [address] [place] Basophils/100 WBC (Bld) 0.7 % Normal [facility] Comment on above: Order Comment: Speci men Type: BLOOD SPECIMENOrdering Facility: [facility] Address: [address] [place] [address] Performed By: #### 5 7021-8 ####[facility] LABCLIA [id number] [place] [address] [place] Differential cell count method Nom (Bld) Auto Normal [facility] Comment on above: Order Comment: Speci men Type: BLOOD SPECIMENOrdering Facility: [facility] Address: [address] [place] [address] Performed By: #### 5 7021-8 ####[facility] LABCLIA [id number] [place] [address] [place] Eosinophils (Bld) [#/Vol] 0.14 10*3/uL Normal <0.46 [facility] Comment on above: Order Comment: Speci men Type: BLOOD SPECIMENOrdering Facility: [facility] Address: [address] [place] [address] Performed By: #### 5 7021-8 ####[facility] LABCLIA [id number] [place] [address] [place] Eosinophils/100 WBC (Bld) 1.2 % Normal [facility] Comment on above: Order Comment: Speci men Type: BLOOD SPECIMENOrdering Facility: [facility] Address: [address] [place] [address] Performed By: #### 5 7021-8 ####[facility] LABCLIA [id number] [place] [address] [place] Erythrocyte distribution width (RBC) [Ratio] 12.8 % Normal 11.5-15.0 [facility] Comment on above: Order Comment: Speci men Type: BLOOD SPECIMENOrdering Facility: [facility] Address: [address] [place] [address] Performed By: #### 5 7021-8 ####[facility] LABIA [id number] [place] [address] [place] Hematocrit (Bld) [Volume fraction] 33.8 % Low 36.0-46.0 [facility] Comment on above: Order Comment: Speci men Type: BLOOD SPECIMENOrdering Facility: [facility] Address: [address] [place] [address] Performed By: #### 5 7021-8 ####[facility] LABCLIA [id number] [place] [address] [place] Hemoglobin (Bld) [Mass/Vol] 11.1 g/dL Low 11.5-15.5 [facility] Comment on above: Order Comment: Speci men Type: BLOOD SPECIMENOrdering Facility: [facility] Address: [address] [place] [address] Performed By: #### 5 7021-8 ####[facility] LABCLIA [id number] [place] [address] [place] Immature granulocytes (Bld) [#/Vol] 0.13 10*3/uL High <0.10 [facility] Comment on above: Order Comment: Speci men Type: BLOOD SPECIMENOrdering Facility: [facility] Address: [address] [place] [address] Performed By: #### 5 7021-8 ####[facility] LABCLIA [id number] [place] [address] [place] Immature granulocytes/100 WBC (Bld) 1.1 % Normal [facility] Comment on above: Order Comment: Speci men Type: BLOOD SPECIMENOrdering Facility: [facility] Address: [address] [place] [address] Performed By: #### 5 7021-8 ####[facility] LABCLIA [id number] [place] [address] [place] Lymphocytes (Bld) [#/Vol] 2.33 10*3/uL Normal 1.00-4.00 [facility] Comment on above: Order Comment: Speci men Type: BLOOD SPECIMENOrdering Facility: [facility] Address: [address] [place] [address] Performed By: #### 5 7021-8 ####[facility] LABCLIA [id number] [place] [address] [place] Lymphocytes/100 WBC (Bld) 19.2 % Normal [facility] Comment on above: Order Comment: Speci men Type: BLOOD SPECIMENOrdering Facility: [facility] Address: [address] [place] [address] Performed By: #### 5 7021-8 ####[facility] LABCLIA [id number] [place] [address] [place] MCH (RBC) [Entitic mass] 34.0 pg Normal 26.0-34.0 [facility] Comment on above: Order Comment: Speci men Type: BLOOD SPECIMENOrdering Facility: [facility] Address: [address] [place] [address] Performed By: #### 5 7021-8 ####[facility] LABCLIA [id number] [place] [address] [place] MCHC (RBC) [Mass/Vol] 32.8 g/dL Normal 30.5-36.0 [facility] Comment on above: Order Comment: Speci men Type: BLOOD SPECIMENOrdering Facility: [facility] Address: [address] [place] [address] Performed By: #### 5 7021-8 ####[facility] LABCLIA [id number] [place] [address] [place] MCV (RBC) [Entitic vol] 103.7 fL High 80.0-100.0 [facility] Comment on above: Order Comment: Speci men Type: BLOOD SPECIMENOrdering Facility: [facility] Address: [address] [place] [address] Performed By: #### 5 7021-8 ####[facility] LABCLIA [id number] [place] [address] [place] Monocytes (Bld) [#/Vol] 0.85 10*3/uL Normal <0.87 [facility] Comment on above: Order Comment: Speci men Type: BLOOD SPECIMENOrdering Facility: [facility] Address: [address] [place] [address] Performed By: #### 5 7021-8 ####[facility] LABCLIA [id number] [place] [address] [place] Monocytes/100 WBC (Bld) 7.0 % Normal [facility] Comment on above: Order Comment: Speci men Type: BLOOD SPECIMENOrdering Facility: [facility] Address: [address] [place] [address] Performed By: #### 5 7021-8 ####[facility] LABCLIA [id number] [place] [address] [place] Neutrophils (Bld) [#/Vol] 8.61 10*3/uL High 1.45-7.50 [facility] Comment on above: Order Comment: Speci men Type: BLOOD SPECIMENOrdering Facility: [facility] Address: [address] [place] [address] Performed By: #### 5 7021-8 ####[facility] LABCLIA [id number] [place] [address] [place] Neutrophils/100 WBC (Bld) 70.8 % Normal [facility] Comment on above: Order Comment: Speci men Type: BLOOD SPECIMENOrdering Facility: [facility] Address: [address] [place] [address] Performed By: #### 5 7021-8 ####[facility] LABCLIA [id number] [place] [address] [place] Nucleated RBC (Bld) [#/Vol] 10*3/uL Normal <0.01 [facility] Comment on above: Order Comment: Speci men Type: BLOOD SPECIMENOrdering Facility: [facility] Address: [address] [place] [address] Performed By: #### 5 7021-8 ####[facility] LABCLIA [id number] [place] [address] [place] Nucleated RBC/100 WBC (Bld) [Ratio] 0.0 /100 WBC Normal [facility] Comment on above: Order Comment: Speci men Type: BLOOD SPECIMENOrdering Facility: [facility] Address: [address] [place] [address] Performed By: #### 5 7021-8 ####[facility] LABCLIA [id number] [place] [address] [place] Platelet mean volume (Bld) [Entitic vol] 10.3 fL Normal 9.0-12.7 [facility] Comment on above: Order Comment: Speci men Type: BLOOD SPECIMENOrdering Facility: [facility] Address: [address] [place] [address] Performed By: #### 5 7021-8 ####[facility] LABCLIA [id number] [address] [address] [place] Platelets (Bld) [#/Vol] 309 10*3/uL Normal 150-400 [facility] Comment on above: Order Comment: Speci men Type: BLOOD SPECIMENOrdering Facility: [facility] Address: [address] [place] [address] Performed By: #### 5 7021-8 ####[facility] LABIA [id number] [place] [address] [place] RBC (Bld) [#/Vol] 3.26 10*6/uL Low 3.90-5.20 [facility] Comment on above: Order Comment: Speci men Type: BLOOD SPECIMENOrdering Facility: [facility] Address: [address] [place] [address] Performed By: #### 5 7021-8 ####[facility] LABIA [id number] [place] [address] [place] WBC (Bld) [#/Vol] 12.15 10*3/uL High 3.70-11.00 [facility] Comment on above: Order Comment: Speci men Type: BLOOD SPECIMENOrdering Facility: [facility] Address: [address] [place] [address] Performed By: #### 5 7021-8 ####[facility] LABIA [id number] [place] [address] [place] Examination level ultrasound on 08-20-[address] [facility] Reagin and Treponema pallidu m IgG and IgM [Interp]on 08-20-2023 T. pallidum IgG+IgM IA Ql (S) Non-Reactive Normal Nonreactive [facility] Comment on above: Order Comment: Speci men Type: BLOOD SPECIMENOrdering Facility: [facility] Address: [address] [place] [address] Performed By: #### 7 3752-8 ####[facility] LABCLIA [id number] [place] [address] [place] Reagin+T pallidum IgG+IgM Se rPl-Impon 08-20-2023 Reagin and Treponema pallidum IgG and IgM [Interp] Cannot exclude recent Treponemal infection if specimen collected within 7-10 days after appearance of suspect lesions or 2-3 weeks after an exposure. Clinical correlation is required. Normal [facility] Comment on above: Order Comment: Speci men Type: BLOOD SPECIMENOrdering Facility: [facility] Address: [address] [place] [address] Performed By: #### 7 3752-8 ####[facility] LABCLIA [id number] [place] [address] [place] URINE OB DIP B/Oon 4 Glucose Ql (U) Negative Neg mg/dL [facility] Protein.monoclonal (U) [Mass/Vol] trace Neg mg/dL [facility] CNOVon 06-01-2023 CNOV Office Visit ([facility] ) POONAM RAUSCH ([id number]) 1995 F Date Time Provider Department 06/01/23 10:35 AM PEBBLES VINSON [facility] During your visit today, we recorded the following information about you: Temperature Pulse Respiration Blood pressure 98.6 degrees 84/minute 16/minute 130/87 Raeann Godwin MA 06/01/2023 10:47 AM Signed [facility] OS 20/20 OD 20/20 OU 20/20 corrrected Pebbles Vinson PA-C 06/01/2023 11:34 AM Signed Eye Problem (Left eye painful drainage redness daughter with pink eye last week) History of Present Illness: Poonam Rausch is a 28 year old female with a history of onset 1 days ago. Redness: Yes Itching: No Discharge: Yes: yellow and crusted in mornings Exposure: Yes. Daughter had pinkeye last week Change in vision: No Pain: Yes: irritation Injury: No Contact Lens wear: Yes Fevers: No URI Symptoms: Yes. Nasal congestion. Denies sore throats. Mild cough. PAST MEDICAL HISTORY Diagnosis Date Anxiety disorder Asthma Chronic hypertension complicating or reason for care during childbirth 05/03/2023 Depression Dysmenorrhea Gestational hypertension 2017 WITH FIRST CHILD IUGR (intrauterine growth restriction) affecting care of mother 2017 first kidney stones 2014 PMH - PAST MEDICAL HISTORY OF 08/25/2003 normal color vision Precocious sexual development and puberty, not elsewhere classified age 12 years Premenstrual tension syndromes PMS PAST SURGICAL HISTORY Procedure Laterality Date ADENOIDECTOMY SECONDARY AGE 11/> PAST SURGICAL HISTORY OF age 10 B/L ear tubes FAMILY HISTORY Adopted: Yes Problem Relation Age of Onset other (ADHD) Brother Heart Mother Alcohol/Drug Mother Alcohol/Drug Father in age late 20's Diabetes Maternal Grandfather Heart Maternal Grandfather Social History Social History Narrative Poonam lives with her daughter, Araceli, and Garth, her boyfriend. She is very happy about this and feels that it was granted to save her. She has good support from Garth. She notes that she lives to be a mom to Araceli and that this is what protects her. PHYSICAL EXAMINATION: BP 130/87 Pulse 84 Temp 37 ?C (98.6 ?F) Resp 16 LMP 02/01/2023 SpO2 98% General Appearance: age-appropriate female, pleasant, not toxic, looks well, and in no accute distress Eyes: Normal Pupil Size PERRLA EOMI Right: Normal. Conjunctival injection. No foreign body seen. Left: Conjunctival injection, No foreign bodies seen, No dye uptake seen under Wood's light lamp, No hyphema, and Red reflex present No periorbital edema or erythema. No evidence of orbital or periorbital cellulitis. ENT: TMs clear bilaterally throat without erythema. No cervical lymphadenopathy palpated. Lungs: CTA Heart: RRR ASSESSMENT: ASSESSMENT/PLAN: 1. Upper respiratory tract infection, unspecified type - ICD9: 465.9, ICD10: J06.9 (primary diagnosis) - Discussed viral etiology and rationale for treatment. - Symptomatic treatment with prn analgesia - Supportive care with fluids and rest - COVID AND INFLUENZA A/B AND RSV NAAT, ROUTINE 2. Acute conjunctivitis of left eye, unspecified acute conjunctivitis type - ICD9: 372.00, ICD10: H10.32 - see medication orders - course and contagiousness issues discussed, including hand washing. - Instructed to call if high fever, development of periorbital redness or swelling, eye pain, visual changes, concerns or if symptoms persist. ARCHIE Arizmendi Renee M, PA-C 06/01/2023 11:34 AM Signed [facility] PATIENT INFO CONJUNCTIVITIS OVERVIEW Conjunctivitis, also called pinkeye, is defined as an inflammation of the conjunctiva. The conjunctiva is the thin membrane that lines the inner surface of the eyelids and the whites of the eyes (called the sclera). Conjunctivitis can affect children and adults. The most common symptoms of conjunctivitis include a red eye and discharge. There are many potential causes of conjunctivitis, including bacterial or viral infections, allergies, or a non-specific condition (eg, a foreign body in the eye). All types of conjunctivitis cause a red eye, although not everyone with a red eye has conjunctivitis. TYPES OF CONJUNCTIVITIS There are four main types of conjunctivitis: bacterial, viral, allergic, and non-specific. Most cases of infectious conjunctivitis are viral in adults and children; however, bacterial conjunctivitis is more common in children than in adults. Viral conjunctivitis -- Viral conjunctivitis is typically caused by a virus that can also cause the common cold. A person may have symptoms of conjunctivitis alone, or as part of a general cold syndrome, with swollen lymph nodes (glands), fever, a sore throat, and runny nose. Viral conjunctivitis is highly contagious. It is spread by contact, usually with objects which (more content not included)... Normal [facility] COVID AND INFLUENZA A/B AND RSV NAAT, ROUTINEon 06-01-2023 SARS-CoV-2 (COVID-19) RNA LIZET+probe Ql (Unsp spec) COVID 19 RESULT: Not detected The method used is RT-PCR or an equivalent NAAT method. Reference Range (the expected result in uninfected individuals): Not detected INFLUENZA A PCR: Not detected INFLUENZA B PCR: Not detected RSV PCR: Not detected Normal [facility] Comment on above: Performed By: #### C VFLRS ####[facility] LABCLIA [id number] [facility] [id number] [place] [id number] PLUSon 05-03-2023 Cell-free DNA./Cell-free DNA.total Dosage of chromosome-specific cfDNA (cfDNA) [Molar fraction] 15% Normal [facility] Comment on above: Order Comment: Speci men Type: BLOOD SPECIMENOrdering Facility: [facility] Address: [address] [place] [address] Performed By: #### M AT21 ####[facility] LABCLIA [id number] [place] [address] Chr 13+18+21+X+Y aneuploidy Dosage of chromosome-specific cfDNA Ql (cfDNA) Negative Normal [facility] Comment on above: Order Comment: Speci men Type: BLOOD SPECIMENOrdering Facility: [facility] Address: [address] [place] [address] Performed By: #### M AT21 ####[employer] LABCLIA [id number] [place] [address] Chr 21 trisomy Dosage of chromosome-specific cfDNA Ql (cfDNA) Negative Normal [facility] Comment on above: Order Comment: Speci men Type: BLOOD SPECIMENOrdering Facility: [facility] Address: [address] [place] [address] Performed By: #### M AT21 ####[facility] LABCLIA [id number] [place] [address] Chr X and Y aneuploidy risk Sequencing Ql (cfDNA) [Interp] Not detected Normal [facility] Comment on above: Order Comment: Speci men Type: BLOOD SPECIMENOrdering Facility: [facility] Address: [address] [place] [address] Result Comment: Not Detected Not Detected Performed By: #### M AT21 ####[facility] LABCLIA [id number] [place] [address] Citation Alfonso (Reference lab test) Comment Normal [facility] Comment on above: Order Comment: Speci men Type: BLOOD SPECIMENOrdering Facility: [facility] Address: [address] [place] [address] Result Comment: 1. P adolfo ESPINO et al. Sarah Med. 2012;14(3):296-305. 2. Sun MART et al. Prenat Diag. 2013;33(6):591-597. 3. Roberto C, et al. Clin Chem. 2015 Apr;61(4):608-616. 4. Michelle ESPINO et al. Sarah Med. 2011;13(11):913-920. 5. ACOG/[facility] Practice Bulletin No. 226, Mar 2020. Performed By: #### M AT21 ####[facility] LABCLIA [id number] [place] [address] Gestational age Estimated from conception date Alegre Normal [facility] Comment on above: Order Comment: Speci men Type: BLOOD SPECIMENOrdering Facility: [facility] Address: [address] [place] [address] Performed By: #### M AT21 ####[facility] LABCLIA [id number] [place] [address] GESTATIONALAGE AGE > OR = 9W Yes Normal [facility] Comment on above: Order Comment: Speci men Type: BLOOD SPECIMENOrdering Facility: [facility] Address: [address] [place] [address] Performed By: #### M AT21 ####[facility] LABCLIA [id number] [place] [address] Laboratory comment Alfonso (Report) Comment Normal [facility] Comment on above: Order Comment: Speci men Type: BLOOD SPECIMENOrdering Facility: [facility] Address: [address] [place] [address] Result Comment: The MaterniT(R) 21 PLUS laboratory-developed test (LDT) analyzes circulating cell-free DNA from a maternal blood sample. This test is used for screening purposes and not diagnostic. Clinical correlation is recommended. Validation data on twin pregnancies is limited and the ability of this test to detect aneuploidy in higher multiple gestations has not yet been validated. Performed By: #### M AT21 ####[facility] LABCLIA [id number] [place] [id number] women's ministry director name Nom (Provider) Comment Normal [facility] Comment on above: Order Comment: Specdylan chery Type: BLOOD SPECIMENOrdering Facility: [facility] Address: [address] [place] [address] Result Comment: This specimen showed an expected representation of chromosome 21, 18 and 13 material. Clinical correlation is suggested. Comment Matt Hanks MD, PhD, Director, [employer] Performed By: #### M AT21 ####[facility] LABCLIA [id number] [place] [address] LIMITATIONS OF THE TEST Comment Normal [facility] Comment on above: Order Comment: Panchito chery Type: BLOOD SPECIMENOrdering Facility: [facility] Address: [address] [place] [address] Result Comment: Jessy jacobo the results of these tests are highly reliable, discordant results, including inaccurate sex prediction, may occur due to placental, maternal, or mosaicism or neoplasm; vanishing twin; prior maternal organ transplant; or other causes. These tests are screening tests and not diagnostic; they do not replace the accuracy and precision of diagnosis with CVS or amniocentesis. A patient with a positive test result should be referred for genetic counseling and offered invasive diagnosis for confirmation of test results.[5] The results of this testing, including the benefits and limitations, should be discussed with a qualified healthcare provider. management decisions, including termination of the , should not be based on the results of these tests alone. The healthcare provider is responsible for the use of this information in the management of their patient. Sex chromosomal aneuploidies are not reportable for known multiple gestations. A negative result does not ensure an unaffected nor does it exclude the possibility of other chromosomal abnormalities or defects which are not a part of these tests. An uninformative result may be reported, the causes of which may include, but are not limited to, insufficient sequencing coverage, noise or artifacts in the region, amplification or sequencing bias, or insufficient fraction. These tests are not intended to identify pregnancies at risk for neural tube defects or ventral wall defects. Testing for whole chromosome abnormalities (including sex chromosomes) and for subchromosomal abnormalities could lead to the potential discovery of both and maternal genomic abnormalities that could have major, minor, or no, clinical significance. Evaluating the significance of a positive or a non-reportable result may involve both invasive testing and additional studies on the mother. Such investigations may lead to a diagnosis of maternal chromosomal or subchromosomal abnormalities, which on occasion may be associated with benign or malignant maternal neoplasms. These tests may not accurately identify triploidy, balanced rearrangements, or the precise location of subchromosomal duplications or deletions; these may be detected by diagnosis with CVS or amniocentesis. The ability to report results may be impacted by maternal BMI, maternal weight, maternal systemic lupus erythematosus (SLE) and/or by certain pharmaceutical agents such as low molecular weight heparin (for example: Lovenox(R), Xaparin(R), Clexane(R) and Fragmin(R)). Performed By: #### M AT21 ####[employer] [id number] [place] [address] Monosomy X risk Dosage of chromosome-specific cfDNA Ql (Plasma cell-free+WBC DNA) [Interp] Not detected Normal [facility] Comment on above: Order Comment: Panchito chery Type: BLOOD SPECIMENOrdering Facility: [facility] Address: [address] [place] [address] Performed By: #### M AT21 ####[facility] LABCLIA [id number] [place] [address] NEGATIVE PREDICTIVE VALUE Note Normal [facility] Comment on above: Order Comment: Panchito chery Type: BLOOD SPECIMENOrdering Facility: [facility] Address: [address] [place] [address] Result Comment: The Negative Predictive Value (NPV) for trisomy 21, 18, and 13 is greater than 99%. The NPV for SCA and ESS cannot be calculated as SCA and ESS are only reported when an abnormality is detected. Performed By: #### M AT21 ####[employer] LABCLIA [id number] [place] [address] NOTE Comment Normal [facility] Comment on above: Order Comment: Speci men Type: BLOOD SPECIMENOrdering Facility: [facility] Address: [address] [place] [address] Result Comment: See Notes [employer] is a subsidiary of [employer], using the brand [employer]. This test was developed and its performance characteristics determined by [employer]. It has not been cleared or approved by the Food and Drug Administration. This laboratory is certified under the Clinical Laboratory Improvement Amendments (CLIA) as qualified to perform high complexity clinical laboratory testing and accredited by the [employer] (CAP). If there is future clinical need for adding MaterniT GENOME testing, this specimen will be available until term. [facility] samples will not be retained beyond 60 days. [facility] patients will have to send a new sample for re-sequencing ([facility] Test Code: [id number]). Performed By: #### M AT21 ####[employer] [employer] LABCLIA [id number] [place] [address] PERFORMANCE CHARACTERISTICS Note Normal [facility] Comment on above: Order Comment: Speci men Type: BLOOD SPECIMENOrdering Facility: [facility] Address: [address] [place] [address] Result Comment: ! Sex ! Accuracy: 99.4% ! ! ! ! Region (associated syndrome) ! Est. Sens# ! Est. Spec ! ! ! ! Trisomy 21 (Down Syndrome) ! 99.1% ! 99.9% ! ! ! ! Trisomy 18 (Dominique Syndrome) ! >99.9% ! 99.6% ! ! ! ! Trisomy 13 (Patau Syndrome) ! 91.7% ! 99.7% ! ! ! ! Sex Chromosome Aneuploidies## ! 96.2% ! 99.7% ! ! ! * As reported in ISCA database nstd37 [https://www.ncbi.nlm.nih.gov/dbvar/studies/nstd37/ ] # Estimated Sensitivity. Sensitivity estimated across the observed size distribution of each syndrome [per ISCA database nstd37] and across the range of fractions observed in routine clinical NIPT. Actual sensitivity can also be influenced by other factors such as the size of the event, total sequence counts, amplification bias, or sequence bias. ## Alegre gestation only. Performed By: #### M AT21 ####[employer] GroupIndependent Stock MarketORLANDO [facility]ALTH [facility] [id number] [place] [address] POSITIVE PREDICTIVE VALUE N/A Normal [facility] Comment on above: Order Comment: Speci men Type: BLOOD SPECIMENOrdering Facility: [facility] Address: [address] [place] [address] Performed By: #### M AT21 ####[facility] LABCLIA [id number] [place] [address] Reference Lab Test Method Comment Normal [facility] Comment on above: Order Comment: Speci men Type: BLOOD SPECIMENOrdering Facility: [facility] Address: [address] [place] [address] Result Comment: See Notes Circulating cell-free DNA was purified from the plasma component of maternal blood. The extracted DNA was then converted into a genomic DNA library for aneuploidy analysis of chromosomes 21, 18, and 13 via next generation sequencing.[1] Optional findings based on the test order include sex chromosome aneuploidy (SCA)[2], and enhanced sequencing series (ESS)[3], which will only be reported on as an additional finding when an abnormality is detected. SCA testing includes information on X and Y representation, while ESS testing includes deletions in selected regions (22q, 15q, 11q, 8q, 5p, 4p, 1p) and trisomy of chromosomes 16 and 22. Performed By: #### M AT21 ####[facility] LABCLIA [id number] [place] [address] Sex Dosage of chromosome-specific cfDNA Nom (cfDNA) Comment Normal [facility] Comment on above: Order Comment: Speci men Type: BLOOD SPECIMENOrdering Facility: [facility] Address: [address] [place] [address] Result Comment: Cons istent with Male Performed By: #### M AT21 ####[employer] LABCLIA [id number] [place] [address] Test performance information Alfonso (Unsp spec) Comment Normal [facility] Comment on above: Order Comment: Speci men Type: BLOOD SPECIMENOrdering Facility: [facility] Address: [address] [place] [address] Result Comment: The performance characteristics of the MaterniT(R) 21 PLUS laboratory-developed test (LDT) have been determined in a clinical validation study with women at increased risk for chromosomal aneuploidy.[1-4] Performed By: #### M AT21 ####[employer] [employer] LABCLIA [id number] [place] [address] Trisomy 13 risk Dosage of chromosome-specific cfDNA Ql (cfDNA) [Interp] Negative Normal [facility] Comment on above: Order Comment: Speci men Type: BLOOD SPECIMENOrdering Facility: [facility] Address: [address] [place] [address] Performed By: #### M AT21 ####[facility] LABCLIA [id number] [place] [address] Trisomy 18 risk Dosage of chromosome-specific cfDNA Ql (Plasma cell-free+WBC DNA) [Interp] Negative Normal [facility] Comment on above: Order Comment: Panchito chery Type: BLOOD SPECIMENOrdering Facility: [facility] Address: [address] [place] [address] Performed By: #### M AT21 ####[employer] LABCLIA [id number] [place] [address] NUCHAL TRANSLUCENCY WHIon [facility] CBC panel Auto (Bld)on 04-23 Erythrocyte distribution width (RBC) [Ratio] 11.9 % Normal 11.5-15.0 [facility] Comment on above: Order Comment: Panchito chery Type: BLOOD SPECIMENOrdering Facility: [facility] Address: [address] [place] [address] Performed By: #### 5 8410-2 ####ABDIRAHMAN [facility] LABORATORYCLIA [id number] [address] STATES OF [facility] Hematocrit (Bld) [Volume fraction] 33.3 % Low 36.0-46.0 [facility] Comment on above: Order Comment: Panchito chery Type: BLOOD SPECIMENOrdering Facility: [facility] Address: [address] [place] [address] Performed By: #### 5 8410-2 ####ABDIRAHMAN [facility] LABORATORYCLIA [id number] [address] STATES OF [facility] Hemoglobin (Bld) [Mass/Vol] 11.6 g/dL Normal 11.5-15.5 [facility] Comment on above: Order Comment: Speci men Type: BLOOD SPECIMENOrdering Facility: [facility] Address: [address] [place] [address] Performed By: #### 5 8410-2 ####ABDIRAHMAN [facility] LABORATORYIA [id number] [address] [place] MCH (RBC) [Entitic mass] 33.4 pg Normal 26.0-34.0 [facility] Comment on above: Order Comment: Speci men Type: BLOOD SPECIMENOrdering Facility: [facility] Address: [address] [place] [address] Performed By: #### 5 8410-2 ####ABDIRAHMAN [facility] [id number] [address] STATES [facility] MCHC (RBC) [Mass/Vol] 34.8 g/dL Normal 30.5-36.0 [facility] Comment on above: Order Comment: Speci men Type: BLOOD SPECIMENOrdering Facility: [facility] Address: [address] [place] [address] Performed By: #### 5 8410-2 ####ABDIRAHMAN [facility] BOULEVARDIA [id number] [address] MCV (RBC) [Entitic vol] 96.0 fL Normal 80.0-100.0 [facility] Comment on above: Order Comment: Speci men Type: BLOOD SPECIMENOrdering Facility: [facility] Address: [address] [place] [address] Performed By: #### 5 8410-2 ####ABDIRAHMAN [facility] BOULEVARDIA [id number] [address] Nucleated RBC (Bld) [#/Vol] 10*3/uL Normal <0.01 [facility] Comment on above: Order Comment: Speci men Type: BLOOD SPECIMENOrdering Facility: [facility] Address: [address] [place] [address] Performed By: #### 5 8410-2 ####HATTIEMARVIN [facility] LABORATORYCLIA [id number] [place] [address] [place] Platelet mean volume (Bld) [Entitic vol] 10.3 fL Normal 9.0-12.7 [facility] Comment on above: Order Comment: Speci men Type: BLOOD SPECIMENOrdering Facility: [facility] Address: [address] [place] [address] Performed By: #### 5 8410-2 ####HATTIEMARVIN [facility] LABORATORYCLIA [id number] [place] [address] [place] Platelets (Bld) [#/Vol] 261 10*3/uL Normal 150-400 [facility] Comment on above: Order Comment: Speci men Type: BLOOD SPECIMENOrdering Facility: [facility] Address: [address] [place] [address] Performed By: #### 5 8410-2 ####HATTIEMARVIN [facility] LABORATORYIA [id number] [place] [address] [place] RBC (Bld) [#/Vol] 3.47 10*6/uL Low 3.90-5.20 [facility] Comment on above: Order Comment: Speci men Type: BLOOD SPECIMENOrdering Facility: [facility] Address: [address] [place] [address] Performed By: #### 5 8410-2 ####ABDIRAHMAN [facility] LABORATORYCLIA [id number] [place] [address] [place] WBC (Bld) [#/Vol] 12.07 10*3/uL High 3.70-11.00 [facility] Comment on above: Order Comment: Speci men Type: BLOOD SPECIMENOrdering Facility: [facility] Address: [address] [place] [address] Performed By: #### 5 8410-2 ####ABDIRAHMAN [facility] LABORATORYCLIA [id number] [place] [address] [place] Comprehensive metabolic 2000 panelon 04-23-2023 Albumin [Mass/Vol] 4.3 g/dL Normal 3.9-4.[address] [facility] Comment on above: Order Comment: Speci men Type: BLOOD SPECIMENOrdering Facility: [facility] Address: [address] [place] [address] Performed By: #### 3 016-3, 77198-3 ####HATTIEMARVIN [facility] LABORATORYCLIA [id number] [place] [address] [place] ALP [Catalytic activity/Vol] 51 U/L Normal 34-123 [facility] Comment on above: Order Comment: Speci men Type: BLOOD SPECIMENOrdering Facility: [facility] Address: [address] [place] [address] Performed By: #### 3 016-3, 79661-0 ####ABDIRAHMAN [facility] LABORATORYIA [id number] [place] [address] [place] ALT [Catalytic activity/Vol] 12 U/L Normal 7-38 [facility] Comment on above: Order Comment: Speci men Type: BLOOD SPECIMENOrdering Facility: [facility] Address: [address] [place] [address] Performed By: #### 3 016-3, 40677-2 ####ABDIRAHMAN [facility] LABORATORYIA [id number] [place] [address] [place] Anion gap [Moles/Vol] 13 mmol/L Normal 9-18 [facility] Comment on above: Order Comment: Speci men Type: BLOOD SPECIMENOrdering Facility: [facility] Address: [address] [place] [address] Performed By: #### 3 016-3, 47491-7 ####HATTIEMARVIN [facility] LABORATORYIA [id number] [place] [address] [place] AST [Catalytic activity/Vol] 20 U/L Normal 13-35 [facility] Comment on above: Order Comment: Speci men Type: BLOOD SPECIMENOrdering Facility: [facility] Address: [address] [place] [address] Performed By: #### 3 , ####ABDIRAHMAN [facility]ORATORYCLIA [id number] [place] [id number] [place] Bilirubin [Mass/Vol] 0.2 mg/dL Normal 0.2-1.3 [facility] Comment on above: Order Comment: Speci men Type: BLOOD SPECIMENOrdering Facility: [facility] Address: [address] [place] [address] Performed By: #### 3 , ####ABDIRAHMAN [facility]ORATORYCLIA [id number] [place] [address] [place] Calcium [Mass/Vol] 9.7 mg/dL Normal 8.5-10.[address] [facility] Comment on above: Order Comment: Speci men Type: BLOOD SPECIMENOrdering Facility: [facility] Address: [address] [place] [address] Performed By: #### 3 , ###ALEX [facility]ORATORYCLIA [id number] [place] [address] [place] Chloride [Moles/Vol] 105 mmol/L Normal 97-105 [facility] Comment on above: Order Comment: Speci men Type: BLOOD SPECIMENOrdering Facility: [facility] Address: [address] [place] [address] Performed By: #### 3 , ####ABDIRAHMAN [facility]ATORYCLIA [id number] [place] [id number] [place] CO2 [Moles/Vol] 20 mmol/L Low 22-30 [facility] Comment on above: Order Comment: Speci men Type: BLOOD SPECIMENOrdering Facility: [facility] Address: [address] [place] [address] Performed By: #### 3 016, ####ABDIRAHMAN [facility]ATORYCLIA [id number] [place] [address] [place] Creatinine [Mass/Vol] 0.74 mg/dL Normal 0.58-0.96 [facility] Comment on above: Order Comment: Panchito chery Type: BLOOD SPECIMENOrdering Facility: [facility] Address: [address] [place] [address] Performed By: #### 3 016-3, 24196-8 ####ABDIRAHMAN [facility]ATORYCLIA [id number] [address] Creatinine and Glomerular filtration rate.predicted panel (S/P/Bld) 112 mL/min/1.73m??? Normal >=60 [facility] Comment on above: Order Comment: Panchito chery Type: BLOOD SPECIMENOrdering Facility: [facility] Address: [address] [place] [address] Result Comment: June mated Glomerular Filtration Rate (eGFR) is calculated using the 2020 CKD-EPI creatinine equation. This equation utilizes serum creatinine, sex, and age as parameters. The creatinine assay has traceable calibration to isotope dilution-mass spectrometry. Refer to KDIGO guidelines for clinical interpretation. In patients with unstable renal function, e.g. those with acute kidney injury, the eGFR may not accurately reflect actual GFR. Performed By: #### 3 016-3, 56770-2 ####ABDIRAHMAN [facility]ORYCLIA [id number] [place] [address] [place] Glucose [Mass/Vol] 102 mg/dL High 74-[address] [facility] Comment on above: Order Comment: Panchito chery Type: BLOOD SPECIMENOrdering Facility: [facility] Address: [address] [place] [address] Result Comment: The [place] Diabetes Association (ADA) provides guidance for cutoff values for fasting glucose and random glucose. The ADA defines fasting as no caloric intake for at least 8 hours. Fasting plasma glucose results between 100 to 125 mg/dL indicate increased risk for diabetes (prediabetes). Fasting plasma glucose results greater than or equal to 126 mg/dL meet the criteria for diagnosis of diabetes. In the absence of unequivocal hyperglycemia, results should be confirmed by repeat testing. In a patient with classic symptoms of hyperglycemia or hyperglycemic crisis, random plasma glucose results greater than or equal to 200 mg/dL meet the criteria for diagnosis of diabetes. Reference: Standards of Medical Care in Diabetes 2016, [place] Diabetes Association. Diabetes Care. 2016.39(Suppl 1). Performed By: #### 3 016-3, 41282-8 ####ABDIRAHMAN [facility]ORYCLIA [id number] [place] [id number] [place] Potassium [Moles/Vol] 3.7 mmol/L Normal 3.7-5.1 [facility] Comment on above: Order Comment: Speci men Type: BLOOD SPECIMENOrdering Facility: [facility] Address: [address] [place] [address] Performed By: #### 3 -, 51839-8 ####ABDIRAHMAN [facility]ATORYCLIA [id number] [place] [address] [place] Protein [Mass/Vol] 7.1 g/dL Normal 6.3-8.[address] [facility] Comment on above: Order Comment: Speci men Type: BLOOD SPECIMENOrdering Facility: [facility] Address: [address] [place] [address] Performed By: #### 3 -, 96500-4 ####ABDIRAHMAN [facility]ORATORYIA [id number] [place] [address] [place] Sodium [Moles/Vol] 138 mmol/L Normal 136-[address] [facility] Comment on above: Order Comment: Speci men Type: BLOOD SPECIMENOrdering Facility: [facility] Address: [address] [place] [address] Performed By: #### 3 016-, 26905-9 ####ABDIRAHMAN [facility]ORATORYIA [id number] [place] [address] [place] Urea nitrogen [Mass/Vol] 12 mg/dL Normal 7-21 [facility] Comment on above: Order Comment: Speci men Type: BLOOD SPECIMENOrdering Facility: [facility] Address: [address] [place] [address] Performed By: #### 3 016-3, 62601-5 ####ABDIRAHMAN [facility]ATORYCLIA [id number] [place] [address] [place] HBV surface Ag Ser Qlon 04-07 HBV surface Ag Ql (S) Negative Normal Negative [facility] Comment on above: Order Comment: Speci men Type: BLOOD SPECIMEN Ordering Facility: [facility] Address: [address] [place] [address] Performed By: #### G TGST1 #### [facility] CLIA [id number] [address] [place] [address] [place] HCV Ab Ser Qlon 04-23-2023 HCV Ab Ql (S) Negative Normal Negative [facility] Comment on above: Order Comment: Speci men Type: BLOOD SPECIMEN Ordering Facility: [facility] Address: [address] [place] [address] Result Comment: The result suggests no evidence of active infection with Hepatitis C virus. Should recent infection be suspected, repeat testing may be considered 4-6 weeks after this draw. Performed By: #### G TGST1 #### [facility] CLIA [id number] [address] [place] [address] [place] HIV 1+2 Ab IA Qlon 3 HIV 1 and 2 Ab IA.rapid Nom Normal [facility] Comment on above: Order Comment: Speci men Type: BLOOD SPECIMEN Ordering Facility: [facility] Address: [address] [place] [address] Result Comment: Test not indicated. Performed By: #### G TGST1 #### [facility] CLIA [id number] [address] [place] [address] [place] HIV 1+2 Ab+HIV1 p24 Ag IA Ql Non-Reactive Normal Nonreactive [facility] Comment on above: Order Comment: Speci men Type: BLOOD SPECIMEN Ordering Facility: [facility] Address: [address] [place] [address] Performed By: #### G TGST1 #### [facility] CLIA [id number] [address] [place] [address] [place] HIV immunoassay testing algorithm interpretation (S/P/Bld) [Interp] Normal [facility] Comment on above: Order Comment: Speci men Type: BLOOD SPECIMEN Ordering Facility: [facility] Address: [address] [place] [address] Result Comment: No e vidence of HIV-1 or HIV-2 infection. Should recent infection be suspected, repeat testing may be considered 2-3 weeks after this draw. [place] Rev. Code 3701.243(E): This information has been disclosed to you from confidential records protected from disclosure by state law. ???You shall make no further disclosure of this information without the specific, written, and informed release of the individual to whom it pertains or as otherwise permitted by state law. A general authorization for the release of medical or other information is not sufficient for the purpose of the release of HIV test results or diagnoses. Performed By: #### G TGST1 #### [facility] CLIA [id number] [address] [place] [address] [place] Prot/Creat Uron 04-23-2023 Protein/Creatinine (U) [Mass ratio] 0.10 mg/mg Normal <0.15 [facility] Comment on above: Order Comment: Speci men Type: URINE SPECIMENOrdering Facility: [facility] Address: [address] [place] [address] Result Comment: Adul t Proteinuria Categories: <0.15 mg/mg is considered normal to mildly increased 0.15 - 0.50 mg/mg is considered moderately increased >0.50 mg/mg is considered severely increased KDIGO. (2013). KDIGO 2012 Clinical Practice Guideline for the Evaluation and Management of Chronic Kidney Disease. Official Journal of the International Society of Nephrology, 3(1), 1-150. Performed By: #### 2 890-2 ####[facility] LABCLIA [id number] [place] [address] [place] Protein/Creatinine (U) [Mass ratio]on 04-23-2023 Creatinine (U) [Mass/Vol] 226.5 mg/dL Normal 20.0-300.0 [facility] Comment on above: Order Comment: Speci men Type: URINE SPECIMENOrdering Facility: [facility] Address: [address] [place] [address] Performed By: #### 2 890-2 ####[facility] LABCLIA [id number] [place] [address] [place] Protein (U) [Mass/Vol] 22 mg/dL High 0-20 [facility] Comment on above: Order Comment: Speci men Type: URINE SPECIMENOrdering Facility: [facility] Address: [address] [place] [address] Performed By: #### 2 890-2 ####[facility] LABCLIA [id number] [place] [address] [place] RUBELLA IGG ABon 04-23-2023 RUBELLA IGG AB, QUAL Positive Normal Positive [facility] Comment on above: Order Comment: Speci men Type: BLOOD SPECIMENOrdering Facility: [facility] Address: [address] [place] [address] Result Comment: The result suggests recent or past exposure to Rubella virus or history of Rubella vaccination. Positive result may also be seen due to presence of passively-transferred antibodies. Please correlate with patient's history. Performed By: #### R UBIGG ####[facility] LABCLIA [id number] [place] [address] [place] Reagin and Treponema pallidu m IgG and IgM [Interp]on 04-23-2023 T. pallidum IgG+IgM IA Ql (S) Non-Reactive Normal Nonreactive [facility] Comment on above: Order Comment: Speci men Type: BLOOD SPECIMEN Ordering Facility: [facility] Address: [address] [place] [address] Performed By: #### G TGST1 #### [facility] CLIA [id number] [address] [place] [address] [place] Reagin+T pallidum IgG+IgM Se rPl-Impon 04-23-2023 Reagin and Treponema pallidum IgG and IgM [Interp] Cannot exclude recent Treponemal infection if specimen collected within 7-10 days after appearance of suspect lesions or 2-3 weeks after an exposure. Clinical correlation is required. Normal [facility] Comment on above: Order Comment: Speci men Type: BLOOD SPECIMEN Ordering Facility: [facility] Address: [address] [place] [address] Performed By: #### G TGST1 #### [facility] CLIA [id number] [address] [place] [address] [place] TOX SCREEN ROUT URon 023 Amphetamines Confirm (U) [Mass/Vol] Negative Normal Negative [facility] Comment on above: Order Comment: Speci men Type: URINE SPECIMENOrdering Facility: [facility] Address: [address] [place] [address] Result Comment: Cuto ff threshold at 1000 ng/mL. Performed By: #### U TOX2 ###ALEX [facility]ATORYCLIA [id number] [place] [address] [place] BARBITURATES, URINE Negative Normal Negative [facility] Comment on above: Order Comment: Speci men Type: URINE SPECIMENOrdering Facility: [facility] Address: [address] [place] [address] Result Comment: Cuto ff threshold at 200 ng/mL. Performed By: #### U TOX2 ####ABDIRAHMAN [facility]ORYCLIA [id number] [place] [address] [place] BENZODIAZEPINES, UR Negative Normal Negative [facility] Comment on above: Order Comment: Speci men Type: URINE SPECIMENOrdering Facility: [facility] Address: [address] [place] [address] Result Comment: Cuto ff threshold at 200 ng/mL. Performed By: #### U TOX2 ####ABDIRAHMAN [facility]ORYCLIA [id number] [place] [address] [place] Cannabinoids Screen Ql (U) Negative Normal Negative [facility] Comment on above: Order Comment: Speci men Type: URINE SPECIMENOrdering Facility: [facility] Address: [address] [place] [address] Result Comment: Cuto ff threshold at 50 ng/mL. Performed By: #### U TOX2 ####ABDIRAHMAN [facility]ORYCLIA [id number] [place] [address] [place] Cocaine Ql (U) Negative Normal Negative [facility] Comment on above: Order Comment: Speci men Type: URINE SPECIMENOrdering Facility: [facility] Address: [address] [place] [address] Result Comment: Cuto ff threshold at 300 ng/mL. Performed By: #### U TOX2 ####ABDIRAHMAN [facility]ATORYIA [id number] [place] [address] [place] Ethanol (U) [Mass/Vol] <11 Normal <11 [facility] Comment on above: Order Comment: Speci men Type: URINE SPECIMENOrdering Facility: [facility] Address: [address] [place] [address] Performed By: #### U TOX2 ####ABDIRAHMAN [facility]ATORYCLIA [id number] [place] [address] [place] Opiates Screen Ql (U) Negative Normal Negative [facility] Comment on above: Order Comment: Speci men Type: URINE SPECIMENOrdering Facility: [facility] Address: [address] [place] [address] Result Comment: Cuto ff threshold at 300 ng/mL. Performed By: #### U TOX2 ####HATTIEMARVIN [facility]ORATORYIA [id number] [place] [address] [place] oxyCODONE cutoff Screen (U) [Mass/Vol] Negative Normal Negative [facility] Comment on above: Order Comment: Speci men Type: URINE SPECIMENOrdering Facility: [facility] Address: [address] [place] [address] Result Comment: Cuto ff threshold at 100 ng/mL. Performed By: #### U TOX2 ####ABDIRAHMAN [facility]ATORYCLIA [id number] [place] [address] [place] Phencyclidine Ql (U) Negative Normal Negative [facility] Comment on above: Order Comment: Speci men Type: URINE SPECIMENOrdering Facility: [facility] Address: [address] [place] [address] Result Comment: Cuto ff threshold at 25 ng/mL. Performed By: #### U TOX2 ####HATTIENEGRO [facility]ATORYCLIA [id number] [place] [address] [place] TSH SerPl-aCncon 04-23-2023 TSH Qn 1.350 m[IU]/L Normal 0.270-4.200 [facility] Comment on above: Order Comment: Speci men Type: BLOOD SPECIMENOrdering Facility: [facility] Address: [address] [place] [address] Result Comment: If t he patient is , TSH reference range varies by gestational period: First Trimester (weeks 9-12): 0.180-2.990 mIU/L Second Trimester: 0.110-3.980 mIU/L Third Trimester: 0.480-4.710 mIU/L Brenton David et al. A Practical Approach for the Verifications and Determination of Site- and Trimester-Specific Reference Intervals for Thyroid Function tests in . Thyroid, 2019:29:3:412-420. Flako Jacobo, et al. 2017 Guidelines of the [place] Thyroid Association for the Diagnosis and Management of Thyroid Disease during and the . Thyroid, 2017:27:3:315-389. Performed By: #### 3 016-3, 87106-8 ####HATTIENEGRO [facility]ORATORYIA [id number] [place] [address] [place] TYPE + SCREEN PRENATALon ABO B Normal [facility] Comment on above: Order Comment: Speci men Type: BLOOD SPECIMENOrdering Facility: [facility] Address: [address] [place] [address] Performed By: #### T SPN ####[facility] BANKCLIA [id number] [address] HISTORICAL AB SCR STATUS Negative Normal [facility] Comment on above: Order Comment: Speci men Type: BLOOD SPECIMENOrdering Facility: [facility] Address: [address] [place] [address] Performed By: #### T SPN ####[facility]LO[facility] BANKCLIA [id number] [address] [place] Rh Nom (Bld) Positive Normal [facility] Comment on above: Order Comment: Speci men Type: BLOOD SPECIMENOrdering Facility: [facility] Address: [address] [place] [address] Performed By: #### T SPN ####[facility]LO[facility] BANKCLIA [id number] [address] TYPE AND SCREEN EXPIRATION 04/26/2023 23:59 Normal [facility] Comment on above: Order Comment: Speci men Type: BLOOD SPECIMENOrdering Facility: [facility] Address: [address] [place] [address] Performed By: #### T SPN ####[facility] BLOOD BANKCLIA [id number] [address] OF [facility] Larry 04-08-2023 ELIAS Telephone (BACILIO) POONAM RAUSCH ([id number]) 1995 F Date Time Provider Department 04/08/23 VIOLETA SANDOVAL During your visit today, we recorded the following information about you: Juana Rose RN 04/08/2023 8:51 AM Signed Pt ( 9 weeks ) ralph that she thinks she is having a miscarriage. Sees Christiano Sandoval CNM in [place] office. Yana Schilling RN 04/08/2023 9:23 AM Signed Returned call to patient. She explains that she has a feeling she is going through a miscarriage. The last 2-3 days she has been experiencing copious priest discharge and intense, intermittent cramping in her lower abdomen. No urinary frequency or urgency. No vaginal irritation or odor. She is not having any vaginal bleeding bleeding. She explains that she usually has the sensation to urinate really bad in the middle of the night and does not have this feeling anymore. Pt just reviewed Anahi's message regarding GBS and she will start amoxicillin. Advised that she come into the office for vaginal infection testing. Pt aware that she must go to ER if pain persists/worsens or call if she experiences vb. She is worried there is no heartbeat. Please advise if ultrasound is indicated. She states FHT were found at bedside ultrasound at her visit. Marj Morse RN, APRN.CNM 04/08/2023 9:39 AM Signed Confirmed IUP with cardiac activity via POC ultrasound done on 03/24/23. She should start the amoxicillin as planned. When she comes in for vaginitis swab--ideally [place], can it be with a provider that can do another POC ultrasound? If not, I can order an M one. NT is already scheduled for 05/03. ELIZABETH Arias Dawn M, RN 04/08/2023 12:25 PM Signed Left message for pt call call office back. Caitlin Tong RN 04/20/2023 12:27 PM Signed Pt read [facility] message 04/08/23 @ 2:00 pm. Allergies As of Date: 04/08/2023 Noted Allergy Reaction environmental [Other] 02/01/2006 Date Reviewed: 03/24/2023 Reviewed by: Nicol Carlisle MA - Fully Assessed Reason for Visit: possible miscarriage [Other] Prescriptions as of 04/20/2023 - aspirin, enteric coated (ECOTRIN LOW STRENGTH) 81 mg EC tablet Take 1 tablet by mouth once daily. Please start at 12 weeks of gestation. - folic acid 1 mg tablet Take 1 tablet by mouth once daily. - sertraline (ZOLOFT) 50 mg tablet Take 1 tablet by mouth once daily. - vit/iron fum/folic ac ( 1 + 1 ORAL) Take by mouth. 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 [R87*08/31/2016 Supervision of other normal , antepart*03/24/2023 History of prior with IUGR [Z*03/24/2023 History of gestational hypertension [Z87.59] 03/24/2023 Substance use disorder [F19.90] 03/25/2023 History of substance use [Z87.898] 03/25/2023 Alcohol use disorder [F10.90] 04/08/2023 Encounter Status:Closed [facility] CAITLIN TONG [facility] POONAM RAUSCH ([id number]) 1995 F Date Time Provider Department 04/02/23 [facility] During your visit today, we recorded the following information about you: Yasir Osuna 04/02/2023 2:05 PM Signed Called patient to schedule consult. Call could not be connected. Junie curran sent to patient. Yasir Osuna 04/02/2023 3:50 PM Signed Referral to MFM H/o IUGR H/O alcohol abuse 2017: IOL at 38w for IUGR Thao - records in [facility] August 2022 - completed 30 day inpatient rehab [facility] in [place] MEDICATION: Zoloft Patient was prescribed 50mg. Does not fell like it was helping her. She doubled the dose on her own. Advised patient to contact her OB office to discuss. Patient feels like she is struggling with urge to drink and mental health. Reports that she was attending AA meeting and therapy but had to stop because it was getting too crazy. Advised that [facility] has mental health providers and that her OB can place a referral for her. NT and MFM consult at [facility] on 05/03 Allergies As of Date: 04/02/2023 Noted Allergy Reaction environmental [Other] 02/01/2006 Date Reviewed: 03/24/2023 Reviewed by: Nicol Carlisle MA - Fully Assessed Prescriptions as of 04/02/2023 - aspirin, enteric coated (ECOTRIN LOW STRENGTH) 81 mg EC tablet Take 1 tablet by mouth once daily. Please start at 12 weeks of gestation. - folic acid 1 mg tablet Take 1 tablet by mouth once daily. - sertraline (ZOLOFT) 50 mg tablet Take 1 tablet by mouth once daily. - vit/iron fum/folic ac ( 1 + 1 ORAL) Take by mouth. 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 [R87*08/31/2016 Supervision of other normal , antepart*03/24/2023 History of prior with IUGR [Z*03/24/2023 History of gestational hypertension [Z87.59] 03/24/2023 Substance use disorder [F19.90] 03/25/2023 History of substance use [Z87.898] 03/25/2023 Encounter Status:Closed by YASIR OSUNA on 04/02/23 [facility] [facility]23 CNPN Telephone (SPMOBA) POONAM RAUSCH ([id number]) 1995 F Date Time Provider Department 03/25/23 KENDRICK REN SPMOBA During your visit today, we recorded the following information about you: Kendrick Ren RN 03/25/2023 10:20 AM Signed Pended order for [facility]- routed to Christiano Sandoval CNM to file. MJ Becerra Brandi L, RN 03/25/2023 11:43 AM Signed Pt's current insurance per Epic: [employer] EDC: Estimated Date of Delivery: 11/08/23 Gestational age: 7.3 wks County of residence: [facility]: [place] Zip: [address] Provider placing referral: Violeta Sandoval APRN.CNM Reason for referral: Poonam would like support from Dr. Sun/Mahesh to manage alcohol use disorder and also depression; Needs help with scheduling with women's Phone number called: [phone]- call cannot be completed as dialed. Will send MC message to pt. AAKASH Siddiqi, BSN, RNC, [place]- OB Clinical Navigator [phone] (cell) Kendrick Ren RN 04/05/2023 2:26 PM Addendum message sent on 03/25/2023 Last read by Poonam Rausch at 10:49 PM on 03/26/2023. [phone], call cannot be completed as dialed. Kendrick Ren RN 04/05/2023 2:27 PM Addendum [phone], cannot be completed as dialed. We have attempted to contact the patient at least three times via telephone and [employer] message. We have been unable to get in touch with the patient. If patient reaches out to the OB Clinical Navigators, we will be happy to assist. Resources and contact information were sent via [employer]. AAKASH Siddiqi, CELIA, RNC, [facility] Kendrick Ren RN 04/05/2023 2:43 PM Addendum Pt called back, she is unable to set up VM. Pt identified by name and . Pt states she needs help with depression and medication management; Anahi has her on medication but it is not working. States she was given 100 mg tablets from the pharmacy and starting taking one half tablet but it wasn't working, so she started taking the whole 100mg tablet. States she has been taking it for about 1.5 weeks and it is not working. Pt will MyChart Anahi and I will send this encounter to Anahi as well so she is informed. Pt would like in-person individual counseling and medication management with [facility]. [facility] phone number sent to pt via text for her to call and make an appt. I will send [facility] pool a message to contact pt. Pt denies any other [facility] needs. AAKASH Siddiqi BSN, RNC-OB, [facility] OB Clinical Navigator [phone] (cell) Allergies As of Date: 03/25/2023 Noted Allergy Reaction environmental [Other] 02/01/2006 Date Reviewed: 03/24/2023 Reviewed by: Nicol Carlisle MA - Fully Assessed Reason for Visit: Refer / Community Resources [[id number]] Cmt: OB Navigation and Resources Primary Visit Diagnosis:Anxiety in in first trimester, antepartum [O99.341, F41.9] Other Visit Diagnosis:Depression affecting in first trimester, antepartum [O99.341, F32.A] Order(s):CONS[facility] TO [facility] [[id number]] Order #: [id number]: 1 FUTURE Prescriptions as of 04/05/2023 - aspirin, enteric coated (ECOTRIN LOW STRENGTH) 81 mg EC tablet Take 1 tablet by mouth once daily. Please start at 12 weeks of gestation. - folic acid 1 mg tablet Take 1 tablet by mouth once daily. - sertraline (ZOLOFT) 50 mg tablet Take 1 tablet by mouth once daily. - vit/iron fum/folic ac ( 1 + 1 ORAL) Take by mouth. 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 Mixed microbiota can be due to???urine???contamin ation with skin bacteria at time of collection or presence of a long-term urinary catheter. If a new culture is needed, please consider re-education of the patient on proper midstream collection technique or straight catheterization for???urine???collect ion. Streptococcus agalactiae (Group B streptococcus) was identified in this specimen, which is clinically relevant if the individual is . Normal [facility] Comment on above: Performed By: #### 6 30-4 ####[facility] [id number] [place] [address] [place] C. trachomatis+N. gonorrhoea e DNA LIZET+probe Ql (Unsp spec)on 03-24-2023 C. trachomatis rRNA LIZET+probe Ql (Unsp spec) Negative Normal Negative for Chlamydia trachomatis by amplificaton [facility] Comment on above: Order Comment: Speci men Type: BLOOD SPECIMEN Ordering Facility: [facility] Address: [address] [place] [address] Performed By: #### G [id number] #### [facility] CLIA [id number] [address] [place] [address] [place] N. gonorrhoeae rRNA LIZET+probe Ql (Unsp spec) Negative Normal Negative for Neisseria gonorrhoeae by amplification [facility] Comment on above: Order Comment: Speci men Type: BLOOD SPECIMEN Ordering Facility: [facility] Address: [address] [place] [address] Performed By: #### G [id number] #### [facility] CLIA [id number] [address] [place] [address] [place] PAP TESTon 03-24-2023 ADEQUACY Normal [facility] Comment on above: Order Comment: Speci men Type: FLUID SPECIMENOrdering Facility: [facility] Address: [address] [place] [address] Result Comment: Sati sfactory for interpretation No endocervical component Performed By: #### L [id number] ####[facility] LABCLIA [id number] [place] [address] [place] CASE REPORT Normal [facility] Comment on above: Order Comment: Speci men Type: FLUID SPECIMENOrdering Facility: [facility] Address: [address] [place] [address] Result Comment: Gyne cologic Cytology Report Case: [id number] Authorizing Provider: Violeta Sandoval APRN.CNM Collected: 03/24/2023 04:24 PM Ordering Location: OB/Gynecology Received: 03/24/2023 05:00 PM First Screen: Gmitro, Aleksandar, CT, ASCP Specimen: Pap Test, ThinPrep, Cervix Performed By: #### L [id number] ####[facility]CLIA [id number] [place] [address] [place] CLINICAL HISTORY, CYTOLOGY, DAIRY TESTER (Indicate Weeks) Normal [facility] Comment on above: Order Comment: Speci men Type: FLUID SPECIMENOrdering Facility: [facility] Address: [address] [place] [address] Result Comment: 7 Performed By: #### L [id number] ####[facility]CLIA [id number] [place] [address] [place] FINAL PERFORMING LAB Normal [facility] Comment on above: Order Comment: Speci men Type: FLUID SPECIMENOrdering Facility: [facility] Address: [address] [place] [address] Result Comment: Tech nical component, worm picker screening performed at [facility], [facility] [place] [address] CLIA# [id number] Diagnostic interpretation performed at [facility], [address] [place] [address] [place] [address] CLIA# [id number] Geospatial Applications Developer: Moustapha Mc M.D. Performed By: #### L [id number] ####[facility]CLIA [id number] [place] [address] [place] HPV REFLEX HPV if Atypical Normal [facility] Comment on above: Order Comment: Speci men Type: FLUID SPECIMENOrdering Facility: [facility] Address: [address] [place] [address] Performed By: #### L [id number] ####[facility]CLIA [id number] [address] [address] [place] INTERPRETATION, CYTOLOGY, DAIRY TESTER Normal [facility] Comment on above: Order Comment: Speci men Type: FLUID SPECIMENOrdering Facility: [facility] Address: [address] [place] [address] Result Comment: Nega tive for intraepithelial lesion or malignancy. Performed By: #### L [id number] ####[facility] LABCLIA [id number] [place] [id number] [place] LMP 05/05/2021 Normal [facility] Comment on above: Order Comment: Speci men Type: FLUID SPECIMENOrdering Facility: [facility] Address: [address] [place] [address] Performed By: #### L [id number] ####[facility]CLIA [id number] [address] [address] [place] PAP DISCLAIMER COMMENT The Pap Smear is a screening test for cervical cancer. False negative results occur with all screening tests, emphasizing the need for rescreening at recommended intervals, and clinical correlation. Normal [facility] Comment on above: Order Comment: Speci men Type: FLUID SPECIMENOrdering Facility: [facility] Address: [address] [place] [address] Performed By: #### L [id number] ####[facility]CLIA [id number] [address] [address] [place] PAP MEDICATION AIDE COMMENT This specimen has been analyzed by the ThinPrep Imaging System, an automated imaging and review system, which assists the laboratory in evaluating cells on ThinPrep Pap tests. Following automated imaging, selected tafoya from every slide are reviewed by a worm picker. Normal [facility] Comment on above: Order Comment: Speci men Type: FLUID SPECIMENOrdering Facility: [facility] Address: [address] [place] [address] Performed By: #### L [id number] ####[facility]CLIA [id number] [facility] [id number] [address] [place] STREP A MOLECULAR (POC)on Procedural Control Valid [facility] Strep A (POCT) Positive Abnormal Negative [facility] Hemoglobin A1Con 06-04-2021 Glucose [Mass/Vol] 100 mg/dL Normal [facility] Comment on above: Performed By: #### H A1C2, LIPD2 #### [facility] [address] [place], [place] HbA1c (Bld) [Mass fraction] 5.1 % Normal [facility] Comment on above: Result Comment: Norm al less than 5.7% Prediabetes 5.7% to 6.4% Diabetes 6.5% or higher --HgbA1C levels may not be accurate in patients who have renal disease, received recent blood transfusions, are anemic, or who have dyshemoglobinemia. Performed By: #### H A1C2, LIPD2 #### [facility] [address] [place] [address] Lipid Panelon 06-04-2021 Chol/HDL 2 Normal [facility] Comment on above: Result Comment: Ref Range: < 3 Low Risk for CHD 3-6 Mod Risk for CHD > 6 High Risk for CHD Performed By: #### H A1C2, LIPD2 #### [facility] [address] [place] [address] Cholesterol [Mass/Vol] 162 mg/dL Normal < 200 [facility] Comment on above: Performed By: #### H A1C2, LIPD2 #### [facility] [address] [place] [address] Cholesterol in HDL [Mass/Vol] 68 mg/dL High 40-60 [facility] Comment on above: Performed By: #### H A1C2, LIPD2 #### [facility] [address] [place] [address] Low Density Lipoprotein 77 mg/dL Normal <100 [facility] Comment on above: Performed By: #### H A1C2, LIPD2 #### [facility] [address] [place], [place] Triglyceride [Mass/Vol] 85 mg/dL Normal <150 [facility] Comment on above: Performed By: #### H A1C2, LIPD2 #### [facility] [address] [place], [place] Add on test from HISon 06-02 Add on test from HIS Accepted Normal [facility] Comment on above: Result Comment: Spec imen available & acceptable for analysis. Performed By: #### A DDON #### [place] [address] [address] [place], [place] Comp Metabolic Panelon 06-02 ALP [Catalytic activity/Vol] 46 U/L Normal 38-126 [facility] Comment on above: Performed By: #### C MP3, ETOH4, HEMDF #### [place] [address] [address] [place], [place] ALT [Catalytic activity/Vol] 23 U/L Normal 0-34 [facility] Comment on above: Result Comment: The ALT test is performed by an updated assay method. Please note that the reference intervals have been changed and are now sex specific. Performed By: #### C MP3, ETOH4, HEMDF #### [place] [address] [address] [place], [place] Anion gap [Moles/Vol] 16 mmol/L High 3-13 [facility] Comment on above: Performed By: #### C MP3, ETOH4, HEMDF #### [place] [address] [address] [place], [place] AST [Catalytic activity/Vol] 35 U/L Normal 15-46 [facility] Comment on above: Performed By: #### C MP3, ETOH4, HEMDF #### [place] [address] [address] [place], [place] Bilirubin [Mass/Vol] 0.4 mg/dL Normal 0.2-1.3 [facility] Comment on above: Performed By: #### C MP3, ETOH4, HEMDF #### [place] [address] [address] [place], [place] Calcium [Mass/Vol] 9.1 mg/dL Normal 8.4-10.4 [facility] Comment on above: Performed By: #### C MP3, ETOH4, HEMDF #### [address] CO2 [Moles/Vol] 21 mmol/L Low 22-30 [facility] Comment on above: Performed By: #### C MP3, ETOH4, HEMDF #### [facility] [address] [place], [place] Creatinine [Mass/Vol] 0.70 mg/dL Normal 0.52-1.25 [facility] Comment on above: Performed By: #### C MP3, ETOH4, HEMDF #### [address] eGFR OTHER > 90.0 Normal >60 [facility] Comment on above: Result Comment: KDIG O guidelines provide the following GFR categories: Stage GFR(ml/min/1.73 m2) Terms G1 >=90 Normal or high G2 60-89 Mildly decreased* G3a 45-59 Mildly to moderately decreased G3b 30-44 Moderately to severely decreased G4 15-29 Severely decreased G5 <15 Kidney failure *Relative to young adult level. In the absence of evidence of kidney damage, neither GFR category G1 nor G2 fulfill the criteria for CKD. The CKD-EPI equation is validated in individuals 18 years of age and older. Currently the best equation for estimating glomerular filtration rate (GFR) from serum creatinine in children is the Bedside Geiger equation. It is less accurate in patients with extremes of muscle mass, restriction of dietary protein, ingestion of creatine, extra-renal metabolism of creatinine, or treatment with medications that affect renal tubular creatinine secretion. Performed By: #### C MP3, ETOH4, HEMDF #### [facility] [address] [place], [place] GFR/1.73 sq M.predicted among blacks MDRD (S/P/Bld) [Vol rate/Area] mL/min/{1.73_m2} Normal >60 [facility] Comment on above: Performed By: #### C MP3, ETOH4, HEMDF #### [facility] [address] [place], [place] Glucose [Mass/Vol] 89 mg/dL Normal 70-100 [facility] Comment on above: Performed By: #### C MP3, ETOH4, HEMDF #### [place] [address] [address] [place], [place] Protein [Mass/Vol] 7.9 g/dL Normal 6.3-8.2 [facility] Comment on above: Performed By: #### C MP3, ETOH4, HEMDF #### [place] [address] [address] [place], [place] Urea nitrogen [Mass/Vol] 10 mg/dL Normal 9-20 [facility] Comment on above: Performed By: #### C MP3, ETOH4, HEMDF #### [place] [address] [place], [place] Potassium [Moles/Vol] 3.8 mmol/L Normal 3.5-5.1 [facility] Comment on above: Performed By: #### C MP3, ETOH4, HEMDF #### [place] [address] [place], [place] Albumin [Mass/Vol] 4.7 g/dL Normal 3.5-5.0 [facility] Comment on above: Performed By: #### C MP3, ETOH4, HEMDF #### [place] [address] [place], [place] Chloride [Moles/Vol] 109 mmol/L High 98-107 [facility] Comment on above: Performed By: #### C MP3, ETOH4, HEMDF #### [place] [address] [place], [place] Sodium [Moles/Vol] 145 mmol/L Normal 135-145 [facility] Comment on above: Performed By: #### C MP3, ETOH4, HEMDF #### [place] [address] [place], [place] Complete Urinalysison 2020 Appearance (U) Clear Normal Clear [facility] Comment on above: Result Comment: . Performed By: #### H CGUR, DRGA4, CUA2 #### [place] [address] [address] [place], [place] Bilirubin,Urine Negative Normal Negative [facility] Comment on above: Result Comment: . Performed By: #### H CGUR, DRGA4, CUA2 #### [place] [address] [address] [place], [place] Color (U) Light-Yellow Normal Lt. Yellow [facility] Comment on above: Result Comment: . Performed By: #### H CGUR, DRGA4, CUA2 #### [place] [address] [address] [place], [place] Glucose Ql (U) Normal Normal Normal (<70) [facility] Comment on above: Result Comment: . Performed By: #### H CGUR, DRGA4, CUA2 #### [place] [address] [place], [place] Ketone,Urine Negative Normal Negative [facility] Comment on above: Result Comment: . Performed By: #### H CGUR, DRGA4, CUA2 #### [place] [address] [address] [place], [place] Leukocytes,Urine Negative Normal Negative [facility] Comment on above: Result Comment: . Performed By: #### H CGUR, DRGA4, CUA2 #### [place] [address] [address] [place], [place] Nitrites,Urine Negative Normal Negative [facility] Comment on above: Result Comment: . Performed By: #### H CGUR, DRGA4, CUA2 #### [place] [address] [address] [place], [place] Occult Blood,Urine Negative Normal Negative [facility] Comment on above: Result Comment: . Performed By: #### H CGUR, DRGA4, CUA2 #### [place] [address] [address] [place], [place] pH,Urine 5.5 Normal 5.0-8.0 [facility] Comment on above: Result Comment: . Performed By: #### H CGUR, DRGA4, CUA2 #### [place] [address] [address] [place], [place] Specific [place],Urine 1.020 Normal 1.005 - 1.030 [facility] Comment on above: Result Comment: . Performed By: #### H CGUR, DRGA4, CUA2 #### [facility] [address], [place] Total Protein,Urine Negative Normal Negative [facility] Comment on above: Result Comment: . Performed By: #### H CGUR, DRGA4, CUA2 #### [facility] [address] [place], [place] Urobilinogen,Urine Normal Normal Normal (0-1) [facility] Comment on above: Result Comment: . Performed By: #### H CGUR, DRGA4, CUA2 #### [facility] [address], [place] Drugs of Abuseon 06-02-2021 Opiates, Ur Negative Normal [facility] Comment on above: Performed By: #### H CGUR, DRGA4, CUA2 #### [facility] [address] [place], [place] Phencyclidine (PCP), Ur Negative Normal [facility] Comment on above: Result Comment: The expected value for all of the drugs listed above is Negative. The following drugs or drug groups have been screened for by Immunoassay at the following thresholds: Amphetamine class (1000 ng/mL), Barbiturates (200 ng/mL), Benzodiazepines (200 ng/mL), Cocaine (300 ng/mL), Methadone (300 ng/mL), Opiates (300 ng/mL), Oxycodone (100 ng/mL), and PCP (25 ng/mL). NOTE: These results are for medical treatment only. Analysis performed using non-forensic procedures. POSITIVE results are NOT confirmed by a more specific alternative method unless requested. If confirmation is needed, request confirmation under separate order. Performed By: #### H CGUR, DRGA4, CUA2 #### [facility] [address] [place], [place] Benzodiazepines, Ur Negative Normal [facility] Comment on above: Performed By: #### H CGUR, DRGA4, CUA2 #### [facility] [address] [place], [place] Methadone, Ur Negative Normal [facility] Comment on above: Performed By: #### H CGUR, DRGA4, CUA2 #### [facility] [address], [place] Barbiturates, Ur Negative Normal [facility] Comment on above: Performed By: #### H CGUR, DRGA4, CUA2 #### [facility] [address] [place], [place] Cocaine, Ur Negative Normal [facility] Comment on above: Performed By: #### H CGUR, DRGA4, CUA2 #### [facility] [address] [place], [place] Amphetamines, Ur Negative Normal [facility] Comment on above: Performed By: #### H CGUR, DRGA4, CUA2 #### [facility] [address] [place], [place] Oxycodone/Oxymorphine ,Ur Negative Normal [facility] Comment on above: Performed By: #### H CGUR, DRGA4, CUA2 #### [facility] [address], [place] Ethanol Serum/Plasmaon 06-02 Ethanol-Serum/Plasma 0.173 g/dL High 0.000-0.010 [facility] Comment on above: Result Comment: NOTE : This result is for medical treatment only. Analysis performed using non-forensic procedures. Performed By: #### C MP3, ETOH4, HEMDF #### [facility] [address], [place] HCG,Urine Qualon 06-02-2021 Beta HCG ( test) Ql (U) Negative Normal Negative [facility] Comment on above: Result Comment: Plea se note: Very dilute urine specimens, as indicated by a low specific gravity, may not contain primary care sales representative levels of hCG. If is still suspected, a first morning urine specimen should be collected 48 hours later and tested. is the most common reason for HCG in urine, although choriocarcinoma, hydatidiform mole, and certain nontropho- blastic malignancies also result in detectable urinary HCG levels. Sensitivity = 20mIU/mL. Performed By: #### H CGUR, DRGA4, CUA2 #### [place] [address] [address] [place], [place] Hemogram w/ Autodiffon 06-02 Abs Baso Cnt 0.0 10*3/uL Normal 0.0-0.2 [facility] Comment on above: Performed By: #### C MP3, ETOH4, HEMDF #### [place] [address] [address] [place], [place] Abs Neutrophile Cnt 3.6 10*3/uL Normal 1.8-7.0 [facility] Comment on above: Performed By: #### C MP3, ETOH4, HEMDF #### [place] [address] [place], [place] Basophils/100 WBC (Bld) 0.7 % Normal 0.0-2.0 [facility] Comment on above: Performed By: #### C MP3, ETOH4, HEMDF #### [place] [address] [place], [place] Eosinophils (Bld) [#/Vol] 0.1 10*3/uL Normal 0.0-0.5 [facility] Comment on above: Performed By: #### C MP3, ETOH4, HEMDF #### [place] [address] [place], [place] Eosinophils/100 WBC (Bld) 1.0 % Normal 1.0-6.0 [facility] Comment on above: Performed By: #### C MP3, ETOH4, HEMDF #### [place] [address] [place], [place] Erythrocyte distribution width (RBC) [Ratio] 12.6 % Normal 11.5-14.5 [facility] Comment on above: Performed By: #### C MP3, ETOH4, HEMDF #### [address] Granulocytes/100 WBC (Bld) 54.6 % Normal 40.0-80.0 [facility] Comment on above: Performed By: #### C MP3, ETOH4, HEMDF #### [place] [address] [address] [place], [place] Hematocrit (Bld) [Volume fraction] 41.9 % Normal 35.0-47.0 [facility] Comment on above: Performed By: #### C MP3, ETOH4, HEMDF #### [facility] [address], [place] Hemoglobin (Bld) [Mass/Vol] 13.9 g/dL Normal 11.7-16.0 [facility] Comment on above: Performed By: #### C MP3, ETOH4, HEMDF #### [place] [address] [place] Lymphocytes (Bld) [#/Vol] 2.6 10*3/uL Normal 1.0-4.3 [facility] Comment on above: Performed By: #### C MP3, ETOH4, HEMDF #### [address] [place], [place] Lymphocytes/100 WBC (Bld) 39.1 % Normal 20.0-40.0 [facility] Comment on above: Performed By: #### C MP3, ETOH4, HEMDF #### [address] [place], [place] MCH (RBC) [Entitic mass] 33.9 pg Normal 26.0-34.0 [facility] Comment on above: Performed By: #### C MP3, ETOH4, HEMDF #### [address] [place], [place] MCHC 33.2 % Normal 32.0-36.0 [facility] Comment on above: Performed By: #### C MP3, ETOH4, HEMDF #### [facility] [address] [place], [place] MCV (RBC) [Entitic vol] 102.0 fL High 79.0-98.0 [facility] Comment on above: Performed By: #### C MP3, ETOH4, HEMDF #### [address] [place], [place] Monocytes (Bld) [#/Vol] 0.3 10*3/uL Normal 0.0-0.8 [facility] Comment on above: Performed By: #### C MP3, ETOH4, HEMDF #### [facility] [address] [place], [place] Monocytes/100 WBC (Bld) 4.6 % Normal 2.0-10.0 [facility] Comment on above: Performed By: #### C MP3, ETOH4, HEMDF #### [address] [place], [place] Platelet mean volume (Bld) [Entitic vol] 9.8 fL Normal 7.4-10.4 [facility] Comment on above: Performed By: #### C MP3, ETOH4, HEMDF #### [address] [place], [place] Platelets (Bld) [#/Vol] 118 10*3/uL Low 140-440 [facility] Comment on above: Performed By: #### C MP3, ETOH4, HEMDF #### [address] [place], [place] RBC (Bld) [#/Vol] 4.11 10*6/uL Normal 3.80-5.20 [facility] Comment on above: Performed By: #### C MP3, ETOH4, HEMDF #### [address] [place], [place] WBC (Bld) [#/Vol] 6.6 10*3/uL Normal 3.6-10.7 [facility] Comment on above: Performed By: #### C MP3, ETOH4, HEMDF #### [address] [place], [place] SARS-CoV-2 Antigenon 021 SARS-CoV-2 Antigen Negative Normal Negative [facility] Comment on above: Result Comment: A negative result does not rule out the possibility of SARS-CoV-2 infection. NAAT-based methods should be considered for symptomatic patients presenting greater than seven days after onset of symptoms. Method: Lateral flow immunoassay. Fact sheets for healthcare providers and patients can be found at the following sites: https://www.fda.gov/media/951551/download https://www.fda.gov/media/841186/download Performed By: #### C OVAG #### [facility] [address] [place], [place] CULTURE URINEon 12-30-2019 CULTURE URINE CULTURE URINE --> Status: F Normal urogenital mandy present. Normal [facility] Comment on above: Performed By: #### C UA2 #### [facility] [address] [place] [address] #### C/UR #### [address] [place], [place] Complete Urinalysison 2019 Appearance (U) Clear Normal Clear [facility] Comment on above: Result Comment: . Performed By: #### C UA2 #### [address] [place] [address] #### C/UR #### [address] [place], [place] Bilirubin,Urine Negative Normal Negative [facility] Comment on above: Result Comment: . Performed By: #### C UA2 #### [facility] [address] [place] [address] #### C/UR #### [address] [place], [place] Color (U) LIGHT YELLOW Normal Lt. Yellow [facility] Comment on above: Result Comment: . Performed By: #### C UA2 #### [facility] [address] [place] [address] #### C/UR #### [address] [place], [place] Glucose Ql (U) Normal Normal Normal (<70) [facility] Comment on above: Result Comment: . Performed By: #### C UA2 #### [facility] [address] [place] [address] #### C/UR #### [address] [place], [place] Ketone,Urine Trace Abnormal Negative [facility] Comment on above: Result Comment: . Performed By: #### C UA2 #### [facility] [address] [place] [address] #### C/UR #### [address] [place] [address] Leukocytes,Urine Negative Normal Negative [facility] Comment on above: Result Comment: . Performed By: #### C UA2 #### [facility] [address] [place] [address] #### C/UR #### [address] [place] [address] Nitrites,Urine Negative Normal Negative [facility] Comment on above: Result Comment: . Performed By: #### C UA2 #### [facility] [address] [place] [address] #### C/UR #### [address] [place] [address] Occult Blood,Urine Negative Normal Negative [facility] Comment on above: Result Comment: . Performed By: #### C UA2 #### [address] [place] [address] #### C/UR #### [address] [place] [address] pH (U) 5.5 Normal 5.0-8.0 [facility] Comment on above: Result Comment: . Performed By: #### C UA2 #### [facility] [address] [place] [address] #### C/UR #### [address] [place] [address] Protein (U) [Mass/Vol] Negative Normal Negative [facility] Comment on above: Result Comment: . Performed By: #### C UA2 #### [facility] [address] [place] [address] #### C/UR #### [address] [place] [address] Specific [place],Urine 1.022 Normal 1.005 - 1.030 [facility] Comment on above: Result Comment: . Performed By: #### C UA2 #### [facility] [address] [place] [address] #### C/UR #### [facility] [address] [place] [address] Urobilinogen,Urine Normal Normal Normal (0-1) [facility] Comment on above: Result Comment: . Performed By: #### C UA2 #### [facility] [address] [place] [address] #### C/UR #### [facility] [address] [place] [address] US ABDOMEN LIMITEDon 020 Rickey, [facility] Incoming Radiology Results From [facility] - 12/29/2019 11:21 AM EDT Patient Name: POONAM RAUSCH ---Ultrasound--- Exam Date/Time 12/29/2019 10:20:00 EDT Exam US Abdomen Limited Ordering Physician DO ROSARIO LISA Accession Number [id number] CPT4 Codes 39134 () Reason For Exam ruq pain Report RIGHT UPPER QUADRANT ABDOMINAL SONOGRAM History: Abdominal pain Findings: Sonogram directed to the right upper quadrant of the abdomen shows mild increased liver echogenicity suggesting fatty infiltration. The gallbladder is mildly distended without gallstones, wall thickening, or pericholecystic fluid. There is no bile duct dilatation. The common bile duct measures 3.9 mm in diameter. There are degrading bowel gas artifacts with suboptimal visualization of the pancreas that appears unremarkable as shown. The partially visualized right kidney measures 10.2 x 5.1 x 5.2 cm without hydronephrosis. IMPRESSION: Mild fatty liver. Unremarkable gallbladder. Suboptimal visualization of the pancreas. Report Dictated on --- Final --- Dictating Physician: MD MUMTAZ, RHONDA Signed Date and Time: 12/29/2019 11:20 am Signed by: MD PANDYA AHMAD Transcribed Date and Time: 12/29/2019 11:21 [facility], [place] Patient Name: POONAM RAUSCH ---Ultrasound--- Exam Date/Time 12/29/2019 10:20:00 EDT Exam US Abdomen Limited Ordering Physician DO ROSARIO LISA Accession Number [id number] CPT4 Codes 69353 () Reason For Exam ruq pain Report RIGHT UPPER QUADRANT ABDOMINAL SONOGRAM History: Abdominal pain Findings: Sonogram directed to the right upper quadrant of the abdomen shows mild increased liver echogenicity suggesting fatty infiltration. The gallbladder is mildly distended without gallstones, wall thickening, or pericholecystic fluid. There is no bile duct dilatation. The common bile duct measures 3.9 mm in diameter. There are degrading bowel gas artifacts with suboptimal visualization of the pancreas that appears unremarkable as shown. The partially visualized right kidney measures 10.2 x 5.1 x 5.2 cm without hydronephrosis. IMPRESSION: Mild fatty liver. Unremarkable gallbladder. Suboptimal visualization of the pancreas. Report Dictated on --- Final --- Dictating Physician: MD PANDYA AHMAD Signed Date and Time: 12/29/2019 11:20 am Signed by: MD PANDYA AHMAD Transcribed Date and Time: 12/29/2019 11:21 [place] US Abdomen Limitedon 020 US Abdomen Limited Patient Name: POONAM RAUSCH Ultrasound Exam Date/Time 12/29/2019 10:20:00 EDT Exam US Abdomen Limited Ordering Physician DO ROSARIO LISA Accession Number [id number] CPT4 Codes 99678 () Reason For Exam ruq pain Report RIGHT UPPER QUADRANT ABDOMINAL SONOGRAM History: Abdominal pain Findings: Sonogram directed to the right upper quadrant of the abdomen shows mild increased liver echogenicity suggesting fatty infiltration. The gallbladder is mildly distended without gallstones, wall thickening, or pericholecystic fluid. There is no bile duct dilatation. The common bile duct measures 3.9 mm in diameter. There are degrading bowel gas artifacts with suboptimal visualization of the pancreas that appears unremarkable as shown. The partially visualized right kidney measures 10.2 x 5.1 x 5.2 cm without hydronephrosis. IMPRESSION: Mild fatty liver. Unremarkable gallbladder. Suboptimal visualization of the pancreas. Report Dictated on Final Dictating Physician: MD MUMTAZ, RHONDA Signed Date and Time: 12/29/2019 11:20 am Signed by: MD PANDYA AHMAD Transcribed Date and Time: 12/29/2019 11:21 Normal [facility] Urinalysison 12-29-2019 Appearance (U) Clear Clear NA [place] Comment on above: . Bilirubin Urine Negative Negative mg/dL [place] Comment on above: . Color (U) LIGHT YELLOW Lt. Yellow NA [place] Comment on above: . Glucose, Ur Normal Normal (<70) mg/dL [place] Comment on above: . Interpretation and review of laboratory results Abnormal [place] Ketones Ql (U) Trace Abnormal Negative mg/dL [place] Comment on above: . LEUKOCYTES, UA Negative Negative Smiely/uL [place] Comment on above: . Nitrite, Urine Negative Negative NA [place] Comment on above: . Occult Blood,Urine Negative Negative mg/dL [place], [place] Comment on above: . pH (U) 5.5 [pH] [place] Comment on above: . Protein (U) [Mass/Vol] Negative Negative mg/dL [place] Comment on above: . Specific [place], Urine 1.022 [place] Comment on above: . Urobilinogen, Urine Normal Normal ( 0-1) mg/dL [place] Comment on above: . Test Performed by [facility], [address] , [place], [place] [address] [place] Basic Metabolic Panelon -2 Calcium [Mass/Vol] 8.7 mg/dL Normal 8.4-10.4 [facility] Comment on above: Performed By: #### H EMDF, DDI2, BMP3, TROPN, QWAL #### [facility] [address] [place] [address] Glucose [Mass/Vol] 145 mg/dL High 70-100 [facility] Comment on above: Performed By: #### H EMDF, DDI2, BMP3, TROPN, QWAL #### [facility] [address] [place] [address] Urea nitrogen [Mass/Vol] 19 mg/dL Normal 7-20 [facility] Comment on above: Performed By: #### H EMDF, DDI2, BMP3, TROPN, QWAL #### [facility] [address] [place] [address] Anion gap [Moles/Vol] 16 Normal [facility] Comment on above: Performed By: #### H EMDF, DDI2, BMP3, TROPN, QWAL #### [facility] [address] [place] [address] CO2 [Moles/Vol] 20 mmol/L Low 22-30 [facility] Comment on above: Performed By: #### H EMDF, DDI2, BMP3, TROPN, QWAL #### [facility] [address] [place] [address] Creatinine [Mass/Vol] 0.85 mg/dL Normal 0.52-1.25 [facility] Comment on above: Performed By: #### H EMDF, DDI2, BMP3, TROPN, QWAL #### [facility] [address] [place] [address] GFR/1.73 sq M predicted among blacks MDRD (S/P/Bld) [Vol rate/Area] mL/min/{1.73_m2} Normal >60 [facility] Comment on above: Performed By: #### H EMDF, DDI2, BMP3, TROPN, QWAL #### [facility] [address] [place] [address] GFR/1.73 sq M predicted among non-blacks MDRD (S/P/Bld) [Vol rate/Area] mL/min/{1.73_m2} Normal >60 [facility] Comment on above: Result Comment: Sour ce- MDRD equation with creatinine calibration to IDMS(NKDEP) eGFR not recommended for drug dose adjustment Performed By: #### H EMDF, DDI2, BMP3, TROPN, QWAL #### [facility] [address] [place] [address] Chloride [Moles/Vol] 103 mmol/L Normal 98-107 [facility] Comment on above: Performed By: #### H EMDF, DDI2, BMP3, TROPN, QWAL #### [facility] [address] [place] [address] Potassium [Moles/Vol] 3.5 mmol/L Normal 3.5-5.1 [facility] Comment on above: Performed By: #### H EMDF, DDI2, BMP3, TROPN, QWAL #### [facility] [address] [place] [address] Sodium [Moles/Vol] 139 mmol/L Normal 135-145 [facility] Comment on above: Performed By: #### H EMDF, DDI2, BMP3, TROPN, QWAL #### [facility] [address] [place] [address] Anion gap [Moles/Vol] 16 mmol/L [place] Calcium [Mass/Vol] 8.7 mg/dL 8.4 - 10.4 mg/dL [place] Chloride [Moles/Vol] 103 mmol/L 98 - 107 mmol/L [place] CO2 [Moles/Vol] 20 mmol/L Low 22 - 30 mmol/L [place] Creatinine [Mass/Vol] 0.85 mg/dL 0.52 - 1.25 mg/dL [place] EGFR IF NonAfrican [place] >60.0 >60 mL/min [place] Comment on above: Source- MDRD equatio n with creatinine calibration to IDNE(NKDEP) eGFR not recommended for drug dose adjustment GFR/1.73 sq M predicted among blacks MDRD (S/P/Bld) [Vol rate/Area] mL/min/{1.73_m2} >60 mL/min [place] Glucose [Mass/Vol] 145 mg/dL High 70 - 100 mg/dL [place], [place] Interpretation and review of laboratory results Abnormal [place] Potassium [Moles/Vol] 3.5 mmol/L 3.5 - 5.1 mmol /L [place] Sodium [Moles/Vol] 139 mmol/L 135 - 145 mmol/L [place] Urea nitrogen [Mass/Vol] 19 mg/dL 7 - 20 mg/dL [place] Test Performed by [facility] [employer] [facility], [address], [place], [place] [address] [place] CBC Auto Differentialon - Absolute Baso # 0.1 10*3/uL 0 - 0.2 10*3/uL [place] Absolute Neut # 4.9 10*3/uL 1.8 - 7 10*3/uL [place] Basophils/100 WBC (Bld) 0.9 % 0 - 2 % [place] Eosinophils (Bld) [#/Vol] 0.0 10*3/uL 0 - 0.5 10*3/uL [place] Eosinophils/100 WBC (Bld) 0.5 % Low 1 - 6 % [place] Erythrocyte distribution width (RBC) [Ratio] 12.3 % 11.5 - 14.5 % [place] Granulocytes/100 WBC (Bld) 63.6 % 40 - 80 % [place] Hematocrit (Bld) [Volume fraction] 39.2 % 35 - 47 % [place] Hemoglobin (Bld) [Mass/Vol] 13.7 g/dL 11.7 - 16 g/dL [place] Interpretation and review of laboratory results Abnormal [place] Lymphocytes (Bld) [#/Vol] 2.1 10*3/uL 1 - 4.3 10*3/uL [place] Lymphocytes/100 WBC (Bld) 27.4 % 20 - 40 % [place] MCH (RBC) [Entitic mass] 34.5 pg High 26 - 34 pg [place] MCHC (RBC) [Mass/Vol] 34.8 % 32 - 36 % [place] MCV (RBC) [Entitic vol] 98.9 fL High 79 - 98 fL [place] Monocytes (Bld) [#/Vol] 0.6 10*3/uL 0 - 0.8 10*3/uL [place] Monocytes/100 WBC (Bld) 7.6 % 2 - 10 % [place] Platelet mean volume (Bld) [Entitic vol] 8.5 fL 7.4 - 10.4 fL [place] Platelets (Bld) [#/Vol] 253 10*3/uL 140 - 440 10*3/uL [place] RBC (Bld) [#/Vol] 3.97 10*6/uL 3.8 - 5.2 10*6/uL [place] WBC (Bld) [#/Vol] 7.7 10*3/uL 3.6 - 10.7 10*3/uL [place] [facility], [address] [place], [place] [id number] [place] [address] CR Chest Portableon 10-04-19 20 CR Chest Portable Patient Name: POONAM RAUSCH Diagnostic Radiology Exam Date/Time 10/04/2019 02:45:51 EDT Exam CR Chest Portable Ordering Physician MD NUHA, DANIEL Cheung Accession Number [id number] CPT4 Codes 96093 () Reason For Exam SOB Report PORTABLE CHEST CLINICAL INDICATION: Shortness of breath TECHNIQUE: Portable AP COMPARISON: None FINDINGS: Exam quality: EKG leads obscure small portions of the chest. The heart and mediastinum are normal. Linear focus of atelectasis is noted in the right lower hemithorax. There is no consolidation. Costophrenic angles are sharp. There is a pseudoarticulation within the midportion of the right first rib. IMPRESSION: Subsegmental atelectasis in the right. No consolidation or other significant abnormality Report Dictated on Workstation: [id number] Final Dictating Physician: MD HENSON JEFFREY Signed Date and Time: 10/04/2019 3:02 am Signed by: MD HENSON JEFFREY Transcribed Date and Time: 10/04/2019 3:03 Normal [facility] D-Dimer, Innovanceon 020 D-Dimer, Innovance 0.49 mg/L Normal 0.00-0.50 [facility] Comment on above: Result Comment: Inno davidson D-Dimer values of <0.50 mg/L FEU can be used in combination with a pre-test probability model (e.g. Well's) to exclude pulmonary embolism (PE) disease, as well as an aid in the diagnosis of deep vein thrombosis (DVT). Performed By: #### H EMDF, DDI2, BMP3, TROPN, QWAL #### [facility] [address] [place] [address] D-Dimer, Quantitativeon 09-06 D-Dimer, Quant 0.49 mg/L 0 - 0.5 mg/L [place] Comment on above: [employer] D-Dimer va lues of <0.50 mg/L FEU can be used in combination with a pre-test probability model (e.g. Well's) to exclude pulmonary embolism (PE) disease, as well as an aid in the diagnosis of deep vein thrombosis (DVT). Test Performed by [facility], [address] [place] [address] HCG Qualitative, Serumon hCG Qual Negative m[IU]/mL [place] Comment on above: Reference Range: NEG ATIVE Effective 09/12/2019, the reference interval for the qualitative test has been updated. This test detects hCG at concentrations of 10 mIU/L or greater in serum. Test Performed by [facility], [address] [place], [place] [id number] [place] [address] Hemogram w/ Autodiffon 10-03 Abs Baso Cnt 0.1 10*3/uL Normal 0.0-0.2 [facility] Comment on above: Performed By: #### H EMDF, DDI2, BMP3, TROPN, QWAL #### [facility] [address] [place] [address] Abs Neutrophile Cnt 4.9 10*3/uL Normal 1.8-7.0 [facility] [employer] [facility] Comment on above: Performed By: #### H EMDF, DDI2, BMP3, TROPN, QWAL #### [facility] [address] [place] [address] Basophils/100 WBC (Bld) 0.9 % Normal 0.0-2.0 [facility] Comment on above: Performed By: #### H EMDF, DDI2, BMP3, TROPN, QWAL #### [facility] [address] [place] [address] Eosinophils (Bld) [#/Vol] 0.0 10*3/uL Normal 0.0-0.5 [facility] Comment on above: Performed By: #### H EMDF, DDI2, BMP3, TROPN, QWAL #### [facility] [address] [place] [address] Eosinophils/100 WBC (Bld) 0.5 % Low 1.0-6.0 [facility] Comment on above: Performed By: #### H EMDF, DDI2, BMP3, TROPN, QWAL #### [facility] [address] [place] [address] Erythrocyte distribution width (RBC) [Ratio] 12.3 % Normal 11.5-14.5 [facility] Comment on above: Performed By: #### H EMDF, DDI2, BMP3, TROPN, QWAL #### [facility] [address] [place] [address] Granulocytes/100 WBC (Bld) 63.6 % Normal 40.0-80.0 [facility] Comment on above: Performed By: #### H EMDF, DDI2, BMP3, TROPN, QWAL #### [facility] [address] [place] [address] Hematocrit (Bld) [Volume fraction] 39.2 % Normal 35.0-47.0 [facility] Comment on above: Performed By: #### H EMDF, DDI2, BMP3, TROPN, QWAL #### [facility] [address] [place] [address] Hemoglobin (Bld) [Mass/Vol] 13.7 g/dL Normal 11.7-16.0 [facility] Comment on above: Performed By: #### H EMDF, DDI2, BMP3, TROPN, QWAL #### [facility] [address] [place] [address] Lymphocytes (Bld) [#/Vol] 2.1 10*3/uL Normal 1.0-4.3 [facility] Comment on above: Performed By: #### H EMDF, DDI2, BMP3, TROPN, QWAL #### [facility] [address] [place] [address] Lymphocytes/100 WBC (Bld) 27.4 % Normal 20.0-40.0 [facility] Comment on above: Performed By: #### H EMDF, DDI2, BMP3, TROPN, QWAL #### [facility] [address] [place] [address] MCH (RBC) [Entitic mass] 34.5 pg High 26.0-34.0 [facility] Comment on above: Performed By: #### H EMDF, DDI2, BMP3, TROPN, QWAL #### [facility] [address] [place] [address] MCHC (RBC) [Mass/Vol] 34.8 % Normal 32.0-36.0 [facility] Comment on above: Performed By: #### H EMDF, DDI2, BMP3, TROPN, QWAL #### [facility] [address] [place] [address] MCV (RBC) [Entitic vol] 98.9 fL High 79.0-98.0 [facility] Comment on above: Performed By: #### H EMDF, DDI2, BMP3, TROPN, QWAL #### [facility] [address] [place] [address] Monocytes (Bld) [#/Vol] 0.6 10*3/uL Normal 0.0-0.8 [facility] Comment on above: Performed By: #### H EMDF, DDI2, BMP3, TROPN, QWAL #### [facility] [address] [place] [address] Monocytes/100 WBC (Bld) 7.6 % Normal 2.0-10.0 [facility] Comment on above: Performed By: #### H EMDF, DDI2, BMP3, TROPN, QWAL #### [facility] [address] [place] [address] Platelet mean volume (Bld) [Entitic vol] 8.5 fL Normal 7.4-10.4 [facility] Comment on above: Performed By: #### H EMDF, DDI2, BMP3, TROPN, QWAL #### [facility] [address] [place] [address] Platelets (Bld) [#/Vol] 253 10*3/uL Normal 140-440 [facility] Comment on above: Performed By: #### H EMDF, DDI2, BMP3, TROPN, QWAL #### [facility] [address] [place] [address] RBC (Bld) [#/Vol] 3.97 10*6/uL Normal 3.80-5.20 [facility] Comment on above: Performed By: #### H EMDF, DDI2, BMP3, TROPN, QWAL #### [facility] [address] [place] [address] WBC (Bld) [#/Vol] 7.7 10*3/uL Normal 3.6-10.7 [facility] Comment on above: Performed By: #### H EMDF, DDI2, BMP3, TROPN, QWAL #### [facility] [address] [place] [address] Troponinon 10-04-2019 Troponin I.cardiac [Mass/Vol] ng/mL 0 - 0.034 ng/mL [place] Comment on above: . Test Performed by [facility], [address] [place] [id number] [place] [address] Troponin Ion 10-04-2019 Troponin I.cardiac [Mass/Vol] ng/mL Normal 0.000-0.034 [facility] Comment on above: Result Comment: . Performed By: #### H EMDF, DDI2, BMP3, TROPN, QWAL #### [facility] [address] [place] [address] XR CHEST PORTABLEon 10-04-19 20 Rickey, [facility] Incoming Radiology Results From [facility] - 10/04/2019 3:03 AM EDT Patient Name: POONAM RAUSCH ---Diagnostic Radiology--- Exam Date/Time 10/04/2019 02:45:51 EDT Exam CR Chest Portable Ordering Physician MD NUHA, DANIEL Cheung Accession Number [id number] CPT4 Codes 09745 () Reason For Exam SOB Report PORTABLE CHEST CLINICAL INDICATION: Shortness of breath TECHNIQUE: Portable AP COMPARISON: None FINDINGS: Exam quality: EKG leads obscure small portions of the chest. The heart and mediastinum are normal. Linear focus of atelectasis is noted in the right lower hemithorax. There is no consolidation. Costophrenic angles are sharp. There is a pseudoarticulation within the midportion of the right first rib. IMPRESSION: Subsegmental atelectasis in the right. No consolidation or other significant abnormality Report Dictated on Workstation: Bin1 ATE --- Final --- Dictating Physician: MD HENSON JEFFREY Signed Date and Time: 10/04/2019 3:02 am Signed by: MD HENSON JEFFREY Transcribed Date and Time: 10/04/2019 3:03 [place], [place] Patient Name: POONAM RAUSCH ---Diagnostic Radiology--- Exam Date/Time 10/04/2019 02:45:51 EDT Exam CR Chest Portable Ordering Physician MD NUHA, DANIEL Cheung Accession Number [id number] CPT4 Codes 96159 () Reason For Exam SOB Report PORTABLE CHEST CLINICAL INDICATION: Shortness of breath TECHNIQUE: Portable AP COMPARISON: None FINDINGS: Exam quality: EKG leads obscure small portions of the chest. The heart and mediastinum are normal. Linear focus of atelectasis is noted in the right lower hemithorax. There is no consolidation. Costophrenic angles are sharp. There is a pseudoarticulation within the midportion of the right first rib. IMPRESSION: Subsegmental atelectasis in the right. No consolidation or other significant abnormality Report Dictated on Workstation: Bin1 ATE --- Final --- Dictating Physician: MD HENSON JEFFREY Signed Date and Time: 10/04/2019 3:02 am Signed by: MD NATIVIDAD, PATTI Transcribed Date and Time: 10/04/2019 3:03 [facility], [place] hCG Qual Pregon 10-04-2019 hCG Qual Preg Negative Normal [facility] Comment on above: Result Comment: Amber guerrero Range: NEGATIVE Effective 09/12/2019, the reference interval for the qualitative test has been updated. This test detects hCG at concentrations of 10 mIU/L or greater in serum. Performed By: #### H EMDF, DDI2, BMP3, TROPN, QWAL #### [facility] [address] [place] [address] Vital Signs Date Time Vital Sign Value Performing Clinician Facility 12-27-2023 20:00-0400 Diastolic blood pressure 84 mm[Hg] Shawn Mccormack MD Work Phone: [facility] 12-27-2023 20:00-0400 Heart rate 75 /min Shawn Mccormack MD Work Phone: [facility] 12-27-2023 20:00-0400 Systolic blood pressure 130 mm[Hg] Shawn Mccormack MD Work Phone: [facility] 12-27-2023 19:35-0400 Body height 160 cm Shawn Mccormack MD Work Phone: [facility] 12-27-2023 19:35-0400 Body mass index (BMI) [Ratio] 24.8 kg/m2 Shawn Mccormack MD Work Phone: [facility] 12-27-2023 19:35-0400 Body weight 63.5 kg Shawn Mccormack MD Work Phone: [facility] 12-27-2023 19:35-0400 Respiratory rate 17 /min Shawn Mccormack MD Work Phone: [facility] 12-27-2023 19:35-0400 SaO2% (BldA) [Mass fraction] 96 % Shawn Mccormack MD Work Phone: [facility] 12-27-2023 06:00-0400 Body temperature 98.2 [degF] Shawn Mccormack MD Work Phone: [facility] 12-23-2023 08:04-0400 Diastolic blood pressure 93 mm[Hg] Dwight Chatmanla DO Work Phone: [facility] 12-23-2023 08:04-0400 Heart rate 102 /min Dwight Salas DO Work Phone: [facility] 12-23-2023 08:04-0400 Respiratory rate 18 /min Dwight Salas DO Work Phone: [facility] 12-23-2023 08:04-0400 SaO2% (BldA) [Mass fraction] 99 % Dwight Salas DO Work Phone: [facility] 12-23-2023 08:04-0400 Systolic blood pressure 136 mm[Hg] Dwight Salas DO Work Phone: [facility] 12-22-2023 22:58-0400 Body height 162.6 cm Dwight Salas DO Work Phone: [facility] 12-22-2023 22:58-0400 Body mass index (BMI) [Ratio] 26.61 kg/m2 Dwight Salas DO Work Phone: [facility] 12-22-2023 22:58-0400 Body temperature 97.9 [degF] Dwight Salas DO Work Phone: [facility] 12-22-2023 22:58-0400 Body weight 70.31 kg Dwight Salas DO Work Phone: [facility] 10-25-2023 09:59-0400 Diastolic blood pressure 85 mm[Hg[facility]25-[facility]23 09:59-0400 Heart rate 97 /min Trip Abad [facility] 10-25-2023 09:59-0400 Systolic blood pressure 134 mm[Hg] [facility] 10-21-2023 13:18-0400 Body height 160 cm Leslee Bicanovsky DO Work Phone: [facility] 10-21-2023 13:18-0400 Body mass index (BMI) [Ratio] 29.48 kg/m2 Leslee Bicanovsky DO Work Phone: [facility] 10-21-2023 13:18-0400 Body weight 75.5 kg Leslee Bicanovsky DO Work Phone: [facility] 10-21-2023 13:18-0400 Diastolic blood pressure 85 mm[Hg] Leslee Bicanovsky DO Work Phone: [facility] 10-21-2023 13:18-0400 Heart rate 101 /min Leslee Bicanovsky DO Work Phone: [facility] 10-21-2023 13:18-0400 Systolic blood pressure 130 mm[Hg] Leslee Bicanovsky DO Work Phone: [facility] 10-18-2023 13:42-0400 Diastolic blood pressure 87 mm[Hg] [address] 10-18-2023 13:42-0400 Heart rate 111 /min [address] 10-18-2023 13:42-0400 Systolic blood pressure 131 mm[Hg] [address] 10-14-2023 11:17-0400 Body height 160 cm Leslee Bicanovsky DO Work Phone: [facility] 10-14-2023 11:17-0400 Body mass index (BMI) [Ratio] 30.7 kg/m2 Leslee Bicanovsky DO Work Phone: [facility] 10-14-2023 11:17-0400 Body weight 78.6 kg Leslee Bicanovsky DO Work Phone: [facility] 10-14-2023 11:17-0400 Diastolic blood pressure 86 mm[Hg] Leslee Bicanovsky DO Work Phone: [facility] 10-14-2023 11:17-0400 Heart rate 101 /min Leslee Bicanovsky DO Work Phone: [facility] 10-14-2023 11:17-0400 Systolic blood pressure 128 mm[Hg] Leslee Bicanovsky DO Work Phone: [facility] 10-11-2023 11:38-0400 Diastolic blood pressure 83 mm[Hg] Leslee Bicanovsky DO Work Phone: [facility] 10-11-2023 11:38-0400 Heart rate 116 /min Leslee Bicanovsky DO Work Phone: [facility] 10-11-2023 11:38-0400 Systolic blood pressure 133 mm[Hg] Leslee Bicanovsky DO Work Phone: [facility] 10-11-2023 11:13-0400 Body height 160 cm Leslee Bicanovsky DO Work Phone: [facility] 10-11-2023 11:13-0400 Body mass index (BMI) [Ratio] 29.68 kg/m2 Leslee Bicanovsky DO Work Phone: [facility] 10-11-2023 11:13-0400 Body weight 76 kg Leslee Bicanovsky DO Work Phone: [facility] 10-05-2023 13:19-0400 Body mass index (BMI) [Ratio] 29.62 kg/m2 Leslee Bicanovsky DO Work Phone: [facility] 10-05-2023 13:19-0400 Body weight 75.85 kg Leslee Bicanovsky DO Work Phone: [facility] 10-05-2023 13:19-0400 Diastolic blood pressure 85 mm[Hg] Leslee Bicanovsky DO Work Phone: [facility] 10-05-2023 13:19-0400 Heart rate 107 /min Leslee Bicanovsky DO Work Phone: [facility] 10-05-2023 13:19-0400 Systolic blood pressure 122 mm[Hg] Leslee Bicanovsky DO Work Phone: [facility] 10-04-2023 11:50-0400 Diastolic blood pressure 80 mm[Hg] Nurse Comm Work Phone: [facility] 10-04-2023 11:50-0400 Heart rate 102 /min Nurse Comm Work Phone: [facility] 10-04-2023 11:50-0400 Systolic blood pressure 119 mm[Hg] Nurse Comm Work Phone: [facility] 09-28-2023 09:25-0400 Body height 160 cm Hailee Wood TIERCE FILLER.DINKEY ENGINE FIRER/FIREMAN Work Phone: [facility] 09-28-2023 09:25-0400 Body mass index (BMI) [Ratio] 29.76 kg/m2 Hailee Wood [employer]ER[employer] FILLER.DINKEY ENGINE FIRER/FIREMAN Work Phone: [facility] 09-28-2023 09:25-0400 Body weight 76.2 kg Hailee Wood [employer]ERCE FILLER.DINKEY ENGINE FIRER/FIREMAN Work Phone: [facility] 09-28-2023 09:25-0400 Diastolic blood pressure 89 mm[Hg] Hailee Wood [employer]ERCE FILLER.DINKEY ENGINE FIRER/FIREMAN Work Phone: [facility] 09-28-2023 09:25-0400 Heart rate 100 /min Hailee Wood [employer]ERCE FILLER.DINKEY ENGINE FIRER/FIREMAN Work Phone: [facility] 09-28-2023 09:25-0400 Systolic blood pressure 133 mm[Hg] Hailee Wood [employer]ERCE FILLER.DINKEY ENGINE FIRER/FIREMAN Work Phone: [facility] 09-23-2023 10:26-0400 Body height 160 cm Leslee Bicanovsky DO Work Phone: [facility] 09-23-2023 10:26-0400 Body mass index (BMI) [Ratio] 29.45 kg/m2 Leslee Bicanovsky DO Work Phone: [facility] 09-23-2023 10:26-0400 Body weight 75.4 kg Leslee Bicanovsky DO Work Phone: [facility] 09-23-2023 10:26-0400 Diastolic blood pressure 89 mm[Hg] Leslee Bicanovsky DO Work Phone: [facility] 09-23-2023 10:26-0400 Heart rate 105 /min Leslee Walteranoshekharky DO Work Phone: [facility] 09-23-2023 10:26-0400 Systolic blood pressure 137 mm[Hg] Leslee Walteranovsky DO Work Phone: [facility] 09-20-2023 13:44-0400 Body weight [address] 09-20-2023 13:44-0400 Diastolic blood pressure 79 mm[Hg] [address] 09-20-2023 13:44-0400 Heart rate 103 /min [address] 09-20-2023 13:44-0400 Systolic blood pressure 113 mm[Hg] [address] 08-20-2023 11:05-0400 Body weight 75.3 kg Luis Pratt TIERCE FILLER.CNM Work Phone: [facility] 08-20-2023 11:05-0400 Diastolic blood pressure 80 mm[Hg] Luis Pratt TIERCE FILLER.CNM Work Phone: [facility] 08-20-2023 11:05-0400 Heart rate 97 /min Luis Pratt TIERCE FILLER.CNM Work Phone: [facility] 08-20-2023 11:05-0400 Systolic blood pressure 118 mm[Hg] Luis Pratt TIERCE FILLER.CNM Work Phone: [facility] 05-03-2023 14:15-0500 Diastolic blood pressure 78 mm[Hg] Clary Child MD Work Phone: [facility] 05-03-2023 14:15-0500 Heart rate 97 /min Clary Child MD Work Phone: [facility] 05-03-2023 14:15-0500 Systolic blood pressure 136 mm[Hg] Clary Child MD Work Phone: [facility] 05-03-2023 14:14-0500 Diastolic blood pressure 89 mm[Hg] Clary Child MD Work Phone: [facility] 05-03-2023 14:14-0500 Heart rate 120 /min Clary Child MD Work Phone: [facility] 05-03-2023 14:14-0500 Systolic blood pressure 150 mm[Hg] Clary Child MD Work Phone: [facility] 07-03-2022 11:07-0500 Body height 159.4 cm Patsy Soriano TIERCE FILLER.DINKEY ENGINE FIRER/FIREMAN Work Phone: [facility] 07-03-2022 11:07-0500 Body temperature 97.3 [degF] Patsy Soriano TIERCE FILLER.DINKEY ENGINE FIRER/FIREMAN Work Phone: [facility] 07-03-2022 11:07-0500 Body weight 63.5 kg Patsy Soriano TIERCE FILLER.DINKEY ENGINE FIRER/FIREMAN Work Phone: [facility] 07-03-2022 11:07-0500 Diastolic blood pressure 81 mm[Hg] Patsy Soriano TIERCE FILLER.DINKEY ENGINE FIRER/FIREMAN Work Phone: [facility] 07-03-2022 11:07-0500 Heart rate 64 /min Patsy Soriano TIERCE FILLER.DINKEY ENGINE FIRER/FIREMAN Work Phone: [facility] 07-03-2022 11:07-0500 Respiratory rate 18 /min Patsy Soriano TIERCE FILLER.DINKEY ENGINE FIRER/FIREMAN Work Phone: [facility] 07-03-2022 11:07-0500 SaO2% (BldA) [Mass fraction] 96 % Patsy Soriano TIERCE FILLER.DINKEY ENGINE FIRER/FIREMAN Work Phone: [facility] 07-03-2022 11:07-0500 Systolic blood pressure 132 mm[Hg] Patsy Soriano TIERCE FILLER.DINKEY ENGINE FIRER/FIREMAN Work Phone: [facility] 10-04-2019 03:32-0400 Pulse (Heart Rate) 82 /min Danieltoni [place], [place] 10-04-2019 03:32-0400 Pulse Oximetry 100 % Daniel Guerrero [employer] [place] , [place] 10-04-2019 03:32-0400 Respiratory Rate 18 /min Daniel Guerrero [employer] [place], [place] 10-04-2019 03:31-0400 BP Diastolic 81 mm[Hg] Daniel Guerrero [facility] [place] , [place] 10-04-2019 03:31-0400 BP Systolic 118 mm[Hg] Daniel Guerrero [facility] [place] , [place] 10-04-2019 02:02-0400 BMI (Body Mass Index) 26.61 kg/m2 Daniel Guerrero [facility] [place], [place] 10-04-2019 02:02-0400 Body Temperature 98.1 [degF] Daniel Guerrero [employer] [place] [facility], [place] 10-04-2019 02:02-0400 Body weight 70.31 kg [facility] [place] Encounters Encounter Date Encounter Type Care Provider Facility Start: 06-17-2024 ambulatory Belén Pete Facility :[facility] Start: 06-17-2024 End: 06-21-2024 Evaluation and management of inpatient [facility] Facility:[facility] Start: 01-31-2024 End: 08-18-2024 ambulatory [facility] Start: 12-26-2023 End: 12-28-2023 Emergency department patient visit Shawn Mccormack MD Work Phone: [facility] Comment on above: Alcoholic intoxicati on with complication ([facility]) (Primary Dx) Start: 12-22-2023 End: 12-23-2023 Emergency department patient visit Dwight Salas DO Work Phone: [facility] Comment on above: Aggressive behavior (Primary Dx); Alcoholic intoxication without complication ([facility]) Start: 12-16-2023 End: 12-16-2023 Patient encounter procedure Leslee Landry DO Work Phone: CB/Gynecology Comment on above: No-show for appointm ent (Primary Dx) Start: 12-11-2023 Refill Laura GARDNER Work Phone: Obstetrics/Gynecology Comment on above: Refill Request Start: 12-08-2023 End: 12-10-2023 Emergency department patient visit LO ROSARIO [facility] Start: 10-29-2023 End: 10-31-2023 Evaluation and management of inpatient LO ROSARIO Facility:[facility] Start: 10-28-2023 ambulatory Hanane Landa RN NU RSE CLOSING AGENT Start: 10-28-2023 Patient encounter procedure Hanane Landa RN NURSE CLOSING AGENT Comment on above: Clinical Update Start: 10-25-2023 End: 10-25-2023 ambulatory LO ROSARIO Facility:[facility] Start: 10-25-2023 End: 10-25-2023 Patient encounter procedure Whi Tech [employer] [facility] Maternal [facility] Comment on above: Chronic hypertension in (Primary Dx); 38 weeks gestation of Start: 10-21-2023 End: 10-21-2023 ambulatory LESLEE LANDRY Facility:[facility] Start: 10-21-2023 End: 10-21-2023 Patient encounter procedure Leslee Landry DO Work Phone: CB/Gynecology Comment on above: Chronic hypertension in (Primary Dx); History of alcohol use; NST (non-stress test) reactive; GBS bacteriuria; Supervision of high risk in third trimester; Anxiety and depression; History of prior with IUGR Start: 10-18-2023 End: 10-18-2023 ambulatory [place] FELIPE FLORES Facility:[facility] Start: 10-18-2023 End: 10-18-2023 Patient encounter procedure [employer] [place] [id number] [facility] Comment on above: Pre-existing hyperte nsion complicating in third trimester (Primary Dx); History of prior with IUGR ; 37 weeks gestation of Start: 10-14-2023 End: 10-14-2023 ambulatory LESLEE LANDRY Facility:[facility] Start: 10-14-2023 End: 10-14-2023 Patient encounter procedure Leslee Landry DO Work Phone: CB/Gynecology Comment on above: Chronic hypertension in (Primary Dx); History of marijuana use; History of alcohol use; Supervision of high risk in third trimester; History of prior with IUGR ; NST (non-stress test) reactive Start: 10-11-2023 Telephone encounter Leslee delarosa DO Work Phone: CB/Gynecology Comment on above: BP Log Clinical Update Start: 10-11-2023 End: 10-11-2023 ambulatory LESLEE LANDRY Facility:[facility] Start: 10-11-2023 End: 10-11-2023 Patient encounter procedure Leslee Landry DO Work Phone: CB/Gynecology Comment on above: Supervision of high risk in third trimester (Primary Dx); Chronic hypertension in ; 36 weeks gestation of ; NST (non-stress test) nonreactive; History of prior with IUGR ; Glucose intolerance of 36 weeks gestation o f (Primary Dx); NST (non-stress test) nonreactive Start: 10-05-2023 End: 10-05-2023 ambulatory LO ROSARIO Facility:[facility] Start: 10-05-2023 End: 10-05-2023 Patient encounter procedure Leslee Landyr DO Work Phone: CB/Gynecology Comment on above: Supervision of high risk in third trimester (Primary Dx); History of prior with IUGR ; GBS bacteriuria; NST (non-stress test) reactive; Anxiety and depression; Pre-existing hypertension affecting in third trimester; History of depression Start: 10-04-2023 End: 10-04-2023 ambulatory LO ROSARIO Facility:[facility] Start: 10-04-2023 End: 10-04-2023 Nursing evaluation of patient and report Nurse [employer] [facility] Work Phone: CB/Gynecology Comment on above: Pre-existing hyperte nsion affecting in third trimester (Primary Dx) Start: 10-01-2023 Telephone encounter Luis ponce APRN.CNM Work Phone: OB/Gynecology Start: 10-01-2023 End: 10-01-2023 ambulatory LO ROSARIO Facility:[facility] Start: 09-28-2023 End: 09-28-2023 ambulatory Hailee Landeros APRN.DINKEY ENGINE FIRER/FIREMAN Work Phone: CB/Gynecology Comment on above: BP logs Start: 09-28-2023 E-mail encounter ramontia benavidez caregiver Hailee Landeros APRN.DINKEY ENGINE FIRER/FIREMAN Work Phone: CB/Gynecology Start: 09-28-2023 End: 09-28-2023 Patient encounter procedure Hailee Landeros APRN.DINKEY ENGINE FIRER/FIREMAN Work Phone: CB/Gynecology Comment on above: Supervision of high risk , antepartum, third trimester (Primary Dx); Pre-existing hypertension affecting in third trimester; History of prior with IUGR ; GBS bacteriuria; Glucose intolerance of ; Abnormal urine findings; 34 weeks gestation of ; NST (non-stress test) reactive Start: 09-24-2023 Telephone encounter Laura QUEZADA RN.RENEEM Work Phone: Obstetrics/Gynecology Start: 09-24-2023 End: 09-24-2023 ambulatory LO ROSARIO Facility:[facility] Start: 09-23-2023 End: 09-24-2023 ambulatory [facility] Provider CB/Gynecology Comment on above: BP Log Start: 09-23-2023 E-mail encounter ramonita benavidez caregiver [facility] Provider CB/Gynecology Start: 09-23-2023 End: 09-23-2023 Patient encounter procedure Leslee Landry DO Work Phone: CB/Gynecology Comment on above: Supervision of high risk , antepartum, third trimester (Primary Dx); Chronic hypertension in ; NST (non-stress test) reactive; History of gestational hypertension; Alcohol use disorder; History of depression; History of prior with IUGR Start: 09-21-2023 Telephone encounter Leslee delarosa DO Work Phone: CB/Gynecology Comment on above: Appointment Start: 09-20-2023 End: 09-20-2023 ambulatory KENNA SHARIF Facility:[facility] Start: 09-20-2023 End: 09-20-2023 Patient encounter procedure Whi [employer] [facility] Comment on above: Encounter for ultras ound to check growth (Primary Dx); Pre-existing hypertension complicating in third trimester; History of prior with IUGR ; 33 weeks gestation of Start: 09-17-2023 End: 09-17-2023 ambulatory Alice Hudson RN NURSE CLOSING AGENT Comment on above: Vaginal Discharge Start: 08-23-2023 Telephone encounter Shawn ( Rn) Marci RN Obstetrics/Gynecology Comment on above: Refer / Community Re sources ( Resources ) Start: 08-20-2023 End: 08-23-2023 ambulatory LUIS PRATT Facility:[facility] Start: 08-20-2023 End: 08-20-2023 ambulatory [facility] Facility:[facility] Start: 08-20-2023 End: 08-23-2023 Patient encounter procedure Luis Pratt APRN.CNM Work Phone: OB/Gynecology Comment on above: 28 weeks gestation o f (Primary Dx); Pre-existing essential hypertension complicating , first trimester; History of gestational hypertension; Alcohol use disorder; History of depression; Supervision of high risk , antepartum, third trimester; No-show for appointment; History of prior with IUGR History of prior pre gnancy with IUGR (Primary Dx); 28 weeks gestation of ; History of depression; Supervision of high risk , antepartum, third trimester; Pre-existing hypertension complicating in third trimester Start: 08-18-2023 End: 08-18-2023 Patient encounter procedure Violeta Sandoval APRN.CNM Work Phone: OB/Gynecology Comment on above: OPENED IN ERROR (Shanae noe Dx) Start: 07-20-2023 End: 07-20-2023 Patient encounter procedure Leslee Landry DO Work Phone: CB/Gynecology Comment on above: No-show for appointm ent (Primary Dx) Start: 07-06-2023 E-mail encounter ramonita benavidez caregiver [facility] Provider [facility] Start: 07-06-2023 Patient encounter procedure [facility] Provider OB/Gynecology Comment on above: OB appointments Start: 07-02-2023 End: 07-02-2023 ambulatory VIOLETA J SANDOVAL Facility:[facility] Start: 06-25-2023 End: 06-25-2023 ambulatory LO ROSARIO Facility:[facility] Start: 06-01-2023 End: 06-01-2023 ambulatory LO ROSARIO Facility:[facility] Start: 05-03-2023 End: 05-04-2023 ambulatory CLARY CHILD Facility:[facility] Start: 05-03-2023 End: 05-03-2023 ambulatory VIOLETA SANDOVAL Facility:[facility] Start: 05-03-2023 End: 05-03-2023 Patient encounter procedure Clary Child MD Work Phone: Maternal Medicine [facility] Comment on above: Encounter for (NT) n uchal translucency scan (Primary Dx); High-risk in first trimester Pre-existing essenti al hypertension complicating , first trimester (Primary Dx); High-risk in first trimester; History of gestational hypertension; Prior complicated by IUGR, antepartum; Alcohol use disorder; History of depression; History of prior with IUGR Start: 05-03-2023 End: 05-03-2023 ambulatory CARRI RIVAS Facility:[facility] Start: 04-23-2023 End: 04-24-2023 ambulatory VIOLETA SANDOVAL Facility:[facility] Start: 04-20-2023 End: 04-20-2023 [facility] Carri Rivas DO Work Phone: Psychiatry Comment on above: Severe episode of re current major depressive disorder, without psychotic features (HCC) (Primary Dx); PTSD (post-traumatic stress disorder) Start: 04-05-2023 Orders Only Violeta Sandoval TIERCE FILLER.CNM Work Phone: OB/Gynecology Start: 04-02-2023 Telephone encounter Historical Mat ernal Medicine [facility] Start: 03-25-2023 ambulatory Kendrick Ren RN Obste trics/Gynecology Comment on above: OB Navigation and Pr egnancy Resources Start: 03-25-2023 E-mail encounter fro m caregiver Kendrick Ren RN [facility] Start: 03-25-2023 Telephone encounter Kendrick Lopez Obstetrics/Gynecology Comment on above: Refer / Community Re sources (OB Navigation and Resources ) Start: 03-24-2023 End: 03-24-2023 ambulatory VIOLETA BRYANTSON Facility:[facility] Start: 12-24-2022 End: 12-24-2022 Emergency department patient visit LO ROSARIO [facility] Start: 07-03-2022 End: 07-03-2022 Patient encounter procedure Patsy Soriano TIERCE FILLER.DINKEY ENGINE FIRER/FIREMAN Work Phone: [facility] Comment on above: Strep throat (Primar y Dx); Enlargement of left palatine tonsil Start: 12-29-2019 End: 12-29-2019 Subsequent hospital visit by physician Lo Rosario Work Phone: [facility] Comment on above: Arrived Start: 10-04-2019 End: 10-04-2019 Emergency department patient visit Daniel Thomas Work Phone: [facility] Comment on above: Shortness of breath (Primary Dx) Procedures Date Procedure Procedure Detail Performing Clinician Start: 12-27-2023 Ethanol [Mass/volume ] in Serum or Plasma Zbigniew Flores PA-C Work Phone: Start: 12-26-2023 Ecg routine ecg w/le ast 12 lds trcg only w/o i&r Esteban Masterson PA-C Work Phone: Start: 12-26-2023 Drug tst prsmv instr mnt chem analyzers pr date Esteban Masterson PA-C Work Phone: Start: 12-26-2023 EXTRA URINE ARECHIGA TUBE J actarsha Masterson PA-C Work Phone: Start: 12-26-2023 Urinalysis complete W Reflex Culture panel - Urine Esteban Masterson PA-C Work Phone: Start: 12-26-2023 Urinalysis microscop ic panel - Urine Qualitative by Automated Esteban Masterson PA-C Work Phone: Start: 12-26-2023 Urnls dip stick/tabl et reagent auto microscopy Esteban Masterson PA-C Work Phone: Start: 12-26-2023 ACUTE TOXICOLOGY CASTRO EL, BLOOD Esteban Masterson PA-C Work Phone: Start: 12-26-2023 Comprehensive metabo lic panel Esteban Masterson PA-C Work Phone: Start: 12-26-2023 EXTRA TUBES Shawn Mccormack MD Work Phone: Start: 12-26-2023 RED TOP Shawn Mccormack MD Work Phone: Start: 12-22-2023 Ecg routine ecg w/le ast 12 lds trcg only w/o i&r Tee Delarosa PA-C Work Phone: Start: 12-22-2023 ACUTE TOXICOLOGY CASTRO , BLOOD Tee Delarosa PA-C Work Phone: Start: 12-22-2023 Comprehensive metabo lic panel Tee Delarosa PA-C Work Phone: Start: 12-22-2023 Drug tst prsmv instr mnt chem analyzers pr date Tee Delarosa PA-C Work Phone: Start: 12-22-2023 Urinalysis microscop ic panel - Urine Qualitative by Automated Tee Delarosa PA-C Work Phone: Start: 12-22-2023 Urine test visual color cmprsn meths Tee JACOBOC Work Phone: Start: 12-22-2023 Urnls dip stick/tabl et reagent auto microscopy Tee JACOBOC Work Phone: Start: 10-29-2023 Antibody screen LO DIAS Comment on above: Order Comment: Speci men Type: BLOOD SPECIMENOrdering Facility: [facility] Address: [address] [place] [address] Performed By: #### T KARTHIK ####LITZY BLOOD BANKCLIA [id number] [address] [facility] Start: 10-25-2023 biophysical pr ofile non-stress testing Abran Maloney MD Work Phone: Start: 10-21-2023 Urnls dip stick/tabl et rgnt auto w/o microscopy Leslee Landry DO Work Phone: Start: 10-18-2023 biophysical pr ofile non-stress testing Abran Maloney MD Work Phone: Start: 10-14-2023 Drug tst prsmv instr mnt chem analyzers pr date Leslee Landry DO Work Phone: Start: 10-14-2023 Urnls dip stick/tabl et rgnt auto w/o microscopy Leslee Landry DO Work Phone: Start: 10-11-2023 biophysical pr ofile non-stress testing Leslee Landry DO Work Phone: Start: 10-11-2023 Urnls dip stick/tabl et rgnt auto w/o microscopy Leslee Landry DO Work Phone: Start: 10-05-2023 Urnls dip stick/tabl et rgnt auto w/o microscopy Leslee Landry DO Work Phone: Start: 09-28-2023 Urnls dip stick/tabl et rgnt auto w/o microscopy Hailee [place] TIERCE FILLER.[facility] Work Phone: Start: 09-23-2023 Urnls dip stick/tabl et rgnt auto w/o microscopy Leslee Landry DO Work Phone: Start: 09-20-2023 Us preg uterus after 1st trimest 06/07 gestation Kenna Sharif MD Work Phone: Start: 08-20-2023 Us preg uterus after 1st trimest 06/07 gestation Luis Pratt TIERCE FILLER.CNM Work Phone: Start: 08-20-2023 URINE OB DIP B/O Emilie Pratt TIERCE FILLER.CNM Work Phone: Start: 05-03-2023 Us nuchal williamson slucency 1st gestation Violeta Matias Sandoval TIERCE FILLER.CNM Work Phone: Start: 04-23-2023 Antibody screen DOLLY Veronica LANDERSO Comment on above: Order Comment: Speci men Type: BLOOD SPECIMENOrdering Facility: [facility] Address: [address] [place] [address] Performed By: #### T SPN ####CC MAIN BLOOD BANKCLIA [id number] [facility] [id number] [place] [address] Start: 07-03-2022 STREP A MOLECULAR (POC) [facility] Provider Start: 06-04-2021 Lipid 1996 panel - S aisha or Plasma Dwight Salas DO Work Phone: Start: 03-16-2020 Follow-up visit Start: 12-29-2019 Urnls dip stick/tabl et rgnt auto w/o microscopy Lo Rosario Work Phone: Start: 12-29-2019 Us abdominal real ti me w/image limited Lo Rosario Work Phone: Start: 10-04-2019 Radiologic exam ches t single view Daniel Thomas Work Phone: Start: 10-04-2019 Assay of troponin quantitative Daniel Thomas Work Phone: Start: 10-04-2019 Basic metabolic pane l calcium total Daniel Thomas Work Phone: Start: 10-04-2019 Blood count complete auto&auto difrntl wbc Daniel Thomas Work Phone: Start: 10-04-2019 Fibrin dgradj produc ts d-dimer quantitative Daniel Thomas Work Phone: Start: 10-04-2019 Gonadotropin chorion ic qualitative Daniel Thomas Work Phone: Plan of Treatment Date Care Activity Detail Author Start: 02-28-2044 Zoster Vaccines (1 of 2) Zoste r Vaccines (1 of 2) [facility] Start: 06-04-2026 Lipid panel Lipid Panel [facility] Start: 03-24-2026 Pap Testing Pap Testing [facility] Start: 03-24-2026 Screening for malign ant neoplasm of cervix [facility] Start: 09-30-2024 Diabetes mellitus screening Diabetes Screening [facility] Start: 02-06-2024 Influenza vaccination [facility] Start: 12-16-2023 End: 12-16-2023 Patient encounter procedure CB/Gynecology Comment on above: 6 week pp UPDATE INSURANCE Start: 11-15-2023 End: 11-15-2023 Patient encounter procedure 11/15/2023 2:15 PM EDT Office Visit CB/Gynecology [address] [place] [address] Hailee Landeros, TIERCE FILLER.[address] [address] 2 week CB/Gynecology Comment on above: 2 week Start: 11-08-2023 End: 11-08-2023 Patient encounter procedure 11/08/2023 2:00 PM EDT Routine Office Visit [facility]cology [address] [facility] [place] [address] Hailee Landeros, TIERCE FILLER.[address] [address] 40 weeks CB/Gynecology Comment on above: 40 weeks Start: 11-04-2023 End: 11-04-2023 Patient encounter procedure 11/04/2023 11:00 AM EDT Routine Office Visit CB/Gynecology [address] [place] [address] [place] [address] [place] [address] 39 weeks CB/Gynecology Comment on above: 39 weeks Start: 11-03-2023 End: 11-03-2023 Patient encounter procedure 11/03/2023 11:30 AM EDT Routine Office Visit CB/Gynecology [address] [place] [address] [place] [address] [place] [address] 39 weeks CB/Gynecology Comment on above: 39 weeks Start: 10-29-2023 End: 10-29-2023 Patient encounter procedure 10/29/2023 10:00 AM EDT Routine Office Visit CB/Gynecology [address] [facility] [place] [address] [place] [address] [place] [address] 38 weeks CB/Gynecology Comment on above: 38 weeks Start: 10-28-2023 End: 10-28-2023 Patient encounter procedure 10/28/2023 10:00 AM EDT Routine Office Visit CB/Gynecology [address] [place] [address] [place] [address] [place] [address] [place] [address] 38 weeks CB/Gynecology Comment on above: 38 weeks Start: 10-25-2023 End: 10-25-2023 Patient encounter procedure CB/Gynecology Comment on above: 38 weeks BPP BPP - by LMP, CHTN, BMI 27, hx IUGR; Start: 10-21-2023 End: 10-21-2023 Patient encounter procedure 10/21/2023 1:00 PM EDT Routine Office Visit CB/Gynecology [address] [facility] [place] [address] [place] [address] [place] [address] 37 week CB/Gynecology Comment on above: 37 week Start: 10-20-2023 End: 10-20-2023 Patient encounter procedure 10/20/2023 5:00 PM EDT Routine Office Visit Obstetrics/Gynecology [address] [facility] [place] [address] Laura Lopez, TIERCE FILLER.CNM [address] [facility] [address] [address] [place] [address] Anxiety Med follow up Obstetrics/Gynecolog y Comment on above: Anxiety Med follow u p Start: 10-19-2023 End: 10-19-2023 Patient encounter procedure Maternal Medicine Comment on above: Pre-existing hyperte nsion complicating in third trimester [O10.913] 37 week Start: 10-18-2023 End: 10-18-2023 Patient encounter procedure 10/18/2023 1:00 PM EDT Routine Office Visit [facility]aternal Medicine [address] [facility] [address] [place] [address] Growth/BPP Maternal Medicine Comment on above: Growth/BPP Start: 10-14-2023 End: 10-14-2023 Patient encounter procedure 10/14/2023 1:30 PM EDT Routine Office Visit Maternal Medicine [address] [address] BPP Maternal Medicine Comment on above: BPP Start: 10-14-2023 End: 10-14-2023 Patient encounter procedure 10/14/2023 10:20 AM EDT Routine Office Visit CB/Gynecology [address] [employer] [facility] [place] [address] [place] [address] [facility] [place] [address] NST ONLY PT IS COMING AT 9:30 CB/Gynecology Comment on above: NST ONLY PT IS COMIN G AT 9:30 Start: 10-11-2023 End: 01-10-2024 Protein/Creatinine [Mass Ratio] in Urine [facility] Comment on above: Expected: 10/11/2023 , Expires: 01/10/2024 Start: 10-11-2023 End: 10-11-2023 Patient encounter procedure 10/11/2023 11:40 AM EDT Routine Office Visit CB/Gynecology [address] [employer] [facility] [place] [address] [place] [address] [place] [address] 36 weeks CB/Gynecology Comment on above: 36 weeks Start: 10-05-2023 End: 10-05-2023 Patient encounter procedure 10/05/2023 1:00 PM EDT Routine Office Visit CB/Gynecology [address] [facility] [place] [address] [place] [address] [place] [address] VISIT AFUA 11/07 CB/Gynecology Comment on above: VISIT AFUA 0 11/07 Start: 10-04-2023 End: 01-03-2024 CBC W Auto Differential panel - Blood COMPLETE BLOOD COUNT AND DIFFERENTIAL Lab Routine Pre-existing hypertension affecting in third trimester Expected: 10/04/2023, Expires: 01/03/[address] [facility] Comment on above: Expected: 10/04/2023 , Expires: 01/03/2024 Start: 10-04-2023 End: 01-03-2024 Comprehensive metabolic 2000 panel - Serum or Plasma COMPREHENSIVE METABOLIC PANEL Lab Routine Pre-existing hypertension affecting in third trimester Expected: 10/04/2023, Expires: 01/03/2024 [facility] Work Phone: Comment on above: Expected: 10/04/2023 , Expires: 01/03/2024 Start: 10-04-2023 End: 01-03-2024 Protein/Creatinine [Mass Ratio] in Urine PROTEIN / CREATININE RATIO Lab Routine Pre-existing hypertension affecting in third trimester Expected: 10/04/2023, Expires: 01/03/[address] [facility] Comment on above: Expected: 10/04/2023 , Expires: 01/03/2024 Start: 09-28-2023 End: 12-28-2023 GEST GLUC LUCY, 3-HR, 100 GM, FASTING GEST GLUC LUCY, 3-HR, 100 GM, FASTING Lab Routine Glucose intolerance of Expected: 09/28/2023, Expires: 12/28/2023 [facility] Work Phone: Comment on above: Expected: 09/28/2023 , Expires: 12/28/2023 Start: 09-20-2023 End: 09-19-2024 OBSTETRIC ULTRASOUND WHI OBSTETRIC ULTRASOUND WHI Anc Imaging Routine Pre-existing hypertension complicating in third trimester Expected: 09/20/2023, Expires: 09/19/2024 [facility] Work Phone: Comment on above: Expected: 09/20/2023 , Expires: 09/19/2024 Start: 09-10-2023 End: 08-19-2024 OBSTETRIC ULTRASOUND WHI OBSTETRIC ULTRASOUND WHI Anc Imaging Routine Pre-existing hypertension complicating in third trimester History of prior with IUGR Expected: 09/10/2023 (Approximate), Expires: 08/19/2024 [facility] Work Phone: Comment on above: Expected: 09/10/2023 (Approximate), Expires: 08/19/2024 Start: 08-20-2023 End: 11-19-2023 GEST GLUC SCREEN, 1-HR, 50 GM, NON-FASTING GEST GLUC SCREEN, 1-HR, 50 GM, NON-FASTING Lab Routine 28 weeks gestation of Expected: 08/20/2023, Expires: 11/19/2023 [facility] Work Phone: Comment on above: Expected: 08/20/2023 , Expires: 11/19/2023 Start: 08-20-2023 End: 08-19-2024 OBSTETRIC ULTRASOUND WHI OBSTETRIC ULTRASOUND WHI Anc Imaging Routine 28 weeks gestation of History of depression Supervision of high risk , antepartum, third trimester Expected: 08/20/2023, Expires: 08/19/2024 [facility] Work Phone: Comment on above: Expected: 08/20/2023 , Expires: 08/19/2024 Start: 06-07-2023 Behavioral Health Screening Behavioral Health Screening [facility] Start: 06-07-2023 Depression Assessment Depression Ass essment [facility] Start: 05-03-2023 End: 08-02-2023 Chromosome 21 trisomy [Presence] in Blood or Tissue by Cytogenetics [facility] Work Phone: Comment on above: Expected: 05/03/2023 , Expires: 08/02/2023 Start: 04-20-2023 End: 07-20-2023 Thyrotropin [Units/volume] in Serum or Plasma TSH BLD Lab Routine Severe episode of recurrent major depressive disorder, without psychotic features (HCC) Expected: 04/20/2023, Expires: 07/20/2023 [facility] Work Phone: Comment on above: Expected: 04/20/2023 , Expires: 07/20/2023 Start: 04-20-2023 End: 07-20-2023 TOX SCREEN ROUT UR TOX SCREEN ROUT UR Lab Routine Severe episode of recurrent major depressive disorder, without psychotic features (HCC) Expected: 04/20/2023, Expires: 07/20/2023 [facility] Work Phone: Comment on above: Expected: 04/20/2023 , Expires: 07/20/2023 Start: 02-05-2023 Covid-19 Vaccine ( season) Covid-19 Vaccine ( season) [facility] Start: 02-05-2023 Influenza vaccination Influenza Vacc ine (#1) [facility] Start: 06-07-2022 DEPRESSION ASSESSMENT DEPRESSION ASS ESSMENT [facility] Start: 02-05-2022 Influenza vaccination INFLUENZA (#1) [facility] Start: 02-06-2020 Influenza vaccination [place] Start: 08-18-2019 PAP TESTING PAP TESTING [facility] Start: 05-29-2015 DTaP/Tdap/Td vaccine (7 - Td) DTaP/Tdap/Td vaccine (7 - Td) [place] Start: 05-29-2015 DTaP/Tdap/Td Vaccine s (7 - Td or Tdap) DTaP/Tdap/Td Vaccines (7 - Td or Tdap) [facility] Start: 05-29-2015 Urine microalbumin profile [facility] Start: 2015 Screening for malign ant neoplasm of cervix [facility] Start: 02-28-2012 HEPATITIS C SCREENING HEPATITIS C [facility] Start: 02-28-2012 Hepatitis C screening Hepatitis C [facility] Start: 10-25-2008 Hepatitis A vaccine (2 of 2 - 2-dose series) Hepatitis A vaccine (2 of 2 - 2-dose series) [place] Start: 10-25-2008 Hepatitis A Vaccines (2 of 2 - 2-dose series) Hepatitis A Vaccines (2 of 2 - 2-dose series) [facility] Start: 05-25-2008 Varicella vaccination Varicell a Vaccines (1 of 2 - 13+ 2-dose series) [facility] Start: 02-28-2000 Pneumococcal 0-64 ye ars Vaccine (1 of 1 - PPSV23) Pneumococcal 0-64 years Vaccine (1 of 1 - PPSV23) [place] Start: 02-28-2000 Pneumococcal Vaccine : Pediatrics (0 to 5 Years) and At-Risk Patients (6 to 64 Years) (1 of 2 - PCV) Pneumococcal Vaccine: Pediatrics (0 to 5 Years) and At-Risk Patients (6 to 64 Years) (1 of 2 - PCV) [facility] Start: 1995 Varicella vaccine (1 of 2 - 2-dose childhood series) Varicella vaccine (1 of 2 - 2-dose childhood series) [place] Start: 1994 COVID-19 VACCINE (#1) COVID-19 VACCI NE (#1) [facility] Start: 1994 HIV screening HIV Screening [facility] Start: 1994 Yearly Adult Physical Yearly Adult P [facility] Bacteria identified in Urine by Culture URINE CULTURE Microbiology Routine 28 weeks gestation of Supervision of high risk , antepartum, third trimester 08/20/2023 12:01 PM EDT [facility] Work Phone: Bacteria identified in Urine by Culture URINE CULTURE Microbiology Routine Abnormal urine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 specimen collected. All instruments, equipment, possible retained foreign bodies accounted for. Post-procedure follow-up management communicated and Plan of Care Visit completed when applicable Comments 1% Lidocaine for skin localization. Negative heme/CSF/paresthesias. Attending Note For the epidural I did not witness the prep but the internet sales representative did. I was present for the entire localization and placement of the epidural. Signature: Chris Rodriguez MD Date: 10/29/2023 Time: 3:02 AM SIGNATURE: SHEREE Olrando PATIENT NAME: Poonam Rausch DATE: October 29, 2023 TIME: 2:45 AM CSN: [id number] [facility] 10-29-2023 Note HNO ID: [id number] Author: JUSTINE DASILVA MD Service: Nursing Author Type: Registered Nurse Type: Procedures Filed: 10/29/2023 06:40 Note Text: Attestation signed by Justine Dasilva MD at 10/29/2023 6:40 AM PROVIDER INTERPRETATION: Category I and Reactive SIGNATURE: Justine Dasilva MD DATE: October 29, 2023 TIME: 6:40 AM OBSTETRICS NST SUMMARY SERVICE DATE: October 29, 2023 The patient is a 28 year old female, , who is at 38w4d with an AFUA of 11/08/2023, by Last Menstrual Period dating method. NST OBJECTIVE FINDINGS PER NURSE: Start Time: 206 (10/29/23227 : Diana Romero, MJ) Complete Time: 226 (10/29/23227 : Diana Romero, RN) Indications: (LOF, CTX) (10/29/23227 : Diana Romero, MJ) Patient Reason For: water broke and ctx (10/29/23227 : Diana Romero RN) NST Explanation: Procedure Explained;Monitor Explained;Verbalizes Understanding (10/29/23227 : Diana Romero RN) Acoustic Stimulator: No (10/29/23227 : Diana Romero RN) Interventions: Oral Fluids Given (10/29/23227 : Diana Romero RN) MONITORING/ASSESSMENT: Baseline: 135 bpm (10/29/23227 : Diana Romero RN) Variability: Moderate (6-25 bpm) (10/29/23227 : Diana Romero RN) Accelerations: Present (10/29/23227 : Diana Romero RN) Decelerations: Decelerations: None (10/29/23227 : Diana Romero RN) Contractions: Regular (10/29/23227 : Diana Romero RN) Frequency: 2-3 (10/29/23227 : Diana Romero RN) Above information forwarded to Vidya (10/29/23227 : Diana Romero RN) for final review and interpretation. SIGNATURE: Thuan Romero RN PATIENT NAME: Poonam Rausch DATE: October 29, 2023 TIME: 2:32 AM [facility] 10-28-2023 Telephone encounter Note Patient calling regarding being 38 weeks and having dark bloody discharge. Conferenced to [employer] [ ] to speak with provider telecommunications analyst for Dr. Alexa Landry. Advised patient while waiting to speak with telecommunications analyst provider, if any new symptoms develop or symptoms worsen got ED or call 911. [facility] 10-28-2023 Miscellaneous Notes Patient calling regarding being 38 weeks and having dark bloody discharge. Conferenced to [employer] [ ] to speak with provider telecommunications analyst for Dr. Alexa Landry. Advised patient while waiting to speak with telecommunications analyst provider, if any new symptoms develop or symptoms worsen got ED or call 911. documented in this encounter [facility] 10-25-2023 Note Indication Evaluation of well-being, Hypertension, hx PEC Impression 1. Single, live, intrauterine . 2. Amniotic fluid is normal amount. 3. BPP 8/8. 4. The placenta is left lateral. Recommendations Follow up as clinically indicated. Maternal Assessment Height 160 cm Height (ft) 5 ft Height (in) 3 in Physical Exam Initial weight (lb) 153 lb Initial BMI 27.11 kg/m Growth Overview Exam date GA BPD (mm) HC (mm) AC (mm) FL (mm) HL (mm) EFW (g) 07/02/2023 21w 4d 49 20% 190.4 42% 172.8 64% 34.6 42% 33.7 43% 435 44% 08/20/2023 28w 4d 70.9 34% 251 13% 246.2 52% 50.4 15% 1161 20% 09/20/2023 33w 0d 80.7 27% 282.4 6% 293.9 63% 60.8 23% 1966 25% 10/18/2023 37w 0d 84.6 4% 301.2 2% 328.8 58% 65.3 6% 2632 16% Method Transabdominal ultrasound examination [place] . Number of fetuses: 1 Dating LMP on: 02/01/2023 GA by LMP 38 w + 0 d AFUA by LMP: 11/08/2023 GA by prior assessment 38 w + 0 d AFUA by prior assessment: 11/08/2023 Assigned: based on the LMP, selected on 03/24/2023 Assigned GA 38 w + 0 d Assigned AFUA: 11/08/2023 General Evaluation Cardiac activity present. FHR 139 bpm. movements: present. Presentation: cephalic Placenta: Placental site: left lateral Amniotic Fluid Assessment Amount of AF: normal amount MVP 3.9 cm. GELY 10.2 cm. Q1 3.4 cm, Q2 3.9 cm, Q3 0.0 cm, Q4 2.9 cm Biophysical Profile 2: breathing movements 2: Gross body movements 2: tone 2: Amniotic fluid volume 8/8 Biophysical profile score Anatomy sex: male. Performed By: Marybeth Mcdonald RDMS Read By: Luis Felipe Flores M.D. [facility] 10-21-2023 Progress note Formatting of t his note might be different from the original. This note was copied from my note, I have reviewed and indicated the appropriate updates as of today's visit. Denies LOF, VB, urinary symptoms, or cramping. Total weight gain to date = pounds. +FM Risks for this : 1) h/o GHTN and IUGR, IOL [id number]--[id number] 2) CHTN--no meds, BP BID--recording and sending weekly to office, parameters/precautions reviewed. 3) h/o ETOH use/rehab 4) Anxiety/Depression 5) History of marijuana use Urine Dip = Fundal Height = cm. Assessment/Plan: 1) Blood type = B+, no rhophylac indicated, RI 2) NT and Mxazfhgz57 negative. 3) RTO in 1 week RPN visit with NST 4) Ultrasound for anatomy/growth at 18-20 weeks--Male Fetus/3VC/Posterior Fundal Placenta 5) Patient instructed to call with bleeding, cramping, intractable nausea, decreased movement, or other concerns 6) GBS bacteruria 7) H/H = 11.1/33.8 and Glucose screen = 139 (3hrGTT = 80/104/96/73). 8) L/D consent 10/13. 10/21/2023 2:10 P Leslee Landry DO [facility] 10-21-2023 Miscellaneous Notes This note was copied from my note, I have reviewed and indicated the appropriate updates as of today's visit. Denies LOF, VB, urinary symptoms, or cramping. Total weight gain to date = pounds. +FM Risks for this : 1) h/o GHTN and IUGR, IOL 14e9o--ljqqebgx 2) CHTN--no meds, BP BID--recording and sending weekly to office, parameters/precautions reviewed. 3) h/o ETOH use/rehab 4) Anxiety/Depression 5) History of marijuana use Urine Dip = Fundal Height = cm. Assessment/Plan: 1) Blood type = B+, no rhophylac indicated, RI 2) NT and [id number] negative. 3) RTO in 1 week RPN visit with NST 4) Ultrasound for anatomy/growth at 18-20 weeks--Male Fetus/3VC/Posterior Fundal Placenta 5) Patient instructed to call with bleeding, cramping, intractable nausea, decreased movement, or other concerns 6) GBS bacteruria 7) H/H = 11.1/33.8 and Glucose screen = 139 (3hrGTT = 80/104/96/73). 8) L/D consent 10/13. 10/21/2023 2:10 P Leslee Landry DO documented in this encounter [facility] 10-21-2023 Nurse Note Movement? Active baby Vaginal Bleeding: NO Vaginal fluid leakage of fluid: NO Contractions: irregular [facility] 10-21-2023 Nurse Note Movement? Active baby Vaginal Bleeding: NO Vaginal fluid leakage of fluid: NO Contractions: irregular documented in this encounter [facility] 10-18-2023 Note Indication Evaluation of growth; Hx IUGR; Chronic hypertension (baby aspirin) . Evaluation of well-being Impression 1. Single, live, intrauterine . 2. Estimated weight is 2632g, 16%ile 3. Amniotic fluid is normal amount. 4. The placenta is posterior. 5. Normal limited anatomy as detailed below. 6. BPP is 8/8. Recommendations Follow up as clinically indicated. Maternal Assessment Height 160 cm Height (ft) 5 ft Height (in) 3 in Weight 77 kg Weight (lb) 170 lb BMI 30.08 kg/m Physical Exam Initial weight (lb) 153 lb Initial BMI 27.11 kg/m Method Transabdominal ultrasound examination [place] . Number of fetuses: 1 Dating LMP on: 02/01/2023 GA by LMP 37 w + 0 d AFUA by LMP: 11/08/2023 GA by prior assessment 37 w + 0 d AFUA by prior assessment: 11/08/2023 Ultrasound examination on: 10/18/2023 GA by U/S based upon: AC, BPD, Femur, HC GA by U/S 34 w + 2 d AFUA by U/S: 11/27/2023 Assigned: based on the LMP, selected on 03/24/2023 Assigned GA 37 w + 0 d Assigned AFUA: 11/08/2023 General Evaluation Cardiac activity present. FHR 142 bpm. movements: present. Presentation: cephalic Placenta: Placental site: posterior Umbilical cord: 3 vessel cord Amniotic fluid: Amount of AF: normal amount. MVP 3.2 cm. GELY 11.7 cm. Q1 2.5 cm, Q2 3.0 cm, Q3 3.2 cm, Q4 3.0 cm Biophysical Profile 2: breathing movements 2: Gross body movements 2: tone 2: Amniotic fluid volume 01/12 Biophysical profile score Growth Overview Exam date GA BPD (mm) HC (mm) AC (mm) FL (mm) HL (mm) EFW (g) 07/02/2023 21w 4d 49 20% 190.4 42% 172.8 64% 34.6 42% 33.7 43% 435 44% 08/20/2023 28w 4d 70.9 34% 251 13% 246.2 52% 50.4 15% 1161 20% 09/20/2023 33w 0d 80.7 27% 282.4 6% 293.9 63% 60.8 23% 1966 25% 10/18/2023 37w 0d 84.6 4% 301.2 2% 328.8 58% 65.3 6% 2632 16% Biometry Standard BPD 84.6 mm 34w 1d 4% Hadlock OFD 105.0 mm 31w 0d 3% Nicolaides HC 301.2 mm 32w 4d 2% Savanah Cerebellum tr 50.6 mm 36w 6d 47% Hill AC 328.8 mm 36w 6d 58% Hadlock Femur 65.3 mm 33w 3d 6% Savanah EFW 2,632 g 35w 1d 16% Hadlock EFW (lb) 5 lb EFW (oz) 13 oz EFW by: Hadlock (HC-AC-FL) Extended Shot Bagger 4.3 mm Extremities / Bony Struc FL / HC 0.22 Other Structures FHR 142 bpm Anatomy Lateral ventricles: normal Cavum septi pellucidi: normal Cerebellum: normal Cisterna magna: normal Lips: normal Profile: normal Nose: normal 4-chamber view: normal 3-vessel view: normal Heart / Thorax Situs: situs solitus (normal) Aortic arch view: normal Diaphragm: normal Cord insertion: normal Stomach: normal Kidneys: normal Bladder: normal Cervical spine: normal Thoracic spine: normal Lumbar spine: normal Sacral spine: normal sex: male Wants to know sex: yes Performed By: Julee Sims RDMS Read By: Luis Felipe Flores M.D. [facility] 10-14-2023 Miscellaneous Notes NST SUMMARY PROVIDER ASSESSMENT AND INTERPRETATION Poonam Rausch is a 28 year old female, , who is at 36w3d with an AFUA of 11/08/2023, by Last Menstrual Period dating method. Indications for NST: Chronic HTN Baseline: 125 Variability: Moderate Accelerations: Present 15 X 15 Decelerations: None Contractions: TOCO: Irregular Interpretation: Reactive SIGNATURE: Leslee Landry DO documented in this encounter [facility] 10-14-2023 Progress note Formatting of t his note might be different from the original. NST SUMMARY PROVIDER ASSESSMENT AND INTERPRETATION Poonam Rausch is a 28 year old female, , who is at 36w3d with an AFUA of 11/08/2023, by Last Menstrual Period dating method. Indications for NST: Chronic HTN Baseline: 125 Variability: Moderate Accelerations: Present 15 X 15 Decelerations: None Contractions: TOCO: Irregular Interpretation: Reactive SIGNATURE: Leslee Landry DO [facility] 10-14-2023 Nurse Note Movement? Active baby Vaginal Bleeding: NO Vaginal fluid leakage of fluid: NO Contractions: irregular contractions Home Bp readings 143/96- w rpt 138/89 139/98 this am: had H/a this am but has resolved. BP in office is 128/86. Reports daily h/a that resolve [facility] 10-14-2023 Nurse Note Movement? Active baby Vaginal Bleeding: NO Vaginal fluid leakage of fluid: NO Contractions: irregular contractions Home Bp readings 143/96- w rpt 138/89 139/98 this am: had H/a this am but has resolved. BP in office is 128/86. Reports daily h/a that resolve documented in this encounter [facility] 10-11-2023 Note HNO ID: [id number] Author: DIPESH BRADY MD Service: Obstetrics Author Type: Registered Nurse Type: Procedures Filed: 10/14/2023 14:50 Note Text: Attestation signed by Dipesh Brady MD at 10/14/2023 2:50 PM OBSTETRICS MONITORING ASSESSMENT NST Interpretation: FHR Category: Disposition: PROVIDER INTERPRETATION: Category I SIGNATURE: Dipesh Brady MD PATIENT NAME: Poonam Rausch DATE: October 14, 2023 TIME: 2:50 PM OBSTETRICS NST SUMMARY SERVICE DATE: October 11, 2023 The patient is a 28 year old female, , who is at 36w0d with an AFUA of 11/08/2023, by Last Menstrual Period dating method. NST OBJECTIVE FINDINGS PER NURSE: Start Time: 1944 (10/11/231944 : Denisse Teran RN) Complete Time: 2004 (10/11/232004 : Denisse Teran RN) Indications: Other: Comment (headache) (10/11/231944 : Denisse Teran RN) Patient Reason For: I have had a headache all day, and I went for my appointment this morning and the baby's heartrate had dips and I went for a BPP and they said I have low fluid (10/11/231944 : Denisse Teran RN) NST Explanation: Procedure Explained;Monitor Explained;Verbalizes Understanding (10/11/231944 : Denisse Teran RN) Acoustic Stimulator: No (10/11/232004 : Denisse Teran RN) Interventions: Reposition;Oral Fluids Given (10/11/232004 : Denisse Teran RN) MONITORING/ASSESSMENT: Baseline: 135 bpm (10/11/23 2005 : Denisse Teran RN) Variability: Moderate (6-25 bpm) (10/11/23 2005 : Denisse Teran RN) Accelerations: Present (10/11/232004 : Denisse Teran RN) Decelerations: Decelerations: None (10/11/23 2005 : Denisse Teran RN) Contractions: Irregular (10/11/23 2005 : Denisse Teran RN) Frequency: x1 (10/11/23 2005 : Denisse Teran RN) Above information forwarded to dr. brady (10/11/232004 : Denisse Teran RN) for final review and interpretation. SIGNATURE: Denisse Teran RN PATIENT NAME: Poonam Rausch DATE: October 11, 2023 TIME: 8:09 PM [facility] 10-11-2023 Note HNO ID: [id number] Author: ABRAN MALONEY MD Service: ? Author Type: Physician Type: Progress Notes Filed: 10/11/2023 15:42 Note Text: Patient here for ultrasound. See ultrasound report for details. GELY assessment is between 7 and 8 cm (first assessment by dental amalgam processor and second assessment of 8 cm by myself). Suggest nonstress testing on , October 14, 2023. BPP assessment on October 18, 2023. Keep self-assessment of kick counts twice a day. Patient instructed. Abran Maloney MD [facility] 10-11-2023 Telephone encounter Note called patient still with SKINNER 7 out of 10 tylenol 1000 mg at 130 today PreE labs still pending to 3S for triage notified 3S [facility] 10-11-2023 Miscellaneous Notes called patient still with SKINNER 7 out of 10 tylenol 1000 mg at 130 today PreE labs still pending to 3S for triage notified 3S @ 36 weeks IUP. Pt had NST today and was sent for BPP. Reports that MFM told her she would need another BPP and NST this week. Pt is currently scheduled for BPP. Told her that we would likely be scheduling the next NST on Wednesday. Pt says Dr. Shaffer also told her that if she is getting headaches that don't go away with tylenol to let her know. Pt states she had #5-6 headache and took tylenol @ 1:45pm. Pt says she did not get relief and now says her headache is #8. Advised will send information to Dr. Shaffer but will likely not have any recommendations until her lab work is back. (still in process). documented in this encounter [facility] 10-11-2023 Telephone encounter Note @ 36 weeks IUP. Pt had NST today and was sent for BPP. Reports that MFM told her she would need another BPP and NST this week. Pt is currently scheduled for BPP. Told her that we would likely be scheduling the next NST on Wednesday. Pt says Dr. Shaffer also told her that if she is getting headaches that don't go away with tylenol to let her know. Pt states she had #5-6 headache and took tylenol @ 1:45pm. Pt says she did not get relief and now says her headache is #8. Advised will send information to Dr. Shaffer but will likely not have any recommendations until her lab work is back. (still in process). [facility] 10-11-2023 Note Indication Evaluation of well-being, Hypertension hx pre eclampsia previous Impression 1. Single, live, intrauterine . 2. Amniotic fluid is normal amount. Amniotic fluid index is between 7 and 8 cm.. This is below the 5th percentile for the gestational age. 3. BPP 8/8. 4. The placenta is posterior, fundal. Recommendations Suggest nonstress testing on , October 14, 2023. BPP assessment on October 18, 2023. Keep self-assessment of kick counts twice a day. Patient instructed. Maternal Assessment Height 160 cm Height (ft) 5 ft Height (in) 3 in Weight 76 kg Weight (lb) 167 lb BMI 29.59 kg/m Physical Exam Initial weight (lb) 153 lb Initial BMI 27.11 kg/m Growth Overview Exam date GA BPD (mm) HC (mm) AC (mm) FL (mm) HL (mm) EFW (g) 07/02/2023 21w 4d 49 20% 190.4 42% 172.8 64% 34.6 42% 33.7 43% 435 44% 08/20/2023 28w 4d 70.9 34% 251 13% 246.2 52% 50.4 15% 1161 20% 09/20/2023 33w 0d 80.7 27% 282.4 6% 293.9 63% 60.8 23% 1966 25% Method Transabdominal ultrasound examination. View: Adequate visualization [place] . Number of fetuses: 1 Dating LMP on: 02/01/2023 GA by LMP 36 w + 0 d AFUA by LMP: 11/08/2023 GA by prior assessment 36 w + 0 d AFUA by prior assessment: 11/08/2023 Assigned: based on the LMP, selected on 03/24/2023 Assigned GA 36 w + 0 d Assigned AFUA: 11/08/2023 General Evaluation Cardiac activity present. FHR 129 bpm. movements: present. Presentation: cephalic Placenta: Placental site: posterior, fundal Umbilical cord: Cord vessels: 3 vessel cord Amniotic Fluid Assessment Amount of AF: normal amount MVP 3.4 cm. GELY 6.9 cm. Q1 0.0 cm, Q2 0.7 cm, Q3 2.8 cm, Q4 3.4 cm Biophysical Profile 2: breathing movements 2: Gross body movements 2: tone 2: Amniotic fluid volume 01/12 Biophysical profile score Anatomy Stomach: normal Kidneys: normal Bladder: normal sex: male Wants to know sex: yes Performed By: Lo Maurice RDMS Read By: Abran Maloney M.D. [facility] 10-11-2023 History of Presen t illness Narrative Patient here for ultrasound. See ultrasound report for details. GELY assessment is between 7 and 8 cm (first assessment by dental amalgam processor and second assessment of 8 cm by myself). Suggest nonstress testing on , October 14, 2023. BPP assessment on October 18, 2023. Keep self-assessment of kick counts twice a day. Patient instructed. Abran Maloney MD documented in this encounter [facility] 10-11-2023 Progress note Formatting of t his note might be different from the original. This note was copied from my note, I have reviewed and indicated the appropriate updates as of today's visit. Denies LOF, VB, urinary symptoms, or cramping. Total weight gain to date = 17 pounds. +FM Risks for this : 1) h/o GHTN and IUGR, IOL 58l4o--[id number] 2) CHTN--no meds, BP BID--recording and sending weekly to office, parameters/precautions reviewed. 3) h/o ETOH use/rehab 4) Anxiety/Depression 5) History of marijuana use Urine Dip = 100 protein, small leuks. Fundal Height = 36 cm. NST SUMMARY PROVIDER ASSESSMENT AND INTERPRETATION Poonam Rausch is a 28 year old female, , who is at 36w0d with an AFUA of 11/08/2023, by Last Menstrual Period dating method. Indications for NST: Chronic HTN Baseline: 130 Variability: Moderate Accelerations: Present 15 X 15 Decelerations: 2 variables, wendy to 80 with spontaneous recovery over 10 seconds Contractions: TOCO: None Interpretation: Non-Reactive (changed position to maternal left and PO hydration) SIGNATURE: Leslee Landry DO Assessment/Plan: 1) Blood type = B+, no rhophylac indicated, RI 2) NT and Ydiilimv01 negative. 3) RTO in 1 week RPN visit 4) Ultrasound for anatomy/growth at 18-20 weeks--Male Fetus/3VC/Posterior Fundal Placenta 5) Patient instructed to call with bleeding, cramping, intractable nausea, decreased movement, or other concerns 6) GBS bacteruria 7) H/H = 11.1/33.8 and Glucose screen = 139 (3hrGTT = 80/104/96/73). 10/11/2023 12:26 PM Leslee Landry DO [facility] 10-11-2023 Miscellaneous Notes This note was copied from my note, I have reviewed and indicated the appropriate updates as of today's visit. Denies LOF, VB, urinary symptoms, or cramping. Total weight gain to date = 17 pounds. +FM Risks for this : 1) h/o GHTN and IUGR, IOL 45q7l--wjotycop 2) CHTN--no meds, BP BID--recording and sending weekly to office, parameters/precautions reviewed. 3) h/o ETOH use/rehab 4) Anxiety/Depression 5) History of marijuana use Urine Dip = 100 protein, small leuks. Fundal Height = 36 cm. NST SUMMARY PROVIDER ASSESSMENT AND INTERPRETATION Poonam Rausch is a 28 year old female, , who is at 36w0d with an AFUA of 11/08/2023, by Last Menstrual Period dating method. Indications for NST: Chronic HTN Baseline: 130 Variability: Moderate Accelerations: Present 15 X 15 Decelerations: 2 variables, wendy to 80 with spontaneous recovery over 10 seconds Contractions: TOCO: None Interpretation: Non-Reactive (changed position to maternal left and PO hydration) SIGNATURE: Leslee Landry DO Assessment/Plan: 1) Blood type = B+, no rhophylac indicated, RI 2) NT and [id number] negative. 3) RTO in 1 week RPN visit 4) Ultrasound for anatomy/growth at 18-20 weeks--Male Fetus/3VC/Posterior Fundal Placenta 5) Patient instructed to call with bleeding, cramping, intractable nausea, decreased movement, or other concerns 6) GBS bacteruria 7) H/H = 11.1/33.8 and Glucose screen = 139 (3hrGTT = 80/104/96/73). 10/11/2023 12:26 PM Leslee Landry DO documented in this encounter [facility] 10-11-2023 Nurse Note Movement? Active baby Vaginal Bleeding: NO Vaginal fluid leakage of fluid: NO Contractions: no contractions [facility] 10-11-2023 Nurse Note Movement? Active baby Vaginal Bleeding: NO Vaginal fluid leakage of fluid: NO Contractions: no contractions documented in this encounter [facility] 10-05-2023 Progress note Formatting of t his note might be different from the original. Denies LOF, VB, urinary symptoms, or cramping. Total weight gain to date = 17 pounds. +FM. . Risks for this : 1) h/o GHTN and IUGR, IOL [id number]--[id number] 2) CHTN--no meds, BP BID--recording and sending weekly to office, parameters/precautions reviewed. 3) h/o ETOH use/rehab 4) Anxiety/Depression 5) History of marijuana use Urine Dip = 100 protien, small leuks. Fundal Height = 35 cm. NST SUMMARY PROVIDER ASSESSMENT AND INTERPRETATION Poonam Rausch is a 28 year old female, , who is at 35w1d with an AFUA of 11/08/2023, by Last Menstrual Period dating method. Indications for NST: Chronic HTN Baseline: 135 Variability: Moderate Accelerations: Present 15 X 15 Decelerations: None Contractions: TOCO: 1 contraction and uterine irritability Interpretation: Reactive SIGNATURE: Leslee Landry DO Assessment/Plan: 1) Blood type = B+, no rhophylac indicated, RI 2) NT and Klsocxyl63 negative. 3) RTO in 1 week RPN visit with NST (continue daily PNV) 4) Ultrasound for anatomy/growth at 18-20 weeks--Male Fetus/3VC/Posterior Fundal Placenta 5) Patient instructed to call with bleeding, cramping, intractable nausea, decreased movement, or other concerns 6) GBS bacteruria 7) H/H = 11.1/33.8 and Glucose screen = 139 (3hrGTT = 80/104/96/73). 10/05/2023 2:10 PM Leslee Landry DO [facility] 10-05-2023 Miscellaneous Notes Denies LOF, VB, urinary symptoms, or cramping. Total weight gain to date = 17 pounds. +FM. . Risks for this : 1) h/o GHTN and IUGR, IOL 04j4x--ifwwzfro 2) CHTN--no meds, BP BID--recording and sending weekly to office, parameters/precautions reviewed. 3) h/o ETOH use/rehab 4) Anxiety/Depression 5) History of marijuana use Urine Dip = 100 protien, small leuks. Fundal Height = 35 cm. NST SUMMARY PROVIDER ASSESSMENT AND INTERPRETATION Poonam Rausch is a 28 year old female, , who is at 35w1d with an AFUA of 11/08/2023, by Last Menstrual Period dating method. Indications for NST: Chronic HTN Baseline: 135 Variability: Moderate Accelerations: Present 15 X 15 Decelerations: None Contractions: TOCO: 1 contraction and uterine irritability Interpretation: Reactive SIGNATURE: Leslee Landry DO Assessment/Plan: 1) Blood type = B+, no rhophylac indicated, RI 2) NT and Lhsuakxx41 negative. 3) RTO in 1 week RPN visit with NST (continue daily PNV) 4) Ultrasound for anatomy/growth at 18-20 weeks--Male Fetus/3VC/Posterior Fundal Placenta 5) Patient instructed to call with bleeding, cramping, intractable nausea, decreased movement, or other concerns 6) GBS bacteruria 7) H/H = 11.1/33.8 and Glucose screen = 139 (3hrGTT = 80/104/96/73). 10/05/2023 2:10 PM Leslee Landry DO documented in this encounter [facility] 10-05-2023 Nurse Note Movement? Active baby Vaginal Bleeding: NO Vaginal fluid leakage of fluid: yes Contractions: Valerio Medrano [facility] 10-05-2023 Nurse Note Movement? Active baby Vaginal Bleeding: NO Vaginal fluid leakage of fluid: yes Contractions: Valerio Medrano documented in this encounter [facility] 10-04-2023 Note HNO ID: [id number] Author: NICOL SAENZ RN Service: ? Author Type: Registered Nurse Type: Progress Notes Filed: 10/04/2023 11:52 Note Text: 35w0d BP log 140s/90s (no repeat readings) Pt also verbalizing c/o frequent daily h/a unrelieved w Tylenol 1000mg use and increase water intake. Pt also has blurry vision w the h/a. Usually experience generalized frontal h/a, rates 4/10 on pain scale. Pt is not reporting h/a at present. NO edema noted, abs clonus. +FM, denies LOF/VB. Occ ctx BP this am at home 142/87. Office BP 127/95, rpt 119/80 Review parameters, reporting. and taking BP. Discussed w Dr Shaffer, orders rec'd [facility] 10-04-2023 History of Presen t illness Narrative 35w0d BP log 140s/90s (no repeat readings) Pt also verbalizing c/o frequent daily h/a unrelieved w Tylenol 1000mg use and increase water intake. Pt also has blurry vision w the h/a. Usually experience generalized frontal h/a, rates 4/10 on pain scale. Pt is not reporting h/a at present. NO edema noted, abs clonus. +FM, denies LOF/VB. Occ ctx BP this am at home 142/87. Office BP 127/95, rpt 119/80 Review parameters, reporting. and taking BP. Discussed w Dr Shaffer, orders rec'd documented in this encounter [facility] 10-04-2023 Telephone encounter Note 35wk BP Log 10/04 next OV, last labs 04/[address] [facility] 10-04-2023 Miscellaneous Notes 35wk BP Log 10/04 next OV, last labs 04/2023 documented in this encounter [facility] 10-01-2023 Telephone encounter Note Spoke with patient. Spoke regarding ALBA Perez regarding message about elevated 1 hour GTT test and her recommendation for 3 hour GTT test. Patient was aware and had scheduled her 3 hour GTT test for today. Sylvia Nye RN [facility] 10-01-2023 Miscellaneous Notes Spoke with patient. Spoke regarding ALBA Perez regarding message about elevated 1 hour GTT test and her recommendation for 3 hour GTT test. Patient was aware and had scheduled her 3 hour GTT test for today. Sylvia Nye RN Left message on patient voicemail to call RN back to discuss message from Luis Pratt CNM regarding test results. Sylvia Nye RN documented in this encounter [facility] 10-01-2023 Telephone encounter Note Left message on patient voicemail to call RN back to discuss message from Luis Pratt CNM regarding test results. Sylvia Nye RN [facility] 09-28-2023 Progress note Formatting of t his note might be different from the original. Poonam denies LOF, VB, urinary symptoms, or cramping. Reports good movement. Total weight gain to date = 17 pounds. Risks for this : 1) cHTN: no meds. Has not been taking her bASA daily. BPs have been ranging 130's/80's past week - parameters and precautions discussed with patient - encouraged patient to send in weekly BP logs -MCM sent 2) Anxiety/depression: currently on Zoloft 25mg daily- doing well 3) history IUGR in previous : IOL at 39w9d; 4lbs 9oz - growth scans every 4 weeks starting at 28 weeks; weekly NSTs 4) Glucose intolerance: One hour glucose screen: 139 ; 3 hr GTT ordered and pending 5) Vaginal spotting: SVE on 09/23 - had a few episodes of spotting 2 days following triage evaluation -on toilet paper. denies any further bleeding at this time; will send urine culture - discussed if any further vaginal bleeding/spotting - proceed to triage for evaluation - patient declined exam today in office Urine Dip = trace blood, trace protein, trace leuks Fundal Height = 34 cm. NST SUMMARY PROVIDER ASSESSMENT AND INTERPRETATION Poonam Rausch is a 28 year old female, , who is at 34w1d with an AFUA of 11/08/2023, by Last Menstrual Period dating method. Indications for NST: Chronic HTN and Other: previous IUGR Baseline: 130 Variability: Moderate Accelerations: Present 15 X 15 Decelerations: None Contractions: TOCO: x1 Interpretation: Reactive SIGNATURE: Hailee Landeros APRN.DINKEY ENGINE FIRER/FIREMAN Assessment/Plan: 1) Blood type = B positive, no rhophylac indicated, RI 2) genetic screening : [id number] and NT negative 3) RTO in 1 weeks RPN visit and NST 4) Ultrasound for anatomy/growth at 18-20 weeks--3VC/Left lateral fundal placenta 5) Growth scan: 09/20/2023: 3VC/posterior fundal placenta EFW: 1,996g, 25%ile 4lbs 5oz 5) Patient instructed to call with bleeding, cramping, intractable nausea, decreased movement, or other concerns. Labor precautions and warning signs discussed Hailee Landeros APRN.DINKEY ENGINE FIRER/FIREMAN [facility] 09-28-2023 Miscellaneous Notes Poonam denies LOF, VB, urinary symptoms, or cramping. Reports good movement. Total weight gain to date = 17 pounds. Risks for this : 1) cHTN: no meds. Has not been taking her bASA daily. BPs have been ranging 130's/80's past week - parameters and precautions discussed with patient - encouraged patient to send in weekly BP logs -MCM sent 2) Anxiety/depression: currently on Zoloft 25mg daily- doing well 3) history IUGR in previous : IOL at 39w9d; 4lbs 9oz - growth scans every 4 weeks starting at 28 weeks; weekly NSTs 4) Glucose intolerance: One hour glucose screen: 139 ; 3 hr GTT ordered and pending 5) Vaginal spotting: SVE on 09/23 - had a few episodes of spotting 2 days following triage evaluation -on toilet paper. denies any further bleeding at this time; will send urine culture - discussed if any further vaginal bleeding/spotting - proceed to triage for evaluation - patient declined exam today in office Urine Dip = trace blood, trace protein, trace leuks Fundal Height = 34 cm. NST SUMMARY PROVIDER ASSESSMENT AND INTERPRETATION Poonam Rausch is a 28 year old female, , who is at 34w1d with an AFUA of 11/08/2023, by Last Menstrual Period dating method. Indications for NST: Chronic HTN and Other: previous IUGR Baseline: 130 Variability: Moderate Accelerations: Present 15 X 15 Decelerations: None Contractions: TOCO: x1 Interpretation: Reactive SIGNATURE: Hailee Landeros APRN.CNP Assessment/Plan: 1) Blood type = B positive, no rhophylac indicated, RI 2) genetic screening : [id number] and NT negative 3) RTO in 1 weeks RPN visit and NST 4) Ultrasound for anatomy/growth at 18-20 weeks--3VC/Left lateral fundal placenta 5) Growth scan: 09/20/2023: 3VC/posterior fundal placenta EFW: 1,996g, 25%ile 4lbs 5oz 5) Patient instructed to call with bleeding, cramping, intractable nausea, decreased movement, or other concerns. Labor precautions and warning signs discussed Hailee Landeros APRN.DINKEY ENGINE FIRER/FIREMAN documented in this encounter [facility] 09-28-2023 Nurse Note Movement? Active baby Vaginal Bleeding: YES, spotting daily Vaginal fluid leakage of fluid: NO Contractions: irregular contractions [facility] 09-28-2023 Nurse Note Movement? Active baby Vaginal Bleeding: YES, spotting daily Vaginal fluid leakage of fluid: NO Contractions: irregular contractions documented in this encounter [facility] 09-27-2023 Telephone encounter Note Call to patient. Left message for patient to call our office and make a virtual visit for 2 weeks from now with Laura Lopez CNM. [place] Byrne [facility] Work Phone: 09-27-2023 Miscellaneous Notes Call to patient. Left message for patient to call our office and make a virtual visit for 2 weeks from now with Laura Lopez CNM. [place] Byrne Please call to schedule virtual visit for anxiety and depression during in 2 weeks. Laura Lopez APRN.CNM documented in this encounter [facility] 09-24-2023 Note HNO ID: [id number] Author: LAURA LOPEZ APRN.CNM Service: Obstetrics Author Type: Registered Nurse Type: Procedures Filed: 09/24/2023 01:16 Note Text: Attestation signed by Laura Lopez APRN.CNM at 09/24/2023 1:16 AM Cat I, reactive. - Laura Lopez APRN.CNM OBSTETRICS NST SUMMARY SERVICE DATE: September 24, 2023 The patient is a 28 year old female, , who is at 33w4d with an AFUA of 11/08/2023, by Last Menstrual Period dating method. NST OBJECTIVE FINDINGS PER NURSE: Start Time: 2349 (09/23/232356 : Omari Villalpando, MJ) Complete Time: 9 (09/23/232356 : Omari Villalpando, MJ) Indications: (R/O PTL, BPs) (09/23/232356 : Omari Villalpando, MJ) Patient Reason For: to check on my baby (09/23/232356 : Omari Villalpando, MJ) NST Explanation: Procedure Explained;Monitor Explained;Verbalizes Understanding (09/23/232356 : Omari Villalpando, MJ) Acoustic Stimulator: No (09/23/232356 : Omari Villalpando, MJ) Interventions: MONITORING/ASSESSMENT: Baseline: 135 bpm (09/24/239 : Omari Villalpando RN) Variability: Moderate (6-25 bpm) (09/24/239 : Omari Villalpando, MJ) Accelerations: Present (09/24/239 : Omari Villalpando, MJ) Decelerations: Decelerations: None (09/24/239 : Omari Villalpando, MJ) Contractions: Irregular (09/24/239 : Omari Villalpando, MJ) Frequency: 3-4 (09/24/239 : Omari Villalpando, MJ) Above information forwarded to Laura Lopez CNM (09/23/232356 : Omari Villalpando, MJ) for final review and interpretation. SIGNATURE: Omari Villalpando RN PATIENT NAME: Poonam Rausch DATE: September 24, 2023 TIME: 1:13 AM [facility] 09-24-2023 Note HNO ID: [id number] Author: LAURA LOPEZ APRN.CNM Service: Obstetrics Author Type: Ux Developer Designer Type: Progress Notes Filed: 09/24/2023 01:34 Note Text: OBSTETRICS TRIAGE PROGRESS NOTE SERVICE DATE: September 24, 2023 SERVICE TIME: 1:00 AM Subjective Patient's stated reason for arrival: I am having baxton medrano that are worse and my blood pressures were high in the office today CHIEF COMPLAINT: contractions and high blood pressure HISTORY OF THE PRESENT ILLNESS: The patient is a 28 year old female, , who is at 33w4d with an AFUA of 11/08/2023, by Last Menstrual Period dating method. Good movement. Denies vaginal bleeding., Denies leaking of fluid. Reports today she had a visit and BP was elevated: 137/89. Was dx with chronic htn at 13 weeks. Reports pretty active day with daughter. Reports nausea, vomiting and low appetite recently. Currently mild SKINNER, resolving. Denies visual changes. Reports probably dehydrated. On zoloft for A+D but has not been consistent with it. Supposed to be on 100 mg but now on 50 mg as she has been trying to be better with it. Went from not taking for sometime to 50 mg X 5 days. Denies any suicidal ideations. Reports ctx have spaced out with some hydration and reassurance with her BP. REVIEW OF SYSTEMS: GENERAL: No weight loss, malaise or fevers. HEENT: Negative for frequent or significant headaches, No changes in hearing or vision, no nose bleeds or other nasal problems RESPIRATORY: Negative for cough, hemoptysis, wheezing, COPD, dyspnea or shortness of breath CARDIOVASCULAR: Negative for chest pain, leg swelling, hypertension, CHF or palpitations GI: Positive for nausea and vomiting MUSCULOSKELETAL: Negative for joint pain or swelling, back pain or muscle pain NEURO: No history of headaches, syncope, paralysis, seizures or tremors The remainder of the review of systems is negative. Objective LAST VITALS: Pulse BP Resp O2 Sat Temp Pain 17 96 % 36.8 ?C (98.2 ?F) 3 HT/WT/BMI: Height Weight BMI 160 cm (5' 3) 75.3 kg (166 lb) 29.41 PHYSICAL EXAM: Heart: RR Lungs: normal respirations Abdomen: soft, nontender, no masses Uterus: soft, NT Extremities: no edema Cervical Exam: see below CERVICAL EXAM: Dilation: Closed (09/24/2349 : Omari Villalpando, RN) cm Station: Ballotable (09/24/2349 : Omari Villalpando, RN) Effacement: 60 (09/24/2349 : Omari Villalpando, RN) % Presentation: MONITORING/ASSESSMENT: testing reassuring - see additional documentation Ultrasound: n/a LABS Diagnostic tests reviewed for today's visit: Most recent labs and imaging results. Assessment/Plan 28 year old EGA:33w4d. Active Problems: No further contractions Closed cervix Chronic hypertension Resolving SKINNER Anxiety and depression during - will discharge home with usual labor and PEC precautions - Rx 25 mg zoloft and instructed to restart at that dose. Only increase to 50 mg when N/V under control. To f/u in 2 weeks virtually with me. -has scheduled in 4 days. Advised to keep appointment. -Laura Lopez APRN.CNM SIGNATURE: Laura Lopez APRN.CNM PATIENT NAME: Poonam Rausch DATE: September 24, 2023 TIME: 1:00 AM [facility] 09-24-2023 Telephone encounter Note Please call to schedule virtual visit for anxiety and depression during in 2 weeks. Laura Lopez APRN.CNM [facility] 09-23-2023 Progress note Formatting of t his note is different from the original. Denies LOF, VB, urinary symptoms, or cramping. Total weight gain to date = 17 pounds. +FM Risks for this : 1) h/o GHTN and IUGR, IOL 91n1m--[id number] 2) CHTN--no meds, BP BID--recording and sending weekly to office, parameters/precautions reviewed. 3) h/o ETOH use/rehab 4) Anxiety/Depression 5) History of marijuana use Urine Dip = 100 protein, small leuks. Fundal Height = 34 cm. NST SUMMARY PROVIDER ASSESSMENT AND INTERPRETATION Poonam Rausch is a 28 year old female, , who is at 37w2d with an AFUA of 11/08/2023, by Last Menstrual Period dating method. Indications for NST: Chronic HTN Baseline: 130 Variability: Moderate Accelerations: Present 15 X 15 Decelerations: None Contractions: TOCO: None Interpretation: Reactive SIGNATURE: Leslee Landry DO Assessment/Plan: 1) Blood type = B+, no rhophylac indicated, RI 2) NT and [id number] negative. 3) RTO in 1 week RPN visit 4) Ultrasound for anatomy/growth at 18-20 weeks--Male Fetus/3VC/Posterior Fundal Placenta 5) Patient instructed to call with bleeding, cramping, intractable nausea, decreased movement, or other concerns 6) GBS bacteruria 7) H/H = 11.1/33.8 and Glucose screen = 139 (3hrGTT = 80/104/96/73). 09/23/2023 4:40 PM Leslee Landry DO [facility] 09-23-2023 Miscellaneous Notes Denies LOF, VB, urinary symptoms, or cramping. Total weight gain to date = 17 pounds. +FM Risks for this : 1) h/o GHTN and IUGR, IOL [id number]--[id number] 2) CHTN--no meds, BP BID--recording and sending weekly to office, parameters/precautions reviewed. 3) h/o ETOH use/rehab 4) Anxiety/Depression 5) History of marijuana use Urine Dip = 100 protein, small leuks. Fundal Height = 34 cm. NST SUMMARY PROVIDER ASSESSMENT AND INTERPRETATION Poonam Rausch is a 28 year old female, , who is at 37w2d with an AFUA of 11/08/2023, by Last Menstrual Period dating method. Indications for NST: Chronic HTN Baseline: 130 Variability: Moderate Accelerations: Present 15 X 15 Decelerations: None Contractions: TOCO: None Interpretation: Reactive SIGNATURE: Leslee Landry DO Assessment/Plan: 1) Blood type = B+, no rhophylac indicated, RI 2) NT and [id number] negative. 3) RTO in 1 week RPN visit 4) Ultrasound for anatomy/growth at 18-20 weeks--Male Fetus/3VC/Posterior Fundal Placenta 5) Patient instructed to call with bleeding, cramping, intractable nausea, decreased movement, or other concerns 6) GBS bacteruria 7) H/H = 11.1/33.8 and Glucose screen = 139 (3hrGTT = 80/104/96/73). 09/23/2023 4:40 PM Leslee Landry DO documented in this encounter [facility] 09-23-2023 Nurse Note Movement? Active baby Vaginal Bleeding: NO Vaginal fluid leakage of fluid: NO Contractions: irregular contractions x2/hr [facility] 09-23-2023 Nurse Note Movement? Active baby Vaginal Bleeding: NO Vaginal fluid leakage of fluid: NO Contractions: irregular contractions x2/hr documented in this encounter [facility] 09-23-2023 Miscellaneous Notes Spoke with pt. Pt scheduled a few appointments. Pt coming in today at 10am. Thank you. Call placed to number on file. No answer. LVM to call back to schedule appts. Thank you. ----- Message from Leslee Landry DO sent at 09/20/2023 4:06 PM EDT ----- patient is 33 weeks and no OB visits please reach out to Poonam if desiring please schedule weekly OB visit with NSTs for CHTN thanks documented in this encounter [facility] 09-17-2023 Note HNO ID: [id number] Author: SHIMA OLMSTEAD MD Service: Obstetrics Author Type: Physician Type: Procedures Filed: 09/17/2023 12:00 Note Text: OBSTETRICS NST SUMMARY SERVICE DATE: September 17, 2023 The patient is a 28 year old female, , who is at 32w4d with an AFUA of 11/08/2023, by Last Menstrual Period dating method. NST OBJECTIVE FINDINGS PER NURSE: Start Time: 954 (09/17/23 1015 : Kerrie Gale RN) Complete Time: 1015 (09/17/23 1015 : Kerrie Gale RN) Indications: Other: Comment (leaking fluid) (09/17/23 1015 : Kerrie Gale RN) Patient Reason For: check baby (09/17/23 1015 : Kerrie Gale RN) NST Explanation: Procedure Explained;Monitor Explained;Verbalizes Understanding (09/17/23 1015 : Kerrie Gale RN) Acoustic Stimulator: No (09/17/23 1015 : Kerrie Gale RN) Interventions: Other (See Comment) (None) (09/17/23 1015 : Kerrie Gale RN) MONITORING/ASSESSMENT: Baseline: 135 bpm (09/17/23 1015 : Kerrie Gale RN) Variability: Moderate (6-25 bpm) (09/17/23 1015 : Kerrie Gale RN) Accelerations: Present (09/17/23 1015 : Kerrie Gale RN) Decelerations: Decelerations: None (09/17/23 1015 : Kerrie Gale RN) Contractions: Not present (09/17/23 1015 : Kerrie Gale RN) Frequency: Above information forwarded to Dr. Wilks (09/17/23 1015 : Kerrie Gale RN) for final review and interpretation. SIGNATURE: Kerrie Gale RN PATIENT NAME: Poonam Rausch DATE: September 17, 2023 TIME: 10:38 AM PROVIDER INTERPRETATION: Reactive SIGNATURE: Shima Olmstead MD DATE: September 17, 2023 TIME: 12:00 PM [facility] 09-17-2023 Miscellaneous Notes Reason for Call: Leakage of vaginal fluid, abdominal and flank pain Outcome: Call EMS 911 now. Patient acknowledges understanding, has 6 year old child with her, states she will call someone to care for child and will go to ED. Reason for Disposition [1] SEVERE abdominal pain (e.g., excruciating) AND [2] constant Protocols used: - Rupture of Membranes [id number] documented in this encounter [facility] 08-23-2023 Miscellaneous Notes Pt referred for childbirth education, will sent MyChart with resources. will consult in L&D and we currently don't have Fatherhood initiative. Shawn Brown RN documented in this encounter [facility] 08-20-2023 Miscellaneous Notes Doing well today, no c/o at this time except mild dysuria, requests urine culture (sent). States good +FM. S=D. Pt missed her last visit at 24 weeks, got confused and realized she missed the day after her appt. They recently moved, and she may begin attending care in a site closer to [place]. Discussed her moods, and her depression/anxiety have improved even though she has not been taking Zoloft or Abilify regularly. She will resume Zoloft and needs a refill on Abilify (satisfied with 5 mg daily dosage). Discussed her EtOH sobriety, which is not difficult for her anymore. Plan 28-week labs for today, including gc/ct swab by request. Offered Tdap vaccine, pt accepts but wants this at her next visit. Discussed pediatricians, given info. Sent Leslie for Childbirth, Pain Management, Cord Blood, Depression. Instructed pt on movement counts and s/s PTL. Start growth scans every 4 weeks for history of IUGR. Return to office in 2 weeks and PRN. 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 Growth scans form 28 weeks History of gestational hypertension Overview IOL at 39w3d Also had IUGR for 4#9oz baby ASA at 12 weeks. Monitor growth closely Other History of depression Overview 03/25/23 Pt has a history of anxiety and depression diagnosed at age 11. She states she has had counseling at [facility] in the past and is open to being seen somewhere, again. Discussed increased risks of depression during and and importance of reporting the development or worsening of symptoms should they occur. Pt states at age 11 she spent 1-2 months at [facility] for a psychiatric hospitalization. She denies any suicidal thoughts since then. Relevant Orders OBSTETRIC ULTRASOUND WHI REFERRAL TO OB [employer]UNITY [employer]NAGER [employer] Supervision of high risk , antepartum, third trimester Overview was: unplanned Blood products are: acceptable Baby is a: Boy ASA: at 12 weeks Early glucose: not indicated Relevant Orders OBSTETRIC ULTRASOUND WHI URINE CULTURE REFERRAL TO OB COMMUNITY MANAGER [employer] Alcohol use disorder Overview History of alcohol abuse. Was in rehab in August 2022 Still feels urge to drink. 08/20/2023 - reports sobriety without difficulty currently, and stable for some time now. No-show for appointment Relevant Orders REFERRAL TO OB COMMUNITY MANAGER [employer] Other Visit Diagnoses 28 weeks gestation of - Primary Relevant Orders URINE OB DIP B/O (Completed) GEST GLUC SCREEN, 1-HR, 50 GM, NON-FASTING CBC + DIFF SYPHILIS TOTAL W/REFLEX GONORRHEA/CHLAMYDIA NAAT OBSTETRIC ULTRASOUND WHI URINE CULTURE REFERRAL TO OB COMMUNITY MANAGER [employer] Luis Pratt APRN.CNM I spent a total of 40 minutes on the date of the service which included preparing to see the patient, [id number] patient care, completing clinical documentation, obtaining and/or reviewing separately obtained history, performing a medically appropriate examination, counseling and educating the patient/family/caregiver, and ordering medications, tests, or procedures. documented in this encounter [facility] 08-18-2023 Miscellaneous Notes Opened in error Violeta Sandoval APRN.CNM documented in this encounter [facility] 06-01-2023 Note HNO ID: [id number] Author: Pebbles Vinson PA-C Service: ? Author Type: Physician Exchange Underwriting Consultant Type: Progress Notes Filed: 06/01/2023 11:34 AM Note Text: Eye Problem (Left eye painful drainage redness daughter with pink eye last week) History of Present Illness: Poonam Rausch is a 28 year old female with a history of onset 1 days ago. Redness: Yes Itching: No Discharge: Yes: yellow and crusted in mornings Exposure: Yes. Daughter had pinkeye last week Change in vision: No Pain: Yes: irritation Injury: No Contact Lens wear: Yes Fevers: No URI Symptoms: Yes. Nasal congestion. Denies sore throats. Mild cough. PAST MEDICAL HISTORY Diagnosis Date Anxiety disorder Asthma Chronic hypertension complicating or reason for care during childbirth 05/03/2023 Depression Dysmenorrhea Gestational hypertension 2017 WITH FIRST CHILD IUGR (intrauterine growth restriction) affecting care of mother 2017 first kidney stones 2014 PMH - PAST MEDICAL HISTORY OF 08/25/2003 normal color vision Precocious sexual development and puberty, not elsewhere classified age 12 years Premenstrual tension syndromes PMS PAST SURGICAL HISTORY Procedure Laterality Date ADENOIDECTOMY SECONDARY AGE 11/> PAST SURGICAL HISTORY OF age 10 B/L ear tubes FAMILY HISTORY Adopted: Yes Problem Relation Age of Onset other (ADHD) Brother Heart Mother Alcohol/Drug Mother Alcohol/Drug Father in age late 20's Diabetes Maternal Grandfather Heart Maternal Grandfather Social History Social History Narrative Poonam lives with her daughter, Araceli, and Garth, her boyfriend. She is very happy about this and feels that it was granted to save her. She has good support from Garth. She notes that she lives to be a mom to Araceli and that this is what protects her. PHYSICAL EXAMINATION: BP 130/87 Pulse 84 Temp 37 ?C (98.6 ?F) Resp 16 LMP 02/01/2023 SpO2 98% General Appearance: age-appropriate female, pleasant, not toxic, looks well, and in no accute distress Eyes: Normal Pupil Size PERRLA EOMI Right: Normal. Conjunctival injection. No foreign body seen. Left: Conjunctival injection, No foreign bodies seen, No dye uptake seen under Wood's light lamp, No hyphema, and Red reflex present No periorbital edema or erythema. No evidence of orbital or periorbital cellulitis. ENT: TMs clear bilaterally throat without erythema. No cervical lymphadenopathy palpated. Lungs: CTA Heart: RRR ASSESSMENT: ASSESSMENT/PLAN: 1. Upper respiratory tract infection, unspecified type - ICD9: 465.9, ICD10: J06.9 (primary diagnosis) - Discussed viral etiology and rationale for treatment. - Symptomatic treatment with prn analgesia - Supportive care with fluids and rest - COVID AND INFLUENZA A/B AND RSV NAAT, ROUTINE 2. Acute conjunctivitis of left eye, unspecified acute conjunctivitis type - ICD9: 372.00, ICD10: H10.32 - see medication orders - course and contagiousness issues discussed, including hand washing. - Instructed to call if high fever, development of periorbital redness or swelling, eye pain, visual changes, concerns or if symptoms persist. Pebbles Vinson PA-C [facility] 05-03-2023 Note HNO ID: [id number] Author: Clary Child MD Service: ? Author Type: Physician Type: Progress Notes Filed: 05/03/2023 3:49 PM Note Text: MFM Consultation MFM Consultation requested by Violeta Sandoval CNM I will convey my findings and advice to the requesting provider either through shared electronic medical record or via [place] postal service. 28 year old @ 13w0d presents for new maternal medicine visit. [place] has a history of depression and anxiety currently on Abilify and Zoloft. Her psychiatrist is Carri Rivas. Mood is currently stable and doing well. Pt checked herself into a rehab center in [place] for alcohol abuse. Has been sober since and sees a therapist at [facility]. Her last was complicated by IUGR and GHTN. Poonam gives a history of multiple elevated BP outside and was prescribed clonidine as needed. Today BP was initially elevated but was normal on recheck. Baseline labs are wnl. She denies current use of any illicit substances. Today NT scan was normal and pt requested NIPT for Aneuploidy screening Past Medical History: PAST MEDICAL HISTORY Diagnosis Date Anxiety disorder Asthma Depression Dysmenorrhea Gestational hypertension 2016 WITH FIRST CHILD IUGR (intrauterine growth restriction) affecting care of mother 2017 first kidney stones 2014 PMH - PAST MEDICAL HISTORY OF 08/25/2003 normal color vision Precocious sexual development and puberty, not elsewhere classified age 12 years Premenstrual tension syndromes PMS Past Surgical History: PAST SURGICAL HISTORY Procedure Laterality Date ADENOIDECTOMY SECONDARY AGE 11/> PAST SURGICAL HISTORY OF age 10 B/L ear tubes Past Obstetrical History: Obstetric History T1 L1 SAB0 IAB0 Ectopic0 Multiple0 Live Births1 Name of Baby 1: Angel Date: 03/19/17 GA: 39w3d Delivery: Not recorded Apgar1: Not recorded Apgar5: Not recorded Living: Living Name of Baby 2: Not recorded Date: Not recorded GA: Not recorded Delivery: Not recorded Apgar1: Not recorded Apgar5: Not recorded Living: Not recorded Social History: Social History Tobacco Use Smoking status: Former Years: 1.5 Types: Cigarettes Quit date: 12/14/2015 Years since quittin.3 Smokeless tobacco: Never Vaping Use Vaping Use: current everyday user Substance Use Topics Alcohol use: Not Currently Comment: Self admitted to detox in 2022 Drug use: Not Currently Types: Marijuana Medications: Current Outpatient Medications on File Prior to Visit Medication Sig ARIPiprazole (ABILIFY) 5 mg tablet take one half tablet daily for 3 days then increase to one tablet daily sertraline (ZOLOFT) 100 mg tablet Take 1 tablet by mouth once daily. aspirin, enteric coated (ECOTRIN LOW STRENGTH) 81 mg EC tablet Take 1 tablet by mouth once daily. Please start at 12 weeks of gestation. folic acid 1 mg tablet Take 1 tablet by mouth once daily. (Patient not taking: Reported on 05/03/2023) vit/iron fum/folic ac ( 1 + 1 ORAL) Take by mouth. No current facility-administered medications on file prior to visit. Allergies: ALLERGIES No Active Allergies Family History: FAMILY HISTORY Adopted: Yes Problem Relation Age of Onset other (ADHD) Brother Heart Mother Alcohol/Drug Mother Alcohol/Drug Father in age late 20's Diabetes Maternal Grandfather Heart Maternal Grandfather 10 point ROS is negative Problem List Items Addressed This Visit Other History of gestational hypertension Overview IOL at 39w3d Also had IUGR for 4#9oz baby ASA at 12 weeks. Monitor growth closely Alcohol use disorder Overview History of alcohol abuse. Was in rehab in August 2022 Still feels urge to drink. Other Visit Diagnoses High-risk in first trimester Prior complicated by IUGR, antepartum BP 150/89 Pulse 120 LMP 02/01/2023 Physical Exam Constitutional: Appearance: Normal appearance. Pulmonary: Effort: Pulmonary effort is normal. Abdominal: General: Abdomen is flat. Palpations: Abdomen is soft. Neurological: General: No focal deficit present. Mental Status: She is alert and oriented to person, place, and time. Psychiatric: Mood and Affect: Mood normal. Behavior: Behavior normal. Assessment Plan 28 year old @ 13w0d Depression Patient stated that her mood is stable on Abilify and Zoloft The risks and benefits of continuing a daily medication must be weighed against the maternal risks of uncontrolled disease. We discussed that there can be risks of untreated depression in including poor maternal weight gain, growth, suicidal ideation, and depression. We further discussed that Paroxetine is the only SSRIs,that has been associated with persistent pulmonary hypertension of the . Others have an increased risk of irritability, (more content not included)... [facility] 05-03-2023 History of Presen t illness Narrative MFM Consultation MFM Consultation requested by Violeta Sandoval CNM I will convey my findings and advice to the requesting provider either through shared electronic medical record or via [place] postal service. 28 year old @ 13w0d presents for new maternal medicine visit. [place] has a history of depression and anxiety currently on Abilify and Zoloft. Her psychiatrist is Carri Rivas. Mood is currently stable and doing well. Pt checked herself into a rehab center in [place] for alcohol abuse. Has been sober since and sees a therapist at [facility]. Her last was complicated by IUGR and GHTN. Poonam gives a history of multiple elevated BP outside and was prescribed clonidine as needed. Today BP was initially elevated but was normal on recheck. Baseline labs are wnl. She denies current use of any illicit substances. Today NT scan was normal and pt requested NIPT for Aneuploidy screening Past Medical History: PAST MEDICAL HISTORY Diagnosis Date Anxiety disorder Asthma Depression Dysmenorrhea Gestational hypertension 2016 WITH FIRST CHILD IUGR (intrauterine growth restriction) affecting care of mother 2017 first kidney stones 2014 PMH - PAST MEDICAL HISTORY OF 08/25/2003 normal color vision Precocious sexual development and puberty, not elsewhere classified age 12 years Premenstrual tension syndromes PMS Past Surgical History: PAST SURGICAL HISTORY Procedure Laterality Date ADENOIDECTOMY SECONDARY AGE 11/> PAST SURGICAL HISTORY OF age 10 B/L ear tubes Past Obstetrical History: Obstetric History T1 L1 SAB0 IAB0 Ectopic0 Multiple0 Live Births1 Name of Baby 1: Angel Date: 03/19/17 GA: 39w3d Delivery: Not recorded Apgar1: Not recorded Apgar5: Not recorded Living: Living Name of Baby 2: Not recorded Date: Not recorded GA: Not recorded Delivery: Not recorded Apgar1: Not recorded Apgar5: Not recorded Living: Not recorded Social History: Social History Tobacco Use Smoking status: Former Years: 1.5 Types: Cigarettes Quit date: 12/14/2015 Years since quittin.3 Smokeless tobacco: Never Vaping Use Vaping Use: current everyday user Substance Use Topics Alcohol use: Not Currently Comment: Self admitted to detox in 2022 Drug use: Not Currently Types: Marijuana Medications: Current Outpatient Medications on File Prior to Visit Medication Sig ARIPiprazole (ABILIFY) 5 mg tablet take one half tablet daily for 3 days then increase to one tablet daily sertraline (ZOLOFT) 100 mg tablet Take 1 tablet by mouth once daily. aspirin, enteric coated (ECOTRIN LOW STRENGTH) 81 mg EC tablet Take 1 tablet by mouth once daily. Please start at 12 weeks of gestation. folic acid 1 mg tablet Take 1 tablet by mouth once daily. (Patient not taking: Reported on 05/03/2023) vit/iron fum/folic ac ( 1 + 1 ORAL) Take by mouth. No current facility-administered medications on file prior to visit. Allergies: ALLERGIES No Active Allergies Family History: FAMILY HISTORY Adopted: Yes Problem Relation Age of Onset other (ADHD) Brother Heart Mother Alcohol/Drug Mother Alcohol/Drug Father in age late 20's Diabetes Maternal Grandfather Heart Maternal Grandfather 10 point ROS is negative Problem List Items Addressed This Visit Other History of gestational hypertension Overview IOL at 39w3d Also had IUGR for 4#9oz baby ASA at 12 weeks. Monitor growth closely Alcohol use disorder Overview History of alcohol abuse. Was in rehab in August 2022 Still feels urge to drink. Other Visit Diagnoses High-risk in first trimester Prior complicated by IUGR, antepartum BP 150/89 Pulse 120 LMP 02/01/2023 Physical Exam Constitutional: Appearance: Normal appearance. Pulmonary: Effort: Pulmonary effort is normal. Abdominal: General: Abdomen is flat. Palpations: Abdomen is soft. Neurological: General: No focal deficit present. Mental Status: She is alert and oriented to person, place, and time. Psychiatric: Mood and Affect: Mood normal. Behavior: Behavior normal. Assessment Plan 28 year old @ 13w0d Depression Patient stated that her mood is stable on Abilify and Zoloft The risks and benefits of continuing a daily medication must be weighed against the maternal risks of uncontrolled disease. We discussed that there can be risks of untreated depression in including poor maternal weight gain, growth, suicidal ideation, and depression. We further discussed that Paroxetine is the only SSRIs,that has been associated with persistent pulmonary hypertension of the . Others have an increased risk of irritability, and withdrawal following prolonged use during ; however, studies have not reported an association with congenital anomalies. We also reviewed the safety profile of Zoloft in . Given the potential benefits and limited data on adverse affects, continued use ofboth Abilify and Zoloft throughout and the period is recommended Chronic Hypertension we discussed risks associated with cHTN in including PEC, IUGR, IUFD, oligohydramnios, abruption. Patient expressed understanding of the above and described good medication compliance thus far. Goal is to keep BP < 140/90 mmhg - baseline P/C ratio, HELLP labs, and urine protein wnl - would recommend growth US at 28/32/36 weeks - weekly testing from 32 weeks - would recommend delivery at 38 weeks depending on blood pressure control - Recommend keeping a BP log - ASA 81 mg daily - BP monitor prescribed Alcohol use Disorder Discussed the risk of alcohol syndrome if using alcohol whilst and no known safe level of alcohol in . Explained as she does not currently use alcohol, not at risk and to inform her providers and therapist if she were to relapse.. History of IUGR Discussed risk of recurrence of IUGR with potential etiology and no preventive measures for IUGR in the absence of risk factors for preeclampsia. Some studies have an increased risk of IUGR in subsequent pregnancies. Recommend monthly growth scans starting at 28 weeks Finally NIPT was ordered today Clary Child MD Medical Decision Making: Problems: Moderate: 2+ stable chronic illnesses Data: Unique test result(s) reviewed: 3+ Unique test(s) ordered: 1 Risk: Moderate: Moderate risk from testing/treatment Medical Decision Making Level: 4 - Moderate documented in this encounter [facility] 05-03-2023 Note HNO ID: [id number] Author: Carri Rivas, DO Service: ? Author Type: Physician Type: Progress Notes Filed: 05/04/2023 1:38 PM Note Text: FOLLOW UP - PSYCHIATRIC PROGRESS NOTE Visit Type:Virtual Visit utilizing two-way audio and video for at least a portion of the visit. Consent for virtual visit obtained verbally. Confidentiality limitations with virtual visits reviewed with the patient and guardian, if present, who have accepted the risk verbally prior to proceeding with encounter. I have communicated my name and active licensure. The patient's identity and physical location were verified at the time of this visit. Either the patient or their legal primary care sales representative has been informed of the risks and benefits of -- and alternatives to -- treatment through a remote evaluation and consents to proceed with the evaluation remotely. Reason for Visit: Outpatient follow-up and safety monitoring of previously prescribed psychiatric medication, psychotherapy or other treatment CC: I'm feeling a lot better . My mom noticed a difference. HPI: She feels a lot better on abilify without any si . She feels a lot better . She is going to find out the sex on May 16 . She will reach out to [facility] in [place] as she is stopped going and is nervous to reachout Risks and benefits of the medication, including any black box warnings, were discussed with the patient. Interval Progress: Improved PATIENT DATA: Generalized Anxiety Disorder Scale (KYRA-7) KYRA - 7 SCORES 04/20/2023 05/03/2023 05/03/2023 KYRA-7 Score 19 6 6 (0-4) minimal anxiety, (5-9) mild anxiety, (10-14) moderate anxiety, (15-21) severe anxiety Patient Health Questionnaire (PHQ-9) PHQ-9 04/20/2023 05/03/2023 05/03/2023 Score 20 5 5 (0-4) minimal depression, (5-9) mild depression, (10-14) moderate depression, (15-19) moderately severe depression, (20-27) severe depression PROMIS Global Health PROMIS Global Health - (T-Scores - the mean of general population = 50. Five points is a clinically meaningful difference.) 04/20/2023 Physical T-Score 50.8 Mental T-Score 43.5 PAST MEDICAL HISTORY Diagnosis Date Anxiety disorder Asthma Depression Dysmenorrhea Gestational hypertension 2016 WITH FIRST CHILD IUGR (intrauterine growth restriction) affecting care of mother 2016 first kidney stones 2014 PMH - PAST MEDICAL HISTORY OF 08/25/2003 normal color vision Precocious sexual development and puberty, not elsewhere classified age 12 years Premenstrual tension syndromes PMS PAST SURGICAL HISTORY Procedure Laterality Date ADENOIDECTOMY SECONDARY AGE 11/> PAST SURGICAL HISTORY OF age 10 B/L ear tubes Current Outpatient Medications Medication Sig Dispense Refill ARIPiprazole (ABILIFY) 5 mg tablet take one half tablet daily for 3 days then increase to one tablet daily 30 tablet 0 sertraline (ZOLOFT) 100 mg tablet Take 1 tablet by mouth once daily. 30 tablet 0 aspirin, enteric coated (ECOTRIN LOW STRENGTH) 81 mg EC tablet Take 1 tablet by mouth once daily. Please start at 12 weeks of gestation. 30 tablet 5 folic acid 1 mg tablet Take 1 tablet by mouth once daily. 90 tablet 4 vit/iron fum/folic ac ( 1 + 1 ORAL) Take by mouth. No current facility-administered medications for this visit. ROS: GENERAL: Negative for malaise, significant weight loss and fever. HEENT: No changes in hearing or vision, no nose bleeds or other nasal problems. RESPIRATORY: Negative for cough, wheezing and shortness of breath. CARDIOVASCULAR: Negative for chest pain, leg swelling and palpitations. GI: Negative for abdominal discomfort, blood in stools or black stools. : Negative for dysuria, frequency and incontinence. MUSCULOSKELETAL: Negative for joint pain or swelling, back pain, and muscle pain. SKIN: Negative for lesions, rash, and itching. HEMATOLOGY/LYMPHOLOGY Negative for prolonged bleeding, bruising easily, and swollen nodes. ENDOCRINE: Negative for cold or heat intolerance, polyuria, polydipsia and goiter. NEURO: Negative for headaches, syncope, seizures and paralysis. PFSH: none VITAL SIGNS: There were no vitals filed for this visit. MENTAL STATUS EXAM: CONSTITUTIONAL: Well groomed ORIENTATION: Person, Place, Time and Situation MEMORY: Recent intact, Remote intact CONCENTRATION: Normal MOOD: good AFFECT: Full and appropriate to topic SPEECH : Clear AND distinct LANGUAGE : Normal ASSOCIATIONS: Intact THOUGHT PROCESS : Logical, Coherent, and Rational PROGRESSION : There was no evidence of disturbance in thought perception or progression. FUND OF KNOWLEDGE : Appropriate and Adequate SUICIDE: None HOMICIDE: None DATA REVIEWED: None DIAGNOSIS: PRIMARY: depression 28 yr old female with a hx of ptsd , mdd and panic disorder DIAGNOSIS: PRIMARY: PTSD , panic disorder, KYRA and MDD recurrent Hx of etoh use disorder (more content not included)... [facility] 04-20-2023 Note HNO ID: [id number] Author: Carri Rivas, DO Service: ? Author Type: Physician Type: Progress Notes Filed: 04/21/2023 10:47 AM Note Text: PSYC NEW - PSYCHIATRIC ASSESSMENT Patient was seen for an initial evaluation. I have communicated my name and active licensure. The patient's identity and physical location were verified at the time of this visit. Either the patient or their legal primary care sales representative has been informed of the risks and benefits of -- and alternatives to -- treatment through a remote evaluation and consents to proceed with the evaluation remotely. All information is from Patient report except when noted. This evaluation is NOT intended for forensic, disability or child custody purposes. 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 Pt states she has no energy. Pt states she has a 6 yr old daughter Bianca, in kindergarden, with her every day but two days a week. Pt works at [employer] as a point lay [employer] 30 hours and will be switching to another bank. When she got she wanted the baby and once got didn't want to be . She states she started zoloft a week prior to finding out in end of Feb at 5 weeks then at 7 weeks increased herself to 50 mg and she increased on her own to 100 mg zoloft in beginning of MAR. She denies any nausea. Previously she had been on zoloft 150 mg which was effective along with trazadone. She says she has been so miserable and struggling that she had to increase the zoloft. She did have one glass of wine 3 weeks ago. She is struggling about being and now getting to the point where she doesn't want the baby. She has thought of termination but her daughter knows so she is hoping things will change and she will want the baby. She doesn't want to be around him and they're struggling. Cande says that since she got she has completely changed. She has been taking 0.1 mg clonidine as needed when she is really struggling with panic not prescribed currently just left over from her family doctor Dr Rosario, which turbine technician didn't want her to take. She has taken the clonidine at least twice a week at [place] for anxiety . Delivery last time went well and very quick. The father of her daughter wants her to get back with her so she had a thought like what is the point last week. She says she wasn't honest about everything that she had some suicidal thought . When she was driving last week she had the thought of what is the point and she could drive her car into a pole . She said it was a 5 min thing and wouldn't do that but really stuck. She is now with ethanbrittany and isnt happy with him. Sleep: difficulty falling asleep taking melatonin 10 mg po qhs not rx , able to sleep with melatonin Interest: decreased , don't care Guilt: a lot Energy: low no motivation or energy Concentration: unable to focus Appetite: okay Psychomotor Activity: wnl Suicide:denied any plan or intent Phobias: denied Memory: not the best Anxiety: severe and panic symptoms/attacks 3 yrs ago , feels like she is dry heaving and can feel her heart rate , at worst feels like dry heaving and can't catch her breathe, worse while driving , had one 3 yrs ago and when she went to the hospital for panic then given something for this at [place] during beginning of COVID thought she had it bad anxiety driving and panic afraid something bad is going to happen which is why the drinking got bad Obsessions: none Compulsions: cleaning and counting which irritates her and changes her mood Dot: Denies any symptoms of dot PTSD: The patient has experienced/witnessed trauma that threatened his or her integrity, response: fear/helpless. Experiences recurrent nightmares of the trauma. Acts or feels that the traumatic event(s) were recurring. Self Mutilation: Denies Psychosis denied PAST MEDICAL HISTORY Diagnosis Date Anxiety disorder Asthma Depression Dysmenorrhea Gestational hypertension 2017 WITH FIRST CHILD IUGR (intrauterine growth restriction) affecting care of mother 2017 first kidney stones 2014 PMH - PAST MEDICAL HISTORY OF 08/25/2003 normal color vision Precocious sexual development and puberty, not elsewhere classified age 12 years Premenstrual tension syndromes PMS PAST SURGICAL HISTORY Procedure Laterality Date ADENOIDECTOMY SECONDARY AGE 11/> PAST SURGICAL HISTORY OF age 10 B/L ear tubes Current Outpatient Medications Medication Sig Dispense Refill aspirin, enteric coated (ECOTRIN LOW STRENGTH) 81 mg EC tablet Take 1 tablet by mouth once daily. Please start at 12 weeks of gestation. 30 tablet (more content not included)... [facility] 04-02-2023 Miscellaneous Notes Referral to MICHAEL H/o IUGR H/O alcohol abuse 2017: IOL at 38w [facility] [place] MEDICATION: Zoloft Patient was prescribed 50mg. Does not fell like it was helping her. She doubled the dose on her own. Advised patient to contact her OB office to discuss. Patient feels like she is struggling with urge to drink and mental health. Reports that she was attending AA meeting and therapy but had to stop because it was getting too crazy. Advised that [facility] has mental health providers and that her OB can place a referral for her. NT and MICHAEL consult at [facility] on 05/03 Called patient to schedule consult. Call could not be connected. ScalITg sent to patient. documented in this encounter [facility] 03-25-2023 History of Past i llness Narrative Problem Noted Date Diagnosed Date Resolved Date Substance use disorder 03/25/202309/16 Overview: Was in rehab for EtOH use in August of 2022 Last Assessment & Plan: Currently feeling the urge to use, but noting that this baby is here to save my life. She has good support from partner. Consult made to [facility] with consult to navigator Headache(784.0) 10/27/2011 08/17/2016 Dysmenorrhea 04/02/2011 08/17/2016 Backache, unspecified 07/30/20082016 documented as of this encounter (statuses as of 09/17/2023) [facility]10-19-2023 History of Past illness Narrative* Problem Noted Date Diagnosed Date Resolved Date Substance use disorder 03/25/202309/16 Overview: Was in rehab for EtOH use in August of 2022 Last Assessment & Plan: Currently feeling the urge to use, but noting that this baby is here to save my life. She has good support from partner. Consult made to [facility]'s with consult to navigator Headache(784.0) 10/27/2011 08/17/2016 Dysmenorrhea 04/02/2011 08/17/2016 Backache, unspecified 07/30/20082016 documented as of this encounter (statuses as of 09/21/2023) [facility] History of Past illness Narrative* Problem Noted Date Diagnosed Date Resolved Date Substance use disorder 03/25/202309/16 Overview: Was in rehab for EtOH use in August of 2022 Last Assessment & Plan: Currently feeling the urge to use, but noting that this baby is here to save my life. She has good support from partner. Consult made to [facility] with consult to navigator Headache(784.0) 10/27/2011 08/17/2016 Dysmenorrhea 04/02/2011 08/17/2016 Backache, unspecified 07/30/20082016 documented as of this encounter (statuses as of 09/23/2023) [facility]10-19-2023 NoteHNO ID: [id number] Author: Violeta Sandoval APRN.[facility] Service: ? Author Type: Ux Developer Designer Type: Progress Notes Filed: 04/08/2023 1:06 PM Note Text: SBIRT Poonam Rausch was given the 4P's screening tool. Poonam answered as follows: OB Opioid Screening - Last Recorded (since 06/28/2022) Did any of your parents have a problem with alcohol or other drug use? No Does your partner have a problem with alcohol or other drug use? No In the past, have you had difficulties in your life because of alcohol or other drugs, including prescription medications? Yes pt checked herself into rehab facility for alcohol use August 2022 In the past month have you drunk any alcohol or used other drugs? No Are you taking medication for pain during the either prescribed or not? No Based on the screen and further questions, she is considered at moderate risk due to: High use in the past including recent treatment. Patient offered brief intervention, motivational interviewing, frequent follow-up visits with provider, and referral to behavioral health coordinator. In discussing this issue my medical advice was that Poonam Rausch abstain. Her readiness to change(0 lowest - 10 highest) was 8. We discussed her motivation to change based upon this response. Patient agreed that she would: abstain, speak with our behavioral health coordinator, and referred to [facility]'s . Patient will return in 4wks to discuss her progress with this plan. In total, 5 minutes of personal time was spent administering and interpreting the screen, plus performing a brief intervention. Violeta Sandoval APRN.[facility]10-19-2023 Miscellaneous Notes* Telephone Encounter - Kendrick Ren RN - 03/25/2023 11:27 AM EDT Pt's current insurance per Epic: [employer] EDC: Estimated Date of Delivery: 11/08/23 Gestational age: 7.3 wks County of residence: [place] City: [place] Zip: [address] Provider placing referral: Violeta Sandoval APRN.CNM Reason for referral: Poonam would like support from Dr. Sun/Mahesh to manage alcohol use disorder and also depression; Needs help with scheduling with women[facility] Phone number called: [phone]- call cannot be completed as dialed. Will send MC message to pt. AAKASH Siddiqi, BSN, RNC, [facility] OB Clinical Navigator [phone] (cell) * Telephone Encounter - Kendrick Ren RN - 03/25/2023 10:13 AM EDT Pended order for [facility]- routed to Christiano Sandoval CNM to file. Kendrick Ren RN [facility]23 NoteHNO ID: [id number] Author: Violeta Sandoval APRN.CNM Service: ? Author Type: Ux Developer Designer Type: Progress Notes Filed: 04/08/2023 1:06 PM Note Text: INITIAL OB ASSESSMENT OB Provider: Violeta Sandoval APRN.CNM HPI: Poonam is a 28 year old White here to establish Obstetrical Care. Patient's last menstrual period was 02/01/2023. from OB Dating Form. Cycles regular was unplanned but accepted Complaints: Nothing. She does note that she is struggling with anxiety and an urge to drink. She is motivated to quit, though. OB History T1 L1 SAB0 IAB0 Ectopic0 Multiple0 Live Births1 Previous history: Prior : never History of 4th degree laceration: No History of shoulder dystocia: No History of Hypertensive disorders including pre-eclampsia, chronic hypertension or gestational hypertension: Yes History of gestational diabetes: No Patient's Risk Screening for delivery: Have you had a prior alegre between 20w and 36w6d?: No MEDICAL/PSYCHOSOCIAL HISTORY: History of hemorrhage or bleeding concerns: No Thyroid Disease: No History of chronic hypertension: Yes, during History of pre-existing diabetes: No ABO/RH(D) Date Value Ref Range Status 08/17/2016 B POSITIVE Final BMI 27.98 kg/(m2) History of abnormal pap: Yes LGSIL in 2017 Prior treatment for cervical dysplasia: none. History of STDs: None Tobacco use: No Caffeine use: Yes, 2 Drug use: No Alcohol use: No Multivitamin with Folic acid: Yes Voodoo or heritage: No Would refuse blood transfusion if medically necessary: No Are you currently employed? Yes, Occupation: [employer] Do you have any history of depression, anxiety, PTSD, eating disorders or other mood problems: Yes, anxiety depression diagnosed childhood/teenage years. Went to rehab facility August 2022 Do you have any safety concerns or history of traumatic events that you would like to discuss with your provider: No SDOH Screening: How often does this describe you? I don't have enough money to pay my bills: Never Within the past 12 months, have you worried that your food would run out before you had money to buy more: Never In the past 12 months, has lack of reliable transportation kept you from going to medical appointments or work, or from keeping things needed for daily living: Never In the past 12 months, have you had any concerns about having a place to live, or about the condition or quality of your housing: Never Are there any cultural or spiritual needs we should be aware of: No Depression/Anxiety Screening: denies, admits to symptoms of depression. OB Depression and Anxiety Screening- This Encounter (since 04/07/2023) None Genetic Screening: Partner present: Yes Patient verbalized knowledge of partner family health history: No Do you or your partner have any personal or family history of defects not previously discussed: No Do you have history of a complicated by anomaly, genetic condition, or demise: No ACOG Recommended Screening Screening for early gestational diabetes testing: Criteria for early testing requires elevated BMI plus one other risk factor: BMI 27.98 kg/(m2) (risk factor if > than 25 or 23 in Americans) Additional risk factors: None She does not meet ACOG criteria for early gestational DM screening. Screening for low dose aspirin use for the prevention of pre-eclampsia: Low dose aspirin should be considered if the patient has one high or two moderate risk factors: High risk factors: History of pre-eclampsia, especially when accompanied by an adverse outcome and high screening pressure. Moderate risk ractors: Personal history factors (e.g., low birthweight or small for gestational age, previous adverse outcome, more than 10-year interval) She does meet criteria for low dose ASA Marital Status:Co-habitating Partner: Name: Sterling Age: 30 Occupation: [employer] Gender: Male History of STDs: None PAST MEDICAL HISTORY Diagnosis Date Anxiety disorder Asthma Depression Dysmenorrhea Gestational hypertension 2017 WITH FIRST CHILD IUGR (intrauterine growth restriction) affecting care of mother 2017 first kidney stones 2014 PMH - PAST MEDICAL HISTORY OF 08/25/2003 normal color vision Precocious sexual development and puberty, not elsewhere classified age 12 years Premenstrual tension syndromes PMS PAST SURGICAL HISTORY Procedure Laterality Date ADENOIDECTOMY SECONDARY AGE 11/> PAST SURGICAL HISTORY OF age 10 B/L ear tubes Current Outpatient Medications Medication Sig Dispense Refill vit/iron fum/folic ac ( 1 + 1 ORAL) Take by mouth. amoxicillin (AMOXIL) 500 mg capsule Take 1 capsule by mouth every 12 hours for 7 days. 14 capsule 0 aspirin, enteric coated (ECOTRIN LOW ST (more content not included)...[facility]01-27-[facility]23 History of Present illness Narrative* Patsy Soriano APRN.[facility] - 07/03/2022 11:01 AM EST This note was created using NoteWriter. Subjective Poonam Rausch is a 27 year old female. HPI by patient: Poonam Rausch is a 27 year old presenting to the office with the complaint of viral symptoms. Started yesterday. Associated symptoms include sore throat, cough, congestion, fatigue, and body aches. Denies gi symptoms and shortness of breath. Covid Immunization Dates Overdue - COVID-19 VACCINE (1) Overdue - never done No completion, postpone, frequency change, or communication history exists for this topic. Flu/RSV contacts: none. Strep contacts: yes, daughter Sick contacts: yes. Covid + contacts: none. Travel in the last 14 days: none. Smoking history/second hand smoke: none. OTC not used. No antibiotic use in the last 60 days. ALLERGIES Environmental [Othe* Family History Reviewed Including Cardiac Diseases, Psychiatric Diseases, & Substance Abuse Adopted: Yes Problem: other (ADHD) Relation: Brother Age of Onset: (Not Specified) Problem: Heart Relation: Mother Age of Onset: (Not Specified) Problem: Alcohol/Drug Relation: Mother Age of Onset: (Not Specified) Problem: Alcohol/Drug Relation: Father Age of Onset: (Not Specified) Comment: in age late 20's Problem: Diabetes Relation: Maternal Grandfather Age of Onset: (Not Specified) Problem: Heart Relation: Maternal Grandfather Age of Onset: (Not Specified) Social History Tobacco Use Smoking status: Former Years: 1.50 Types: Cigarettes Quit date: 12/14/2015 Years since quittin.5 Smokeless tobacco: Never Alcohol use: No Drug use: Yes Types: Marijuana Active Ambulatory Problems Lumbago Date Noted: 10/03/2008 History of marijuana use Date Noted: 08/13/2016 History of depression Date Noted: 08/13/2016 History of kidney stones Date Noted: 08/13/2016 Family history of Down syndrome Date Noted: 08/13/2016 Pap smear abnormality of cervix with LGSIL Date Noted: 08/31/2016 Resolved Ambulatory Problems Backache, unspecified Date Noted: 07/30/2008 Dysmenorrhea Date Noted: 04/02/2011 Headache(784.0) Date Noted: 10/27/2011 Past Medical History: No date: Anxiety disorder No date: Asthma No date: Depression 2015: kidney stones 08/25/2003: PMH - PAST MEDICAL HISTORY OF No date: Precocious sexual development and puberty, not elsewhere classified No date: Premenstrual tension syndromes Review of Systems Constitutional: Positive for chills and fatigue. Negative for fever. HENT: Positive for congestion and sore throat. Negative for ear pain. Eyes: Negative. Respiratory: Positive for cough. Negative for shortness of breath. Cardiovascular: Negative. Gastrointestinal: Negative. Endocrine: Negative. Genitourinary: Negative. Musculoskeletal: Positive for myalgias. Skin: Negative. Neurological: Negative. Hematological: Negative. Objective BP 132/81 Pulse 64 Temp 36.3 C (97.3 F) (Tympanic) Resp 18 Ht 159.4 cm (5' 2.75) Wt 63.5kg (140 lb) LMP 05/05/2021 (Approximate) SpO2 96% BMI 25.00 kg/m Physical Exam Vitals reviewed. Constitutional: General: She is not in acute distress. Appearance: She is not ill-appearing, toxic-appearing or diaphoretic. HENT: Head: Normocephalic and atraumatic. Right Ear: Tympanic membrane, ear canal and external ear normal. Left Ear: Tympanic membrane, ear canal and external ear normal. Nose: Nose normal. Right Sinus: No maxillary sinus tenderness or frontal sinus tenderness. Left Sinus: No maxillary sinus tenderness or frontal sinus tenderness. Mouth/Throat: Mouth: Mucous membranes are moist. Pharynx: Oropharynx is clear. Posterior oropharyngeal erythema present. No oropharyngeal exudate. Tonsils: No tonsillar exudate. 1+ on the right. 2+ on the left. Cardiovascular: Rate and Rhythm: Normal rate and regular rhythm. Pulmonary: Effort: Pulmonary effort is normal. Breath sounds: Normal breath sounds. Lymphadenopathy: Head: Right side of head: Tonsillar adenopathy present. No submandibular adenopathy. Left side of head: Tonsillar adenopathy present. No submandibular adenopathy. Cervical: Cervical adenopathy present. Right cervical: Superficial cervical adenopathy present. Left cervical: Superficial cervical adenopathy present. Psychiatric: Behavior: Behavior is cooperative. Assessment and Plan (J02.0) Strep throat (primary encounter diagnosis) Plan: amoxicillin-clavulanic acid (AUGMENTIN) 875-125 mg per tablet (J35.1) Enlargement of left palatine tonsil Plan: amoxicillin-clavulanic acid (AUGMENTIN) 875-125 mg per tablet Education on viral vs bacterial infections. Most viral infections will last 10 days, sometimes 14. It is possible to have back to back viral infections. An antibiotic will not treat a virus. Positive strep culture in office. Unilateral tonsillar enlargement, will treat with Augmentin. May self schedule through [facility] for viral testing. -Drink lots of fluids and get plenty of rest. Gargle with salt water 3 times/day. -Vaporizers, cool mist humidifiers, warm showers, and warm fluids help open respiratory and sinus passages. Clean humidifiers daily. -OTC tylenol as directed on the bottle. May use OTC Ibuprofen if there is no underlying blood pressure/heart disease. -Saline nasal spray as needed. Flonase twice daily can help reduce inflammation through the sinus cavities. -OTC Mucinex DM or generic version for cough/congestion for those over the age of 12. -Cough/deep breathing education, promote clearing of the airways and good lung expansion. -Make follow up with primary care for monitoring and resolution in symptoms. -Signs that warrant an ER evaluation: Sudden change/worsening in condition, lethargy, signs of dehydration, fever greater than 102 F thatis not responding to Tylenol or ibuprofen (Motrin, Advil), drooling, difficulty swallowing, difficulty breathing, shortness of breath, chest pain, evidence of airway compromise (tripod position, neck extension, retractions), seizures, changes in mental status, or other concerns. The patient will pursue further outpatient evaluation with the primary care physician or another Urgent Care/Express Care as outlined in the after visit summary. The patient is agreeable to this planof care and follow-up instructions have been explained in detail. The patient has received these instructions in written format and have expressed an understanding of the after visit summary. Medical Decision Making: Level: 4 - Moderate I spent a total of 20 minutes on the date of the service which included preparing to see the patient, [id number] patient care, completing clinical documentation, obtaining and/or reviewing separately obtained history, performing a medically appropriate examination, counseling and educating the pat ient/family/caregiver, and ordering medications, tests, or procedures. This patient encounter involved the screening or treatment of novel coronavirus infection (COVID-19). [facility] Inst[facility]* Patient Instructions* Patsy Soriano APRN.CNP - 07/03/2022 11:01 AM EST (J02.0) Strep throat (primary encounter diagnosis) Plan: amoxicillin-clavulanic acid (AUGMENTIN) 875-125 mg per tablet (J35.1) Enlargement of left palatine tonsil Plan: amoxicillin-clavulanic acid (AUGMENTIN) 875-125 mg per tablet Education on viral vs bacterial infections. Most viral infections will last 10 days, sometimes 14. It is possible to have back to back viral infections. An antibiotic will not treat a virus. Positive strep culture in office. Unilateral tonsillar enlargement, will treat with Augmentin. May self schedule through [facility] for viral testing. -Drink lots of fluids and get plenty of rest. Gargle with salt water 3 times/day. -Vaporizers, cool mist humidifiers, warm showers, and warm fluids help open respiratory and sinus passages. Clean humidifiers daily. -OTC tylenol as directed on the bottle. May use OTC Ibuprofen if there is no underlying blood pressure/heart disease. -Saline nasal spray as needed. Flonase twice daily can help reduce inflammation through the sinus cavities. -OTC Mucinex DM or generic version for cough/congestion for those over the age of 12. -Cough/deep breathing education, promote clearing of the airways and good lung expansion. -Make follow up with primary care for monitoring and resolution in symptoms. -Signs that warrant an ER evaluation: Sudden change/worsening in condition, lethargy, signs of dehydration, fever greater than 102 F thatis not responding to Tylenol or ibuprofen (Motrin, Advil), drooling, difficulty swallowing, difficulty breathing, shortness of breath, chest pain, evidence of airway compromise (tripod position, neck extension, retractions), seizures, changes in mental status, or other concerns. [facility] History of Past illness Narrative* Problem Noted Date Resolved Date Headache(784.0) 10/27/2011 08/17/2016 Dysmenorrhea 04/02/2011 08/17/2016 Backache, unspecified 07/30/2008 08/17/2016 documented as of this encounter (statuses as of 07/03/2022) [facility] History of Past illness Narrative* Problem Noted Date Diagnosed Date Resolved Date Headache(784.0) 10/27/2011 08/17/2016 Dysmenorrhea 04/02/2011 08/17/2016 Backache, unspecified 07/30/20082016 documented as of this encounter (statuses as of 03/25/2023) [facility] History of Past illness Narrative* Problem Noted Date Diagnosed Date Resolved Date Headache(784.0) 10/27/2011 08/17/2016 Dysmenorrhea 04/02/2011 08/17/2016 Backache, unspecified 07/30/20082016 documented as of this encounter (statuses as of 03/25/2023) [facility] of Past illness Narrative* Problem Noted Date Diagnosed Date Resolved Date Headache(784.0) 10/27/2011 08/17/2016 Dysmenorrhea 04/02/2011 08/17/2016 Backache, unspecified 07/30/20082016 documented as of this encounter (statuses as of 04/02/2023) [facility] of [facility] illness Narrative* Problem Noted Date Diagnosed Date Resolved Date Headache(784.0) 10/27/2011 08/17/2016 Dysmenorrhea 04/02/2011 08/17/2016 Backache, unspecified 07/30/20082016 documented as of this encounter (statuses as of 04/06/2023) [facility] of Past illness Narrative* Problem Noted Date Diagnosed Date Resolved Date Headache(784.0) 10/27/2011 08/17/2016 Dysmenorrhea 04/02/2011 08/17/2016 Backache, unspecified 07/30/20082016 documented as of this encounter (statuses as of 04/21/2023) [facility] of Past illness Narrative* Problem Noted Date Diagnosed Date Resolved Date Headache(784.0) 10/27/2011 08/17/2016 Dysmenorrhea 04/02/2011 08/17/2016 Backache, unspecified 07/30/20082016 documented as of this encounter (statuses as of 05/04/2023) [facility] of [facility] illness Narrative* Problem Noted Date Diagnosed Date Resolved Date Headache(784.0) 10/27/2011 08/17/2016 Dysmenorrhea 04/02/2011 08/17/2016 Backache, unspecified 07/30/20082016 documented as of this encounter (statuses as of 05/04/2023) [address]22-2012 History of Past illness Narrative* Problem Noted Date Diagnosed Date Resolved Date Headache(784.0) 10/27/2011 08/17/2016 Dysmenorrhea 04/02/2011 08/17/2016 Backache, unspecified 07/30/20082016 documented as of this encounter (statuses as of 07/19/2023) [address]22-2012 History of Past illness Narrative* Problem Noted Date Diagnosed Date Resolved Date Headache(784.0) 10/27/2011 08/17/2016 Dysmenorrhea 04/02/2011 08/17/2016 Backache, unspecified 07/30/20082016 documented as of this encounter (statuses as of 07/20/2023) [address]22-2012 History of Past illness Narrative* Problem Noted Date Diagnosed Date Resolved Date Headache(784.0) 10/27/2011 08/17/2016 Dysmenorrhea 04/02/2011 08/17/2016 Backache, unspecified 07/30/20082016 documented as of this encounter (statuses as of 08/20/2023) [facility] of [facility] illness Narrative* Problem Noted Date Diagnosed Date Resolved Date Headache(784.0) 10/27/2011 08/17/2016 Dysmenorrhea 04/02/2011 08/17/2016 Backache, unspecified 07/30/20082016 documented as of this encounter (statuses as of 08/23/2023) [facility] of Past illness Narrative* Problem Noted Date Diagnosed Date Resolved Date Headache(784.0) 10/27/2011 08/17/2016 Dysmenorrhea 04/02/2011 08/17/2016 Backache, unspecified 07/30/20082016 documented as of this encounter (statuses as of 08/23/2023) [facility] of [facility] illness Narrative* Problem Noted Date Diagnosed Date Resolved Date Headache(784.0) 10/27/2011 08/17/2016 Dysmenorrhea 04/02/2011 08/17/2016 Backache, unspecified 07/30/20082016 documented as of this encounter (statuses as of 08/23/2023) [facility] note* Diagnosis Strep throat- Primary Streptococcal sore throat Enlargement of left palatine tonsil [facility] Diagnosis Anxiety in in first trimester, antepartum- Primary Depression affecting in first trimester, antepartum 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 Diagnosis Encounter for (NT) nuchal translucency scan- Primary Other specified screening High-risk in first trimester [facility] Diagnosis Pre-existing essential hypertension complicating , first trimester- Primary High-risk in first trimester History of gestational hypertension Prior complicated by IUGR, antepartum with other poor obstetric history Alcohol use disorder History of depression Personal history of other mental disorder History of prior with IUGR [facility] Diagnosis No-show for appointment- Primary documented in this encounter [facility] note* Diagnosis 28 weeks gestation of - Primary state, incidental Pre-existing essential hypertension complicating , first trimester History of gestational hypertension Alcohol use disorder History of depression Personal history of other mental disorder Supervision of high risk , antepartum, third trimester No-show for appointment History of prior with IUGR [facility] Diagnosis OPENED IN ERROR- Primary To allow closing an encounter opened in error (used in SmartSet) documented in this encounter [facility] note* Diagnosis History of prior with IUGR - Primary 28 weeks gestation of state, incidental History of depression Personal history of other mental disorder Supervision of high risk , antepartum, third trimester Pre-existing hypertension complicating in third trimester Benign essential hypertension antepartum [facility] Diagnosis Encounter for ultrasound to check growth- Primary Encounter for routine screening for malformation using ultrasonics Pre-existing hypertension complicating in third trimester Benign essential hypertension antepartum History of prior with IUGR 33 weeks gestation of state, incidental [facility] Diagnosis Supervision of high risk , antepartum, third trimester- Primary Pre-existing hypertension affecting in third trimester History of prior with IUGR GBS bacteriuria Glucose intolerance of Abnormal maternal glucose tolerance, complicating , childbirth, or the puerperium, unspecified as to episode of care Abnormal urine findings Other nonspecific finding on examination of urine 34 weeks gestation of state, incidental NST (non-stress test) reactive Other specified screening [facility] Diagnosis Pre-existing hypertension affecting in third trimester- Primary [facility] Diagnosis Supervision of high risk in third trimester- Primary Unspecified high-risk Chronic hypertension in Benign essential hypertension complicating , childbirth, and the puerperium, unspecified as to episode of care 36 weeks gestation of state, incidental NST (non-stress test) nonreactive Abnormal findings on screening History of prior with IUGR Glucose intolerance of Abnormal maternal glucose tolerance, complicating , childbirth, or the puerperium, unspecified as to episode of care 36 weeks gestation of - Primary state, incidental NST (non-stress test) nonreactive Abnormal findings on screening [facility] Diagnosis 36 weeks gestation of - Primary state, incidental NST (non-stress test) nonreactive Abnormal findings on screening [facility] Diagnosis Anxiety and depression- Primary Dysthymic disorder [facility] Diagnosis Supervision of high risk in third trimester- Primary Unspecified high-risk History of prior with IUGR GBS bacteriuria NST (non-stress test) reactive Other specified screening Anxiety and depression Dysthymic disorder Pre-existing hypertension affecting in third trimester History of depression Personal history of other mental disorder [facility] Diagnosis Pre-existing hypertension complicating in third trimester- Primary Benign essential hypertension antepartum History of prior with IUGR 37 weeks gestation of state, incidental [facility] Diagnosis Supervision of high risk , antepartum, third trimester- Primary Chronic hypertension in Benign essential hypertension complicating , childbirth, and the puerperium, unspecified as to episode of care NST (non-stress test) reactive Other specified screening History of gestational hypertension Alcohol use disorder History of depression Personal history of other mental disorder History of prior with IUGR [facility] Diagnosis Chronic hypertension in - Primary Benign essential hypertension complicating , childbirth, and the puerperium, unspecified as to episode of care History of marijuana use History of alcohol use Personal history of alcoholism Supervision of high risk in third trimester Unspecified high-risk History of prior with IUGR NST (non-stress test) reactive Other specified screening [facility] Diagnosis Chronic hypertension in - Primary Benign essential hypertension complicating , childbirth, and the puerperium, unspecified as to episode of care 38 weeks gestation of state, incidental [facility] Diagnosis Chronic hypertension in - Primary Benign essential hypertension complicating , childbirth, and the puerperium, unspecified as to episode of care History of alcohol use Personal history of alcoholism NST (non-stress test) reactive Other specified screening GBS bacteriuria Supervision of high risk in third trimester Unspecified high-risk Anxiety and depression Dysthymic disorder History of prior with IUGR [facility] Diagnosis Anxiety and depression Dysthymic disorder [facility] Diagnosis No-show for appointment- Primary documented in this encounter [facility] note* Diagnosis Aggressive behavior- Primary Explosive personality disorder Alcoholic intoxication without complication ([facility]-HCC) documented in this encounter [facility] Work Phone: Evaluation note* Diagnosis Alcoholic intoxication with complication (CMS-HCC)- Primary documented in this encounter [facility] Work Phone: Hospital Discharge instructions* Attachments The following attachments cannot be sent through Care Everywhere. * Alcohol use when is drinking a problem? (Maltese) [facility] Reason for referral (narrative)* Outpatient Procedure (Routine) - Pending Review Specialty Diagnoses / Procedures Referred By Contac t Referred To [facility] Diagnoses Severe episode of recurrent major depressive disorder, without psychotic features (HCC) Procedures ECG COMPLETE ECG ROUTINE ECG W/LEAST 12 LDS W/I&R Carri Rivas DO [address] [place] [address] [facility] [address] [address] Referral ID Status Reason Start Date Expiration Date Visits Requested Visits Authorized [id number] Pending Review Auto-Generat ed Referral 3 04/19/2024 [address] [facility] for referral (narrative)* Diagnostic Procedure Only (Routine) - Closed Specialty Diagnoses / Procedures Referred By Contac t Referred To Contact [facility] Diagnoses 28 weeks gestation of History of depression Supervision of high risk , antepartum, third trimester Procedures OBSTETRIC ULTRASOUND WHI US PREG UTERUS AFTER 1ST TRIMEST GESTATION Luis Pratt APRN.CNM [address] [place] [address] [address] Referral ID Status Reason Start Date Expiration Date V isits Requested Visits Authorized [id number] Closed Auto-Generate d Referral 08/20/2023 08/19/2024 [address] [facility] for referral (narrative)* Diagnostic Procedure Only (Routine) - Pending Review Specialty Diagnoses / Procedures Referred By Contac t Referred To Contact [facility] Diagnoses Supervision of high risk , antepartum, third trimester Procedures OBSTETRIC ULTRASOUND WHI US PREG UTERUS AFTER 1ST TRIMEST GESTATION Violeta Sandoval APRN.CNM [address] [address] Referral ID Status Reason Start Date Expiration Date Visits Requested Visits Authorized [id number] Pending Review Auto-Generat ed Referral 08/18/2023 08/17/2024 [address] [facility] for referral (narrative)* Diagnostic Procedure Only (Routine) - Authorized Specialty Diagnoses / Procedures Referred By Contac t Referred To Contact [facility] Diagnoses Pre-existing hypertension complicating in third trimester History of prior with IUGR Procedures OBSTETRIC ULTRASOUND WHI US PREG UTERUS AFTER 1ST TRIMEST GESTATION Kenna Sharif MD [address] [place] [address] [facility] [address] [place] [address] Referral ID Status Reason Start Date Expiration Date Visits Requested Visits Authorized [id number] Authorized Auto-Generat ed Referral 09/10/2023 08/19/2024 [address] [facility] for referral (narrative)* Diagnostic Procedure Only (Routine) - Pending Review Specialty Diagnoses / Procedures Referred By Contac t Referred To Contact [facility] Diagnoses Pre-existing hypertension complicating in third trimester Procedures OBSTETRIC ULTRASOUND WHI US PREG UTERUS AFTER 1ST [place] [address] [place] [address] [place] [place] [address] Referral ID Status Reason Start Date Expiration Date Visits Requested Visits Authorized [id number] Pending Review Auto-Generat ed Referral 09/20/2023 09/19/2024 [address] [facility] for referral (narrative)* Outpatient Procedure (Routine) - Pending Review Specialty Diagnoses / Procedures Referred By Contac t Referred To Contact Diagnoses Pre-existing hypertension affecting in third trimester History of prior with IUGR 34 weeks gestation of NST (non-stress test) reactive Procedures NON-STRESS TEST NON-STRESS TEST Hailee Landeros APRN.DINKEY ENGINE FIRER/FIREMAN [address] [place] [address] Referral ID Status Reason Start Date Expiration Date Visits Requested Visits Authorized [id number] Pending Review Auto-Generat ed Referral 09/28/2023 09/27/2024 [address] [facility] for referral (narrative)* Outpatient Procedure (Routine) - Pending Review Specialty Diagnoses / Procedures Referred By Contac t Referred To Contact Diagnoses Chronic hypertension in NST (non-stress test) nonreactive Procedures NON-STRESS TEST [place] [address] [place] [address] Referral ID Status Reason Start Date Expiration Date Visits Requested Visits Authorized [id number] Pending Review Auto-Generat ed Referral 10/11/2023 10/10/2024 1 1 * Diagnostic Procedure Only (Routine) - Closed Specialty Diagnoses / Procedures Referred By Contac t Referred To Contact [facility] Diagnoses NST (non-stress test) nonreactive Procedures BIOPHYSICAL PROFILE US I BIOPHYSICAL PROFILE [place] [address] [place] [address] [facility] [address] [place] [address] Referral ID Status Reason Start Date Expiration Date V isits Requested Visits Authorized [id number] Closed Auto-Generate d Referral 10/11/2023 10/10/2024 [address] [facility] for referral (narrative)* Diagnostic Procedure Only (Routine) - Pending Review Specialty Diagnoses / Procedures Referred By Contac t Referred To Contact [facility] Diagnoses NST (non-stress test) nonreactive 36 weeks gestation of Procedures BIOPHYSICAL PROFILE US WHI BIOPHYSICAL PROFILE [place] [address] [address] [facility] [address] [place] [address] Referral ID Status Reason Start Date Expiration Date Visits Requested Visits Authorized [id number] Pending Review Auto-Generat ed Referral 10/11/2023 10/10/2024 [address] [facility] for referral (narrative)* Outpatient Procedure (Routine) - Pending Review Specialty Diagnoses / Procedures Referred By Contac t Referred To Contact Diagnoses NST (non-stress test) reactive Pre-existing hypertension affecting in third trimester Supervision of high risk in third trimester Procedures NON-STRESS TEST [place] [address] [place] [address] Referral ID Status Reason Start Date Expiration Date Visits Requested Visits Authorized [id number] Pending Review Auto-Generat ed Referral 10/17/2023 10/16/2024 [address] [facility] for referral (narrative)* Outpatient Procedure (Routine) - Pending Review Specialty Diagnoses / Procedures Referred By Contac t Referred To Contact Diagnoses Chronic hypertension in NST (non-stress test) reactive Procedures NON-STRESS TEST [place] [address] [place] [address] Referral ID Status Reason Start Date Expiration Date Visits Requested Visits Authorized [id number] Pending Review Auto-Generat ed Referral 10/20/2023 10/19/2024 [address] [facility] for referral (narrative)* Outpatient Procedure (Routine) - Pending Review Specialty Diagnoses / Procedures Referred By Contac t Referred To Contact Diagnoses Chronic hypertension in NST (non-stress test) reactive Procedures NON-STRESS TEST [place] [address] [place] [address] Referral ID Status Reason Start Date Expiration Date Visits Requested Visits Authorized [id number] Pending Review Auto-Generat ed Referral 10/24/2023 10/23/2024 [address] [facility] for referral (narrative)* Outpatient Procedure (Routine) - Pending Review Specialty Diagnoses / Procedures Referred By Contac t Referred To Contact Diagnoses Chronic hypertension in NST (non-stress test) reactive Procedures NON-STRESS TEST [place] [address] [place] [id number] Referral ID Status Reason Start Date Expiration Date Visits Requested Visits Authorized [id number] Pending Review Auto-Generat ed Referral 11/01/2023 10/31/2024 [address] [facility] for visit Narrative* Diagnostic Procedure Only (Routine) - Closed Specialty Diagnoses / Procedures Referred By Cipriano keene Referred To Contact [facility] Diagnoses NST (non-stress test) nonreactive Procedures BIOPHYSICAL PROFILE US I BIOPHYSICAL PROFILE [place] [address] [place] [id number] [facility] [address] [place] [address] Referral ID Status Reason Start Date Expiration Date V isits Requested Visits Authorized [id number] Closed Auto-Generate d Referral 10/11/2023 10/10/2024 [address] [facility] Discharge Instructions * Instructions* Daniel Thomas MD - 10/04/2019 Return to the emergency department if you have any further symptoms. Take ibuprofen or acetaminophen for headache. 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 Advance Directives and Living Will Power of Director Zone Latest Code Status on File Code Status Date Activated Date Inactivated Comments Full Code 03/19/2017 6:35 AM 03/21/2017 11:49 PM Full Code 03/18/2017 6:48 PM 03/19/2017 6:35 AM Summary Purpose Family History No Family History Records FoundNo Family History Records FoundNo Family History Records FoundNo Family History Records FoundNo Family History Records FoundNo Family History Records FoundNo Family History Records FoundNo Family History Records FoundNo Family History Records FoundNo Family History Records FoundNo Family History Records Found Health Concerns Problem Noted Date Diagnosed Date [facility] Education - [place] 03/24/2023 [place] - [place] 03/24/2023 Problem Noted Date Diagnosed Date [facility] Education - [place] 03/24/2023 [place] - [place] 03/24/2023 Problem Noted Date Diagnosed Date [facility] Education - [place]ON 03/24/2023 Education - [place] 03/24/2023 Problem Noted Date Diagnosed Date [facility] Education - COMMON 03/24/2023 Education - [place] 03/24/2023 Problem Noted Date Diagnosed Date [facility] Education - [place]ON 03/24/2023 Education - [place] 03/24/2023 Problem Noted Date Diagnosed Date [facility] Education - [place]ON 03/24/2023 Education - [place] 03/24/2023 Problem Noted Date Diagnosed Date [facility] Education - [place] 03/24/2023 Education - [place] 03/24/2023 Problem Noted Date Diagnosed Date [facility] Education - [place]ON 03/24/2023 [place] - [place] 03/24/2023 Problem Noted Date Diagnosed Date [facility] Education - [place]ON 03/24/2023 Education - [place] 03/24/2023 Active Problems Noted Date Diagnosed Date [facility] Education - [place]ON 03/24/2023 [place] - [place] 03/24/2023 Active Problems Noted Date Diagnosed Date [facility] Education - [place]ON 03/24/2023 Education - [place] 03/24/2023 Active Problems Noted Date Diagnosed Date [facility] Education - [place]ON 03/24/2023 [place] - [place] 03/24/2023 Active Problems Noted Date Diagnosed Date [facility] Education - [place]ON 03/24/2023 Education - [place] 03/24/2023 Active Problems Noted Date Diagnosed Date [facility] Education - [place]ON 03/24/2023 Education - [place] 03/24/2023 Active Problems Noted Date Diagnosed Date [facility] Education - COMMON 03/24/2023 [place] - [place] 03/24/2023 Additional Source Comments Reason for Visit (unrecogniz ed section and content) Reason Comments Shortness of Breath Reason Comments Sore Throat Started yesterday Reason Comments OB Navigation and Pr egnancy Resources Reason Comments Anxiety Reason Comments US Specialty Diagnoses / Procedures Referred By Contac t Referred To Contact [facility] Diagnoses High-risk in first trimester Procedures NUCHAL TRANSLUCENCY WHI US NUCHAL TRANSLUCENCY 1ST GESTATION Violeta Sandoval APRN.RENEEM [address] [place] [address] [facility] [address] [place] [address] Referral ID Status Reason Start Date Expiration Date V isits Requested Visits Authorized [id number] Closed Auto-Generate d Referral 03/24/2023 03/23/2024 1 1 Reason Comments Consult Specialty Diagnoses / Procedures Referred By Contac t Referred To Contact Diagnoses High-risk in first trimester History of gestational hypertension Prior complicated by IUGR, antepartum Alcohol use disorder Procedures CONSULT TO MATERNAL MEDI OFFICE/OUTPATIENT NEW HIGH MDM 60-74 MINUTES Violeta Sandoval APRN.CNM [address] [place] [id number] Referral ID Status Reason Start Date Expiration Date Visits Requested Visits Authorized [id number] Pending Review PCP Requested Referral Auto-Generate d Referral 3 03/23/2024 1 1 Reason Comments No Show Reason Comments Care 28 weeks, no concern s at this time. Reason Comments US Specialty Diagnoses / Procedures Referred By Contac t Referred To Contact [facility] Diagnoses 28 weeks gestation of History of depression Supervision of high risk , antepartum, third trimester Procedures OBSTETRIC ULTRASOUND WHI US PREG UTERUS AFTER 1ST TRIMEST GESTATION Luis Pratt APRN.RENEEM [address] [place] [address] [facility] [address] [place] [address] Referral ID Status Reason Start Date Expiration Date V isits Requested Visits Authorized [id number] Closed Auto-Generate d Referral 08/20/2023 08/19/2024 1 1 Reason Comments Resources Reason Comments Vaginal Discharge Specialty Diagnoses / Procedures Referred By Contac t Referred To Contact [facility] Diagnoses Pre-existing hypertension complicating in third trimester History of prior with IUGR Procedures OBSTETRIC ULTRASOUND WHI US PREG UTERUS AFTER 1ST TRIMEST GESTATION Kenna Sharif MD [address] [place] [address] [address] Referral ID Status Reason Start Date Expiration Date V isits Requested Visits Authorized [id number] Closed Auto-Generate d Referral 09/10/2023 08/19/2024 1 1 Reason Comments Appointment Reason Comments Care 34 1/7 weeks Reason Comments BP Check Reason Comments Nst (Non Stress Test) Care Reason Comments BP Log Reason Comments Clinical Update Reason Comments Nst (Non Stress Test) 35 and 1/7 weeks Specialty Diagnoses / Procedures Referred By Contac t Referred To Contact [facility] Diagnoses Pre-existing hypertension complicating in third trimester Procedures OBSTETRIC ULTRASOUND WHI US PREG UTERUS AFTER 1ST [place]IME[place] [address] [place] [address] [address] Referral ID Status Reason Start Date Expiration Date V isits Requested Visits Authorized [id number] Closed Auto-Generate d Referral 09/20/2023 09/19/2024 1 1 Reason Comments Nst (Non Stress Test) Care [id number] Reason Comments Nst (Non Stress Test) Specialty Diagnoses / Procedures Referred By Contac t Referred To Contact [facility] Diagnoses NST (non-stress test) nonreactive 36 weeks gestation of Procedures BIOPHYSICAL PROFILE US WHI BIOPHYSICAL PROFILE [place] [address] [address] Referral ID Status Reason Start Date Expiration Date V isits Requested Visits Authorized [id number] Closed Auto-Generate d Referral 10/11/2023 10/10/2024 10 1 Reason Comments Care 37 and 3/7 weeks Nst (Non Stress Test) Reason Comments Refill Request Reason Comments Homicidal Pt at home tonight d rinking wine. Got into domestic with family. Family called PD fearful of pt becoming homicidal. No details on how/why specifically. Pt recently discharged from [facility]. EMS states pt noncompliant with meds since discharge. Pt argumentative but cooperative Reason Comments Psychiatric Evaluation INFORMATION SOURCE (unrecogn ized section and content) DATE CREATED AUTHOR 03/05/2020 [facility] DATE CREATED AUTHOR AUTHOR'S ORGANIZ ATION 03/16/2020 [employer] DATE CREATED AUTHOR AUTHOR'S ORGANIZ ATION 06/04/2021 [facility] DATE CREATED AUTHOR AUTHOR'S ORGANIZ ATION 12/24/2022 [facility] DATE CREATED AUTHOR AUTHOR'S ORGANIZ ATION 05/06/2023 [facility] DATE CREATED AUTHOR AUTHOR'S ORGANIZ ATION 10/26/2023 [facility] DATE CREATED AUTHOR AUTHOR'S ORGANIZ ATION 11/03/2023 [facility] DATE CREATED AUTHOR AUTHOR'S ORGANIZ ATION 12/29/2023 [facility] DATE CREATED AUTHOR AUTHOR'S ORGANIZ ATION 06/29/2024 [facility] DATE CREATED AUTHOR AUTHOR'S ORGANIZ ATION 07/05/2024 [facility] DATE CREATED AUTHOR AUTHOR'S ORGANIZ ATION 08/24/2024 [facility] Source Comments (unrecognize d section and content) In the event this informatio n is protected by the Federal Confidentiality of Alcohol and Drug Abuse Patient Records regulations: The Federal rules restrict any use of the information to criminally investigate or prosecute any alcohol or drug abuse patient.[facility] the event this information is protected by the Federal Confidentiality of Alcohol and Drug Abuse Patient Records regulations: The Federal rules restrict any use of the information to criminally investigate or prosecute any alcohol or drug abuse patient.[facility] the event this information is protected by the Federal Confidentiality of Alcohol and Drug Abuse Patient Records regulations: The Federal rules restrict any use of the information to criminally investigate or prosecute any alcohol or drug abuse patient.[facility] Center[facility] the event this information is protected by the Federal Confidentiality of Alcohol and Drug Abuse Patient Records regulations: The Federal rules restrict any use of the information to criminally investigate or prosecute any alcohol or drug abuse patient.[facility] Center[facility] the event this information is protected by the Federal Confidentiality of Alcohol and Drug Abuse Patient Records regulations: The Federal rules restrict any use of the information to criminally investigate or prosecute any alcohol or drug abuse patient.[facility] Center[facility] the event this information is protected by the Federal Confidentiality of Alcohol and Drug Abuse Patient Records regulations: The Federal rules restrict any use of the information to criminally investigate or prosecute any alcohol or drug abuse patient.[facility] Center[facility] the event this information is protected by the Federal Confidentiality of Alcohol and Drug Abuse Patient Records regulations: The Federal rules restrict any use of the information to criminally investigate or prosecute any alcohol or drug abuse patient.[facility] Center[facility] the event this information is protected by the Federal Confidentiality of Alcohol and Drug Abuse Patient Records regulations: The Federal rules restrict any use of the information to criminally investigate or prosecute any alcohol or drug abuse patient.[facility] Center[facility] the event this information is protected by the Federal Confidentiality of Alcohol and Drug Abuse Patient Records regulations: The Federal rules restrict any use of the information to criminally investigate or prosecute any alcohol or drug abuse patient.[facility] Center[facility] the event this information is protected by the Federal Confidentiality of Alcohol and Drug Abuse Patient Records regulations: The Federal rules restrict any use of the information to criminally investigate or prosecute any alcohol or drug abuse patient.[facility] Center[facility] the event this information is protected by the Federal Confidentiality of Alcohol and Drug Abuse Patient Records regulations: The Federal rules restrict any use of the information to criminally investigate or prosecute any alcohol or drug abuse patient.[facility] Center[facility] the event this information is protected by the Federal Confidentiality of Alcohol and Drug Abuse Patient Records regulations: The Federal rules restrict any use of the information to criminally investigate or prosecute any alcohol or drug abuse patient.[facility] Center[facility] the event this information is protected by the Federal Confidentiality of Alcohol and Drug Abuse Patient Records regulations: The Federal rules restrict any use of the information to criminally investigate or prosecute any alcohol or drug abuse patient.[facility] Center[facility] the event this information is protected by the Federal Confidentiality of Alcohol and Drug Abuse Patient Records regulations: The Federal rules restrict any use of the information to criminally investigate or prosecute any alcohol or drug abuse patient.[facility] CenterIn the event this information is protected by the Federal Confidentiality of Alcohol and Drug Abuse Patient Records regulations: The Federal rules restrict any use of the information to criminally investigate or prosecute any alcohol or drug abuse patient.[facility] CenterIn the event this information is protected by the Federal Confidentiality of Alcohol and Drug Abuse Patient Records regulations: The Federal rules restrict any use of the information to criminally investigate or prosecute any alcohol or drug abuse patient.[facility] CenterIn the event this information is protected by the Federal Confidentiality of Alcohol and Drug Abuse Patient Records regulations: The Federal rules restrict any use of the information to criminally investigate or prosecute any alcohol or drug abuse patient.[facility] CenterIn the event this information is protected by the Federal Confidentiality of Alcohol and Drug Abuse Patient Records regulations: The Federal rules restrict any use of the information to criminally investigate or prosecute any alcohol or drug abuse patient.[facility] CenterIn the event this information is protected by the Federal Confidentiality of Alcohol and Drug Abuse Patient Records regulations: The Federal rules restrict any use of the information to criminally investigate or prosecute any alcohol or drug abuse patient.[facility] CenterIn the event this information is protected by the Federal Confidentiality of Alcohol and Drug Abuse Patient Records regulations: The Federal rules restrict any use of the information to criminally investigate or prosecute any alcohol or drug abuse patient.[facility] CenterIn the event this information is protected by the Federal Confidentiality of Alcohol and Drug Abuse Patient Records regulations: The Federal rules restrict any use of the information to criminally investigate or prosecute any alcohol or drug abuse patient.[facility] CenterIn the event this information is protected by the Federal Confidentiality of Alcohol and Drug Abuse Patient Records regulations: The Federal rules restrict any use of the information to criminally investigate or prosecute any alcohol or drug abuse patient.[facility] CenterIn the event this information is protected by the Federal Confidentiality of Alcohol and Drug Abuse Patient Records regulations: The Federal rules restrict any use of the information to criminally investigate or prosecute any alcohol or drug abuse patient.[facility] CenterIn the event this information is protected by the Federal Confidentiality of Alcohol and Drug Abuse Patient Records regulations: The Federal rules restrict any use of the information to criminally investigate or prosecute any alcohol or drug abuse patient.[facility] [facility] CenterIn the event this information is protected by the Federal Confidentiality of Alcohol and Drug Abuse Patient Records regulations: The Federal rules restrict any use of the information to criminally investigate or prosecute any alcohol or drug abuse patient.[facility] CenterIn the event this information is protected by the Federal Confidentiality of Alcohol and Drug Abuse Patient Records regulations: The Federal rules restrict any use of the information to criminally investigate or prosecute any alcohol or drug abuse patient.[facility] CenterIn the event this information is protected by the Federal Confidentiality of Alcohol and Drug Abuse Patient Records regulations: The Federal rules restrict any use of the information to criminally investigate or prosecute any alcohol or drug abuse patient.[facility] CenterIn the event this information is protected by the Federal Confidentiality of Alcohol and Drug Abuse Patient Records regulations: The Federal rules restrict any use of the information to criminally investigate or prosecute any alcohol or drug abuse patient.[facility] CenterIn the event this information is protected by the Federal Confidentiality of Alcohol and Drug Abuse Patient Records regulations: The Federal rules restrict any use of the information to criminally investigate or prosecute any alcohol or drug abuse patient.[facility] CenterIn the event this information is protected by the Federal Confidentiality of Alcohol and Drug Abuse Patient Records regulations: The Federal rules restrict any use of the information to criminally investigate or prosecute any alcohol or drug abuse patient.[facility] CenterIn the event this information is protected by the Federal Confidentiality of Alcohol and Drug Abuse Patient Records regulations: The Federal rules restrict any use of the information to criminally investigate or prosecute any alcohol or drug abuse patient.[facility] CenterIn the event this information is protected by the Federal Confidentiality of Alcohol and Drug Abuse Patient Records regulations: The Federal rules restrict any use of the information to criminally investigate or prosecute any alcohol or drug abuse patient.[facility] CenterIn the event this information is protected by the Federal Confidentiality of Alcohol and Drug Abuse Patient Records regulations: The Federal rules restrict any use of the information to criminally investigate or prosecute any alcohol or drug abuse patient.[facility] CenterIn the event this information is protected by the Federal Confidentiality of Alcohol and Drug Abuse Patient Records regulations: The Federal rules restrict any use of the information to criminally investigate or prosecute any alcohol or drug abuse patient.[facility] CenterIn the event this information is protected by the Federal Confidentiality of Alcohol and Drug Abuse Patient Records regulations: The Federal rules restrict any use of the information to criminally investigate or prosecute any alcohol or drug abuse patient.[facility] CenterIn the event this information is protected by the Federal Confidentiality of Alcohol and Drug Abuse Patient Records regulations: The Federal rules restrict any use of the information to criminally investigate or prosecute any alcohol or drug abuse patient.[facility] Teams (unrecognized sec tion and content) Supervisor Molding Relationship Specialty Start Date End Date Lo Rosario DO [address] [place] [address] PCP - General Family Medicine 09/13/17 Supervisor Molding Relationship Specialty Start Date End Date Lo Rosario DO [address] [place] [address] PCP - General Family Medicine 09/13/17 Supervisor Molding Relationship Specialty Start Date End Date Lo Rosario DO [address] [place] [address] PCP - General Family Medicine 09/13/17 Supervisor Molding Relationship Specialty Start Date End Date Lo Rosario MD [address] [place] [address] PCP - General Family Medicine 09/13/17 Supervisor Molding Relationship Specialty Start Date End Date Lo Rosario MD [address] [place] [address] PCP - General Family Medicine 09/13/17 Supervisor Molding Relationship Specialty Start Date End Date Lo Rosario MD [address] [place] [address] PCP - General Family Medicine 09/13/17 Supervisor Molding Relationship Specialty Start Date End Date Lo Rosario MD [address] [place] [address] PCP - General Family Medicine 09/13/17 Supervisor Molding Relationship Specialty Start Date End Date Lo Rosario MD [address] [place] [address] PCP - General Family Medicine 09/13/17 Supervisor Molding Relationship Specialty Start Date End Date Lo Rosario MD [address] [place] [address] PCP - General Family Medicine 09/13/17 Supervisor Molding Relationship Specialty Start Date End Date Lo Rosario MD [address] [place] [address] PCP - General Family Medicine 09/13/17 Supervisor Molding Relationship Specialty Start Date End Date Lo Rosario MD [address] [place] [address] PCP - General Family Medicine 09/13/17 Supervisor Molding Relationship Specialty Start Date End Date Lo Rosario MD [address] [place] [address] PCP - General Family Medicine 09/13/17 Supervisor Molding Relationship Specialty Start Date End Date Lo Rosario MD [address] [place] [address] PCP - General Family Medicine 09/13/17 Supervisor Molding Relationship Specialty Start Date End Date Lo Rosario MD [address] [place] [address] PCP - General Family Medicine 09/13/17 Supervisor Molding Relationship Specialty Start Date End Date Lo Rosario MD [address] [place] [address] PCP - General Family Medicine 09/13/17 Supervisor Molding Relationship Specialty Start Date End Date Lo Rosario MD [address] [place] [address] PCP - General Family Medicine 09/13/17 Supervisor Molding Relationship Specialty Start Date End Date Lo Rosario MD [address] [place] [address] PCP - General Family Medicine 09/13/17 Supervisor Molding Relationship Specialty Start Date End Date Lo Rosario MD [address] [place] [address] PCP - General Family Medicine 09/13/17 Supervisor Molding Relationship Specialty Start Date End Date Lo Rosario MD [address] [place] [address] PCP - General Family Medicine 09/13/17 Supervisor Molding Relationship Specialty Start Date End Date Lo Rosario MD [address] [place] [address] PCP - General Family Medicine 09/13/17 Supervisor Molding Relationship Specialty Start Date End Date Lo Rosario MD [address] [place] [address] PCP - General Family Medicine 09/13/17 Supervisor Molding Relationship Specialty Start Date End Date Lo Rosario MD [address] [place] [address] PCP - General Family Medicine 09/13/17 Supervisor Molding Relationship Specialty Start Date End Date Lo Rosario MD [address] [facility] [address] [place] [address] PCP - General Family Medicine 09/13/17 Supervisor Molding Relationship Specialty Start Date End Date Lo Rosario MD [address] [place] [address] [address] [place] [address] PCP - General Family Medicine 09/13/17 Supervisor Molding Relationship Specialty Start Date End Date Lo Rosario MD [address] [place] [address] [address] [place] [address] PCP - General Family Medicine 09/13/17 Supervisor Molding Relationship Specialty Start Date End Date Lo Rosario MD [address] [place] [address] [address] [place] [address] PCP - General Family Medicine 09/13/17 Supervisor Molding Relationship Specialty Start Date End Date Lo Rosario DO [address] [place] [address] [address] [place] [address] PCP - General 03/16/20 Supervisor Molding Relationship Specialty Start Date End Date Lo Rosario DO [address] [place] [address] [address] [place], [place] [id number] PCP - General 03/16/20 Scheduled Active and Recently Administ ered Medications (unrecognized section and content) Medication Order 12/21/2023 12/22/2023 12/23/2023 folic acid (Folvite) tablet 1 mg (COMPLETED) 1 mg, oral, Once, On Anabel 12/23/23 at 0040, For 1 dose 0747 (Given - Provid er: Nichole Mendez RN) multivitamin with minerals 1 tablet (COMPLETED) 1 tablet, oral, Once, On Wed12/23/23 at 0040, For 1 dose 0747 (Given - Provid er: Nichole Mendez RN) thiamine (Vitamin B-1) tablet 100 mg (COMPLETED) 100 mg, oral, Once, On Wed12/23/23 at 0040, For 1 dose 0746 (Given - Provid er: Nichole Mendez RN - Comment: Pt sleeping) Scheduled Medication Order 12/26/2023 12/27/2023 12/28/2023 acetaminophen (Tylenol) tablet 975 mg 975 mg, oral, Once, On Wed12/27/23 at 0425, For 1 dose, If ordered PRN for pain, nurse is permitted to administer this medication for higher pain scores based on patient preference? Yes 424 (Not Given - Provider: Annie Wise RN - Reason: Patient/family refused - Comment: pt states she is feeling better now and doesnt want the med at this time) melatonin tablet 3 mg 3 mg, oral, Daily, First dose on Wed12/27/23 at 1800 2015 (Given - Provider: Shaina Ramirez RN - Comment: pt requested medication to help her sleep at this time) 1800 (Due) melatonin tablet 5 mg (COMPLETED) 5 mg, oral, Once, On Wed12/26/23 at 2310, For 1 dose 2351 (Given - Provider: Annie Wise RN) sodium chloride 0.9 % bolus 1,000 mL (COMPLETED) 1,000 mL, intravenous, at 999 mL/hr, Administer over 1 Hours, Once, On Wed12/26/23 at 2310, For 1 dose 2351 (New Bag - Provider: Annie Wise, MJ) 51 (Stopped - Provider: Oh Murillo RN) PRN Medication Order 12/26/2023 12/27/2023 12/28/2023 LORazepam (Ativan) injection 0.5 mg(Linked Group 1) 0.5 mg, intravenous, Administer over 5 Minutes, Every 2 hour PRN, CIWA score 6-7 or HR greater than 100, Starting on 12/26/23 at 1743, Maximum rate of 2 mg/min. 0643 (See Alternative - Provider: Annie Wise, MJ) LORazepam (Ativan) injection 1 mg(Linked Group 1) 1 mg, intravenous, Administer over 5 Minutes, Every 2 hour PRN, CIWA score 8-9, Starting on 12/26/23 at 1743, Maximum rate of 2 mg/min. 0643 (Given - Provider: Roge Wise RN) LORazepam (Ativan) injection 2 mg(Linked Group 1) 2 mg, intravenous, Administer over 5 Minutes, Every 2 hour PRN, CIWA score greater than 9, Starting on 12/26/23 at 1743, Maximum rate of 2 mg/min. 0643 (See Alternative - Provider: Annie Wise RN) Linked Groups Order Group 1: LORazepam (Ativan) injection 0.5 mgJump to med 0.5 mg, intravenous, Administer over 5 Minutes, Every 2 hour PRN, CIWA score 6-7 or HR greater than 100, Starting on 12/26/23 at 1743, Maximum rate of 2 mg/min. Or LORazepam (Ativan) injection 1 mgJump to med 1 mg, intravenous, Administer over 5 Minutes, Every 2 hour PRN, CIWA score 8-9, Starting on 12/26/23 at 1743, Maximum rate of 2 mg/min. Or LORazepam (Ativan) injection 2 mgJump to med 2 mg, intravenous, Administer over 5 Minutes, Every 2 hour PRN, CIWA score greater than 9, Starting on 12/26/23 at 1743, Maximum rate of 2 mg/min. FOR RECORDS PERTAINING TO PATIENTS WHO ARE OR HAVE BEEN ENROLLED IN A CHEMICAL DEPENDENCY/SUBSTANCEABUSE PROGRAM, SOME INFORMATION MAY BE OMITTED. This clinical summary was aggregated from multiple sources. Caution should be exercised in using it in the provision of clinical care. This summary normalizes information from multiple sources, and as a consequence, information in this document may materially change the coding, format and clinical context of patient data. In addition, data may be omitted in some cases. CLINICAL DECISIONS SHOULD BE BASED ON THE PRIMARY CLINICAL RECORDS. [facility] [employer] [facility]. provides no warranty or guarantee of the accuracy or completeness of information in this document.
--- NOTE | 2025-04-30 18:50 | ED.RN ---
PT. LEFT DEPARTMENT WITHOUT TAKING PAPERWORK.
== END 2025-04-30 18:51 | disposition left against medical advice (07) ==
PROVIDERS: Emergency Provider Emergency Medicine; Visit Provider Emergency Medicine
DX: O99.311 Alcohol use complicating pregnancy, first trimester (principal); F10.230 Alcohol dependence with withdrawal, uncomplicated; Y90.0 Blood alcohol level of less than 20 mg/100 ml; O99.331 Smoking (tobacco) complicating pregnancy, first trimester; F17.290 Nicotine dependence, other tobacco product, uncomplicated; Z3A.09 9 weeks gestation of pregnancy; Z53.29 Procedure and treatment not carried out because of patient's decision for other reasons
CPT/HCPCS: 80053; 80307; 82077; 85025; 85610; 96361; 96374; 96375; 99285; A4216; J2405